=== PATIENT | male | born 1960 | race Caucasian/White ===

== ENCOUNTER 2021-11-05 12:21 | Emergency (ER) | payer OTHER, SELFPAY ==
[2021-11-05 12:41] VITALS: BP 131/81; PULSE 82; RESP 16; TEMP 36.3; O2SAT 97; BMI 25.1
--- NOTE | 2021-11-05 13:32 | ED.CHESTPAIN ---
HPI - Chest Pain General Chief Complaint: Chest Pain Stated Complaint: Tightness in chest, sore upper arms Time Seen by Provider: 11/05/21 13:12 History of Present Illness HPI narrative: 61-year-old man presenting to the emergency department with complaint of intermittent thumping type chest pain the left upper chest. 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 He does not recall a particular injury. It is not occurring at rest. He does acknowledge a history of irregular heartbeat but this does not feel familiar like that. He does acknowledge anxiety and apparently had similar symptoms which were attributed to that in the past. Had COVID 2 years ago and has been put on a number of pills since then. He says that the anxiety started around then. This pain is not particularly radiating although he noted himself to be sore in his shoulders today. Last occurred maybe 3 hours ago. He does take a medication for anxiety he says before going to work at 4:00 a.m. and then another 1 around 3:00 p.m.. Sounds as though he was home early today around 11 30 a.m.. He does take beta-tanya. He notes a history of GERD but has not been having that flaring lately and so has not been taking this medication. No rashes. Does struggle with headaches. During exam it does appear that he chews/grinds his teeth which he acknowledges. Denies a cardiac history in his family. No cough or cold symptoms and pain is not pleuritic. Is also not reproducible. notes cardiac workup some years ago including echocardiogram which was normal Related Data Home Medications Medication Instructions Recorded Confirmed celecoxib 200 mg capsule mg 11/05/21 hydroxyzine HCl 25 mg tablet mg 11/05/21 metoprolol succinate 50 mg mg PO 11/05/21 tablet,extended release 24 hr nortriptyline 10 mg capsule mg 11/05/21 sumatriptan succinate 100 mg tablet mg PO 11/05/21 Allergies Allergy/AdvReac Type Severity Reaction Status Date / Time No Known Drug Allergies Allergy Verified 11/05/21 12:48 Review of Systems Status of ROS Reports: 10 or more systems reviewed and unremarkable except as noted in History and below PFSH PFSH Social History Smoking Status: Never smoker Do you use any of these nicotine containing products: None How often do you have a drink containing alcohol: monthly or less AUDIT-C Alcohol total score: 1 Non-prescribed substance use: denies use Exam Narrative Exam Narrative: Pleasant. NAD. Slim. Well nourished. Calm. Cranial nerves 2-12 intact. Breathing easily. Lungs are clear equal expansion excursion. Palpation of the chest and back does not reproduce pain. He throws his arms up over his head without any difficulty. Equal pulses bilaterally and the upper extremities. Abdomen is protuberant soft and nontender. No masses appreciated. Skin is warm and dry without rash. Cardiovascular was regular rate and rhythm no murmur rub or gallop appreciated. No JVD. Oropharynx with ground dentition Const Vital Signs, click to edit/add: Vital Signs - 24 hr 11/05/21 12:41 11/05/21 14:12 Temperature 97.4 F L Pulse Rate [Right Pulse Oximeter] 82 69 Respiratory Rate 16 18 Blood Pressure [Right Upper Arm] 131/81 126/85 Pulse Oximetry 97 99 Oxygen Delivery Method Room Air Room Air Documenting provider has reviewed patient's vital signs: yes Course Course Hospital Course: No pain. No interventions required Vital Signs Vital signs: Initial Vital Signs Temperature 97.4 F L 11/05/21 12:41 Temperature Source Temporal Artery Scan 11/05/21 12:41 Pulse Rate 82 11/05/21 12:41 Pulse Rhythm 11/05/21 12:41 Respiratory Rate 16 11/05/21 12:41 Blood Pressure 131/81 11/05/21 12:41 Blood Pressure Mean 97 11/05/21 12:41 Blood Pressure Position Sitting 11/05/21 12:41 Pulse Oximetry 97 11/05/21 12:41 Oxygen Delivery Method 11/05/21 12:41 Vital Signs Temperature 97.4 F L 11/05/21 12:41 Pulse Rate 82 11/05/21 12:41 Respiratory Rate 16 11/05/21 12:41 Blood Pressure 131/81 11/05/21 12:41 Pulse Oximetry 97 11/05/21 12:41 Oxygen Delivery Method 11/05/21 12:41 Temperature 97.4 F L 11/05/21 12:41 Pulse Rate 69 11/05/21 14:12 Respiratory Rate 18 11/05/21 14:12 Blood Pressure 126/85 11/05/21 14:12 Pulse Oximetry 99 11/05/21 14:12 Oxygen Delivery Method 11/05/21 14:12 MDM - Chest Pain MDM Narrative Medical decision making narrative: Initial EKG reviewed by me shows normal sinus at 76. Symptoms sound like premature ventricular contractions. Are very transient and do not appear to be ischemic or even msk in origin. Mr. Garner had been requesting departure. Agreed to remain for placement of Holter monitor Lab Data Attestation: I reviewed the patient's lab results. Labs: Lab Results 11/05/21 11/05/21 11/05/21 Range/Units 13:43 14:04 14:04 Hgb 14.6 (13.5-17.5) gm/dL Sodium 139 (135-149) mmol/L Potassium 4.9 (3.6-5.1) mmol/L Chloride 104 (96-114) mmol/L Carbon Dioxide 29 (20-32) mmol/L BUN 14 (7-30) mg/dL Creatinine 0.8 (0.5-1.5) mg/dL Estimated Creat Clear 92.95 Estimated GFR 102 ml/min Glucose 100 (60-115) mg/dL Calcium 9.0 (8.4-10.6) mg/dL Troponin I < 0.01 L (0.01-0.04) ng/mL C-Reactive Protein < 0.5 L (0.5-1.0) mg/dL POC Troponin I 0.00 L (0.01-0.04) ng/ml Discharge Plan Discharge Clinical Impression: Atypical chest pain Patient Disposition: Home w/ Parent or Adult Condition: Stable Additional Instructions: If you can get this Holter monitor placed before you go, return it at the expected time and follow-up in about a week to see results with your primary care provider. Otherwise, in primary care this next week to discuss this visit further and make plans for further evaluation. This might also include a Holter monitor placement. Return for marked increase in persistent pain, associated lightheadedness, shortness of breath. Prescriptions: No Action celecoxib 200 mg capsule Label Comments: TAKE ONE CAPSULE BY MOUTH ONCE DAILY WITH A MEAL metoprolol succinate 50 mg tablet extended release 24 hr PO Label Comments: TAKE ONE TABLET BY MOUTH EVERY DAY sumatriptan succinate 100 mg tablet PO Label Comments: TAKE ONE TABLET BY MOUTH NEEDED FOR MIGRAINE, MAY REPEAT DOSE ONCE IN 2 HOURS IF MIGRAINE UNRESOLVED, DO NOT EXCEED 200 MG IN 24 HOURS nortriptyline 10 mg capsule Label Comments: TAKE TWO CAPSULES BY MOUTH AT BEDTIME hydroxyzine HCl 25 mg tablet Label Comments: TAKE ONE TABLET BY MOUTH TWICE A DAY NEEDED FOR ANXIETY Follow Up/Referrals: Provider,Not a Local [Primary Care Provider] - Stand Alone Forms: [facility] Info Instructions
[2021-11-05 14:12] VITALS: BP 126/85; PULSE 69; RESP 18; O2SAT 99
[2021-11-05 14:14] LABS: Hemoglobin* 14.6 gm/dL (13.5-17.5)
[2021-11-05 14:32] LABS: Chloride* 104 mmol/L (96-114); Potassium* 4.9 mmol/L (3.6-5.1); Sodium* 139 mmol/L (135-149)
[2021-11-05 14:34] LABS: Creatinine* 0.8 mg/dL (0.5-1.5); Est. Creatinine Clearance* 92.95; Estimated Glomerular Filt Rate 102 ml/min
[2021-11-05 14:35] LABS: Blood Urea Nitrogen* 14 mg/dL (7-30); Carbon Dioxide* 29 mmol/L (20-32); Glucose* 100 mg/dL (60-115)
[2021-11-05 14:47] LABS: C Reactive Protein* < 0.5 mg/dL (0.5-1.0); Troponin I* < 0.01 ng/mL (0.01-0.04)
== END 2021-11-05 15:40 | disposition home or self-care (01) ==
PROVIDERS: Emergency Provider Family Medicine
DX: R07.89 Other chest pain (principal)
CPT/HCPCS: 36415; 80048; 84484; 85018; 86140; 93005; 93225; 93226; 99283

== ENCOUNTER 2022-02-11 22:25 | Emergency (ER) | payer OTHER, SELFPAY ==
[2022-02-11 22:41] VITALS: BP 165/90; PULSE 85; RESP 16; TEMP 36.8; O2SAT 98; BMI 24.3
[2022-02-11 23:49] LABS: Basophils Absolute Auto 0.04 K/uL (0.00-0.30); Basophils Percent Auto 0.7 % (0.0-3.0); Eosinophils Absolute Auto 0.21 K/uL (0.00-0.50); Eosinophils Percent Auto 3.7 % (0.0-7.0); Hematocrit 42.9 % (37.0-53.0); Hemoglobin* 14.4 gm/dL (13.5-17.5); Lymphocytes Absolute Auto 2.31 K/uL (0.90-2.90); Lymphocytes Percent Auto 40.4 % (20-44); Mean Corpuscular HGB Conc 34 gm/dL (32-36); Mean Corpuscular Hemoglobin 30 pg (26-34); Mean Corpuscular Volume 88 fL (80-100); Monocytes Percent Auto 11.9 % (0.0-11.0); Neutrophils Absolute Auto 2.48 K/uL (1.7-7.0); Neutrophils Percent Auto 43.3 % (42.0-72.0); Platelet Count* 152 K/uL (140-440); RDW Coefficient of Variation % 14.4 % (11.5-15.5); Red Blood Count 4.86 m/uL (4.30-5.90); Slide Review Reflex No; White Blood Count* 5.72 K/uL (4.50-11.00)
[2022-02-11 23:49] LABS: Appearance Urine Clear (Clear); Bilirubin Urine Negative (Negative); Blood Urine Negative (Negative); Color Urine Yellow (Yellow); Glucose Urine Negative (Negative); Ketones Urine 1+ (Negative); Leukocyte Esterase Urine Negative (Negative); Nitrite Urine Negative (Negative); Protein Urine Negative (Negative); Urobilinogen Urine 0.2 (0.2-1.0)
[2022-02-11 23:56] LABS: RBC Urine 0-2 (0-2); Squamous Epithelial Cell Urine Few (None-Few); WBC Urine 0-2 (0-5)
[2022-02-12 00:01] LABS: Albumin* 4.3 g/dL (3.3-5.0); Chloride* 110 mmol/L (96-114)
[2022-02-12 00:02] LABS: Potassium* 3.8 mmol/L (3.6-5.1); Sodium* 141 mmol/L (135-149)
[2022-02-12 00:04] LABS: Creatinine* 0.7 mg/dL (0.5-1.5); Est. Creatinine Clearance* 106.23; Estimated Glomerular Filt Rate 106 ml/min
[2022-02-12 00:05] LABS: Alanine Aminotransferase* 21 U/L (4-50); Alkaline Phosphatase* 88 U/L (40-150); Aspartate Amino Transferase* 26 U/L (12-35); Bilirubin Direct* 0.1 mg/dL (0.0-0.5); Bilirubin Total* 0.5 mg/dL (0.1-1.5); Blood Urea Nitrogen* 20 mg/dL (7-30); Calcium* 8.8 mg/dL (8.4-10.6); Carbon Dioxide* 23 mmol/L (20-32); Glucose* 88 mg/dL (60-115); Lipase* 50 U/L (23-300); Total Protein* 7.1 g/dL (6.0-8.3)
[2022-02-12 00:08] LABS: C Reactive Protein* < 0.5 mg/dL (0.5-1.0); Ethanol* < 0.01 % (0.01-0.03)
--- NOTE | 2022-02-12 00:34 | ED_ITS ---
HPI - Abdominal Pain General Chief Complaint: Abdominal Pain Stated Complaint: Stomach Pain for Days Time Seen by Provider: 02/12/22 00:16 Source: patient Mode of arrival: ambulatory Limitations: no limitations History of Present Illness HPI narrative: 61-year-old male presents with a 3 day history of intermittent epigastric pain. Achy in nature, not affected by food. He had some mild nausea for about a 1/2 hour once with this episode, but has not continued to have persistent symptoms. There has been no vomiting. His last bowel movement was less than 12 hours ago and was normal, brown and formed. No blood in his stools. He does have a history of prior gastric reflux on specific questioning and states that he had been prescribed medication for this 3 or 4 years ago and is no longer taking. Is not smoke or drink alcohol. Review of the record Rx for arthritis he does report that he occasionally uses ibuprofen for headaches as well. He has not tried any interventions to help with his symptoms, no [id number] medications, no Maalox, omeprazole, other medications. No prior history of abdominal surgeries, no prior history of similar symptoms per his report. No prior endoscopy or colonoscopy. He reports that he had last couple of weeks and ones reportedly negative. Past medical history notable for hypertension, he does take aspirin and an unknown blood pressure medication daily. I can obtain some outside records and it looks as though he is prescribed metoprolol but also amitriptyline, sumatriptan and Celebrex. No known drug allergies. Socially nonsmoker nondrinker with no pertinent travel. ROS is notable for the GI symptoms as above only, otherwise denies times 12 systems. Related Data Home Medications Medication Instructions Recorded Confirmed celecoxib 200 mg capsule mg 11/05/21 hydroxyzine HCl 25 mg tablet mg 11/05/21 metoprolol succinate 50 mg mg PO 11/05/21 tablet,extended release 24 hr nortriptyline 10 mg capsule mg 11/05/21 sumatriptan succinate 100 mg tablet mg PO 11/05/21 Previous Rx's Medication Instructions Recorded omeprazole 20 mg capsule,delayed 20 mg PO DAILY #30 caps 02/12/22 release Allergies Allergy/AdvReac Type Severity Reaction Status Date / Time No Known Drug Allergies Allergy Verified 11/05/21 12:48 PFSH PFS Social History Smoking Status: Never smoker Do you use any of these nicotine containing products: None How often do you have a drink containing alcohol: monthly or less AUDIT-C Alcohol total score: 1 Non-prescribed substance use: denies use Exam Const: Vital Signs, click to edit/add: Vital Signs - 24 hr 02/11/22 22:41 Temperature 98.2 F Pulse Rate [Left P ulse Oximeter] 85 Respiratory Rate 16 Blood Pressure [Le ft Upper Arm] 165/90 H Pulse Oximetry 98 Oxygen Delivery Me thod Room Air Documenting provider has reviewed patient's vital signs: yes Common normals: no apparent distress General appearance: cooperative, comfortable and well kempt HENMT: Common normals: normocephalic Head and scalp: normocephalic Face and sinus: normal facial exam Mouth: oral and palatal mucosa normal Eye: Common normals: conjunctivae normal Conjunctiva: conjunctiva(e) normal Resp: Common normals: normal respiratory effort, no use of accessory muscles and clear to auscultation bilaterally Effort & inspection: able to speak in complete sentences Auscultation: clear to auscultation bilaterally Cardio: Common normals: regular rate, regular rhythm, S1 normal heart sound, S2 normal heart sound, no murmurs and peripheral pulses 2+ throughout Rate: regular rate Rhythm: regular rhythm Heart sounds: S1 normal and S2 normal Peripheral pulses: pulses 2+ throughout GI: Common normals: Normal to inspection, nondistended, normoactive bowel sounds present Other: Mildly tender to epigastric region only. No tenderness to other portions of the abdomen. No rebound tenderness or guarding anywhere. No mass. No hepatosplenomegaly. No surgical scarring. Extremity: Common normals: no pedal edema Neuro: Speech: speech normal Motor exam: no tremor noted and no movement abnormalities noted Psych: Common normals: mental status grossly normal Appearance: well kempt Activity/motor behavior: appropriate eye contact Insight: fair Judgement: judgment good Skin: Common normals: no rashes or lesions noted General skin exam: no rashes or lesions noted Course Vital Signs Vital signs: Initial Vital Signs Temperature 98.2 F 02/11/22 22:41 Temperature Source Temporal Artery Scan 02/11/22 22:41 Pulse Rate 85 02/11/22 22:41 Pulse Rhythm 02/11/22 22:41 Respiratory Rate 16 02/11/22 22:41 Blood Pressure 165/90 H 02/11/22 22:41 Blood Pressure Mean 115 02/11/22 22:41 Blood Pressure Position Sitting 02/11/22 22:41 Pulse Oximetry 98 02/11/22 22:41 Oxygen Delivery Method 02/11/22 22:41 Vital Signs Temperature 98.2 F 02/11/22 22:41 Pulse Rate 85 02/11/22 22:41 Respiratory Rate 16 02/11/22 22:41 Blood Pressure 165/90 H 02/11/22 22:41 Pulse Oximetry 98 02/11/22 22:41 Oxygen Delivery Method 02/11/22 22:41 Temperature 98.2 F 02/11/22 22:41 Pulse Rate 85 02/11/22 22:41 Respiratory Rate 16 02/11/22 22:41 Blood Pressure 165/90 H 02/11/22 22:41 Pulse Oximetry 98 02/11/22 22:41 Oxygen Delivery Method 02/11/22 22:41 MDM - Abdominal Pain MDM Narrative Medical decision making narrative: Physician from previous shift was called away prior to starting exam but did order laboratory studies which I have reviewed. These appear reassuring. Differential diagnosis including pancreatitis, gastritis, stomach ulcer, gastroenteritis, esophagitis, Appendicitis,gallbladder disease. Labs reassuring, exam focusing on stomach only with no severe features. Counseled patient on management. Omeprazole 40 mg p.o. x1 will be given with Carafate 1 g p.o. x1. Will start omeprazole 20 mg once daily for the next couple of weeks. Follow-up with primary care if not improving in a few weeks for discussed workup, testing for H pylori, endoscopy etc.. Alarm symptoms that would warrant ED presentation were reviewed. Lab Data Attestation: I reviewed the patient's lab results. Labs: Lab Results 02/11/22 02/11/22 02/11/22 Range/Units 23:31 23:35 23:40 WBC 5.72 (4.50-11.00) K/uL RBC 4.86 (4.30-5.90) m/uL Hgb 14.4 (13.5-17.5) gm/dL Hct 42.9 (37.0-53.0) % MCV 88 (80-100) fL MCH 30 (26-34) pg MCHC 34 (32-36) gm/dL RDW Coeff of Kaushik 14.4 (11.5-15.5) % Plt Count 152 (140-440) K/uL Neut % (Auto) 43.3 (42.0-72.0) % Lymph % (Auto) 40.4 (20-44) % [place] % (Auto) 11.9 H (0.0-11.0) % Eos % (Auto) 3.7 (0.0-7.0) % Baso % (Auto) 0.7 (0.0-3.0) % Neut # (Auto) 2.48 (1.7-7.0) K/uL Lymph # (Auto) 2.31 (0.90-2.90) K/uL [place] # (Auto) 0.70 (0.00-0.90) K/UL Eos # (Auto) 0.21 (0.00-0.50) K/uL Baso # (Auto) 0.04 (0.00-0.30) K/uL Abs Immat Gran (auto) 0.00 (0.00-0.30) K/uL Imm/Tot Granulo (auto) 0.0 % Sodium 141 (135-149) mmol/L Potassium 3.8 (3.6-5.1) mmol/L Chloride 110 (96-114) mmol/L Carbon Dioxide 23 (20-32) mmol/L BUN 20 (7-30) mg/dL Creatinine 0.7 (0.5-1.5) mg/dL Estimated Creat Clear 106.23 Estimated GFR 106 ml/min Glucose 88 (60-115) mg/dL Calcium 8.8 (8.4-10.6) mg/dL Total Bilirubin 0.5 (0.1-1.5) mg/dL Direct Bilirubin 0.1 (0.0-0.5) mg/dL AST 26 (12-35) U/L ALT 21 (4-50) U/L Alkaline Phosphatase 88 (40-150) U/L C-Reactive Protein < 0.5 L (0.5-1.0) mg/dL Total Protein 7.1 (6.0-8.3) g/dL Albumin 4.3 (3.3-5.0) g/dL Lipase 50 (23-300) U/L Urine Color Yellow (Yellow) Urine Appearance Clear (Clear) Urine pH 7.0 (5.0-8.5) Ur Specific Fe [employer] 1.020 (1.000-1.030) Urine Protein Negative (Negative) Urine Glucose (UA) Negative (Negative) Urine Ketones 1+ A (Negative) Urine Blood Negative (Negative) Urine Nitrite Negative (Negative) Urine Bilirubin Negative (Negative) Urine Urobilinogen 0.2 (0.2-1.0) Ur Leukocyte Esterase Negative (Negative) Urine RBC 0-2 (0-2) Urine WBC 0-2 (0-5) Ur Squamous Epith Cells Few (None-Few) Urine Bacteria None (None) Ethyl Alcohol < 0.01 L (0.01-0.03) % Discharge Plan Discharge Clinical Impression: Gastritis Patient Disposition: Home, Self-Care Condition: Stable Instructions: Gastritis (DC), Diet for Stomach Ulcers and Gastritis (ED) Additional Instructions: as we discussed, your symptoms and exam are consistent with some mild gastritis of the stomach. Your laboratory studies are reassuring. Your given stomach acid medicine called omeprazole and a 2nd medicine that Will coat the stomach and kick in faster called Carafate. I will provide you with a prescription for omeprazole to continue taking for the next month. As we discussed, alcohol and smoking tend to make reflux a lot worse. In your case, it may be related to ibuprofen or other arthritis medications. It is safe to use the omeprazole long-term if needed. For most people, I recommend that you take it for 4 weeks and if your symptoms have improved, you taper off of the medication. If her symptoms have not improved in 4 weeks, you need to make a followup with her primary care provider to discuss additional workup including testing for a bacterial infection called H pylori and an endoscopy. as we discussed, it is important that you carry a list of her medications or pictures of the pill bottles with you when you are seeking medical care outside of your typical primary care office. Activity Level: No Restrictions Discharge Diet: Regular Prescriptions: New omeprazole 20 mg capsule,delayed release(DR/EC) 20 mg PO DAILY Qty: 30 0RF No Action celecoxib 200 mg capsule Label Comments: TAKE ONE CAPSULE BY MOUTH ONCE DAILY WITH A MEAL metoprolol succinate 50 mg tablet extended release 24 hr PO Label Comments: TAKE ONE TABLET BY MOUTH EVERY DAY sumatriptan succinate 100 mg tablet PO Label Comments: TAKE ONE TABLET BY MOUTH NEEDED FOR MIGRAINE, MAY REPEAT DOSE ONCE IN 2 HOURS IF MIGRAINE UNRESOLVED, DO NOT EXCEED 200 MG IN 24 HOURS nortriptyline 10 mg capsule Label Comments: TAKE TWO CAPSULES BY MOUTH AT BEDTIME hydroxyzine HCl 25 mg tablet Label Comments: TAKE ONE TABLET BY MOUTH TWICE A DAY NEEDED FOR ANXIETY Follow Up/Referrals: Provider,Not a Local [Primary Care Provider] - Stand Alone Forms: [facility] [employer] Info Instructions
[2022-02-12] MEDS: OMEPRAZOLE 20 MG CAPSULE DR 40 MG PO (00:45)
--- OUTSIDE RECORDS SUMMARY | 2022-02-12 00:45 | XMS_ITS | Continuity of Care Document ---
:[address] [facility] Care Team Providers Name Role Phone [facility] Unavailable Unavailable Problems Combined list of problems from Department of Defense and Veterans Affairs facilities. It does not include entries that were removed or entered in error. 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 Medications provided include 1) outpatient medications from the last 15 months, and 2) patient-reported medications. Medication Details Route Status Patient Prescription Prescription Last Ordering Order Source Instructions Expires Number Dispense Provider Date Date ASPIRIN CHEW ONE ORALLY SUSPEND 08/27/2022 [id number] HASTIN GS, 08/27/ EARLENE C 81MG TABLET ED 3 SHANNAN 2021 SRIVASTAVA TAB,CHEWABL BY MOUTH II CBOC E EVERY MORNING CELECOXIB TAKE ONE ORALLY ACTIVE 09/20/2022 [id number] NSU BUGA,C 09/22/ EARLENE C 200MG CAP CAPSULE 2 HRISTINE 2021 PEARS ON BY MOUTH N CBOC EVERY DAY NEEDED FOR MIGRAINE HEADACHE CELECOXIB TAKE ONE ORALLY DISCONT 08/30/2022 [id number] HARRISON STINGS, 08/29/ EARLENE C 200MG CAP CAPSULE INUED 2 SHANNAN 2021 PEAR SON BY MOUTH (EDIT) II CBOC THREE TIMES A DAY NEEDED FOR MIGRAINE HEADACHE CELECOXIB TAKE ONE ORALLY DISCONT 08/27/2022 [id number] HARRISON STINGS, 08/27/ EARLENE C 200MG CAP CAPSULE INUED 2 SHANNAN 2021 PEAR SON BY MOUTH (EDIT) II CBOC THREE TIMES A DAY NEEDED FOR MIGRAINE HEADACHE HYDROXYZINE TAKE TWO ORALLY ACTIVE 08/27/2022 [id number] H ASTINGS, 08/27/ EARLENE C HCL 10MG TABLETS 2 2021 PEARS ON TAB BY MOUTH II CBOC TWO TIMES A DAY NEEDED FOR ANXIETY METOPROLOL TAKE ORALLY SUSPEND 08/27/2022 [id number] HASTIN GS, 08/27/ EARLENE C SUCCINATE ONE-HALF ED 3 2021 PEA RSON 100MG TABLET II CBOC TAB,SA BY MOUTH EVERY MORNING NORTRIPTYLI TAKE TWO ORALLY SUSPEND 08/27/2022 [id number] KAYY, 08/27/ EARLENE C NE HCL 10MG CAPSULES ED 3 2021 P EARSON CAP BY MOUTH II CBOC AT BEDTIME Immunizations Combined list of available immunizations from the Department of Defense and Veterans Affairs facilities. Immunization Series Date Administered Site Reaction Lot CVX Drug St atus Comments Source Given By Number Code [employer] Supervisor COVID-19 3 complet [place] ([employer]ception [employer]), 2021 ed [place] [facility] MRNA, LNP-S, H CS PF, 30 MCG/0.3 ML DOSE, NANNETTE-SUCROSE (AGES 12+ YEARS) INFLUENZA, complet [place] UNSPECIFIED 2020 ed [place] [facility] FORMULATION HC S COVID-19 2 complet [place] ([employer]ception [employer]), 2020 ed [facility] MRNA, LNP-S, H CS PF, 30 MCG/0.3 ML DOSE COVID-19 1 complet [place] ([employer]ception [employer]), 2020 ed [place] MRNA, LNP-S, H CS PF, 30 MCG/0.3 ML DOSE TDAP complet [place] 2011 ed [facility] HCS Results Combined list of recent chemistry, hematology and other laboratory results from Department of Defense and Veterans Affairs, ranging from 15 months to all on record, depending upon the facility. Order Results Value Reference Date Interpretation Specimen Commen ts Source Name Range COMPREHEN CREATININE 0.9 0.7 - 1.2 08/15 Specimen Type: PLASMA EARLENE C AKMILAH [/ No comment e ntered. SRIVASTAVA METABOLIC E] IN SERUM Ordering Provider: SHANNAN SULTANA II [facility]OC PANEL+MG OR PLASMA Report Relea sed Date/Time: Aug 15, 2021 09:57 AM Reporting Lab: [facility] [place] [address] Performing Lab: [facility] [address] [place] [address] COMPREHEN UREA 16 8 - 26 08/15 Specimen Type: PLASMA EARLENE C SIVE NITROGEN /2021 No comment ente red. SRIVASTAVA METABOLIC [MASS/VOLUM Ordering Provider: SHANNAN SULTANA II [facility]OC PANEL+MG E] IN SERUM Report Rel eased Date/Time: Aug 15, 2021 09:57 AM OR PLASMA Reporting Lab : [facility] [place] [address] Performing Lab: [facility] [place] [address] COMPREHEN GLUCOSE 82 74 - 100 08/15 Specimen Type : PLASMA EARLENE C SIVE [MASS/VOLUM /2021 No comment e ntered. SRIVASTAVA METABOLIC E] IN SERUM Ordering Provider: SHANNAN SULTANA II [facility] PANEL+MG OR PLASMA Report Relea sed Date/Time: Aug 15, 2021 09:57 AM Reporting Lab: [facility] [address] [place] [facility] [address] Performing Lab: [facility] [address] [place] [facility] [address] COMPREHEN SODIUM 139 136 - 145 08/15 Specimen Typ e: PLASMA EARLENE C SIVE [MOLES/VOLU /2021 No comment e ntered. SRIVASTAVA METABOLIC ME] IN Ordering Prov ider: SHANNAN SULTANA II [facility]OC PANEL+MG SERUM OR Report Releas ed Date/Time: Aug 15, 2021 09:57 AM PLASMA Reporting Lab: [facility] [address] [place] [facility] [address] Performing Lab: [facility] [address] [place] [facility] [address] COMPREHEN POTASSIUM 4.1 3.5 - 5.1 08/15 Specimen T ype: PLASMA EARLENE C SIVE [MOLES/VOLU /2021 No comment e ntered. SRIVASTAVA METABOLIC ME] IN Ordering Prov ider: SHANNAN SULTANA II CBOC PANEL+MG SERUM OR Report Releas ed Date/Time: Aug 15, 2021 09:57 AM PLASMA Reporting Lab: [facility] [place] [address] Performing Lab: [facility] [address] [place] [facility] [address] COMPREHEN CHLORIDE 109 98 - 107 08/15 H Specimen Typ e: PLASMA EARLENE C SIVE [MOLES/VOLU /2021 No comment e ntered. SRIVASTAVA METABOLIC ME] IN Ordering Prov ider: SHANNAN SULTANA II CBOC PANEL+MG SERUM OR Report Releas ed Date/Time: Aug 15, 2021 09:57 AM PLASMA Reporting Lab: [facility] [address] [place] [facility] [address] Performing Lab: [facility] [address] [place] [facility] [address] COMPREHEN CARBON 23 22 - 29 08/15 Specimen Type: PLASMA EARLENE C SIVE DIOXIDE, /2021 No comment ente red. SRIVASTAVA METABOLIC TOTAL Ordering Prov ider: SHANNAN SULTANA II [facility]OC PANEL+MG [MOLES/VOLU Report Rel eased Date/Time: Aug 15, 2021 09:57 AM ME] IN Reporting Lab: [facility] SERUM OR [address] [facility] [address] PLASMA Performing Lab: [facility] [address] [place] [facility] [address] COMPREHEN CALCIUM 8.9 8.4 - 10.2 08/15 Specimen Ty pe: PLASMA EARLENE C SIVE [MASS/VOLUM /2021 No comment e ntered. SRIVASTAVA METABOLIC E] IN SERUM Ordering Provider: SHANNAN SULTANA II CBOC PANEL+MG OR PLASMA Report Relea sed Date/Time: Aug 15, 2021 09:57 AM Reporting Lab: [facility] [address] [place] [facility] [address] Performing Lab: [facility] [address] [place] [facility] [address] COMPREHEN PROTEIN 6.6 6.0 - 8.3 08/15 Specimen Typ e: PLASMA EARLENE C SIVE [MASS/VOLUM /2021 No comment e ntered. SRIVASTAVA METABOLIC E] IN SERUM Ordering Provider: SHANNAN SULTANA II [facility]OC PANEL+MG OR PLASMA Report Relea sed Date/Time: Aug 15, 2021 09:57 AM Reporting Lab: [facility] [address] [place] [facility] [address] Performing Lab: [facility] [address] [place] [facility] [address] COMPREHEN ALBUMIN 3.8 3.5 - 5.2 08/15 Specimen Typ e: PLASMA EARLENE C SIVE [MASS/VOLUM /2021 No comment e ntered. SRIVASTAVA METABOLIC E] IN SERUM Ordering Provider: SHANNAN SULTANA II CBOC PANEL+MG OR PLASMA Report Relea sed Date/Time: Aug 15, 2021 09:57 AM Reporting Lab: [facility] [address] [place] [address] Performing Lab: [facility] [address] [place] [address] COMPREHEN BILIRUBIN.T 0.5 0.2 - 1.2 08/15 Specimen Type: PLASMA EARLENE C SIVE OTAL /2021 No comment enter ed. [place] METABOLIC [MASS/VOLUM Ordering Provider: SHANNAN SULTANA II CBOC PANEL+MG E] IN SERUM Report Rel eased Date/Time: Aug 15, 2021 09:57 AM OR PLASMA Reporting Lab : [facility] [place] [address] Performing Lab: [facility] [address] [place] [address] COMPREHEN MAGNESIUM 2.1 1.6 - 2.6 08/15 Specimen T ype: PLASMA EARLENE C SIVE [MASS/VOLUM /2021 No comment e ntered. [place] METABOLIC E] IN SERUM Ordering Provider: SHANNAN SULTANA II CBOC PANEL+MG OR PLASMA Report Relea sed Date/Time: Aug 15, 2021 09:57 AM Reporting Lab: [facility] [address] [place] [address] Performing Lab: [facility] [address] [place] [address] COMPREHEN ANION GAP 7 5 - 15 08/15 Specimen Typ e: PLASMA EARLENE C SIVE IN SERUM OR /2021 No comment e ntered. [place] METABOLIC PLASMA Ordering Prov ider: SHANNAN SULTANA II [facility]OC PANEL+MG Report Release d Date/Time: Aug 15, 2021 09:57 AM Reporting Lab: [facility] [place] [address] Performing Lab: [facility] [address] [place] [address] COMPREHEN ALKALINE 86 40 - 150 08/15 Specimen Typ e: PLASMA EARLENE C SIVE PHOSPHATASE /2021 No comment e ntered. [place] METABOLIC [ENZYMATIC Ordering P rovider: SHANNAN SULTANA II CBOC PANEL+MG ACTIVITY/VO Report Rel eased Date/Time: Aug 15, 2021 09:57 AM LUME] IN Reporting Lab: [facility] SERUM OR [address] [facility] [address] PLASMA Performing Lab: [facility] [address] [place] [facility] [address] COMPREHEN ALANINE 21 <55 - 55 08/15 Specimen Type : PLASMA EARLENE C SIVE AMINOTRANSF /2021 No comment e ntered. [place] METABOLIC ERASE Ordering Prov ider: SHANNAN SULTANA II CBOC PANEL+MG [ENZYMATIC Report Rele ased Date/Time: Aug 15, 2021 09:57 AM ACTIVITY/VO Reporting L ab: [facility] LU[place]] IN [address] [facility] [address] SERUM OR Performing Lab : [facility] PLASMA [address] [place] [facility] [address] COMPREHEN ASPARTATE 20 <34 - 34 08/15 Specimen Ty pe: PLASMA EARLENE C SIVE AMINOTRANSF /2021 No comment e ntered. [place] METABOLIC ERASE Ordering Prov ider: SHANNAN SULTANA II [facility]OC PANEL+MG [ENZYMATIC Report Rele ased Date/Time: Aug 15, 2021 09:57 AM ACTIVITY/VO Reporting L ab: [facility] [place]] IN [address] [facility] [address] SERUM OR Performing Lab : [facility] PLASMA [address] [place] [facility] [address] COMPREHEN CREAT >90 60 08/15 Specimen Type: PLASMA EARLENE C SIVE EGFR(CKD-EP /2021 No comment e ntered. [place] METABOLIC I) Ordering Prov ider: SHANNAN SULTANA II CBOC PANEL+MG Report Release d Date/Time: Aug 15, 2021 09:57 AM Reporting Lab: [facility] [address] [place] [facility] [address] Performing Lab: [facility] [address] [place] [facility] [address] CBC LEUKOCYTES 5.26 4.0 - 11.0 08/15 Specimen T ype: BLOOD EARLENE C [#/VOLUME] /2021 No comment en tered. SRIVASTAVA IN BLOOD BY Ordering Pr ovider: SHANNAN SULTANA II CBOC AUTOMATED Report Releas ed Date/Time: Aug 15, 2021 09:57 AM COUNT Reporting Lab: [facility] [address] [place] [facility] [address] Performing Lab: [facility] [place] [address] CBC ERYTHROCYTE 4.78 4.6 - 6.2 08/15 Specimen T ype: BLOOD EARLENE C S /2021 No comment enter ed. SRIVASTAVA [#/VOLUME] Ordering Pro vider: SHANNAN SULTANA II [facility] IN BLOOD BY Report Rele ased Date/Time: Aug 15, 2021 09:57 AM AUTOMATED Reporting Lab : [facility] COUNT [address] [place] [address] Performing Lab: [facility] [address] [place] [facility] [address] CBC HEMOGLOBIN 14.1 13.5 - 08/15 Specimen Type : BLOOD EARLENE C [MASS/VOLUM 17.9 No comment e ntered. SRIVASTAVA E] IN BLOOD Ordering Pr ovider: SHANNAN SULTANA II CBOC Report Released Date/Time: Aug 15, 2021 09:57 AM Reporting Lab: [facility] [address] [place] [facility] [address] Performing Lab: [facility] [address] [place] [facility] [address] CBC HEMATOCRIT 42.6 41 - 54 08/15 Specimen Type : BLOOD EARLENE C [VOLUME /2021 No comment enter ed. SRIVASTAVA FRACTION] Ordering Prov ider: SHANNAN SULTANA II [facility]OC OF BLOOD BY Report Rele ased Date/Time: Aug 15, 2021 09:57 AM AUTOMATED Reporting Lab : [facility] [place] [address] Performing Lab: [facility] [address] [place] [facility] [address] CBC MCV 89.1 80 - 100 08/15 Specimen Type: BLOOD EARLENE C [ENTITIC /2021 No comment ente red. SRIVASTAVA VOLUME] BY Ordering Pro vider: SHANNAN SULTANA II CBOC AUTOMATED Report Rele ed Date/Time: Aug 15, 2021 09:57 AM COUNT Reporting Lab: [facility] [address] [place] [facility] [address] Performing Lab: [facility] [address] [place] [facility] [address] CBC MCH 29.5 27 - 33 08/15 Specimen Type: B LOOD EARLENE C [ENTITIC /2021 No comment trip SRIVASTAVA MASS] BY Ordering Provi zan: SHANNAN SULTANA II CBOC AUTOMATED Report Releas ed Date/Time: Aug 15, 2021 09:57 AM COUNT Reporting Lab: [facility] [place] [address] Performing Lab: [facility] [address] [place] [address] CBC MCHC 33.1 32.0 - 08/15 Specimen Type: B LOOD EARLENE C [MASS/VOLUM 37.5 /2021 No comment e ntered. SRIVASTAVA E] BY Ordering Provid er: SHANNAN SULTANA II CBOC AUTOMATED Report Releas ed Date/Time: Aug 15, 2021 09:57 AM COUNT Reporting Lab: [facility] [place] [address] Performing Lab: [facility] [place] [address] CBC PLATELETS 152 150 - 400 08/15 Specimen Typ e: BLOOD EARLENE C [#/VOLUME] /2021 No comment jens SRIVASTAVA IN BLOOD BY Ordering Pr ovider: SHANNAN SULTANA II [facility]OC AUTOMATED Report Releas ed Date/Time: Aug 15, 2021 09:57 AM COUNT Reporting Lab: [facility] [place] [address] Performing Lab: [facility] [address] [place] [address] CBC PLATELET 13.1 7.4 - 10.4 08/15 H Specimen Typ e: BLOOD EARLENE C MEAN VOLUME /2021 No comment e ntered. [place] [ENTITIC Ordering Provi zan: SHANNAN SULTANA II CBOC VOLUME] IN Report Relea sed Date/Time: Aug 15, 2021 09:57 AM BLOOD BY Reporting Lab: [facility] AUTOMATED [address] [place] [address] COUNT Performing Lab: [facility] [address] [place] [facility] [address] CBC ERYTHROCYTE 14.6 11.5 - 08/15 H Specimen Typ e: BLOOD EARLENE C DISTRIBUTIO 14.5 /2021 No comment e ntered. [place] N WIDTH Ordering Provid er: SHANNAN SULTANA II CBOC [RATIO] BY Report Relea sed Date/Time: Aug 15, 2021 09:57 AM AUTOMATED Reporting Lab : [facility] [place] [address] Performing Lab: [facility] [address] [place] [facility] [address] CBC PLATELETS 13.7 0 - 10 08/15 H Specimen Type: BLOOD EARLENE C RETICULATED /2021 No comment e ntered. SRIVASTAVA /100 Ordering Provid er: SHANNAN SULTANA II CBOC PLATELETS Report Releas ed Date/Time: Aug 15, 2021 09:57 AM IN BLOOD BY Reporting L ab: [facility] AUTOMATED [address] [facility] [address] COUNT Performing Lab: [facility] [address] [place] [facility] [address] Vital Signs Combined list of inpatient and outpatient Vital Signs from Department of Defense and Veterans Affairs, ranging from 12 months to all on record, depending upon the facility. Vital Sign Value Date Comments Source SYSTOLIC BLOOD PRESSURE 126 08/15/2021 09:08:58 [facility] DIASTOLIC BLOOD PRESSURE 80 08/15/2021 09:08:58 [facility] WEIGHT 158 08/15/2021 09:08:58 [facility] BMI 25kg/m2 08/15/2021 09:08:58 [facility] HEIGHT 66.75 08/15/2021 09:08:58 [facility] TEMPERATURE 97.7 08/15/2021 09:08:58 [facility] PULSE 58 08/15/2021 09:08:58 [facility] RESPIRATION 20 08/15/2021 09:08:58 [facility] Encounters Combined list of: 1) Encounters from Department of Veterans Affairs facilities going back up to the last 18 months. 2) Encounters from the Department of Defense facilities going back up to 280 months. Location Location Encounter Encounter Reason Attending ADM DC Stat us Disposition Source Details Type Number For Provider Date Date Visit Outpatient 10/10 [place] Encounter [id number] [facility] Outpatient [id number] [place] Encounter [id number] [facility] Outpatient [id number] [place] Encounter [id number] /2021 [facility] Outpatient [id number] Jacinta Uriostegui 08/15 [place] Encounter [id number] is: MAXI A /2021 PE ARSON 85 ICD-10- II CBOC CM Z00.00 Encntr for general adult medical exam w/o abnorma l finding s
w ith Provide r Comment s: Encount er for General Adult Medical Examina tion without Abnorma l Finding s Outpatient [id number] 08/19 [place] Encounter [id number] /[address] [facility] [facility] Outpatient [id number] 09/03 [place] En[place] [id number] /2021 [facility] Outpatient [id number] 09/26 [facility] Encounter [id number] [facility] 11 [facility] Outpatient [id number] SA SOCO 11/06 [place] Encounter [id number] RA R [facility] OFFICE O/P [id number] Diagnos ELIOT HENAO 11/27 [place] NEW LOW [id number] is: [place] /2021 [facility] 30-44 MIN ICD-10- HCS CM H31.012 Macula scars of posteri or pole (post-t raumati c), left eye<br/ >with Provide r Comment s: Macula Scars of Posteri or Pole (Postin flammat ory) (Post-T raumati c), left Eye Social History Combined list of available smoking, tobacco, and other social history from Department of Defense andVeterans Affairs facilities. Social History Type Response Date Comment Source Tobacco smoking VA-TOBACCO NEVER USED 08/15/2021 PAGE SRIVASTAVA CB status [facility] Advance Directives List of completed, amended, or rescinded Advance Directives on record at Department of Veterans Affairs facilities. An actual copy of the Directive is not included. Date Advance Directive Provider Source 08/15/2021 ADVANCE DIRECTIVE DISCUSSION [facility]
--- OUTSIDE RECORDS SUMMARY | 2022-02-12 00:45 | XMS_ITS | Encounter Summary ---
:1960 Author Organization [facility] rs Address [address] [place] [id number] Support Name Relationship Address Phone JIMMY JOHANSEN Unavailable Unavailable RADHA OLIVER [id number] Insurance Providers: All historical and current Section Date Range: From patient's date of to the date document was created.This section includes the names of all active insurance providers for the patient. Insurance Type of Plan Start of End of Group Member Insurance Policy P atient's Provider Coverage Name Policy Policy Number ID Provider's Serra's Relationship Coverage Coverage Telephone Name to Policy Number Serra [place] Mar 01 [id number] [phone] [facility] PATIENT SERVICE RY 2021 [id number] NILDA LloydER AIRCR 2 AFT INC AETNA PRESCRIPT RX Mar 01 [id number] [facility] ION PLAN 2021 0 [id number] [phone] KIMBERLEE Lloyd MANAGEMENT Selected Encounter This section includes the information on record at [place] for the Encounter. Date/Time Encounter Type Encounter Reason Provider Source Description Aug 15, 2021 Outpatient PRIMARY ICD-10-CM Z00.00 KINZA SULTANA 09:00 AM Encounter CARE/MEDICINE Encntr for BLAISE A II general adult medical exam w/o abnormal findings with Provider Comments: Encounter for General Adult Medical Examination without Abnormal Findings IHE Encounter Template Text not used by [facility] Assessments - Encounter Diagnoses This section includes the primary and secondary diagnoses documented for the Encounter. Date/Time Primary/Secondary Diagnosis Name Provider Source Diagnosis Aug 26, 2021 PRIMARY Encntr for general CARYL SULTANA 11:53 AM adult medical exam [address] A [facility] w/o abnormal findings Aug 26, 2021 SECONDARY Anxiety disorder, CARYL SULTANA 11:[address] A [facility] Aug 26, 2021 SECONDARY Essential CARYL SULTANA C 11:53 AM (primary) RD Guerline II [facility] hypertension Aug 26, 2021 SECONDARY Gastro-esophageal CARYL SULTANA C 11:[address] Guerline [facility] without esophagitis Aug 26, 2021 SECONDARY Migraine, unsp, CARYL SULTANA C 11:53 AM not intractable, RD Guerline II [facility] without status migrainosus Plan of Treatment: Future Appointments (+ 6 months) and Future Tests (+/- 45 days) The Plan of Treatment section includes future care activities for the [facility] [place] [facility] This section includes future appointments and future orders which are active, pending orscheduled.Future Appointments This section includes appointments that were scheduled to occur 6 months from the date of the Encounter, up to a maximum of 20 appointments. The data comes from all [place] treatment facilities. Appointment Date/Time Appointment Type Appointment Facili ty Name Sep 26, 2021 08:30 AM AMBULATORY - NONE [facility] Nov 06, 2021 11:26 PM AMBULATORY - NONE [facility] Nov 27, 2021 01:00 PM AMBULATORY - SURGERY [facility] S Lab Results: +/- 30 days of the encounter This section includes the Chemistry and Hematology Lab Results on record with [place] for the patient. Radiology Reports and Pathology Reports are provided separately, in subsequent sections.Lab Results This section contains the Chemistry/Hematology Results that were resulted 30 days before or 30 daysafter the date of the Encounter. Date/Time Source Result Type Result - Unit Interpretation Reference Range Comment Aug 15, 2021 [facility] COMPREHENSIVE METABOLIC Specime n Type: PLASMA 10:05 AM [facility] PANEL+MG No comment enter ed. Ordering Provid er: SHANNAN SULTANA II Report Released Date/Time: Aug 15, 2021 09:57 AM Reporting Lab: [facility] [address] [facility] [address] [facility] [id number] Performing Lab: [facility] I VE [facility] [id number] CREATININE 0.9 0.7-1.2 UREA NITROGEN 16 8-26 GLUCOSE 82 74-100 SODIUM 139 136-145 POTASSIUM 4.1 3.5-5.1 CHLORIDE 109 H 98-107 CO2 23 22-29 CALCIUM 8.9 8.4-10.2 PROTEIN,TOTAL 6.6 6.0-8.3 ALBUMIN 3.8 3.5-5.2 BILIRUBIN, TOTAL 0.5 0.2-1.2 MAGNESIUM 2.1 1.6-2.6 ANION GAP 7 5-15 ALKALINE PHOSPHATASE 86 40-150 ALT/SGPT 21 <55 AST/SGOT 20 <34 CREAT EGFR(CKD-EPI) >90 >60 Aug 15, 2021 10:05 AM [facility] CBC Speci men Type: BLOOD No comment enter ed. Ordering Provid er: SHANNAN SULTANA II Report Released Date/Time: Aug 15, 2021 09:57 AM Reporting Lab: [facility] [address] [facility] [id number] Performing Lab: [facility] ONE [facility] VE [facility] [address] WBC 5.26 4.0-11.0 RBC 4.78 4.6-6.2 HGB 14.1 13.5-17.9 HCT 42.6 41-54 MCV 89.1 80-100 MCH 29.5 27-33 MCHC 33.1 32.0-37.5 PLT 152 150-400 MPV 13.1 H 7.4-10.4 RDW 14.6 H 11.5-14.5 IPF 13.7 H 0-10 Vital Signs: All taken on the encounter date This section contains inpatient and outpatient Vital Signs collected on the date of the Encounter. Date/Time Temperature Pulse Blood Respiratory SP02 Pain Height Weight Jeffrey dy Source Pressure Rate Mass Index Aug 15, 97.7 F 58 126/80 20 /min 66.75 158 lb 25 [facility] 2021 09:08 /min mm[Hg] in [facility] AM [facility] Social History: Smoking Status (Most current) and Tobacco Use (All prior to encounter date) This section includes the most current, and the historical, smoking and tobacco-related health factors from the [place] facility where the Encounter took place.Current Smoking Status This section includes the most current smoking, or tobacco-related health factor, from the [place] facility where the Encounter took place. Date/Time Current Smoking Status Comment Facility Aug 15, 2021 09:00 AM VA-TOBACCO NEVER USED [facility] Advance Directives: All historical and current Section Date Range: From patient's date of to the date document was created. This section includes ALL of a patient's completed or amended [place] Advance and Rescinded Directives. The entries below indicate that a directive exists for the patient, but an actual copy is not included with this document. The data comes from all [place] facilities. Date Advance Directives Provider Source Aug 15, 2021 ADVANCE DIRECTIVE DISCUSSION [facility] Encounter Notes: All associated encounter notes This section contains the clinical notes associated to the Encounter. Date/Time Encounter Note(s) Provider Source Aug 15, 2021 09:10 AM PRIMARY CARE NURSING NOTE: ZAIDA HOLLOWAY LOCAL TITLE: CBOC NURSING PROGRESS NOTE CBOC STANDARD TITLE: PRIMARY CARE NURSING NOTE DATE OF NOTE: AUG 15, 2021@09:10 ENTRY DATE: AUG 15, 2021@09:10:35 AUTHOR: ZAIDA HOLLOWAY EXP COSIGNER: URGENCY: STATUS: COMPLETED TYPE OF VISIT: Appointment Check In Type of appointment: In-person appointment REASON FOR VISIT: New patient visit ALLERGIES: Patient has answered NKA VITAL SIGNS: Blood Pressure: 126/80 (08/15/2021 09:08) Pulse: 58 (08/15/2021 09:08) Respiration: 20 (08/15/2021 09:08) Temperature: 97.7 F [36.5 C] (08/15/2021 09:08) Weight: 158 lb [71.67 kg] (08/15/2021 09:08) Height: 66.75 in [169.5 cm] (08/15/2021 09:08) BMI: 25.0 O2 Sat: Pain: PAIN SCREEN: Patient is not having significant pain that the y wish to discuss with their provider today. Tobacco Pack Year History: Patient never smoked cigarettes or smoked FEWER THAN 100 cigarettes/lifetime Suicide Screen: C-SSRS Screening [place] Suicide Severity Rating Scale (C-SSRS) screener 1. Over the past month, have you wished you wer e or wished you could go to sleep and not wake up? No 2. Over the past month, have you had any actual thoughts of killing yourself? No 3. Over the past month, have you been thinking about how you might do this? Response not required due to responses to other questions. 4. Over the past month, have you had these thou ghts and had some intention of acting on them? Response not required due to responses to other questions. 5. Over the past month, have you started to wor k out or worked out the details of how to kill yourself? Response not required due to responses to other questions. 6. If yes, at any time in the past month did yo u intend to carry out this plan? Response not required due to responses to other questions. 7. In your lifetime, have you ever done anythin g, started to do anything, or prepared to do anything to end you r life (for example, collected pills, obtained a gun, gave away valu aubrie, went to the roof but didn't jump)? No 8. If YES, was this within the past 3 months? Response not required due to responses to other questions. Depression Screening: Perform PHQ-2 A PHQ-2 screen was performed. The score was 0 w hich is a negative screen for depression. Over the past two weeks, how often have you bee n bothered by the following problems? 1. Little interest or pleasure in doing things Not at all 2. Feeling down, depressed, or hopeless Not at all Alcohol Use Screen (AUDIT-C): Alcohol Screen: SCREEN FOR ALCOHOL (AUDIT-C) An alcohol screening test (AUDIT-C) was negativ e (score=1). 1. How often did you have a drink containing al cohol in the past year? Monthly or less 2. How many drinks containing alcohol did you h ave on a typical day when you were drinking in the past year? One or two drinks 3. How often did you have six or more drinks on one occasion in the past year? Never PTSD Screening: PC-PTSD-5 A PTSD screening test (PC-PTSD-5) was negative (score=0). Have you ever had any experience that was so fr ightening, horrible or upsetting that, IN THE PAST MONTH, you: Have you ever experienced this kind of event? NO 1. Had nightmares about the event(s) or thought about the event(s) when you did not want to? Response not required due to responses to other questions. 2. Tried hard not to think about the event(s) o r went out of your way to avoid situations that reminded you of the ev ent(s)? Response not required due to responses to other questions. 3. Been constantly on guard, watchful, or easil y startled? Response not required due to responses to other questions. 4. [place] numb or detached from people, activitie s, or your surroundings? Response not required due to responses to other questions. 5. [place] guilty or unable to stop blaming yourse lf or others for the event(s) or any problems the event(s) may have caused? Response not required due to responses to other questions. Nursing Annual Screening: Fall History Screen During the past 12 months, have you had any fal ls? Patient does not report any falls in the past 1 2 months. MEDICATIONS: Patient does not have an active prescription fo r one of the following medications: Antihypertensives, Antidepressants , Antipsychotics, Diuretics, or Opioid Analgesics (Contolled Subs tance medications used for pain). FALL RISK ADVICE: Fall Risk Advice provided. Handout entitled Fa ll Prevention At Home reviewed and given to patient and/or monchoan t other. Script Talk Screen Are you able to read your prescription bottles with your glasses, magnifiers or other aids? No Skin Screen Patient reports any current pressure ulcers, a history of pressure ulcers, or a wound from a medical administrative assistant or Patient is bed-confined or a wheelchair-user or Patient requires assistance to transfer/change position No, Skin Screen is Negative Home Abuse/Violence Screen Is your home free of abuse and violence? Yes Outpatient Nutrition Screen Body Mass Index (BMI)= 25.0 [place]: No data available [facility] Hgb A1C: No data available [place] Hgb A1C: No data available Point of Care Hgb A1C: POC HGB A1C____ Is patient's BMI less than 18.5? No Does patient have swallowing, coughing, or chew ing problems affecting oral intake? No Has patient experienced unplanned weight loss o r gain greater than 10 pounds over the last 2 months? No Is patient's Hgb A1C (Glycosylated Hemoglobin) greater than 9.5? No Is patient receiving Total Parenteral Nutrition (TPN) or Tube Feedings? No Patient Health Education Screen BARRIERS/SPECIAL NEEDS: No barriers identified PREFERRED STYLE OF LEARNING: No preference stated Client Assistive Service (MARY) Screen Does the patient require assistance with outpat ient visit? No MST Screening: Patient denies experiencing sexual tra alessia (MST). Tobacco Use Screening: The patient has never used tobacco. Homelessness/Food Insecurity Screen: In the past 2 months, have you been living in s table housing that you own, rent, or stay in as part of a household? Y es - Living in stable housing. Are you worried or concerned that in the next 2 months you may NOT have stable housing that you own, rent, or stay in a s part of a household? No - Not worried about housing near future [facility] [place] reports the following: Within the past 12 months, you worried whether your food would run out before you got money to buy more. Never true Within the past 12 months, the food you bought just didn't last and you didn't have money to get more. Never true Preferred Healthcare Language: 's preferred language for discussing hea lth care: Vincentian COVID-19 Immunization: Pfizer COVID-19 Vaccine given previously Patient received a prior dose of the Pfizer COV ID-19 Vaccine. Date: May 06, 2020 Location: [facility] Patient received a prior dose of the Pfizer COV ID-19 Vaccine. Date: October 10, 2020 Location: [facility] [employer] Space TS COVID-19 Vaccine given previously (Frandy-sucrose formulation - after January 2021 ) Patient received a prior dose of the Pfizer COV ID-19 Vaccine. Date: June 10, 2021 Series: Series 3 Location: [facility] Influenza Immunization: The patient has received the seasonal influenza vaccine for the current season at another location. Date: November, Exact date is unknown Location: [facility] Tdap Immunization: Prior Tdap vaccination The patient has previously received the Tetanus , Diphtheria, Pertussis vaccine (Tdap). Date: January 12, 2012 Location: [facility] /cat/ ZAIDA HOLLOWAY LPN [facility] Signed: 08/15/2021 09:40 Aug 15, 2021 09:00 AM PRIMARY CARE NOTE: SHANNAN SULTANA LOCAL TITLE: [facility] PROGRESS NOTE-[facility] STANDARD TITLE: PRIMARY CARE NOTE DATE OF NOTE: AUG 15, 2021@09:00 ENTRY DATE: AUG 15, 2021@09:32:04 AUTHOR: SHANNAN SULTANA COSIGNER: URGENCY: STATUS: COMPLETED Today's Nurse check-in note reviewed: Vital signs good : BP/HR/SATS Seen in clinic today respecting current BERONICA kraft. Chief complaint: The patient is a 61 year old MALE here to [facility] initial [facility] care at the [facility] and has the following concerns, co mplaints, or problems: NPV today. Pleasant 61 year old ,new to the [facility] this [facility] . Reviewed his schedule for today and confirmed social work Pac t explanation wll be accomplished as part of this initial visi t. Patient is co-managed by his medical team at the [facility] , and relates Dr Lopez is his primary provider here. 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 He reports Covid illness a year ago and feels he has recovered without lingering problems. When questioned he states his main medical issue s have been Hypertension,GERD ,and migraines. The few records availale were reviewed with the patient . A more detailed discussion about what medication s he is currently utilizing was conducted for the purpose of inita ting into the VA profile. Service: Service Branch Service # Entered [facility], 1980 AUG 19, 1984 HONORABLE Allergies: Patient has answered NKA Medications: Active Outpatient Medications (including Supplie s): No Medications Found ( medications below establi shed at this evaluation) 1. ASA 81 mg chewable daily 2. Celebrex 200 mg : 1 daily with meals prn head pain 3. Atarax 25 mg : 1 every 8-12 hours prn anxiety 4. Metoprolol succinate 50mg sustained release: 1 daily 5. Pamelor 10mg : 2 caps (20mg)at bedtime MEDICATION RECONCILIATION Outpatient At this visit I have reviewed the medication li st, and discussed relevant medications with the patient/surrogate . An updated patient medication list was given to the participant(s). No Change Physical Exam: Vitals: BP: 126/80 (08/15/2021 09:08) P: 58 (08/15/2021 09:08) R: 20 (08/15/2021 09:08) T: 97.7 F [36.5 C] (08/15/2021 09:08) WT: 158 lb [71.67 kg] (08/15/2021 09:08) BMI: 25.0 Pain: reported ZERO O2 Sat: reported 100 General: Alert, well dressed and groomed, no ap parent distress HEENT: Normocephalic, atraumatic Lungs: Bronchvesicular without wheezing or rale s ,normal I/E cycle CV: RRR S4 present , no S3 or murmurs appreciat ed GI: Abdomen non distended, soft Skin: Warm and moist, no rash or erythema MS: No joint swelling, ambulates without diffic ulty Psych: Good eye contact, speech normal rate and rhythm, affect full range Problem List - Active - NONE FOUND (listed below are established today) 1.Hypertension 2.GERD 3.Migraine cephalgia 4.Epidermal cyst recently drained on his back 5.Anxiety (periodic ) Assessment: 1.NPV to establish initial VA care in tandem wit h patients co-managing Medical Providers as noted above. 2.Medical Problem Diagnostic list estblished as best can be done at this evaluation based on the patients history ,exam and the sparse records available. see above under acti ve problem list 3.no current adverse medical symptoms with no si gnificant physical examination abnormalities appreciated Plan: 1.Establish Initial VA care 2.Will see Charge Coordinator team today for full exp lanation of the available pathways of VA care and to have a reso urce person for questions that may arise. 3.Establish medicaions currently in use and subm it through the [place] [facility] 4.Patient's questions pertinant to Physician car e answered and directed the patient to Social Work team for full overview 5.RTC for symptomatic medical conditions as kevin lowe Total time personally spent by the provider on e ncounter was ____ minutes. /es/ SHANNAN SULTANA II Staff [facility] Signed: 08/26/2021 11:53
--- OUTSIDE RECORDS SUMMARY | 2022-02-12 00:45 | XMS_ITS | Encounter Summary ---
:1960 Author Organization [facility] rs Address [address] [place] [id number] Support Name Relationship Address Phone JIMMY JOHANSEN Unavailable Unavailable RADHA OLIVER [phone] Insurance Providers: All historical and current Section [...] [place] Mar 01 [id number] [phone] [facility] PATIENT SERVICE RY 2021 [id number] KIMBERLEE Lloyd AIRCR 2 AFT INC AETNA PRESCRIPT RX Mar 01 [id number] [facility] ION [facility] 2021 [id number] [phone] KIMBERLEE Lloyd MANAGEMENT Selected Encounter This section includes the information on record at [place] for the Encounter. Date/Time Encounter Type Encounter Description Reason Provider Source Jun 10, 2021 12:00 Outpatient Encounter EVENT (HISTORICAL) AM E Encounter Template Text not used by [place] Plan of Treatment: Future Appointments (+ 6 months) and Future Tests (+/- 45 days) The Plan of Treatment section includes future care activities for the patient from all [place] treatmentfacilities. This section includes future appointments and future orders which are active, pending orscheduled.Future Appointments This section includes appointments that were scheduled to occur 6 months from the date of the Encounter, up to a maximum of 20 appointments. The data comes from all [place] treatment facilities. Appointment Date/Time Appointment Type Appointment Facili ty Name Aug 15, 2021 09:00 AM AMBULATORY - MEDICINE [facility] Sep 26, 2021 08:30 AM AMBULATORY - NONE [facility] Nov 06, 2021 11:26 PM AMBULATORY - NONE [facility] Nov 27, 2021 01:00 PM AMBULATORY - SURGERY [facility] S Immunizations: All administered on the encounter date This section contains immunizations associated to the Encounter. Immunization Series Date Issued Reaction Comments COVID-19 (PFIZER), MRNA, LNP-S, PF, 30 MCG/0.3 3 Jun 10, 2021 ML DOSE, NANNETTE-SUCROSE (AGES 12+ YEARS) Advance Directives: All historical and current Section Date Range: From patient's date of to the date document was created. This section includes ALL of a patient's completed or amended [place] Advance and Rescinded Directives. The entries below indicate that a directive exists for the patient, but an actual copy is not included with this document. The data comes from all [place] facilities. Date Advance Directives Provider Source Aug 15, 2021 ADVANCE DIRECTIVE DISCUSSION [facility]IO MCFAR[facility]
--- OUTSIDE RECORDS SUMMARY | 2022-02-12 00:46 | XMS_ITS | Encounter Summary ---
:1960 Author Organization [facility] rs Address [address] [place] [id number] Support Name Relationship Address Phone JIMMY JOHANSEN Unavailable Unavailable RADHA OLIVER [id number] Insurance Providers: All historical and current Section [...] [place] Mar 01 [id number] [phone] EDGAR MITCHELLOUIE PATIENT SERVICE RY 2021 [id number] KIMBERLEE Lloyd AIRCR 2 AFT INC AETNA PRESCRIPT RX Mar 01 [id number] [facility]ON [facility] 2021 0 [id number] [phone] KIMBERLEE Lloyd MANAGEMENT Selected Encounter This section includes the information on record at [place] for the Encounter. Date/Time Encounter Type Encounter Description Reason Provider Source Sep 03, 2021 11:39 Outpatient Encounter CLINICAL PHARMACY AM IHE Encounter Template Text not used by [place] Plan of Treatment: Future Appointments (+ 6 months) and Future Tests (+/- 45 days) The Plan of Treatment section includes future care activities for the patient from all [place] treatmentfacilities. This section includes future appointments and future orders which are active, pending orscheduled.Future Appointments This section includes appointments that were scheduled to occur 6 months from the date of the Encounter, up to a maximum of 20 appointments. The data comes from all [place] treatment facilities. Appointment Date/Time Appointment Type Appointment Facili ty Name Sep 26, 2021 08:30 AM AMBULATORY - NONE [facility] Nov 06, 2021 11:26 PM AMBULATORY - NONE [facility] Nov 27, 2021 01:00 PM AMBULATORY - SURGERY [facility] S Lab Results: +/- 30 days of the encounter This section includes the Chemistry and Hematology Lab Results on record with [place] for the patient. Radiology Reports and Pathology [...] Aug 15, 2021 09:57 AM Reporting Lab: [facility] [id number] Performing Lab: [facility] [id number] CREATININE 0.9 0.7-1.2 UREA NITROGEN 16 8-26 [...] Aug 15, 2021 09:57 AM Reporting Lab: [facility] [id number] Performing Lab: [facility] [id number] WBC 5.26 4.0-11.0 RBC 4.78 4.6-6.2 HGB 14.1 13.5-17.9 HCT 42.6 41-54 MCV 89.1 80-100 MCH 29.5 27-33 MCHC 33.1 32.0-37.5 PLT 152 150-400 MPV 13.1 H 7.4-10.4 RDW 14.6 H 11.5-14.5 IPF 13.7 H 0-10 Advance Directives: All historical and current Section Date Range: From patient's date of to the date document was created. This section includes ALL of a patient's completed or amended [place] Advance and Rescinded Directives. The entries below indicate that a directive exists for the patient, but an actual copy is not included with this document. The data comes from all [place] facilities. Date Advance Directives Provider Source Aug 15, 2021 ADVANCE DIRECTIVE DISCUSSION GIORGIO MCFARLAND CB Encounter Notes: All associated encounter notes This section contains the clinical notes associated to the Encounter. Date/Time Encounter Note(s) Provider Source Sep 03, 2021 11:39 AM PHARMACY NOTE: KENNEDY GILBERT [facility] LOCAL TITLE: PHARMACY PROGRESS NOTE STANDARD TITLE: PHARMACY NOTE DATE OF NOTE: SEP 03, 2021@11:39 ENTRY DATE: SEP 03, 2021@11:39:23 AUTHOR: KENNEDY GILBERT EXP COSIGNER: URGENCY: STATUS: COMPLETED PHARMACY PROGRESS NOTE Has ADDENDA celecoxib Rx has been cancelled by [place] [facility] d/t dose above max rec dose (400mg/day) per kavitha: - max rec dose for migraine is 120mg/day - max rec dose for acute jamshid n is 400mg/day & only 200mg/day rec for chronic use please enter prior auth request with rationale t o continue dose above recs /cat/ KENNEDY GILBERT PHARMACIST Signed: 09/03/2021 11:41 Receipt Acknowledged By: 09/11/2021 07:25 /cat/ HILARY DORAN CNP NP [facility] for SHANNAN A II KAYY 09/11/2021 ADDENDUM STATUS: COMPLETED RN please update vet about Celebrex dose. Why do es he take it? Explain recommendation by pharmacy please Will renew with amount recommended by Ph arm D and rationale for taking it (see pharm D note) /cat/ HILARY DORAN CNP NP [facility] Signed: 09/11/2021 07:23 Receipt Acknowledged By: 09/11/2021 10:03 /cat/ Esme Whipple, RN Nurse [facility] 09/11/2021 ADDENDUM STATUS: COMPLETED Railroad Firer was unable to contact via telepho ne. Railroad Firer left a HIPAA compliant message to contact [facility]. /cat/ Esme Whipple RN Nurse [facility] Signed: 09/11/2021 10:04 09/11/2021 ADDENDUM STATUS: COMPLETED called back, please return call. /es/ ASHLYN HAMPTON MSA [facility] Signed: 09/11/2021 13:40 Receipt Acknowledged By: 09/11/2021 14:06 /cat/ Esme Whipple RN Nurse [facility] 09/11/2021 ADDENDUM STATUS: COMPLETED Railroad Firer was unable to contact via telepho ne. Railroad Firer left a HIPAA compliant message to contact [facility]. /cat/ Esme Whipple RN Nurse [facility] Signed: 09/11/2021 14:07 09/12/2021 ADDENDUM STATUS: COMPLETED Railroad Firer contacted yesterday and clarified that is taking his celecoxib 200 mg once daily, NOT three times daily. This matches 's [facility] med list. Alerting PACT physician to stephaniea romain [facility]s [facility]. /cat/ Esme Whipple RN Nurse [facility] Signed: 09/12/2021 10:33
--- OUTSIDE RECORDS SUMMARY | 2022-02-12 00:46 | XMS_ITS | Encounter Summary ---
:1960 Author Organization [facility] rs Address [address] [place] [address] Support Name Relationship Address Phone JIMMY JOHANSEN Unavailable Unavailable RADHA OLIVER [id number] Insurance Providers: All historical and current Section Date Range: From patient's date of to the date document was created.This section includes the names of all active insurance providers for the patient. Insurance Type of Plan Start of End of Group Member [facility] Coverage Name Policy Policy Number ID Provider's Serra's Relationship Coverage Coverage Telephone Name to Policy Number Serra [place] Mar 01 [id number] [phone] EDGAR NIKOLAS PATIENT SERVICE RY 2021 [id number] KIMBERLEE Lloyd AIRCR 2 AFT INC AETNA PRESCRIPT RX Mar 01 [id number] [facility] 2021 0 [id number] [phone] KIMBERLEE Lloyd MANAGEMENT Selected Encounter This section includes the information on record at [place] for the Encounter. Date/Time Encounter Type Encounter Description Reason Provider Source Aug 19, 2021 03:40 Outpatient Encounter TELEPHONE PRIMARY PM CARE IHE Encounter Template Text not used by [place] Plan of Treatment: Future Appointments (+ 6 months) and Future Tests (+/- 45 days) The Plan of Treatment section includes future care activities for the patient from all [place] treatmentfacilities. This section includes future appointments and future orders which are active, pending orscheduled.Future Appointments This section includes appointments that were scheduled to occur 6 months from the date of the Encounter, up to a maximum of 20 appointments. The data comes from all [place] treatment facilities. Appointment Date/Time Appointment Type Appointment Facili ty Name Sep 26, 2021 08:30 AM AMBULATORY - NONE [facility] Nov 06, 2021 11:26 PM AMBULATORY - NONE [facility] Nov 27, 2021 01:00 PM AMBULATORY - SURGERY [facility] S Lab Results: +/- 30 days of the encounter This section includes the Chemistry and Hematology Lab Results on record with [place] for the patient. Radiology Reports and Pathology [...] Aug 15, 2021 09:57 AM Reporting Lab: [facility] [id number] Performing Lab: [facility] [id number] CREATININE 0.9 0.7-1.2 UREA NITROGEN 16 8-26 [...] Aug 15, 2021 09:57 AM Reporting Lab: [facility] [id number] Performing Lab: [facility] [id number] WBC 5.26 4.0-11.0 RBC 4.78 4.6-6.2 HGB [...] ALL of a patient's completed or amended [place] Advance and Rescinded Directives. The entries below indicate that a directive exists for the patient, but an actual copy is not included with this document. The data comes from all [place] facilities. Date Advance Directives Provider Source Aug 15, 2021 ADVANCE DIRECTIVE DISCUSSION GIORGIO MCFARLAND [facility] Encounter Notes: All associated encounter notes This section contains the clinical notes associated to the Encounter. Date/Time Encounter Note(s) Provider Source Aug 19, 2021 03:40 PM SOCIAL WORK NOTE: CLARA GREENWOOD [facility] LOCAL TITLE: SOCIAL WORK PROGRESS NOTE MADELEINE Kim STANDARD TITLE: SOCIAL WORK NOTE DATE OF NOTE: AUG 19, 2021@15:40 ENTRY DATE: AUG 19, 2021@15:40:22 AUTHOR: CLARA GREENWOOD EXP COSIGNER: URGENCY: STATUS: COMPLETED SOCIAL WORK PROGRESS NOTE Has ADDENDA * Systems Test Analyst was notified that 's called w ith questions about ID card. Systems Test Analyst contacted Jimmy but was unable to leave a voicemail. Systems Test Analyst called 's line and left a message requesting a c all back. Systems Test Analyst will remain available. /cat/ [facility] Signed: 08/19/2021 15:57 08/19/2021 ADDENDUM STATUS: COMPLETED Systems Test Analyst called Jimmy again thi s morning to discuss 's need but there was no answer and quality analyst/technical writer could not leave a message. Systems Test Analyst will continue to provide support. /cat/ [facility] Signed: 08/20/2021 14:49
--- OUTSIDE RECORDS SUMMARY | 2022-02-12 00:46 | XMS_ITS | Encounter Summary ---
:1960 Author Organization [facility] rs Address [address] [place] [address] Support Name Relationship Address Phone JIMMY JOHANSEN Unavailable Unavailable RADHA OLIVER [id number] Insurance Providers: All historical and current Section [...] Serra [place] Mar 01, [id number] [phone] [facility] PATIENT SERVICE RY 2021 [id number] KIMBERLEE Lloyd AIRCR 2 AFT INC AETNA PRESCRIPT RX Mar 01, [id number] [facility] P ATIENT PHARMACY ION PLAN 2021 0 [id number] [phone] KIMBERLEE Lloyd MANAGEMENT Selected Encounter This section includes the information on record at [place] for the Encounter. Date/Time Encounter Type Encounter Description Reason Provider Source Sep 26, 2021 08:30 Outpatient Encounter ADMIN PAT ACTIVIAN AM (MASLIZZYCT) E Encounter Template Text not used by [place] Plan of Treatment: Future Appointments (+ 6 months) and Future Tests (+/- 45 days) The Plan of Treatment section includes future care activities for the patient from all [place] treatmentfacilities. This section includes future appointments and future orders which are active, pending orscheduled.Future Appointments This section includes appointments that were scheduled to occur 6 months from the date of the Encounter, up to a maximum of 20 appointments. The data comes from all [place] treatment facilities. Appointment Date/Time Appointment Type Appointment Facili ty Name Nov 06, 2021 11:26 PM AMBULATORY - NONE [facility] Nov 27, 2021 01:00 PM AMBULATORY - SURGERY [facility] S Social History: Smoking Status (Most current) and Tobacco Use (All prior to encounter date) This section includes the most current, and the historical, smoking and tobacco-related health factors from the [place] facility where the Encounter took place.Current Smoking Status This section includes the most current smoking, or tobacco-related health factor, from the [place] facility where the Encounter took place. Date/Time Current Smoking Status Comment Facility Aug 15, 2021 09:00 AM VA-TOBACCO NEVER USED [facility] BORJAS Advance Directives: All historical and current Section Date Range: From patient's date of to the date document was created. This section includes ALL of a patient's completed or amended [place] Advance and Rescinded Directives. The entries below indicate that a directive exists for the patient, but an actual copy is not included with this document. The data comes from all [place] facilities. Date Advance Directives Provider Source Aug 15, 2021 ADVANCE DIRECTIVE DISCUSSION GIORGIO MCFARLAND [facility]
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
--- OUTSIDE RECORDS SUMMARY | 2022-02-12 00:46 | XMS_ITS | Encounter Summary ---
:1960 Author Organization [facility] rs Address [address] [place] [address] Support Name Relationship Address Phone JIMYM JOHANSEN Unavailable Unavailable RADHA OLIVER [id number] Insurance Providers: All historical and current Section [...] [place] Mar 01, [id number] [phone] [facility] 2021 [id number] KIMBERLEE Lloyd AIRCR 2 AFT INC AETNA PRESCRIPT RX Mar 01 [id number] [facility] P ATIENT PHARMACY ION PLAN 2021 0 [id number] [phone] KIMBERLEE Lloyd MANAGEMENT Selected Encounter This section includes the information on record at [place] for the Encounter. Date/Time Encounter Type Encounter Reason Provider Source Description Nov 06, 2021 11:26 Outpatient ADMIN PAT ACTIVTIES RADHA WAN PM Encounter (MASNONCT) IHE Encounter Template Text not used by [place] Plan of Treatment: Future Appointments (+ 6 months) and Future Tests (+/- 45 days) The Plan of Treatment section includes future care activities for the patient from all [place] treatmentfacilities. This section includes future appointments and future orders which are active, pending orscheduled.Future Appointments This section includes appointments that were scheduled to occur 6 months from the date of the Encounter, up to a maximum of 20 appointments. The data comes from all [place] treatment facilities. Appointment Date/Time Appointment Type Appointment Facili ty Name Nov 27, 2021 01:00 PM AMBULATORY - SURGERY [facility] S Advance Directives: All historical and current Section Date Range: From patient's date of to the date document was created. This section includes ALL of a patient's completed or amended [place] Advance and Rescinded Directives. The entries below indicate that a directive exists for the patient, but an actual copy is not included with this document. The data comes from all [place] facilities. Date Advance Directives Provider Source Aug 15, 2021 ADVANCE DIRECTIVE DISCUSSION GIORGIO MCFARLAND CB Encounter Notes: All associated encounter notes This section contains the clinical notes associated to the Encounter. Date/Time Encounter Note(s) Provider Source Nov 05, 2021 11:26 PM NONVA NOTE: SOPHIE PALUMBO [facility] LOCAL TITLE: COMMUNITY CARE-SANJANA SELF PRESENTIN G CARE COORD PLAN STANDARD TITLE: NONVA NOTE DATE OF NOTE: NOV 05, 2021@23:26 ENTRY DATE: NOV 06, 2021@23:27:03 AUTHOR: SOPHIE PALUMBO EXP COSIGNER: URGENCY: STATUS: COMPLETED COMMUNITY CARE-SANJANA SELF PRESENTING CARE CO ORD PLAN NOTE Has ADDENDA Emergency Notification Intake Date Presenting to the Facility: Oct Method of Contact: Notified from [employer] worklist Notification ID: [id number] [facility] Referral #: [facility] Name: Hospital: [facility] [place], [place] Address: City: [place] State: [place] Zip Code: Phone : [facility] Point of Contact: Name: Francoise Marin Chief complaint: TIGHTNESS IN CHEST Primary Diagnosis: Disposition Discharged Date of discharge: Oct Discharge to home 11/06/2021 11:22:12 PM AVAT JAIRO MCCLURE SHIVA 11/06/2021 PORTAL: INFO CHECKED, VET INFO CONFIRMED IN [facility], FILLING IN MISSING INFO, CHECKED FOR [place] DDLE NAME/INITAL, CHECKED FOR DUPLICATES, 24 MONTHS CHECKED, QUERIED NPI, [facility]. ADDITIONAL CC sore upper arms. POM REVIEW FOR PRUDENT LAYPERSON /cat/ SOPHIE CALLES, TANNING WHEEL FILLER Signed: 11/06/2021 23:29 Receipt Acknowledged By: 11/10/2021 10:19 /es/ RADHA WAN RN REGISTERED NURSE 11/10/2021 ADDENDUM STATUS: COMPLETED Requested records from the treating facility, wi ll send to [facility] for importing once received. Also cosigning the PACT RN for aw areness of episode of care. /cat/ RADHA WAN RN REGISTERED NURSE Signed: 11/10/2021 10:20 Receipt Acknowledged By: 11/10/2021 10:38 /cat/ Patricia Cardoso, RN Nurse [facility] 11/10/2021 ADDENDUM STATUS: COMPLETED [place] was seen in an outside ER on: 11/05/21 [facility] Diagnosis: Atypical chest pain Medical records received and sent to [facility] for im port. Please review records when imported for any need ed follow up. /cat/ RADHA WAN RN REGISTERED NURSE Signed: 11/10/2021 13:10 Receipt Acknowledged By: * AWAITING SIGNATURE * PATRICIA CARDOSO * AWAITING SIGNATURE * YURIY GUZMAN
[2022-02-12] MEDS: SUCRALFATE 1 GM TABLET PO (00:57)
[2022-02-12 01:03] VITALS: BP 154/78; PULSE 71; RESP 16; TEMP 37
== END 2022-02-12 01:04 | disposition home or self-care (01) ==
LOC: ED 02-12 00:42
PROVIDERS: Family Medicine; Emergency Provider Family Medicine
DX: K52.9 Noninfective gastroenteritis and colitis, unspecified (principal)
CPT/HCPCS: 36415; 80048; 80076; 81001; 82077; 83690; 85025; 86140; 99283; 99284; A9270

== ENCOUNTER 2022-02-16 07:49 | Emergency (ER) | payer OTHER, SELFPAY ==
[2022-02-16 08:03] VITALS: BP 131/93; PULSE 67; RESP 18; TEMP 36.3; O2SAT 98; BMI 24.3
--- NOTE | 2022-02-16 08:04 | ED_ITS ---
HPI - General Adult General Time Seen by Provider: 08:17 Date Seen: 02/16/22 Chief complaint: Neuro Symptoms/Altered Deficit Stated complaint: Numbness on fingers/turned white Time Seen by Provider: 02/16/22 07:51 Source: patient Mode of arrival: ambulatory Limitations: no limitations History of Present Illness HPI narrative: Patient is a 61 year white male who is generally healthy he does, have hypertension, takes aspirin and hypertensive med every day. He was at work at a [employer] plant today. Went to the bathroom tried to have a bowel movement he felt dizzy had some abdominal pain and then felt worse, he reported that his couple fingers on his tips of his fingers on the left hand were whitish but then that improved he feels back to normal now he had no chest pain. No shortness of breath, no recent illness, no leg swelling edema, he is a nonsmoker, nondiabetic. He denies fever as mention. No leg swelling. No history of bleeding or clotting Related Data Home Medications Medication Instructions Recorded Confirmed celecoxib 200 mg capsule mg 11/05/21 hydroxyzine HCl 25 mg tablet mg 11/05/21 metoprolol succinate 50 mg mg PO 11/05/21 tablet,extended release 24 hr nortriptyline 10 mg capsule mg 11/05/21 sumatriptan succinate 100 mg tablet mg PO 11/05/21 Previous Rx's Medication Instructions Recorded omeprazole 20 mg capsule,delayed 20 mg PO DAILY #30 caps 02/12/22 release Allergies Allergy/AdvReac Type Severity Reaction Status Date / Time No Known Drug Allergies Allergy Verified 02/16/22 08:03 Review of Systems Status of ROS: Reports: 10 or more systems reviewed and unremarkable except as noted in History and below PFSH [facility] Social History Smoking Status: Never smoker Do you use any of these nicotine containing products: None How often do you have a drink containing alcohol: monthly or less AUDIT-C Alcohol total score: 1 Non-prescribed substance use: denies use service: Yes Exam Narrative: Exam Narrative: Objective: Patient's alert orient x3, no distress, no cyanosis Vital signs are unremarkable O2 sat excellent 90% HEENT unremarkable no facial asymmetry neck is supple nontender chest back abdomen nontender lungs are clear heart rhythm regular without her help pulses regular abdomen benign soft nontender no masses no rebound no guarding extremities are no edema neurologic nonfocal in upper lower extremities to good peripheral perfusion good peripheral pulses good peripheral CMS Const: Vital Signs, click to edit/add: Vital Signs - 24 hr 02/16/22 08:03 02/16/22 09:50 Temperature 97.4 F L Pulse Rate [Pulse Oximeter] 67 62 Respiratory Rate 18 18 Blood Pressure [Ri ght Upper Arm] 131/93 H 133/79 Pulse Oximetry 98 99 Oxygen Delivery Me thod Room Air Room Air Course Vital Signs Vital signs: Initial Vital Signs Temperature 97.4 F L 02/16/22 08:03 Temperature Source Temporal Artery Scan 02/16/22 08:03 Pulse Rate 67 02/16/22 08:03 Pulse Rhythm 02/16/22 08:03 Respiratory Rate 18 02/16/22 08:03 Blood Pressure 131/93 H 02/16/22 08:03 Blood Pressure Mean 105 02/16/22 08:03 Blood Pressure Position Supine 02/16/22 08:03 Pulse Oximetry 98 02/16/22 08:03 Oxygen Delivery Method 02/16/22 08:03 Vital Signs Temperature 97.4 F L 02/16/22 08:03 Pulse Rate 67 02/16/22 08:03 Respiratory Rate 18 02/16/22 08:03 Blood Pressure 131/93 H 02/16/22 08:03 Pulse Oximetry 98 02/16/22 08:03 Oxygen Delivery Method 02/16/22 08:03 Temperature 97.4 F L 02/16/22 08:03 Pulse Rate 62 02/16/22 09:50 Respiratory Rate 18 02/16/22 09:50 Blood Pressure 133/79 02/16/22 09:50 Pulse Oximetry 99 02/16/22 09:50 Oxygen Delivery Method 02/16/22 09:50 Medical Decision Making MDM Narrative Medical decision making narrative: Patient a brief unusual spell with going to the bathroom, he had some abdominal pain I suspect he had a mild vasovagal type issue. Caused by his transient abdominal discomfort with going to the bathroom. At this point he is clinically back to normal, no neurologic deficit, no chest pain reported no breathing difficulty. However I think given his symptoms will check a EKG put him on a monitoring and evaluation advisor, check laboratory studies, troponin. If these are reassuring and negative he can likely be discharged home. Will also check COVID/influenza/RSV. Addendum: The patient's EKG by my read shows normal sinus rhythm no acute ST T wave changes. His troponin is negative, labs look reassuring, his symptoms are gone. I am not sure exactly what happened to him but it does not sound like a cardiac event, it sounds like he may have had a vagal episode from going to the bathroom. He did have some transient abdominal discomfort that could cause this. I think home rest light activity off work today would be reasonable, re check with regular doctor and update them in the next 24-48 hours, return to ED sooner problems or concerns Lab Data Labs: Lab Results 02/16/22 02/16/22 02/16/22 Range/Units 09:14 09:14 09:45 WBC 6.95 (4.50-11.00) K/uL RBC 5.07 (4.30-5.90) m/uL Hgb 14.9 (13.5-17.5) gm/dL Hct 45.0 (37.0-53.0) % MCV 89 (80-100) fL MCH 29 (26-34) pg MCHC 33 (32-36) gm/dL RDW Coeff of Kaushik 14.7 (11.5-15.5) % Plt Count 150 (140-440) K/uL Neut % (Auto) 73.1 H (42.0-72.0) % Lymph % (Auto) 16.5 L (20-44) % [place] % (Auto) 7.1 (0.0-11.0) % Eos % (Auto) 2.7 (0.0-7.0) % Baso % (Auto) 0.6 (0.0-3.0) % Neut # (Auto) 5.10 (1.7-7.0) K/uL Lymph # (Auto) 1.10 (0.90-2.90) K/uL [place] # (Auto) 0.50 (0.00-0.90) K/UL Eos # (Auto) 0.19 (0.00-0.50) K/uL Baso # (Auto) 0.04 (0.00-0.30) K/uL Sodium 141 (135-149) mmol/L Potassium 4.6 (3.6-5.1) mmol/L Chloride 111 (96-114) mmol/L Carbon Dioxide 25 (20-32) mmol/L BUN 18 (7-30) mg/dL Creatinine 0.7 (0.5-1.5) mg/dL Estimated Creat Clear 106.23 Estimated GFR 106 ml/min Glucose 92 (60-115) mg/dL Calcium 8.8 (8.4-10.6) mg/dL Total Bilirubin 0.4 (0.1-1.5) mg/dL Direct Bilirubin 0.1 (0.0-0.5) mg/dL AST 23 (12-35) U/L ALT 19 (4-50) U/L Alkaline Phosphatase 83 (40-150) U/L Troponin I < 0.01 L (0.01-0.04) ng/mL C-Reactive Protein < 0.5 L (0.5-1.0) mg/dL Total Protein 7.0 (6.0-8.3) g/dL Albumin 4.2 (3.3-5.0) g/dL SARS-CoV-2 (PCR) Negative SARS-CoV-2 (Negative) Influenza Type A (PCR) Negative PCR FLU A (Negative) Influenza Type B (PCR) Negative PCR FLU B (Negative) RSV (PCR) Negative PCR RSV (Negative) Discharge Plan Discharge Clinical Impression: Vasovagal episode Patient Disposition: Home w/ Parent or Adult Condition: Improved Additional Instructions: Recommend off work today, light activity, light diet, observation, update his regular doctor in 24-48 hours, return to ED sooner problems concerns or recurrence of any symptoms. Activity Level: Light activity Discharge Diet: Regular Prescriptions: No Action celecoxib 200 mg capsule Label Comments: TAKE ONE CAPSULE BY MOUTH ONCE DAILY WITH A MEAL metoprolol succinate 50 mg tablet extended release 24 hr PO Label Comments: TAKE ONE TABLET BY MOUTH EVERY DAY sumatriptan succinate 100 mg tablet PO Label Comments: TAKE ONE TABLET BY MOUTH NEEDED FOR MIGRAINE, MAY REPEAT DOSE ONCE IN 2 HOURS IF MIGRAINE UNRESOLVED, DO NOT EXCEED 200 MG IN 24 HOURS nortriptyline 10 mg capsule Label Comments: TAKE TWO CAPSULES BY MOUTH AT BEDTIME hydroxyzine HCl 25 mg tablet Label Comments: TAKE ONE TABLET BY MOUTH TWICE A DAY NEEDED FOR ANXIETY omeprazole 20 mg capsule,delayed release(DR/EC) 20 mg PO DAILY Qty: 30 0RF Follow Up/Referrals: Provider,Not a Local [Primary Care Provider] - Stand Alone Forms: MyHealth Info Instructions
[2022-02-16 09:30] LABS: Basophils Absolute Auto 0.04 K/uL (0.00-0.30); Basophils Percent Auto 0.6 % (0.0-3.0); Eosinophils Absolute Auto 0.19 K/uL (0.00-0.50); Eosinophils Percent Auto 2.7 % (0.0-7.0); Hemoglobin* 14.9 gm/dL (13.5-17.5); Lymphocytes Percent Auto 16.5 % (20-44); Mean Corpuscular HGB Conc 33 gm/dL (32-36); Mean Corpuscular Hemoglobin 29 pg (26-34); Mean Corpuscular Volume 89 fL (80-100); Monocytes Percent Auto 7.1 % (0.0-11.0); Neutrophils Percent Auto 73.1 % (42.0-72.0); Platelet Count* 150 K/uL (140-440); RDW Coefficient of Variation % 14.7 % (11.5-15.5); Red Blood Count 5.07 m/uL (4.30-5.90); White Blood Count* 6.95 K/uL (4.50-11.00)
[2022-02-16 09:33] LABS: Slide Review Reflex No
[2022-02-16 09:44] LABS: Albumin* 4.2 g/dL (3.3-5.0); Chloride* 111 mmol/L (96-114); Potassium* 4.6 mmol/L (3.6-5.1); Sodium* 141 mmol/L (135-149)
[2022-02-16 09:46] LABS: Creatinine* 0.7 mg/dL (0.5-1.5); Est. Creatinine Clearance* 106.23; Estimated Glomerular Filt Rate 106 ml/min
[2022-02-16 09:47] LABS: Alanine Aminotransferase* 19 U/L (4-50); Alkaline Phosphatase* 83 U/L (40-150); Aspartate Amino Transferase* 23 U/L (12-35); Bilirubin Direct* 0.1 mg/dL (0.0-0.5); Bilirubin Total* 0.4 mg/dL (0.1-1.5); Blood Urea Nitrogen* 18 mg/dL (7-30); Carbon Dioxide* 25 mmol/L (20-32); Glucose* 92 mg/dL (60-115)
[2022-02-16 09:48] LABS: Calcium* 8.8 mg/dL (8.4-10.6)
[2022-02-16 09:50] VITALS: BP 133/79; PULSE 62; RESP 18; O2SAT 99
[2022-02-16 10:02] LABS: C Reactive Protein* < 0.5 mg/dL (0.5-1.0); Troponin I* < 0.01 ng/mL (0.01-0.04)
[2022-02-16 10:44] LABS: PCR FLU A Negative PCR FLU A (Negative); PCR FLU B Negative PCR FLU B (Negative); PCR RSV Negative PCR RSV (Negative)
[2022-02-16 11:31] LABS: SARS PCR* Negative SARS-CoV-2 (Negative)
== END 2022-02-16 10:41 | disposition home or self-care (01) ==
PROVIDERS: Emergency Provider Family Medicine
DX: R42 Dizziness and giddiness (principal)
CPT/HCPCS: 36415; 80048; 80076; 84484; 85025; 86140; 87502; 87634; 87635; 93005; 99284

== ENCOUNTER 2022-04-02 05:25 | Emergency (ER) | payer OTHER, SELFPAY ==
[2022-04-02 05:32] VITALS: BP 168/105; PULSE 80; RESP 16; TEMP 36.6; O2SAT 99; BMI 25.2
--- NOTE | 2022-04-02 05:41 | ED_ITS ---
HPI - General Adult General Date Seen: 04/02/22 Chief complaint: Unspecified Complaint, Adult Stated complaint: Calves are swelling and fingers are tingling Time Seen by Provider: 04/02/22 05:31 Source: patient and family Mode of arrival: ambulatory Limitations: no limitations History of Present Illness HPI narrative: Patient is a 61-year-old gentleman who presents here with 2 complaints, complaint 1. Is swelling of his legs often on, he tells me that he thinks his legs are swollen, he has he stands all day he may be able to actually see little bit of swelling in his legs, he is wearing if his calves bilaterally look larger than they normally are. He has no pain in his lower extremities, he has no past history DVTs, no history of trauma or other issues. No history of chest pain shortness of breath passing out or other issues. Problem 2. Is 1 of intermittent tingling in his fingers, going over his 2nd through 4th finger. He will have a little bit of tingling here usually when he is up moving around during the day, last for few minutes and then resolves this is in both of his hands bilaterally. No history of neck pain, no other history of issues. [facility], they told to wear Brian stockings and not to worry about it. He has appointment on the to be seen. Related Data Home Medications Medication Instructions Recorded Confirmed celecoxib 200 mg capsule 200 mg PO DAILY 11/05/21 04/02/22 hydroxyzine HCl 25 mg tablet 25 mg PO BID PRN 11/05/21 04/02/22 metoprolol succinate 50 mg 50 mg PO DAILY 11/05/21 04/02/22 tablet,extended release 24 hr nortriptyline 10 mg capsule 10 mg PO NIGHTLY 11/05/21 04/02/22 Allergies Allergy/AdvReac Type Severity Reaction Status Date / Time No Known Drug Allergies Allergy Verified 02/16/22 08:03 Review of Systems Status of ROS: Reports: 10 or more systems reviewed and unremarkable except as noted in History and below [facility] Medical History (Updated 04/02/22 @ 05:49 by John Lord MD) Depression Hypertension Migraine Surgical History (Updated 04/02/22 @ 05:44 by Marvin Love RN) No significant past surgical history Social History Smoking Status: Never smoker Do you use any of these nicotine containing products: None How often do you have a drink containing alcohol: monthly or less AUDIT-C Alcohol total score: 1 Non-prescribed substance use: denies use service: Yes Exam Narrative: Exam Narrative: I find him in room 5 in no apparent distress, he is accompanied by a lady. His legs bilaterally show absolutely no edema over the gonzalez region. He has normal muscle bulk bilaterally, normal movement of his dorsiflexion plantar flexion of his feet, normal distal pulses, Abdomen is soft there is no guarding no organomegaly no tenderness, bowel sounds are normal. Chest is good air entry bilaterally no wheezing crackles noted heart sounds are no clicks murmurs or gallops, is neck has full range of motion, extension flexion lateral flexion and rotation. This does not trigger any numbness in his fingers. Muscle bulk is equal bilaterally in his hands. There is no swelling no edema, Tinel's and Phalen's tests are negative. Const: Vital Signs, click to edit/add: Vital Signs - 24 hr 04/02/22 05:32 Temperature 97.9 F Pulse Rate [Right Pulse Oximeter] 80 Respiratory Rate 16 Blood Pressure [Ri ght Upper Arm] 168/105 H Pulse Oximetry 99 Oxygen Delivery Me thod Room Air Documenting provider has reviewed patient's vital signs: yes Course Reevaluation(s) Reevaluation #1: I reviewed with the patient, his normal D-dimer, I explained to him that he should follow up with primary care physician for further evaluation including rechecking his blood pressure, and talking to him about his other concerns. There is no other emergency condition here for tonight though. He was reassured by this Time: 06:36 Vital Signs Vital signs: Initial Vital Signs Temperature 97.9 F 04/02/22 05:32 Temperature Source Temporal Artery Scan 04/02/22 05:32 Pulse Rate 80 04/02/22 05:32 Respiratory Rate 16 04/02/22 05:32 Blood Pressure 168/105 H 04/02/22 05:32 Blood Pressure Mean 126 04/02/22 05:32 Blood Pressure Position Sitting 04/02/22 05:32 Pulse Oximetry 99 04/02/22 05:32 Oxygen Delivery Method 04/02/22 05:32 Vital Signs Temperature 97.9 F 04/02/22 05:32 Pulse Rate 80 04/02/22 05:32 Respiratory Rate 16 04/02/22 05:32 Blood Pressure 168/105 H 04/02/22 05:32 Pulse Oximetry 99 04/02/22 05:32 Oxygen Delivery Method 04/02/22 05:32 Temperature 97.9 F 04/02/22 05:32 Pulse Rate 80 04/02/22 05:32 Respiratory Rate 16 04/02/22 05:32 Blood Pressure 168/105 H 04/02/22 05:32 Pulse Oximetry 99 04/02/22 05:32 Oxygen Delivery Method 04/02/22 05:32 Medical Decision Making MDM Narrative Medical decision making narrative: During this evaluation I considered multiple diagnosis including heart failure, kidney failure, DVTs, for his lower extremity issues, I also considered trauma, Achilles rupture, or strain of his soleus muscles. For his fingers, radiculopathy arising from his cervical area, along with median ulnar or radial nerve entrapment is also considered. Other more elusive of diagnosis such as MS, are considered. I do believe that he has some anxiety over this issue, I reassured him that I do not think anything significant is going on any can wait to [facility]. We will however do a D-dimer today, if this is normal, I think will be reassured he should also follow-up with his primary care physician is is blood pressure was elevated here, which may be reflectivion of his anxiety. But would need to be rechecked. Medical Records Medical records reviewed: Yes I reviewed the patient's medical records Lab Data Labs: Lab Results 04/02/22 Range/Units 05:45 D-Dimer Quant (PE/DVT) 0.36 (0.00-0.50) ug/ml Discharge Plan Discharge Clinical Impression: Edema of both legs, Bilateral hand numbness Patient Disposition: Home w/ Parent or Adult Condition: Stable Instructions: Paresthesia (ED), Leg Edema (ED) Additional Instructions: I see no evidence of any significant issues going on here I do not see any edema of your lower extremities, again it is normal to have this from time to time from standing for periods, you can wear some Brian stockings, and follow up with her primary care physician. I would recommend you follow-up for the 2nd problem which is the numbness in her fingers, they can do EMG testing for carpal tunnel if they feel it is warranted. Have them recheck her blood pressure which was slightly elevated here. Prescriptions: No Action celecoxib 200 mg capsule 200 mg PO DAILY Label Comments: TAKE ONE CAPSULE BY MOUTH ONCE DAILY WITH A MEAL metoprolol succinate 50 mg tablet extended release 24 hr 50 mg PO DAILY Label Comments: TAKE ONE TABLET BY MOUTH EVERY DAY nortriptyline 10 mg capsule 10 mg PO NIGHTLY Label Comments: TAKE TWO CAPSULES BY MOUTH AT BEDTIME hydroxyzine HCl 25 mg tablet 25 mg PO BID PRN Label Comments: TAKE ONE TABLET BY MOUTH TWICE A DAY NEEDED FOR ANXIETY Follow Up/Referrals: Provider,Not a Local [Primary Care Provider] - Stand Alone Forms: [facility] Info Instructions
[2022-04-02 06:10] LABS: D Dimer Quantitative* 0.36 ug/ml (0.00-0.50)
== END 2022-04-02 06:27 | disposition home or self-care (01) ==
LOC: ED 05:58
PROVIDERS: Emergency Provider Family Medicine
DX: R60.9 Edema, unspecified (principal); R20.0 Anesthesia of skin
CPT/HCPCS: 36415; 85379; 99283; 99284

== ENCOUNTER 2022-08-14 20:37 | Emergency (ER) | payer OTHER, SELFPAY ==
[2022-08-14 20:55] VITALS: BP 150/85; PULSE 59; RESP 16; TEMP 36.4; O2SAT 98; BMI 24.3
--- NOTE | 2022-08-14 21:16 | ED.WEAKNESS ---
HPI - Weakness General Chief complaint: Weakness Stated complaint: Weakness, Headaches Time Seen by Provider: 08/14/22 21:04 History of Present Illness HPI Narrative: Patient is a 62-year-old gentleman who chest is not been feeling well the last few days. He did have some minor back pain few days ago that has resolved. He has periods where he feels weak and fatigued and sleepy. These episodes last only short time and then he feels fine. He describes no chest pain no shortness of breath orthopnea no PND no nausea no vomiting. He is able to maintain his activities of daily living and is been eating and drinking normally. Patient has no previous history of similar complaints. Patient is concerned that maybe his metoprolol although he has been on metoprolol for quite some time. No other complaints are noted. No palpitations Related Data Home Medications Medication Instructions Recorded Confirmed celecoxib 200 mg capsule 200 mg PO DAILY 11/05/21 08/14/22 hydroxyzine HCl 25 mg tablet 25 mg PO BID PRN 11/05/21 08/14/22 metoprolol succinate 50 mg 50 mg PO DAILY 11/05/21 08/14/22 tablet,extended release 24 hr nortriptyline 10 mg capsule 10 mg PO NIGHTLY 11/05/21 08/14/22 omeprazole 20 mg capsule,delayed 20 mg PO DAILY 08/14/22 08/14/22 release Allergies Allergy/AdvReac Type Severity Reaction Status Date / Time No Known Drug Allergies Allergy Verified 02/16/22 08:03 Review of Systems Status of ROS: Reports: 10 or more systems reviewed and unremarkable except as noted in History and below PFSH [facility] Medical History Depression ?F32.A - Depression, unspecified (ICD-10) Migraine ?G43.909 - Migraine, unspecified, not intractable, without status migrainosus (ICD-10) Hypertension ?I10 - Essential (primary) hypertension (ICD-10) Surgical History No significant past surgical history Social History Smoking Status: Never smoker Do you use any of these nicotine containing products: None Second hand tobacco smoke exposure: Yes How often do you have a drink containing alcohol: monthly or less How many standard drinks containing alcohol do you have on a typical day: 1 or 2 How often do you have six or more drinks on one occasion: Never AUDIT-C Alcohol total score: 1 Non-prescribed substance use: denies use service: Yes Exam Narrative: Exam Narrative: EXAM GENERAL: Patient appears comfortable and well. EYES: No scleral icterus. ENT: Tympanic membranes and oropharynx normal. THYROID: no thyroid nodules or thyromegaly. LYMPH: No supraclavicular or cervical lymphadenopathy. SKIN: Visible skin seen during exam normal or with benign process only. EXT: No dependent lower extremity pedal edema. HEART: Regular rate and rhythm with no murmurs, rubs, or gallops. LUNGS: Clear to auscultation bilaterally with no crackles or wheezes. ABD: Soft, non tender, non distended. PSYCH: Good eye contact, speech is not pressured. Const: Vital Signs, click to edit/add: Vital Signs - 24 hr 08/14/22 20:55 Temperature 97.6 F Pulse Rate [Pulse Oximeter] 59 L Respiratory Rate 16 Blood Pressure [Le ft Upper Arm] 150/85 H Pulse Oximetry 98 Oxygen Delivery Me thod Room Air Course Course Hospital Course: Vital signs are reassuring as is my exam. We will proceed with EKG troponin CBC basic metabolic panel. Vital Signs Vital signs: Initial Vital Signs Temperature 97.6 F 08/14/22 20:55 Temperature Source Temporal Artery Scan 08/14/22 20:55 Pulse Rate 59 L 08/14/22 20:55 Pulse Rhythm Regular 08/14/22 20:55 Respiratory Rate 16 08/14/22 20:55 Blood Pressure 150/85 H 08/14/22 20:55 Blood Pressure Mean 106 H 08/14/22 20:55 Pulse Oximetry 98 08/14/22 20:55 Oxygen Delivery Method Room Air 08/14/22 20:55 Vital Signs Temperature 97.6 F 08/14/22 20:55 Pulse Rate 59 L 08/14/22 20:55 Respiratory Rate 16 08/14/22 20:55 Blood Pressure 150/85 H 08/14/22 20:55 Pulse Oximetry 98 08/14/22 20:55 Oxygen Delivery Method Room Air 08/14/22 20:55 Temperature 97.6 F 08/14/22 20:55 Pulse Rate 59 L 08/14/22 20:55 Respiratory Rate 16 08/14/22 20:55 Blood Pressure 150/85 H 08/14/22 20:55 Pulse Oximetry 98 08/14/22 20:55 Oxygen Delivery Method Room Air 08/14/22 20:55 MDM - Weakness MDM Narrative Medical decision making narrative: Patient presents with generalized weakness. CBC electrolytes EKG troponin are all reassuring as is my exam and vital sign review. At this point etiology is unclear however he does not appear to have any acute emergencies. I did offer reassurance and recommended follow-up with his primary physician this coming week. Differential Diagnosis Differential diagnosis: Likely acute myocardial infarction, anemia, hypoglycemia, rhabdomyolysis, sepsis and dehydration Lab Data Labs: Lab Results 08/14/22 Range/Units 21:24 WBC 4.73 (4.50-11.00) K/uL RBC 4.72 (4.30-5.90) m/uL Hgb 14.1 (13.5-17.5) gm/dL Hct 41.2 (37.0-53.0) % MCV 87 (80-100) fL MCH 30 (26-34) pg MCHC 34 (32-36) gm/dL RDW Coeff of Kaushik 14.1 (11.5-15.5) % Plt Count 73 L (140-440) K/uL Neut % (Auto) 45.3 (42.0-72.0) % Lymph % (Auto) 38.5 (20-44) % [place] % (Auto) 11.2 H (0.0-11.0) % Eos % (Auto) 4.4 (0.0-7.0) % Baso % (Auto) 0.6 (0.0-3.0) % Neut # (Auto) 2.14 (1.7-7.0) K/uL Lymph # (Auto) 1.82 (0.90-2.90) K/uL [place] # (Auto) 0.50 (0.00-0.90) K/UL Eos # (Auto) 0.21 (0.00-0.50) K/uL Baso # (Auto) 0.03 (0.00-0.30) K/uL Sodium 134 L (135-149) mmol/L Potassium 4.0 (3.6-5.1) mmol/L Chloride 107 (96-114) mmol/L Carbon Dioxide 24 (20-32) mmol/L BUN 20 (7-30) mg/dL Creatinine 0.7 (0.5-1.5) mg/dL Estimated Creat Clear 104.92 Estimated GFR 105 ml/min Glucose 85 (60-115) mg/dL Calcium 8.8 (8.4-10.6) mg/dL Troponin I < 0.01 L (0.01-0.04) ng/mL Discharge Plan Discharge Clinical Impression: Weakness Patient Disposition: Home, Self-Care Condition: Stable Instructions: Weakness (ED) Additional Instructions: Continue current medications Advanced diet activity as tolerated Follow-up with your doctor this week Activity Level: No Restrictions Discharge Diet: Regular Prescriptions: No Action celecoxib 200 mg capsule 200 mg PO DAILY Patient Comments: TAKE ONE CAPSULE BY MOUTH ONCE DAILY WITH A MEAL metoprolol succinate 50 mg tablet extended release 24 hr 50 mg PO DAILY Patient Comments: TAKE ONE TABLET BY MOUTH EVERY DAY nortriptyline 10 mg capsule 10 mg PO NIGHTLY Patient Comments: TAKE TWO CAPSULES BY MOUTH AT BEDTIME hydroxyzine HCl 25 mg tablet 25 mg PO BID PRN Patient Comments: TAKE ONE TABLET BY MOUTH TWICE A DAY NEEDED FOR ANXIETY omeprazole 20 mg capsule,delayed release(DR/EC) 20 mg PO DAILY Follow Up/Referrals: Provider,Not a Local [Primary Care Provider] - Stand Alone Forms: MyHealth Info Instructions
[2022-08-14 21:30] LABS: Basophils Absolute Auto 0.03 K/uL (0.00-0.30); Basophils Percent Auto 0.6 % (0.0-3.0); Eosinophils Absolute Auto 0.21 K/uL (0.00-0.50); Eosinophils Percent Auto 4.4 % (0.0-7.0); Hematocrit 41.2 % (37.0-53.0); Hemoglobin* 14.1 gm/dL (13.5-17.5); Lymphocytes Absolute Auto 1.82 K/uL (0.90-2.90); Lymphocytes Percent Auto 38.5 % (20-44); Mean Corpuscular HGB Conc 34 gm/dL (32-36); Mean Corpuscular Hemoglobin 30 pg (26-34); Mean Corpuscular Volume 87 fL (80-100); Monocytes Percent Auto 11.2 % (0.0-11.0); Neutrophils Absolute Auto 2.14 K/uL (1.7-7.0); Neutrophils Percent Auto 45.3 % (42.0-72.0); RDW Coefficient of Variation % 14.1 % (11.5-15.5); Red Blood Count 4.72 m/uL (4.30-5.90); White Blood Count* 4.73 K/uL (4.50-11.00)
[2022-08-14 21:38] LABS: Slide Review Reflex No
[2022-08-14 21:47] LABS: Chloride* 107 mmol/L (96-114); Sodium* 134 mmol/L (135-149)
[2022-08-14 21:49] LABS: Creatinine* 0.7 mg/dL (0.5-1.5); Est. Creatinine Clearance* 104.92; Estimated Glomerular Filt Rate 105 ml/min
[2022-08-14 21:50] LABS: Blood Urea Nitrogen* 20 mg/dL (7-30); Calcium* 8.8 mg/dL (8.4-10.6); Carbon Dioxide* 24 mmol/L (20-32); Glucose* 85 mg/dL (60-115)
[2022-08-14 22:06] LABS: Troponin I* < 0.01 ng/mL (0.01-0.04)
[2022-08-14 22:21] LABS: Platelet Count* 73 K/uL (140-440)
== END 2022-08-14 22:20 | disposition home or self-care (01) ==
PROVIDERS: Emergency Provider Internal Medicine
DX: R53.1 Weakness (principal)
CPT/HCPCS: 36415; 80048; 84484; 85025; 93005; 99283; 99284

== ENCOUNTER 2022-08-16 17:30 | Emergency (ER) | payer OTHER, SELFPAY ==
[2022-08-16 17:37] VITALS: BP 142/91; PULSE 63; RESP 20; TEMP 36.1; O2SAT 97; BMI 25.0
[2022-08-16 17:49] VITALS: PULSE 64; O2SAT 99
--- NOTE | 2022-08-16 17:56 | ED.GENADULT ---
HPI - General Adult General Chief complaint: Dizziness/Vertigo Stated complaint: Lightheaded, feels like he'll be sick Time Seen by Provider: 08/16/22 17:46 History of Present Illness HPI narrative: [age] year white male with history of hypertension, anxiety/depression who [facility]. He was in the [place] for years. He was here recently and had some back pain which is now resolved. He had negative troponins normal EKG normal laboratory studies. His EKG now by my read shows sinus bradycardia otherwise normal rate of 57 beats per minute he is on metoprolol he has not changed his dose of that recently. His major complaint today is occasionally he will feel a little bit lightheaded for a minute or 2 and then it will go way. He has no chest pain, no shortness of breath, no leg swelling edema. No rashes no fever. He denies any exertional problem in fact he took a long walk today and felt well during the whole walk. He feels fine when he goes to bed and he has no trouble at night. Related Data Home Medications Medication Instructions Recorded Confirmed celecoxib 200 mg capsule 200 mg PO DAILY 11/05/21 08/14/22 hydroxyzine HCl 25 mg tablet 25 mg PO BID PRN 11/05/21 08/14/22 metoprolol succinate 50 mg 50 mg PO DAILY 11/05/21 08/14/22 tablet,extended release 24 hr nortriptyline 10 mg capsule 10 mg PO NIGHTLY 11/05/21 08/14/22 omeprazole 20 mg capsule,delayed 20 mg PO DAILY 08/14/22 08/14/22 release Allergies Allergy/AdvReac Type Severity Reaction Status Date / Time No Known Drug Allergies Allergy Verified 02/16/22 08:03 Review of Systems Status of ROS: Reports: 10 or more systems reviewed and unremarkable except as noted in History and below [facility] Medical History Depression ?F32.A - Depression, unspecified (ICD-10) Migraine ?G43.909 - Migraine, unspecified, not intractable, without status migrainosus (ICD-10) Hypertension ?I10 - Essential (primary) hypertension (ICD-10) Surgical History No significant past surgical history Social History Smoking Status: Never smoker Do you use any of these nicotine containing products: None Second hand tobacco smoke exposure: Yes How often do you have a drink containing alcohol: monthly or less How many standard drinks containing alcohol do you have on a typical day: 1 or 2 How often do you have six or more drinks on one occasion: Never AUDIT-C Alcohol total score: 1 Non-prescribed substance use: denies use service: Yes Exam Narrative: Exam Narrative: Objective: The patient's vital signs are largely unremarkable his borderline blood pressure HEENT is unremarkable slightly dry mucous membranes in the mouth neck is supple chest is clear heart rhythm regular heart murmur abdome Const: Vital Signs, click to edit/add: Vital Signs - 24 hr 08/16/22 17:37 08/16/22 17:49 08/16/22 18:00 Temperature 96.9 F L Pulse Rate 64 63 Pulse Rate [Pulse Oximeter] 63 Respiratory Rate 20 Blood Pressure Blood Pressure [Le ft Upper Arm] 142/91 H Pulse Oximetry 97 99 98 Oxygen Delivery Me thod Room Air 08/16/22 18:02 Temperature Pulse Rate 61 Pulse Rate [Pulse Oximeter] Respiratory Rate Blood Pressure 136/93 H Blood Pressure [Le ft Upper Arm] Pulse Oximetry 98 Oxygen Delivery Me thod Course Vital Signs Vital signs: Initial Vital Signs Temperature 96.9 F L 08/16/22 17:37 Temperature Source Temporal Artery Scan 08/16/22 17:37 Pulse Rate 63 08/16/22 17:37 Respiratory Rate 20 08/16/22 17:37 Blood Pressure 142/91 H 08/16/22 17:37 Blood Pressure Mean 108 H 08/16/22 17:37 Blood Pressure Position Supine 08/16/22 17:37 Pulse Oximetry 97 08/16/22 17:37 Oxygen Delivery Method Room Air 08/16/22 17:37 Vital Signs Temperature 96.9 F L 08/16/22 17:37 Pulse Rate 63 08/16/22 17:37 Respiratory Rate 20 08/16/22 17:37 Blood Pressure 142/91 H 08/16/22 17:37 Pulse Oximetry 97 08/16/22 17:37 Oxygen Delivery Method Room Air 06/18/23 17:37 Temperature 96.9 F L 08/16/22 17:37 Pulse Rate 61 08/16/22 18:02 Respiratory Rate 20 08/16/22 17:37 Blood Pressure 136/93 H 08/16/22 18:02 Pulse Oximetry 98 08/16/22 18:02 Oxygen Delivery Method Room Air 08/16/22 17:37 Medical Decision Making MDM Narrative Medical decision making narrative: 62 year white male with transient lightheadedness with a basically normal examination. Reassuring EKG troponin, troponins done 2 days ago were unremarkable, the patient is not any chest pain. His lab studies look reassuring. I think could be helpful for Emir to do a Holter monitor to see if we can catch any arrhythmia over the next 48 hours. Have him [facility]. No heavy exertion or exertional activity until his follow-up. He can return the Holter here for analysis. His reports he does not drink a lot of fluids and I think I would encourage him to drink more than he is currently and see if he does not have a mild dehydration state he is able to drink water adequately. Return if problems or concerns otherwise follow up with regular doctor on Wednesday and will order the Holter today. With his symptom complaint I do not see other imaging or lab studies being appropriate this time but would carefully monitor and check the Holter. Discharge Plan Discharge Clinical Impression: Episodic lightheadedness Patient Disposition: Home, Self-Care Condition: Stable Additional Instructions: pin attacher activity, fluids on a regular basis, drink more water than you normally do. We will put a cardiac monitoring you for the next couple of days to see if there is any extra or funny heartbeats. Recommend continue her appointment on Wednesday with the [facility] doctor. Return sooner to the ED as needed. Continue home medication Activity Level: Light activity Discharge Diet: Regular Prescriptions: No Action celecoxib 200 mg capsule 200 mg PO DAILY Patient Comments: TAKE ONE CAPSULE BY MOUTH ONCE DAILY WITH A MEAL metoprolol succinate 50 mg tablet extended release 24 hr 50 mg PO DAILY Patient Comments: TAKE ONE TABLET BY MOUTH EVERY DAY nortriptyline 10 mg capsule 10 mg PO NIGHTLY Patient Comments: TAKE TWO CAPSULES BY MOUTH AT BEDTIME hydroxyzine HCl 25 mg tablet 25 mg PO BID PRN Patient Comments: TAKE ONE TABLET BY MOUTH TWICE A DAY NEEDED FOR ANXIETY omeprazole 20 mg capsule,delayed release(DR/EC) 20 mg PO DAILY Follow Up/Referrals: Provider,Not a Local [Primary Care Provider] - Stand Alone Forms: [facility] Info Instructions
[2022-08-16 18:00] VITALS: PULSE 63; O2SAT 98
[2022-08-16 18:02] VITALS: BP 136/93; PULSE 61; O2SAT 98
== END 2022-08-16 18:23 | disposition home or self-care (01) ==
LOC: ED 18:06
PROVIDERS: Emergency Provider Family Medicine
DX: R42 Dizziness and giddiness (principal)
CPT/HCPCS: 93225; 93226; 99283; 99284

== ENCOUNTER 2023-01-16 15:35 | Emergency (ER) | payer OTHER, SELFPAY ==
[2023-01-16 15:48] VITALS: BP 141/92; PULSE 70; RESP 18; TEMP 36.8; O2SAT 97; BMI 25.3
[2023-01-16 15:55] VITALS: PULSE 73; O2SAT 98
--- NOTE | 2023-01-16 15:59 | CRLHL7_ITS ---
For Patients: As a result of the Century Cures Act, medical imaging exams and procedure reports are released immediately into your electronic medical record. You may view this report before your referring provider. If you have questions, please contact your health care provider. INDICATION: Chest pain. TECHNIQUE: PA and lateral. COMPARISON: 10/24/2013 FINDINGS: Lungs clear. No pleural effusion or pneumothorax. Heart size and pulmonary vasculature within normal limits. No obvious rib fracture or other significant osseous abnormality. IMPRESSION: Negative chest. Dictated by Narendra Hicks MD @ 01/16/2023 5:01:58 PM (Electronically Signed)
[2023-01-16 16:00] VITALS: PULSE 72; O2SAT 98
--- NOTE | 2023-01-16 16:01 | ED.GENADULT ---
HPI - General Adult General Date Seen: 01/16/23 Chief complaint: Chest Pain Stated complaint: Upper L side chest pressure Time Seen by Provider: 01/16/23 15:37 Source: patient, RN notes reviewed and old records reviewed Mode of arrival: ambulatory Limitations: no limitations History of Present Illness HPI narrative: Patient is a 62-year-old male who comes in for recheck of some chest symptoms. He has been here couple of times in the past 6 months with similar complaints. He has been having trouble with what has been diagnosed as carpal tunnel on the left any says ever since developing carpal tunnel a number of months ago he has been having these twinges of pressure in his left upper chest that lasts a 2nd or 2. He wonders if it is related to the carpal tunnel. He does not get short of breath, nauseated, diaphoretic. Symptoms are not exertional. He has not had a stress test for about 10 years he suspects. He did have a Holter monitor earlier this year which was unremarkable. He is not symptomatic right now. He has never smoked, has no known cardiac disease, does note that he has a history of anxiety. No family history of cardiac disease aside from his dad having had a pacemaker. Related Data Home Medications Medication Instructions Recorded Confirmed celecoxib 200 mg capsule 200 mg PO DAILY 11/05/21 09/14/22 hydroxyzine HCl 25 mg tablet 25 mg PO BID PRN 11/05/21 09/14/22 metoprolol succinate 50 mg 50 mg PO DAILY 11/05/21 09/14/22 tablet,extended release 24 hr nortriptyline 10 mg capsule 10 mg PO NIGHTLY 11/05/21 09/14/22 omeprazole 20 mg capsule,delayed 20 mg PO DAILY 08/14/22 09/14/22 release aspirin 81 mg tablet,delayed 81 mg PO QDAY 08/26/22 09/14/22 release (Adult Low Dose Aspirin) Allergies Allergy/AdvReac Type Severity Reaction Status Date / Time No Known Drug Allergies Allergy Verified 09/14/22 16:03 Review of Systems Status of ROS: Reports: 10 or more systems reviewed and unremarkable except as noted in History and below [facility] Medical History Urinary frequency ?R35.0 - Frequency of micturition (ICD-10) Depression ?F32.A - Depression, unspecified (ICD-10) Migraine ?G43.909 - Migraine, unspecified, not intractable, without status migrainosus (ICD-10) Hypertension ?I10 - Essential (primary) hypertension (ICD-10) Surgical History No significant past surgical history Social History Smoking Status: Never smoker Do you use any of these nicotine containing products: None Second hand tobacco smoke exposure: Yes How often do you have a drink containing alcohol: monthly or less How many standard drinks containing alcohol do you have on a typical day: 1 or 2 How often do you have six or more drinks on one occasion: Never AUDIT-C Alcohol total score: 1 Non-prescribed substance use: denies use service: Yes Exam Narrative: Exam Narrative: Vital signs as noted above. In general, an alert, well-appearing patient. Head: Normocephalic, atraumatic. Eyes: Pupils are equal reactive. Extraocular movements are full. Conjunctivae are normal. ENT: Mucous membranes are moist. Neck: Supple without lymphadenopathy. Heart: Regular rate and rhythm. No murmur or rub. Lungs: Clear bilaterally. No increased work of breathing, crackles or wheezes. Abdomen: Soft and nontender. No organomegaly. Extremities: Well perfused. No edema. No calf tenderness. Pulses intact. Neurologic: Patient is alert and oriented to person and place. Speech is fluent. Face is symmetric. Moves all extremities equally. Affect: Normal. Skin: Warm and dry. Well perfused. Const: Vital Signs, click to edit/add: Vital Signs - 24 hr 01/16/23 15:48 01/16/23 15:55 01/16/23 16:00 Temperature 98.2 F Pulse Rate 73 72 Pulse Rate [Pulse Oximeter] 70 Respiratory Rate 18 Blood Pressure Blood Pressure [Ri ght Upper Arm] 141/92 H Pulse Oximetry 97 98 98 Oxygen Delivery Me thod Room Air 01/16/23 16:22 01/16/23 16:23 01/16/23 16:30 Temperature Pulse Rate 65 65 66 Pulse Rate [Pulse Oximeter] Respiratory Rate Blood Pressure 134/89 Blood Pressure [Ri ght Upper Arm] Pulse Oximetry 100 100 98 Oxygen Delivery Me thod Documenting provider has reviewed patient's vital signs: yes Course Course ED Course: Patient had an EKG on arrival which showed a normal sinus rhythm ventricular rate of 72, no ST segment changes, unremarkable T-waves. Workup here is pretty unremarkable, chest x-ray is negative by my review, final radiology read is negative. Labs show a troponin is 0, normal CBC normal metabolic panel, normal LFTs. Symptoms do not sound overly cardiac as they are quite brief, not exertional, stable now for several months. I did recommend that he follow-up with his primary care doctor to discuss this further, as he has not had any kind of stress testing the past decade it may be reasonable to do that as an outpatient, but for today discussed with him I do not find any evidence of acute coronary syndrome or other cause for his symptoms such as pneumonia, pneumothorax, pleural effusion or pulmonary edema. Does not seem to have a significant chest wall component although he does feel that these symptoms started at the same time as his carpal tunnel. He plans to have that operated on in the near future Return at any time for acute worsening. Vital Signs Vital signs: Initial Vital Signs Temperature 98.2 F 01/16/23 15:48 Temperature Source Temporal Artery Scan 01/16/23 15:48 Pulse Rate 70 01/16/23 15:48 Respiratory Rate 18 01/16/23 15:48 Respiratory Effort Normal, Spontaneous, Non-Labored 01/16/23 15:48 Respiratory Depth Normal 01/16/23 15:48 Blood Pressure 141/92 H 01/16/23 15:48 Blood Pressure Mean 108 H 01/16/23 15:48 Pulse Oximetry 97 01/16/23 15:48 Oxygen Delivery Method Room Air 01/16/23 15:48 Vital Signs Temperature 98.2 F 01/16/23 15:48 Pulse Rate 70 01/16/23 15:48 Respiratory Rate 18 01/16/23 15:48 Blood Pressure 141/92 H 01/16/23 15:48 Pulse Oximetry 97 01/16/23 15:48 Oxygen Delivery Method Room Air 01/16/23 15:48 Temperature 98.2 F 01/16/23 15:48 Pulse Rate 66 01/16/23 16:30 Respiratory Rate 18 01/16/23 15:48 Blood Pressure 134/89 01/16/23 16:22 Pulse Oximetry 98 01/16/23 16:30 Oxygen Delivery Method Room Air 01/16/23 15:48 Medical Decision Making Lab Data Labs: Lab Results 01/16/23 Range/Units 16:11 WBC 4.60 (4.50-11.00) K/uL RBC 4.99 (4.30-5.90) m/uL Hgb 15.0 (13.5-17.5) gm/dL Hct 45.0 (37.0-53.0) % MCV 90 (80-100) fL MCH 30 (26-34) pg MCHC 33 (32-36) gm/dL RDW Coeff of Kaushik 14.3 (11.5-15.5) % Plt Count 151 (140-440) K/uL Neut % (Auto) 41.2 L (42.0-72.0) % Lymph % (Auto) 39.8 (20-44) % Sabine % (Auto) 10.7 (0.0-11.0) % Eos % (Auto) 6.7 (0.0-7.0) % Baso % (Auto) 0.9 (0.0-3.0) % Neut # (Auto) 1.90 (1.7-7.0) K/uL Lymph # (Auto) 1.83 (0.90-2.90) K/uL Sabine # (Auto) 0.50 (0.00-0.90) K/UL Eos # (Auto) 0.31 (0.00-0.50) K/uL Baso # (Auto) 0.04 (0.00-0.30) K/uL Abs Immat Gran (auto) 0.03 (0.00-0.30) K/uL Imm/Tot Granulo (auto) 0.7 % Sodium 138 (135-149) mmol/L Potassium 4.4 (3.6-5.1) mmol/L Chloride 103 (96-114) mmol/L Carbon Dioxide 26 (20-32) mmol/L Anion Gap 9 (7-15) mEq/L BUN 14 (7-30) mg/dL Creatinine 0.7 (0.5-1.5) mg/dL Estimated Creat Clear 101.27 Estimated GFR 105 ml/min Glucose 111 (60-115) mg/dL Calcium 9.2 (8.4-10.6) mg/dL Total Bilirubin 0.2 (0.1-1.5) mg/dL Direct Bilirubin 0.0 (0.0-0.5) mg/dL AST 25 (12-35) U/L ALT 20 (4-50) U/L Alkaline Phosphatase 83 (40-150) U/L Total Protein 7.3 (6.0-8.3) g/dL Albumin 4.3 (3.3-5.0) g/dL POC Troponin I 0.00 L (0.01-0.04) ng/ml Discharge Plan Discharge Clinical Impression: Atypical chest pain Patient Disposition: Home, Self-Care Condition: Stable Instructions: Chest Pain (ED) Additional Instructions: Your workup here today looks good, there is no sign of problems with your heart, but I would recommend follow-up with your primary clinic to discuss symptoms and decide whether additional testing such as a stress test would make sense. Return any time for acute worsening. Prescriptions: No Action aspirin [Adult Low Dose Aspirin] 81 mg tablet,delayed release (DR/EC) 81 mg PO QDAY celecoxib 200 mg capsule 200 mg PO DAILY Patient Comments: TAKE ONE CAPSULE BY MOUTH ONCE DAILY WITH A MEAL metoprolol succinate 50 mg tablet extended release 24 hr 50 mg PO DAILY Patient Comments: TAKE ONE TABLET BY MOUTH EVERY DAY nortriptyline 10 mg capsule 10 mg PO NIGHTLY Patient Comments: TAKE TWO CAPSULES BY MOUTH AT BEDTIME hydroxyzine HCl 25 mg tablet 25 mg PO BID PRN Patient Comments: TAKE ONE TABLET BY MOUTH TWICE A DAY NEEDED FOR ANXIETY omeprazole 20 mg capsule,delayed release(DR/EC) 20 mg PO DAILY Follow Up/Referrals: Provider,Not a Local [Primary Care Provider] - Stand Alone Forms: [employer] Info Instructions
[2023-01-16 16:21] LABS: Basophils Absolute Auto 0.04 K/uL (0.00-0.30); Basophils Percent Auto 0.9 % (0.0-3.0); Eosinophils Absolute Auto 0.31 K/uL (0.00-0.50); Eosinophils Percent Auto 6.7 % (0.0-7.0); Immature Granulocytes Abs Auto 0.03 K/uL (0.00-0.30); Immature Granulocytes Pct Auto 0.7 %; Lymphocytes Absolute Auto 1.83 K/uL (0.90-2.90); Lymphocytes Percent Auto 39.8 % (20-44); Mean Corpuscular HGB Conc 33 gm/dL (32-36); Mean Corpuscular Hemoglobin 30 pg (26-34); Mean Corpuscular Volume 90 fL (80-100); Monocytes Percent Auto 10.7 % (0.0-11.0); Neutrophils Percent Auto 41.2 % (42.0-72.0); Platelet Count* 151 K/uL (140-440); RDW Coefficient of Variation % 14.3 % (11.5-15.5); Red Blood Count 4.99 m/uL (4.30-5.90); Slide Review Reflex No
[2023-01-16 16:22] VITALS: BP 134/89; PULSE 65; O2SAT 100
[2023-01-16 16:23] VITALS: PULSE 65; O2SAT 100
[2023-01-16 16:30] VITALS: PULSE 66; O2SAT 98
[2023-01-16 16:31] LABS: Albumin* 4.3 g/dL (3.3-5.0); Chloride* 103 mmol/L (96-114); Sodium* 138 mmol/L (135-149)
[2023-01-16 16:32] LABS: Potassium* 4.4 mmol/L (3.6-5.1)
[2023-01-16 16:33] LABS: Creatinine* 0.7 mg/dL (0.5-1.5); Est. Creatinine Clearance* 101.27; Estimated Glomerular Filt Rate 105 ml/min
[2023-01-16 16:34] LABS: Alanine Aminotransferase* 20 U/L (4-50); Alkaline Phosphatase* 83 U/L (40-150); Anion Gap 9 mEq/L (7-15); Aspartate Amino Transferase* 25 U/L (12-35); Bilirubin Total* 0.2 mg/dL (0.1-1.5); Blood Urea Nitrogen* 14 mg/dL (7-30); Carbon Dioxide* 26 mmol/L (20-32); Glucose* 111 mg/dL (60-115); Total Protein* 7.3 g/dL (6.0-8.3)
[2023-01-16 16:35] LABS: Calcium* 9.2 mg/dL (8.4-10.6)
== END 2023-01-16 16:46 | disposition home or self-care (01) ==
PROVIDERS: Emergency Provider Emergency Medicine
DX: R07.89 Other chest pain (principal)
CPT/HCPCS: 36415; 71046; 80048; 80076; 84484; 85025; 93005; 99284; 99285

== ENCOUNTER 2023-01-24 08:10 | Emergency (ER) | payer OTHER, SELFPAY ==
[2023-01-24] VITALS (22 sets, daily range): BP systolic 121–147; BP diastolic 87–99; PULSE 60–77; RESP 16; TEMP 36.6; O2SAT 86–100; BMI 24.3
--- NOTE | 2023-01-24 09:19 | CRLHL7_ITS ---
For Patients: As a result of the Century Cures Act, medical imaging exams and procedure reports are released immediately into your electronic medical record. You may view this report before your referring provider. If you have questions, please contact your health care provider. Indication: Neck and bilateral arm pain Technique: Volumetric multidetector CT images of the cervical spine were obtained without the administration of IV contrast. Comparison: None available. 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 Otherwise, the cervical vertebral body heights are grossly maintained with minimal endplate subchondral cystic changes. There is straightening of the normal cervical lordosis without evidence of significant spondylolisthesis. There is no displaced fracture or dislocation. There is moderate to severe degenerative disc disease with disc height loss and marginal osteophyte formation. There is moderate to severe facet arthrosis. Degenerative changes of atlantoaxial joint are appreciated. The paraspinous soft tissues are grossly within normal limits. Impression: Moderate to severe degenerative changes of the cervical spine without acute osseous abnormality. 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 Please note that all CT scans at this facility use dose modulation, iterative reconstruction, and/or weight-based dosing when appropriate to reduce radiation dose to as low as reasonably achievable. Dictated by Leopoldo Mcmahon MD @ 01/24/2023 10:21:57 AM (Electronically Signed)
--- NOTE | 2023-01-24 09:19 | CRLHL7_ITS ---
For Patients: As a result of the Century Cures Act, medical imaging exams and procedure reports are released immediately into your electronic medical record. You may view this report before your referring provider. If you have questions, please contact your health care provider. Indication: Upper back and bilateral arm pain, aortic dissection Comparison: None available Technique: CTA of the chest. Isovue 370, 95 mL IV. 3D angiographic rendering using maximum intensity projection (MIP). Images reviewed and permanently archived. Findings: No thoracic aortic aneurysm. No dissection seen, although there is too much motion in the ascending aorta/ascending roots to exclude an injury there. No cardiomegaly or pericardial effusion. No pleural effusion or pneumothorax. In the visualized upper abdomen there is no suspicious acute abnormality. Colonic diverticulosis. Central airways are patent. No acute appearing pulmonary opacities. Small subpleural nodule right middle lobe measuring 4.5 mm on image 124, series 6. If high risk for lung cancer can follow-up in 12 months. No suspicious adenopathy. The thyroid appears unremarkable. No aggressive appearing osseous lesion Impression: No pulmonary embolism, and no thoracic aortic aneurysm, although the aortic root is suboptimally evaluated. Please note that all CT scans at this facility use dose modulation, iterative reconstruction, and/or weight-based dosing when appropriate to reduce radiation dose to as low as reasonably achievable. Dictated by Vishal Sweet MD @ 01/24/2023 10:32:18 AM (Electronically Signed)
--- NOTE | 2023-01-24 09:32 | ED_ITS ---
HPI - General Adult General Date Seen: 01/24/23 Chief complaint: Extremity Pain/Injury, Upper Stated complaint: Both arms weak and sore Time Seen by Provider: 01/24/23 08:41 History of Present Illness HPI narrative: 62-year-old male accompanied to the ER today by his girlfriend for evaluation of an achy pain involving his central upper back/lower neck radiating to both upper arms. He has a past medical history migraine headaches, anxiety, possible carpal tunn el syndrome, possible GERD. His HPI actually started several months ago. He said he was having some intermittent numbness affecting his left hand primarily. In particular the left 3rd and 4th digits. This would happen from time to time, perhaps once every few weeks or months. He saw his primary care provider through the [facility] and was told he might have carpal tunnel syndrome. He was given a brace to wear while sleeping and at work and told to come back if it got worse. It has been bothersome for the past few months, occasionally but not every day. He was really having any symptoms with his right hand right arm. For the past few weeks he has been noting that he gets an achy discomfort affecting both of his upper arms essentially in the shoulders and down into the elbows. It happens sometimes when he is just resting and sitting on the couch. Does not happen every day. Perhaps a couple of times per week. He is also noted for the past couple weeks that the ache seems to happen when he is at work. 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 He notes that when he comes in to work in the morning he is able to lift his pieces of sheet metal without any difficulty but as the day goes on he gets more and more of an ache that is located in his upper back between the shoulder blades and at the base of his neck and radiates to both his upper arms. He says his arms feel a little bit weak. They do not swell. No change in color. No anterior chest pain. He also had an episode last week where he had an episode of substernal anterior chest discomfort. He came to the ER and was worked up. In records from 01/16 I see that he had EKG, troponin and an initial cardiac workup that was reassuring. He notes that he had episodes of back discomfort and arm discomfort while at work earlier this week. He was off , Wednesday, Wednesday, and today because of the per He had really had trouble with his back her arms until yesterday on Wednesday. He was sitting on his couch yesterday at around 6:00 p.m. when he had an episode of bad discomfort in his upper back that went to both of his upper arms. No anterior chest discomfort with that episode. No shortness of breath. No pleuritic pain. No abdominal pain. No lower back pain. His arms felt weak and achy. No numbness. No headache. The pain did not radiate up into his back. Because of the discomfort he called the triage nurse for his primary care provider at the [facility]. They had him check his blood pressure and it was 160/80. The nurse told him that he should be seen in the ER within the next 24 hours. His pain went away after 15 or 20 minutes. Based on the advice his nurse gave him last night, He decided to come to the ER again here this morning . At this time he is not having any discomfort or weakness. Related Data Home Medications Medication Instructions Recorded Confirmed celecoxib 200 mg capsule 200 mg PO DAILY 11/05/21 01/24/23 hydroxyzine HCl 25 mg tablet 25 mg PO BID PRN 11/05/21 01/24/23 metoprolol succinate 50 mg 50 mg PO DAILY 11/05/21 01/24/23 tablet,extended release 24 hr nortriptyline 10 mg capsule 10 mg PO NIGHTLY 11/05/21 01/24/23 omeprazole 20 mg capsule,delayed 20 mg PO DAILY 08/14/22 09/14/22 release aspirin 81 mg tablet,delayed 81 mg PO QDAY 08/26/22 01/24/23 release (Adult Low Dose Aspirin) Allergies Allergy/AdvReac Type Severity Reaction Status Date / Time No Known Drug Allergies Allergy Verified 09/14/22 16:03 [facility] Medical History Urinary frequency ?R35.0 - Frequency of micturition (ICD-10) Depression ?F32.A - Depression, unspecified (ICD-10) Migraine ?G43.909 - Migraine, unspecified, not intractable, without status migrainosus (ICD-10) Hypertension ?I10 - Essential (primary) hypertension (ICD-10) Surgical History No significant past surgical history Social History Smoking Status: Never smoker Do you use any of these nicotine containing products: None Second hand tobacco smoke exposure: Yes How often do you have a drink containing alcohol: monthly or less How many standard drinks containing alcohol do you have on a typical day: 1 or 2 How often do you have six or more drinks on one occasion: Never AUDIT-C Alcohol total score: 1 Non-prescribed substance use: denies use service: Yes Exam Narrative: Exam Narrative: Constitutional: Appears well-developed and well-nourished. Alert. Conversant. Non toxic. HENT: Head: Atraumatic. Nose: Nose normal. Mouth/Throat: Oral mucosa is clear and moist. no trismus. Pharynx normal. Tonsils symmetric. No tonsillar enlargement, erythema, or exudate. Eyes: Conjunctivae normal. EOM normal. Pupils equal, round, and reactive to light. No scleral icterus. Neck: No JVD. Normal range of motion. Neck supple. No tracheal deviation present. No posterior midline tenderness in the cervical spine. Cardiovascular: Normal rate, regular rhythm. No gallop. No friction rub. No murmur heard. Symmetric radial and PT artery pulses Pulmonary/Chest: Effort normal. No stridor. No respiratory distress. No wheezes. No rales. No rhonchi . No tenderness. Abdominal: Soft. Bowel sounds normal. No distension. No mass. No tenderness. No rebound. No guarding. Musculoskeletal: He does have mild kyphosis at the junction of the thoracic and cervical spine. There is no midline step-off or tenderness. No L-spine tenderness. No trapezius or paraspinal tenderness. RUE: Normal range of motion. No tenderness. No deformity LUE: Normal range of motion. No tenderness. No deformity RLE: Normal range of motion. No edema. No tenderness. No deformity LLE: Normal range of motion. No edema. No tenderness. No deformity Lymph: No cervical adenopathy. Neurological: Mental status normal. Attention normal. Alert and oriented x3. GCS 15. Memory normal. Speech fluent. Cognition normal. Cranial Nerves intact II-XII except I did not formally test gag or visual acuity. EOMI. Palate elevates symmetrically and tongue protrudes in the midline. Strength: 5/5 trapezius on the right and left 5/5 deltoid on the right and left 5/5 biceps on the right and left 5/5 triceps on the right and left 5/5 audio/visual operator on the right and left 5/5 thumb opposition on the right and le ft 5/5 finger abduction on the right and le ft 5/5 hip flexors (L3) on the right and le ft 5/5 quadriceps (L4) on the right and lef t 5/5 tibialis anterior on the right and l eft 5/5 EHL (L5) on the right and left 5/5 gastrocnemius (S1) on the right and left 5/5 hamstring on the right and left Sensation intact to light touch in both upper extremities (C4-T1) Sensation intact to light touch in Both lower extremities (L4-S1). Finger to nose and coordination normal. Gait normal. Skin: Skin is warm and dry. No rash noted. No pallor. Normal capillary refill. Psychiatric: Normal mood. Normal affect. Const: Vital Signs, click to edit/add: Vital Signs - 24 hr 01/24/23 08:15 01/24/23 08:48 01/24/23 09:00 Temperature 97.9 F Pulse Rate 70 77 Pulse Rate [Pulse Oximeter] 73 Respiratory Rate 16 Blood Pressure Blood Pressure [Ri ght Upper Arm] 132/98 H Pulse Oximetry 99 97 100 Oxygen Delivery Me thod Room Air 01/24/23 09:02 01/24/23 09:30 01/24/23 09:31 Temperature Pulse Rate 68 67 69 Pulse Rate [Pulse Oximeter] Respiratory Rate Blood Pressure 143/94 H 128/93 H Blood Pressure [Ri ght Upper Arm] Pulse Oximetry 98 98 97 Oxygen Delivery Me thod 01/24/23 09:32 01/24/23 10:00 01/24/23 10:01 Temperature Pulse Rate 70 68 66 Pulse Rate [Pulse Oximeter] Respiratory Rate Blood Pressure 138/94 H Blood Pressure [Ri ght Upper Arm] Pulse Oximetry 98 98 99 Oxygen Delivery Me thod 01/24/23 10:02 01/24/23 10:30 01/24/23 10:31 Temperature Pulse Rate 67 64 64 Pulse Rate [Pulse Oximeter] Respiratory Rate Blood Pressure 137/94 H Blood Pressure [Ri ght Upper Arm] Pulse Oximetry 99 99 100 Oxygen Delivery Me thod 01/24/23 10:32 01/24/23 11:00 01/24/23 11:01 Temperature Pulse Rate 71 62 65 Pulse Rate [Pulse Oximeter] Respiratory Rate Blood Pressure 128/91 H Blood Pressure [Ri ght Upper Arm] Pulse Oximetry 99 99 98 Oxygen Delivery Me thod 01/24/23 11:02 01/24/23 11:30 01/24/23 11:31 Temperature Pulse Rate 66 65 68 Pulse Rate [Pulse Oximeter] Respiratory Rate Blood Pressure 121/87 Blood Pressure [Ri ght Upper Arm] Pulse Oximetry 98 99 100 Oxygen Delivery Me thod 01/24/23 12:00 01/24/23 12:01 01/24/23 12:30 Temperature Pulse Rate 69 64 60 Pulse Rate [Pulse Oximeter] Respiratory Rate Blood Pressure 128/89 Blood Pressure [Ri ght Upper Arm] Pulse Oximetry 99 98 100 Oxygen Delivery Me thod 01/24/23 12:31 Temperature Pulse Rate 65 Pulse Rate [Pulse Oximeter] Respiratory Rate Blood Pressure 147/99 H Blood Pressure [Ri ght Upper Arm] Pulse Oximetry 86 L Oxygen Delivery Me thod Course Vital Signs Vital signs: Initial Vital Signs Temperature 97.9 F 01/24/23 08:15 Temperature Source Temporal Artery Scan 01/24/23 08:15 Pulse Rate 73 01/24/23 08:15 Respiratory Rate 16 01/24/23 08:15 Blood Pressure 132/98 H 01/24/23 08:15 Blood Pressure Mean 109 H 01/24/23 08:15 Blood Pressure Position Supine 01/24/23 08:15 Pulse Oximetry 99 01/24/23 08:15 Oxygen Delivery Method Room Air 01/24/23 08:15 Vital Signs Temperature 97.9 F 01/24/23 08:15 Pulse Rate 73 01/24/23 08:15 Respiratory Rate 16 01/24/23 08:15 Blood Pressure 132/98 H 01/24/23 08:15 Pulse Oximetry 99 01/24/23 08:15 Oxygen Delivery Method Room Air 01/24/23 08:15 Temperature 97.9 F 01/24/23 08:15 Pulse Rate 65 01/24/23 12:31 Respiratory Rate 16 01/24/23 08:15 Blood Pressure 147/99 H 01/24/23 12:31 Pulse Oximetry 86 L 01/24/23 12:31 Oxygen Delivery Method Room Air 01/24/23 08:15 Medical Decision Making MDM Narrative Medical decision making narrative: This is a very pleasant 62-year-old gentleman who presented to the ER today with his girlfriend for evaluation of intermittent pain affecting his lower neck/upper back at the junction of the cervical and thoracic spines off and on for the past couple of weeks sometimes with episodes of pain radiating to both upper arms. Differential is broad. He has had some pre-existing intermittent left hand numbness which could be consistent with carpal tunnel. I do not think his neck/upper back pain or upper arm pain would be related to carpal tunnel. Consider an atypical presentation of ACS. He had been seen here in the ER couple of weeks ago for an episode of anterior chest pain and had a negative workup. Repeat EKG and troponin are again negative today. His most recent episode of pain actually occurred yesterday at about 6:00 p.m.. Therefore s lulu troponin would be sufficient to rule out NSTEMI. CT scan is negative for any PE, pneumonia, pneumothorax, pulmonary edema, rib fracture. No obvious thoracic masses or thoracic outlet syndrome. With his upper back pain, consider possible aortic dissection. I did order a dissection protocol chest CT. Unfortunately due to motion artifact were not able to definitively rule out dissection but there is no obvious abnormality. At this point overall likelihood for dissection would be low since he is not having any pain since yesterday. I felt that the risk with repeat dye load and repeats radiation exposure would outweigh the benefit. Consider possible cervical spine disease. Patient may need MRI for better characterization. This is not available here in the ER today. We did obtain C- spine CT which is negative for any acute fracture. There is it incidental finding of a C2-C3 congenital fusion, likely not contributing to his symptoms. He also has degenerative joint disease and arthritic changes in the lower C- spine which could be contributing. He will need an MRI to further characterize to look for conditions such as spinal stenosis. He will follow-[facility] At this point no evidence for any acute limb ischemia affecting his arms. No evidence for upper extremity DVTs. No evidence for cellulitis. Incidentally he does have a 4.5 mm right middle lobe no new nodule. He is not a smoker himself but does have an extensive history of secondhand smoke exposure. Would recommend follow-up CT imaging in 6-12 months, as per Radiology. Discussed with the patient and his girlfriend. They verbalized her understanding and will follow-up. Lab Data Labs: Lab Results 01/24/23 Range/Units 09:37 WBC 4.79 (4.50-11.00) K/uL RBC 5.14 (4.30-5.90) m/uL Hgb 15.3 (13.5-17.5) gm/dL Hct 46.1 (37.0-53.0) % MCV 90 (80-100) fL MCH 30 (26-34) pg MCHC 33 (32-36) gm/dL RDW Coeff of Kaushik 14.2 (11.5-15.5) % Plt Count 156 (140-440) K/uL Neut % (Auto) 51.8 (42.0-72.0) % Lymph % (Auto) 33.4 (20-44) % Stewart % (Auto) 9.6 (0.0-11.0) % Eos % (Auto) 4.6 (0.0-7.0) % Baso % (Auto) 0.6 (0.0-3.0) % Neut # (Auto) 2.48 (1.7-7.0) K/uL Lymph # (Auto) 1.60 (0.90-2.90) K/uL Stewart # (Auto) 0.50 (0.00-0.90) K/UL Eos # (Auto) 0.22 (0.00-0.50) K/uL Baso # (Auto) 0.03 (0.00-0.30) K/uL Abs Immat Gran (auto) 0.00 (0.00-0.30) K/uL Imm/Tot Granulo (auto) 0.0 % Sodium 138 (135-149) mmol/L Potassium 4.3 (3.6-5.1) mmol/L Chloride 104 (96-114) mmol/L Carbon Dioxide 27 (20-32) mmol/L Anion Gap 7 (7-15) mEq/L BUN 12 (7-30) mg/dL Creatinine 0.7 (0.5-1.5) mg/dL Estimated Creat Clear 104.92 Estimated GFR 105 ml/min Glucose 91 (60-115) mg/dL Calcium 9.1 (8.4-10.6) mg/dL Troponin I < 0.01 L (0.01-0.04) ng/mL Imaging Data CT C spine: Attestation: I have reviewed the pertinent imaging results. Radiologist's impression: Impression: Moderate to severe degenerative changes of the cervical spine without acute osseous abnormality. 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 CT scan - chest: Attestation: I have reviewed the pertinent imaging results. Radiologist's impression: Findings: No thoracic aortic aneurysm. No dissection seen, although there is too much motion in the ascending aorta/ascending roots to exclude an injury there. No cardiomegaly or pericardial effusion. No pleural effusion or pneumothorax. In the visualized upper abdomen there is no suspicious acute abnormality. Colonic diverticulosis. Central airways are patent. No acute appearing pulmonary opacities. Small subpleural nodule right middle lobe measuring 4.5 mm on image 124, series 6. If high risk for lung cancer can follow-up in 12 months. No suspicious adenopathy. The thyroid appears unremarkable. No aggressive appearing osseous lesion Impression: No pulmonary embolism, and no thoracic aortic aneurysm, although the aortic root is suboptimally evaluated. ECG Data Attestation: I personally reviewed and interpreted this ECG as follows: Interpretation: Normal sinus rhythm . Rate 64 ME 180 QRS axis normal axis. No pathologic Q-waves. ST segment/T wave: No ST elevation or depression QTc: 437 Discharge Plan Discharge Clinical Impression: Acute neck pain, Acute upper back pain, Degenerative cervical disc, Incidental pulmonary nodule Patient Disposition: Home, Self-Care Condition: Stable Instructions: Pulmonary Nodules (ED), Acute Neck Pain (ED) Additional Instructions: As we discussed, please follow-up with your regular doctor as soon as possible. You may need an MRI of your neck to further evaluate the degenerative disc disease seen on your CT scan today. If you have worsening pain, worsening numbness or weakness down your arms more chest pain, trouble breathing, or any problems, please return to the ER immediately. Please avoid lifting heavy objects more than 5 lb or holding objects overhead or other activities that put strain on your upper back and neck. You have a small spot in your right lung. This is a ? Small subpleural nodule right middle lobe nodule measuring 4.5 mm . Please follow-up with your regular doctor this week and have them arrange a follow-up CT scan of your lungs in 6- 12 months. Prescriptions: No Action aspirin [Adult Low Dose Aspirin] 81 mg tablet,delayed release (DR/EC) 81 mg PO QDAY celecoxib 200 mg capsule 200 mg PO DAILY Patient Comments: TAKE ONE CAPSULE BY MOUTH ONCE DAILY WITH A MEAL metoprolol succinate 50 mg tablet extended release 24 hr 50 mg PO DAILY Patient Comments: TAKE ONE TABLET BY MOUTH EVERY DAY nortriptyline 10 mg capsule 10 mg PO NIGHTLY Patient Comments: TAKE TWO CAPSULES BY MOUTH AT BEDTIME hydroxyzine HCl 25 mg tablet 25 mg PO BID PRN Patient Comments: TAKE ONE TABLET BY MOUTH TWICE A DAY NEEDED FOR ANXIETY omeprazole 20 mg capsule,delayed release(DR/EC) 20 mg PO DAILY Follow Up/Referrals: Provider,Not a Local [Primary Care Provider] - Stand Alone Forms: [employer] Info Instructions
[2023-01-24 09:53] LABS: Basophils Absolute Auto 0.03 K/uL (0.00-0.30); Basophils Percent Auto 0.6 % (0.0-3.0); Eosinophils Absolute Auto 0.22 K/uL (0.00-0.50); Eosinophils Percent Auto 4.6 % (0.0-7.0); Hematocrit 46.1 % (37.0-53.0); Hemoglobin* 15.3 gm/dL (13.5-17.5); Lymphocytes Percent Auto 33.4 % (20-44); Mean Corpuscular HGB Conc 33 gm/dL (32-36); Mean Corpuscular Hemoglobin 30 pg (26-34); Mean Corpuscular Volume 90 fL (80-100); Monocytes Percent Auto 9.6 % (0.0-11.0); Neutrophils Absolute Auto 2.48 K/uL (1.7-7.0); Neutrophils Percent Auto 51.8 % (42.0-72.0); Platelet Count* 156 K/uL (140-440); RDW Coefficient of Variation % 14.2 % (11.5-15.5); Red Blood Count 5.14 m/uL (4.30-5.90); White Blood Count* 4.79 K/uL (4.50-11.00)
[2023-01-24 10:20] LABS: Chloride* 104 mmol/L (96-114); Potassium* 4.3 mmol/L (3.6-5.1); Sodium* 138 mmol/L (135-149)
[2023-01-24 10:22] LABS: Creatinine* 0.7 mg/dL (0.5-1.5); Est. Creatinine Clearance* 104.92; Estimated Glomerular Filt Rate 105 ml/min
[2023-01-24 10:23] LABS: Anion Gap 7 mEq/L (7-15); Blood Urea Nitrogen* 12 mg/dL (7-30); Calcium* 9.1 mg/dL (8.4-10.6); Carbon Dioxide* 27 mmol/L (20-32); Glucose* 91 mg/dL (60-115)
[2023-01-24 10:34] LABS: Slide Review Reflex No
[2023-01-24 10:39] LABS: Troponin I* < 0.01 ng/mL (0.01-0.04)
== END 2023-01-24 12:47 | disposition home or self-care (01) ==
PROVIDERS: Emergency Provider Emergency Medicine
DX: M54.2 Cervicalgia (principal); M54.9 Dorsalgia, unspecified; M50.30 Other cervical disc degeneration, unspecified cervical region; R91.1 Solitary pulmonary nodule
CPT/HCPCS: 36415; 71275; 72125; 80048; 84484; 85025; 93005; 99284; 99285; Q9967

== ENCOUNTER 2023-02-22 16:47 | Emergency (ER) | payer OTHER, SELFPAY ==
[2023-02-22 16:56] VITALS: BP 145/91; PULSE 74; RESP 20; TEMP 37.2; O2SAT 98; BMI 25.0
--- NOTE | 2023-02-22 17:21 | ED.GENADULT ---
HPI - General Adult General Chief complaint: Cough Stated complaint: Congestion, lethargy Time Seen by Provider: 02/22/23 17:15 History of Present Illness HPI narrative: Patient is a 62-year-old gentleman who comes in today with shortness of breath and cough. His oxygen saturation is 98% on room air. He has had no fevers no chills no night sweats no nausea no vomiting. He has been extremely fatigued his symptoms are present for last 2 days. No other significant symptoms patient does not smoke. He does not use supplemental oxygen. He has had no chest pain. He is actually feeling better today than yesterday. Related Data Home Medications Medication Instructions Recorded Confirmed celecoxib 200 mg capsule 200 mg PO DAILY 11/05/21 01/24/23 hydroxyzine HCl 25 mg tablet 25 mg PO BID PRN 11/05/21 01/24/23 metoprolol succinate 50 mg 50 mg PO DAILY 11/05/21 01/24/23 tablet,extended release 24 hr nortriptyline 10 mg capsule 10 mg PO NIGHTLY 11/05/21 01/24/23 omeprazole 20 mg capsule,delayed 20 mg PO DAILY 08/14/22 09/14/22 release aspirin 81 mg tablet,delayed 81 mg PO QDAY 08/26/22 01/24/23 release (Adult Low Dose Aspirin) Allergies Allergy/AdvReac Type Severity Reaction Status Date / Time No Known Drug Allergies Allergy Verified 09/14/22 16:03 Review of Systems Status of ROS: Reports: 10 or more systems reviewed and unremarkable except as noted in History and below [facility] Medical History Urinary frequency ?R35.0 - Frequency of micturition (ICD-10) Depression ?F32.A - Depression, unspecified (ICD-10) Migraine ?G43.909 - Migraine, unspecified, not intractable, without status migrainosus (ICD-10) Hypertension ?I10 - Essential (primary) hypertension (ICD-10) Surgical History No significant past surgical history Social History Smoking Status: Never smoker Do you use any of these nicotine containing products: None Second hand tobacco smoke exposure: Yes How often do you have a drink containing alcohol: monthly or less How many standard drinks containing alcohol do you have on a typical day: 1 or 2 How often do you have six or more drinks on one occasion: Never AUDIT-C Alcohol total score: 1 Non-prescribed substance use: denies use service: Yes Exam Narrative: Exam Narrative: EXAM GENERAL: Patient appears comfortable and well. EYES: No scleral icterus. ENT: Tympanic membranes and oropharynx normal. THYROID: no thyroid nodules or thyromegaly. LYMPH: No supraclavicular or cervical lymphadenopathy. SKIN: Visible skin seen during exam normal or with benign process only. EXT: No dependent lower extremity pedal edema. HEART: Regular rate and rhythm with no murmurs, rubs, or gallops. LUNGS: Clear to auscultation bilaterally with no crackles or wheezes. ABD: Soft, non tender, non distended. PSYCH: Good eye contact, speech is not pressured. Const: Vital Signs, click to edit/add: Vital Signs - 24 hr 02/22/23 16:56 Temperature 99 F Pulse Rate [Pulse Oximeter] 74 Respiratory Rate 20 Blood Pressure [Ri ght Upper Arm] 145/91 H Pulse Oximetry 98 Oxygen Delivery Me thod Room Air Course Course ED Course: Patient seen and examined. Vital Signs Vital signs: Initial Vital Signs Temperature 99 F 02/22/23 16:56 Temperature Source Temporal Artery Scan 02/22/23 16:56 Pulse Rate 74 02/22/23 16:56 Pulse Rhythm Regular 02/22/23 16:56 Respiratory Rate 20 02/22/23 16:56 Blood Pressure 145/91 H 02/22/23 16:56 Blood Pressure Mean 109 H 02/22/23 16:56 Blood Pressure Position Sitting 02/22/23 16:56 Pulse Oximetry 98 02/22/23 16:56 Oxygen Delivery Method Room Air 02/22/23 16:56 Vital Signs Temperature 99 F 02/22/23 16:56 Pulse Rate 74 02/22/23 16:56 Respiratory Rate 20 02/22/23 16:56 Blood Pressure 145/91 H 02/22/23 16:56 Pulse Oximetry 98 02/22/23 16:56 Oxygen Delivery Method Room Air 02/22/23 16:56 Temperature 99 F 02/22/23 16:56 Pulse Rate 74 02/22/23 16:56 Respiratory Rate 20 02/22/23 16:56 Blood Pressure 145/91 H 02/22/23 16:56 Pulse Oximetry 98 02/22/23 16:56 Oxygen Delivery Method Room Air 02/22/23 16:56 Medical Decision Making MDM Narrative Medical decision making narrative: Patient is a 62-year-old gentleman who comes in today with viral syndrome. We did swab him for influenza COVID and RSV. Reassurance is otherwise offered will be in contact with him based on his results he can rotate Tylenol Motrin drink plenty fluids get plenty of rest. Discharge Plan Discharge Clinical Impression: Acute viral syndrome Patient Disposition: Home, Self-Care Condition: Stable Instructions: Viral Syndrome (ED) Additional Instructions: Tylenol Motrin Rest Fluids We will contact you based on your results. Activity Level: No Restrictions Discharge Diet: Regular Prescriptions: No Action aspirin [Adult Low Dose Aspirin] 81 mg tablet,delayed release (DR/EC) 81 mg PO QDAY celecoxib 200 mg capsule 200 mg PO DAILY Patient Comments: TAKE ONE CAPSULE BY MOUTH ONCE DAILY WITH A MEAL metoprolol succinate 50 mg tablet extended release 24 hr 50 mg PO DAILY Patient Comments: TAKE ONE TABLET BY MOUTH EVERY DAY nortriptyline 10 mg capsule 10 mg PO NIGHTLY Patient Comments: TAKE TWO CAPSULES BY MOUTH AT BEDTIME hydroxyzine HCl 25 mg tablet 25 mg PO BID PRN Patient Comments: TAKE ONE TABLET BY MOUTH TWICE A DAY NEEDED FOR ANXIETY omeprazole 20 mg capsule,delayed release(DR/EC) 20 mg PO DAILY Follow Up/Referrals: Provider,Not a Local [Primary Care Provider] - Stand Alone Forms: [employer] Info Instructions
[2023-02-22 17:37] LABS: PCR FLU A Negative PCR FLU A (Negative); PCR FLU B Negative PCR FLU B (Negative); PCR RSV Negative PCR RSV (Negative)
[2023-02-22 17:39] LABS: SARS PCR* POSITIVE SARS-CoV-2 (Negative)
--- NOTE | 2023-02-22 18:43 | ED.NURSE ---
Pt called with results. Pt updated of Paxlovid rx sent to pt pharmacy. Pt denies further questions.
== END 2023-02-22 17:36 | disposition home or self-care (01) ==
PROVIDERS: Emergency Provider Internal Medicine
DX: B34.9 Viral infection, unspecified (principal)
CPT/HCPCS: 87631; 99282; 99283

== ENCOUNTER 2023-05-25 17:25 | Emergency (ER) | payer OTHER, SELFPAY ==
[2023-05-25] VITALS (10 sets, daily range): BP systolic 117–145; BP diastolic 41–97; PULSE 69–107; RESP 14; TEMP 37.1; O2SAT 87–100; BMI 25.0
[2023-05-25] MEDS: LACTATED RINGERS 1000 ML 1,000 ML IV (18:07)
[2023-05-25] MEDS: diphenhydrAMINE 50 MG/ML inj 25 MG IVP (18:10)
[2023-05-25] MEDS: METOCLOPRAMIDE HCL 5 MG/ML INJ 10 MG IVP (18:12)
[2023-05-25] MEDS: KETOROLAC 15 MG/ML inj IVP (18:13)
--- NOTE | 2023-05-25 18:14 | ED_ITS ---
HPI - General Adult General Date Seen: 05/25/23 Chief complaint: Headache/Migraine Stated complaint: Possible BP issue Time Seen by Provider: 05/25/23 17:38 Source: patient Mode of arrival: ambulatory Limitations: no limitations History of Present Illness HPI narrative: Patient is a 63-year-old male with a history of hypertension presenting to the emergency department for multiple complaints. He states since Wednesday he has been having headache in his forehead. He has had headaches like this before. States the headaches are worse when he is up and walking around in a better when he lays down. They typically are also worse in the morning and better when he goes to bed. She has been taking his home headache medications without improvement in his symptoms. Says at the worse is a 7/10 and is currently a 2/10. Symptoms are improved now though because he is laying down he states. Has had some mild nausea but no vomiting. Did have an episode of chest pain in his midsternal chest that lasted for a few seconds he says it felt like a thumpin sensation. He also had an episode of lightheadedness at the same time and also knee lasted a couple seconds. Denies fevers, chills, weakness, numbness, shortness of breath, vision changes, diarrhea, constipation. He was also concerned because his blood pressure was 149/90 at home he is wondering if this could be causing his symptoms. No other concerns noted at this time. Related Data Home Medications Medication Instructions Recorded Confirmed celecoxib 200 mg capsule 200 mg PO DAILY 11/05/21 01/24/23 hydroxyzine HCl 25 mg tablet 25 mg PO BID PRN 11/05/21 01/24/23 metoprolol succinate 50 mg 50 mg PO DAILY 11/05/21 05/25/23 tablet,extended release 24 hr nortriptyline 10 mg capsule 10 mg PO NIGHTLY 11/05/21 01/24/23 omeprazole 20 mg capsule,delayed 20 mg PO DAILY 08/14/22 09/14/22 release aspirin 81 mg tablet,delayed 81 mg PO QDAY 08/26/22 01/24/23 release (Adult Low Dose Aspirin) Allergies Allergy/AdvReac Type Severity Reaction Status Date / Time No Known Drug Allergies Allergy Verified 05/25/23 17:43 Review of Systems Status of ROS: Reports: 10 or more systems reviewed and unremarkable except as noted in History and below [facility] Medical History Urinary frequency ?R35.0 - Frequency of micturition (ICD-10) Depression ?F32.A - Depression, unspecified (ICD-10) Migraine ?G43.909 - Migraine, unspecified, not intractable, without status migrainosus (ICD-10) Hypertension ?I10 - Essential (primary) hypertension (ICD-10) Surgical History No significant past surgical history Social History Smoking Status: Never smoker Do you use any of these nicotine containing products: None Second hand tobacco smoke exposure: Yes How often do you have a drink containing alcohol: monthly or less How many standard drinks containing alcohol do you have on a typical day: 1 or 2 How often do you have six or more drinks on one occasion: Never AUDIT-C Alcohol total score: 1 Non-prescribed substance use: denies use service: Yes Exam Narrative: Exam Narrative: Const: Well-nourished, Well-developed, in mild distress Eyes: PERRL, no conjunctival injection, and symmetrical lids HENT: Atraumatic external nose and ears. Moist mucous membranes. Neck: Symmetric, trachea midline, No thyromegaly. CVS: RRR, No murmurs or gallops. Peripheral pulses 2+ and equal in all extremities RESP: Unlabored respiratory effort. Clear to auscultation bilaterally. GI: Nontender/Nondistended, No rebound or guarding. MSK:Extremities w/o deformity, Normal Active ROM Skin: Warm, Dry. No rashes or lesions. Neuro: Normal Muscle tone, No focal neurological deficits. Psych: Awake, Alert, & Oriented x3. Appropriate mood and affect. Const: Vital Signs, click to edit/add: Vital Signs - 24 hr 05/25/23 17:37 Temperature 98.8 F Pulse Rate [Pulse Oximeter] 82 Respiratory Rate 14 Blood Pressure [Ri ght Upper Arm] 135/97 H Pulse Oximetry 100 Oxygen Delivery Me thod Room Air Course Vital Signs Vital signs: Initial Vital Signs Temperature 98.8 F 05/25/23 17:37 Temperature Source Temporal Artery Scan 05/25/23 17:37 Pulse Rate 82 05/25/23 17:37 Pulse Rhythm Regular 05/25/23 17:37 Pulse Strength 3+ Normal 05/25/23 17:37 Respiratory Rate 14 05/25/23 17:37 Blood Pressure 135/97 H 05/25/23 17:37 Blood Pressure Mean 109 H 05/25/23 17:37 Blood Pressure Position Sitting 05/25/23 17:37 Pulse Oximetry 100 05/25/23 17:37 Oxygen Delivery Method Room Air 05/25/23 17:37 Vital Signs Temperature 98.8 F 05/25/23 17:37 Pulse Rate 82 05/25/23 17:37 Respiratory Rate 14 05/25/23 17:37 Blood Pressure 135/97 H 05/25/23 17:37 Pulse Oximetry 100 05/25/23 17:37 Oxygen Delivery Method Room Air 05/25/23 17:37 Temperature 98.8 F 05/25/23 17:37 Pulse Rate 82 05/25/23 17:37 Respiratory Rate 14 05/25/23 17:37 Blood Pressure 135/97 H 05/25/23 17:37 Pulse Oximetry 100 05/25/23 17:37 Oxygen Delivery Method Room Air 05/25/23 17:37 Medications Administered Medications: Discontinued Medications Generic Name Dose Route Start Last Admin Trade Name Ramiroq PRN Reason Stop Dose Admin Diphenhydramine HCl 25 mg 05/25/23 17:44 05/25/23 18:10 Diphenhydramine 50 Mg/Ml Inj IVP 05/25/23 17:45 25 mg ONCE ONE Administration Lactated Ringer's 1,000 mls @ 1,000 mls/hr 05/25/23 17:44 05/25/23 18:07 Lactated Ringers 1000 Ml IV 05/25/23 18:43 1,000 mls/hr .Q1H ONE Administration Ketorolac Tromethamine 15 mg 05/25/23 17:44 05/25/23 18:13 Ketorolac 15 Mg/Ml Inj IVP 05/25/23 17:45 15 mg ONCE ONE Administration Metoclopramide HCl 10 mg 05/25/23 17:44 05/25/23 18:12 Metoclopramide Hcl 5 Mg/Ml Inj IVP 05/25/23 17:45 10 mg ONCE ONE Administration Medical Decision Making MDM Narrative Medical decision making narrative: Patient is a 63-year-old male presenting to emergency department for headache and episode of chest pain. He has had headaches like this before he states started not believe imaging is necessary at this time. I will give a migraine cocktail to see if he can resolve his symptoms. We comes the chest pain we will do a cardiac workup including she is CBC, BMP, coags was flu/RSV, troponin, EKG. He is currently not having any chest pain or lightheadedness. Differential includes electrolyte abnormalities, viral infection, migraine, cluster headache. Chest pain seems unlikely to be ACS at this time with such a short episode but will evaluate foot. Also will order an x-ray to look for signs of pneumonia or pneumothorax. CBC, CMP, probe was/flu/RSV, troponins all showed no concerning abnormalities. His headache is much improved at this time. He is in still not having any current chest pain. EKG shows no concerning abnormalities. Repeated his troponin and is still within normal limits. Chest x-ray reviewed by myself and the radiologist shows no concerning abnormalities. Unsure exactly what is causing his symptoms but is otherwise doing well I believe he is safe for discharge. He is agreeable to this plan. He will follow-up with his primary care provider symptoms are persisting Lab Data Labs: Lab Results 05/25/23 05/25/23 05/25/23 Range/Units 17:45 18:00 18:07 WBC 4.71 (4.50-11.00) K/uL RBC 4.78 (4.30-5.90) m/uL Hgb 14.1 (13.5-17.5) gm/dL Hct 42.3 (37.0-53.0) % MCV 89 (80-100) fL MCH 30 (26-34) pg MCHC 33 (32-36) gm/dL RDW Coeff of Kaushik 14.4 (11.5-15.5) % Plt Count 156 (140-440) K/uL Neut % (Auto) 54.0 (42.0-72.0) % Lymph % (Auto) 32.5 (20-44) % Barren % (Auto) 8.7 (0.0-11.0) % Eos % (Auto) 4.0 (0.0-7.0) % Baso % (Auto) 0.8 (0.0-3.0) % Neut # (Auto) 2.54 (1.7-7.0) K/uL Lymph # (Auto) 1.53 (0.90-2.90) K/uL [place]ren # (Auto) 0.40 (0.00-0.90) K/UL Eos # (Auto) 0.19 (0.00-0.50) K/uL Baso # (Auto) 0.04 (0.00-0.30) K/uL Abs Immat Gran (auto) 0.00 (0.00-0.30) K/uL Imm/Tot Granulo (auto) 0.0 % Sodium 137 (135-149) mmol/L Potassium 4.1 (3.6-5.1) mmol/L Chloride 105 (96-114) mmol/L Carbon Dioxide 25 (20-32) mmol/L Anion Gap 7 (7-15) mEq/L BUN 12 (7-30) mg/dL Creatinine 0.8 (0.5-1.5) mg/dL Estimated Creat Clear 70.00 Estimated GFR 101 ml/min Glucose 89 (60-115) mg/dL Calcium 9.2 (8.4-10.6) mg/dL SARS-CoV-2 (PCR) Negative SARS-CoV-2 (Negative) Influenza Type A (PCR) Negative PCR FLU A (Negative) Influenza Type B (PCR) Negative PCR FLU B (Negative) RSV (PCR) Negative PCR RSV (Negative) POC Troponin I 0.00 L (0.01-0.04) ng/ml 05/25/23 Range/Units 19:48 WBC (4.50-11.00) K/uL RBC (4.30-5.90) m/uL Hgb (13.5-17.5) gm/dL Hct (37.0-53.0) % MCV (80-100) fL MCH (26-34) pg MCHC (32-36) gm/dL RDW Coeff of Kaushik (11.5-15.5) % Plt Count (140-440) K/uL Neut % (Auto) (42.0-72.0) % Lymph % (Auto) (20-44) % Barren % (Auto) (0.0-11.0) % Eos % (Auto) (0.0-7.0) % Baso % (Auto) (0.0-3.0) % Neut # (Auto) (1.7-7.0) K/uL Lymph # (Auto) (0.90-2.90) K/uL Barren # (Auto) (0.00-0.90) K/UL Eos # (Auto) (0.00-0.50) K/uL Baso # (Auto) (0.00-0.30) K/uL Abs Immat Gran (auto) (0.00-0.30) K/uL Imm/Tot Granulo (auto) % Sodium (135-149) mmol/L Potassium (3.6-5.1) mmol/L Chloride (96-114) mmol/L Carbon Dioxide (20-32) mmol/L Anion Gap (7-15) mEq/L BUN (7-30) mg/dL Creatinine (0.5-1.5) mg/dL Estimated Creat Clear Estimated GFR ml/min Glucose (60-115) mg/dL Calcium (8.4-10.6) mg/dL SARS-CoV-2 (PCR) (Negative) Influenza Type A (PCR) (Negative) Influenza Type B (PCR) (Negative) RSV (PCR) (Negative) POC Troponin I 0.00 L (0.01-0.04) ng/ml Imaging Data Chest x-ray: Radiologist's impression: No acute findings. Dictated by Cesar Youngblood MD @ 05/25/2023 7:28:29 PM ECG Data Attestation: I personally reviewed and interpreted this ECG as follows: Prior ECG tracings: available for review Interpretation: Normal sinus rhythm with a rate of 76 beats per minute, normal intervals, normal axis, no ST or T-wave abnormalities. There was a PVC. Appears similar to previous EKG on file Discharge Plan Discharge Clinical Impression: Headache Patient Disposition: Home, Self-Care Condition: Improved Instructions: Acute Headache (DC) Additional Instructions: If symptoms seem to persist follow-up with the primary care provider. I re commend seen whichever provider is prescribing you your migraine medication. Return to emergency department for new or worsening symptoms Prescriptions: No Action aspirin [Adult Low Dose Aspirin] 81 mg tablet,delayed release (DR/EC) 81 mg PO QDAY celecoxib 200 mg capsule 200 mg PO DAILY Patient Comments: TAKE ONE CAPSULE BY MOUTH ONCE DAILY WITH A MEAL metoprolol succinate 50 mg tablet extended release 24 hr 50 mg PO DAILY Patient Comments: TAKE ONE TABLET BY MOUTH EVERY DAY nortriptyline 10 mg capsule 10 mg PO NIGHTLY Patient Comments: TAKE TWO CAPSULES BY MOUTH AT BEDTIME hydroxyzine HCl 25 mg tablet 25 mg PO BID PRN Patient Comments: TAKE ONE TABLET BY MOUTH TWICE A DAY NEEDED FOR ANXIETY omeprazole 20 mg capsule,delayed release(DR/EC) 20 mg PO DAILY Follow Up/Referrals: Provider,Not a Local [Primary Care Provider] - Stand Alone [facility]: [facility] Info Instructions
--- NOTE | 2023-05-25 18:18 | XR_ITS ---
Patient: KIMBERLEE SANDOVAL Facility:?[facility] Patient ID:?[id number] Site Patient ID:?[id number]. Site :?[id number] Study:?XRay-Chest 2V-05/25/2023 7:07:52 PM Ordering Physician:FERNANDO Final Report: INDICATION: Chest pain. Lightheadedness. Comparison 01/16/2023. Technique: Chest two views Findings : Lungs are clear. No pleural effusions. No pneumothorax. Normal cardiomediastinal silhouette. No osseous abnormalities. IMPRESSION: No acute findings. Dictated by Cesar Youngblood MD @ 05/25/2023 7:28:29 PM Signed by:?Cesar Youngblood MD @05/25/2023 7:28:29 PM (Electronic Signature)
[2023-05-25 18:30] LABS: Basophils Absolute Auto 0.04 K/uL (0.00-0.30); Basophils Percent Auto 0.8 % (0.0-3.0); Eosinophils Absolute Auto 0.19 K/uL (0.00-0.50); Hematocrit 42.3 % (37.0-53.0); Hemoglobin* 14.1 gm/dL (13.5-17.5); Lymphocytes Absolute Auto 1.53 K/uL (0.90-2.90); Lymphocytes Percent Auto 32.5 % (20-44); Mean Corpuscular HGB Conc 33 gm/dL (32-36); Mean Corpuscular Hemoglobin 30 pg (26-34); Mean Corpuscular Volume 89 fL (80-100); Monocytes Percent Auto 8.7 % (0.0-11.0); Neutrophils Absolute Auto 2.54 K/uL (1.7-7.0); Platelet Count* 156 K/uL (140-440); RDW Coefficient of Variation % 14.4 % (11.5-15.5); Red Blood Count 4.78 m/uL (4.30-5.90); White Blood Count* 4.71 K/uL (4.50-11.00)
[2023-05-25 18:31] LABS: Slide Review Reflex No
[2023-05-25 18:42] LABS: Chloride* 105 mmol/L (96-114)
[2023-05-25 18:43] LABS: Potassium* 4.1 mmol/L (3.6-5.1); Sodium* 137 mmol/L (135-149)
[2023-05-25 18:45] LABS: Creatinine* 0.8 mg/dL (0.5-1.5); Estimated Glomerular Filt Rate 101 ml/min
[2023-05-25 18:46] LABS: Anion Gap 7 mEq/L (7-15); Blood Urea Nitrogen* 12 mg/dL (7-30); Calcium* 9.2 mg/dL (8.4-10.6); Carbon Dioxide* 25 mmol/L (20-32); Glucose* 89 mg/dL (60-115)
[2023-05-25 19:06] LABS: PCR FLU A Negative PCR FLU A (Negative); PCR FLU B Negative PCR FLU B (Negative); PCR RSV Negative PCR RSV (Negative); SARS PCR* Negative SARS-CoV-2 (Negative)
== END 2023-05-25 20:36 | disposition home or self-care (01) ==
PROVIDERS: Emergency Provider Student in an Organized Health Care Education/Training Program
DX: R51.9 Headache, unspecified (principal)
CPT/HCPCS: 36415; 71046; 80048; 84484; 85025; 87631; 93005; 96361; 96374; 96375; 99283; 99284; 99285; J1200; J1885; J2765; J7120

== ENCOUNTER 2023-08-19 15:56 | Emergency (ER) | payer OTHER, SELFPAY ==
[2023-08-19 16:01] VITALS: BP 159/97; PULSE 73; RESP 16; TEMP 36.3; O2SAT 95; BMI 25.0
--- NOTE | 2023-08-19 16:08 | ED_ITS ---
HPI - General Adult General Date Seen: 08/19/23 Chief complaint: Flank Pain Stated complaint: lower back pain Time Seen by Provider: 08/19/23 16:04 History of Present Illness HPI narrative: 63-year-old male with a history of hypertension he presenting to the ER today for evaluation of right lower flank and back pain. He apparently had initial symptoms about 2 weeks ago when he was leaned over to work on a bumper. He had an ache in the right side of his low back that did not radiate down his leg, up to his chest, around to his front. They achiness lasted a couple of days and then got better. He has been symptom free for the past 10 days or so. He ariela agustin went to his annual checkup at the [facility] this morning and was feeling fine then. This afternoon his pain came back. No new injury today. He does recall that he was lifting some garbage cans yesterday but did not really have any back pain during that activity. He is not running a fever. No chills. No nausea or vomiting. Bowel movements have been normal. He is not having any anterior abdominal pain. No radiation of pain to his groin or testicles. His notes that he has been urinating fairly frequently lately. However, the increase in his urinary frequency corresponds to an intentional increase in water intake. He formerly drank about 1 or 2 bottles of water per day. On the advice of his physician he has increased his daily water intake up to 4 5 bottles per day. Since then he has been urinating more often. He has not had any dysuria, urgency. No hematuria. He has had passed a kidney stone in the past and the pain that he is having today is in a similar location but is much less intense than when he passed his kidney stone. Related Data Home Medications ?Medication ?Instructions ?Recorded ?Confirmed celecoxib 200 mg capsule 200 mg PO DAILY 11/05/21 01/24/23 hydroxyzine HCl 25 mg tablet 25 mg PO BID PRN 11/05/21 01/24/23 metoprolol succinate 50 mg 50 mg PO DAILY 11/05/21 05/25/23 tablet,extended release 24 hr nortriptyline 10 mg capsule 10 mg PO NIGHTLY 11/05/21 01/24/23 omeprazole 20 mg capsule,delayed 20 mg PO DAILY 08/14/22 09/14/22 release aspirin 81 mg tablet,delayed 81 mg PO QDAY 08/26/22 01/24/23 release (Adult Low Dose Aspirin) Allergies Allergy/AdvReac Type Severity Reaction Status Date / Time No Known Drug Allergies Allergy Verified 08/19/23 16:04 [facility] Medical History Urinary frequency ?R35.0 - Frequency of micturition (ICD-10) Depression ?F32.A - Depression, unspecified (ICD-10) Migraine ?G43.909 - Migraine, unspecified, not intractable, without status migrainosus (ICD-10) Hypertension ?I10 - Essential (primary) hypertension (ICD-10) Surgical History No significant past surgical history Social History Smoking Status: Never smoker Do you use any of these nicotine containing products: None Second hand tobacco smoke exposure: Yes How often do you have a drink containing alcohol: monthly or less How many standard drinks containing alcohol do you have on a typical day: 1 or 2 How often do you have six or more drinks on one occasion: Never AUDIT-C Alcohol total score: 1 Non-prescribed substance use: denies use service: Yes Exam Narrative: Exam Narrative: Constitutional: Appears well-developed and well-nourished. Alert. Conversant. Non toxic. HENT: Head: Atraumatic. Nose: Nose normal. Mouth/Throat: Oral mucosa is clear and moist. no trismus. Pharynx normal. Eyes: Conjunctivae normal. EOM normal. Pupils equal, round, and reactive to light. No scleral icterus. Neck: Normal range of motion. Neck supple. No tracheal deviation present. Cardiovascular: Normal rate, regular rhythm. No gallop. No friction rub. No murmur heard. Pulmonary/Chest: Effort normal. No stridor. No respiratory distress. No wheezes. No rales. No rhonchi . No tenderness. Abdominal: Soft. Bowel sounds normal. No distension. No mass. No tenderness. No rebound. No guarding. Musculoskeletal: He endorses the pain in his right flank but is not actually tender to percussion. No rash. No bruising. No midline T or L-spine tenderness. Pelvis stable. RUE: Normal range of motion. No tenderness. No deformity LUE: Normal range of motion. No tenderness. No deformity RLE: Normal range of motion. No edema. No tenderness. No deformity LLE: Normal range of motion. No edema. No tenderness. No deformity Neurological: Alert and oriented to person, place, and time. Normal strength. CN II-VII intact. No sensory deficit. GCS eye subscore is 4. GCS verbal subscore is 5. GCS motor subscore is 6. Normal coordination Sensory: Normal light touch sensation bilaterally on the anteromedial thigh (L3), medial malleolus (L4), dorsal first web space (L5), lateral malleolus (S1). Strength: 5/5 strength hip flexors (L3) on the rig ht and left 5/5 strength in the quadriceps (L4) on t he right and left 5/5 strength in the tibialis anterior 5/5 strength in the EHL (L5) on the righ t and left 5/5 strength in the gastrocnemius (S1) o n the right and left 5/5 strength in the hamstring on the rig ht and left Negative straight leg raise bilaterally. Skin: Skin is warm and dry. No rash noted. No pallor. Normal capillary refill. Psychiatric: Normal mood. Normal affect. Const: Vital Signs, click to edit/add: Vital Signs - 24 hr 08/19/23 16:01 Temperature 97.3 F L Pulse Rate [Right Pulse Oximeter] 73 Respiratory Rate 16 Blood Pressure [Ri ght Upper Arm] 159/97 H Pulse Oximetry 95 Oxygen Delivery Me thod Room Air Course Vital Signs Vital signs: Initial Vital Signs Temperature 97.3 F L 08/19/23 16:01 Temperature Source Temporal Artery Scan 08/19/23 16:01 Pulse Rate 73 08/19/23 16:01 Pulse Rhythm Regular 08/19/23 16:01 Pulse Strength 3+ Normal 08/19/23 16:01 Respiratory Rate 16 08/19/23 16:01 Blood Pressure 159/97 H 08/19/23 16:01 Blood Pressure Mean 117 H 08/19/23 16:01 Blood Pressure Position Sitting 08/19/23 16:01 Pulse Oximetry 95 08/19/23 16:01 Oxygen Delivery Method Room Air 08/19/23 16:01 Vital Signs Temperature 97.3 F L 08/19/23 16:01 Pulse Rate 73 08/19/23 16:01 Respiratory Rate 16 08/19/23 16:01 Blood Pressure 159/97 H 08/19/23 16:01 Pulse Oximetry 95 08/19/23 16:01 Oxygen Delivery Method Room Air 08/19/23 16:01 Temperature 97.3 F L 08/19/23 16:01 Pulse Rate 73 08/19/23 16:01 Respiratory Rate 16 08/19/23 16:01 Blood Pressure 159/97 H 08/19/23 16:01 Pulse Oximetry 95 08/19/23 16:01 Oxygen Delivery Method Room Air 08/19/23 16:01 Medical Decision Making MDM Narrative Medical decision making narrative: Very pleasant 63-year-old gentleman presenting to the ER today for right-sided flank pain/right low back pain. Differential is broad, it would include kidney stone, pyelonephritis, musculoskeletal low back pain, lumbar to radiculopathy, less likely would be aortic aneurysm, referred pain from gallbladder, atypical presentation of appendicitis, among others.. Patient is not having any rib pain or chest pain or trouble breathing so at this point no suspicion for pneumonia, pneumothorax, pleural effusion, PE, or cardiac cause. Pain is not ripping or tearing or in the midline to suggest that it is from aortic dissection. He is not having any anterior pain and no pain in his groin or testicle to suggest torsion or hernia. Workup so far is reassuring. CT scan shows no evidence for any aortic enlargement, no evidence for any visible kidney stone or hydronephrosis. No evidence for perinephric fat stranding to suggest pyelonephritis. No other explanation for right flank pain such as any obvious abnormality of the liver or gallbladder, right-sided the intestines, appendix. Blood work shows normal white blood cell count, borderline anemia with a hemoglobin of 13.3. Kidney function and liver function tests are normal. Lipase normal. Urinalysis shows no sign of pyuria, hematuria and no sign of urinary tract infection. The patient's pain was markedly improved after ibuprofen. He is feeling well. He does not need any prescriptions for muscle relaxers or opiate pain killers. He believes ibuprofen from his home supply if needed. At this point no definitive surgical or life-threatening medical cause for his flank pain is identified. It is possible the pain is musculoskeletal. No symptoms of lumbar radiculopathy to necessitate lumbar MRI at this time. No evidence for shingles, cellulitis, bruising, hematoma or other signs of injury. He and his girlfriend are planning a move, this weekend. They wonder if she would lifting boxes. Counseled that they should use their judgment but they should avoid activities requiring bending, twisting, or lifting heavy objects because this could exacerbate or prolonged his pain. Precautions for return to the ER reviewed. Questions answered. Lab Data Labs: Lab Results 08/19/23 08/19/23 Range/Units 16:33 16:59 WBC 5.91 (4.50-11.00) K/uL RBC 4.53 (4.30-5.90) m/uL Hgb 13.3 L (13.5-17.5) gm/dL Hct 40.4 (37.0-53.0) % MCV 89 (80-100) fL MCH 29 (26-34) pg MCHC 33 (32-36) gm/dL RDW Coeff of Kaushik 14.5 (11.5-15.5) % Plt Count 150 (140-440) K/uL Neut % (Auto) 56.1 (42.0-72.0) % Lymph % (Auto) 29.3 (20-44) % [place] % (Auto) 10.2 (0.0-11.0) % Eos % (Auto) 3.2 (0.0-7.0) % Baso % (Auto) 0.7 (0.0-3.0) % Neut # (Auto) 3.32 (1.7-7.0) K/uL Lymph # (Auto) 1.73 (0.90-2.90) K/uL [place] # (Auto) 0.60 (0.00-0.90) K/UL Eos # (Auto) 0.19 (0.00-0.50) K/uL Baso # (Auto) 0.04 (0.00-0.30) K/uL Abs Immat Gran (auto) 0.03 (0.00-0.30) K/uL Imm/Tot Granulo (auto) 0.5 % Sodium 136 (135-149) mmol/L Potassium 4.0 (3.6-5.1) mmol/L Chloride 106 (96-114) mmol/L Carbon Dioxide 25 (20-32) mmol/L Anion Gap 5 L (7-15) mEq/L BUN 16 (7-30) mg/dL Creatinine 0.7 (0.5-1.5) mg/dL Estimated Creat Clear 70.00 Estimated GFR 105 ml/min Glucose 93 (60-115) mg/dL Calcium 8.8 (8.4-10.6) mg/dL Total Bilirubin 0.5 (0.1-1.5) mg/dL AST 29 (12-35) U/L ALT 19 (4-50) U/L Alkaline Phosphatase 79 (40-150) U/L Total Protein 6.6 (6.0-8.3) g/dL Albumin 4.0 (3.3-5.0) g/dL Lipase 47 (23-300) U/L Urine Color Yellow (Yellow) Urine Appearance Clear (Clear) Urine pH 7.0 (5.0-8.5) Ur Specific [place] 1.015 (1.000-1.030) Urine Protein Negative (Negative) Urine Glucose (UA) Negative (Negative) Urine Ketones Negative (Negative) Urine Blood Negative (Negative) Urine Nitrite Negative (Negative) Urine Bilirubin Negative (Negative) Urine Urobilinogen 0.2 (0.2-1.0) Ur Leukocyte Esterase Negative (Negative) Urine RBC 0-2 (0-2) Urine WBC 0-2 (0-5) Ur Squamous Epith Cells None (None-Few) Urine Bacteria None (None) Imaging Data CT scan - abdomen: Attestation: I have reviewed the pertinent imaging results. Radiologist's impression: IMPRESSION: 1. No hydronephrosis or obstructive urolithiasis. The etiology of this patient`s flank pain is not elucidated on this examination. 2. No acute abdominopelvic pathology. 3. Small hiatal hernia. Discharge Plan Discharge Prescriptions: No Action aspirin [Adult Low Dose Aspirin] 81 mg tablet,delayed release (DR/EC) 81 mg PO QDAY celecoxib 200 mg capsule 200 mg PO DAILY Patient Comments: TAKE ONE CAPSULE BY MOUTH ONCE DAILY WITH A MEAL metoprolol succinate 50 mg tablet extended release 24 hr 50 mg PO DAILY Patient Comments: TAKE ONE TABLET BY MOUTH EVERY DAY nortriptyline 10 mg capsule 10 mg PO NIGHTLY Patient Comments: TAKE TWO CAPSULES BY MOUTH AT BEDTIME hydroxyzine HCl 25 mg tablet 25 mg PO BID PRN Patient Comments: TAKE ONE TABLET BY MOUTH TWICE A DAY NEEDED FOR ANXIETY omeprazole 20 mg capsule,delayed release(DR/EC) 20 mg PO DAILY Follow Up/Referrals: Provider,Not a Local [Primary Care Provider] -
--- NOTE | 2023-08-19 16:23 | CRLHL7_ITS ---
For Patients: As a result of the Century Cures Act, medical imaging exams and procedure reports are released immediately into your electronic medical record. You may view this report before your referring provider. If you have questions, please contact your health care provider. INDICATION: Flank pain. Evaluate for kidney stone. TECHNIQUE: Multiplanar CT examination of the abdomen and pelvis was performed without the use of intravenous contrast, renal stone protocol. COMPARISON: None. FINDINGS: Limited evaluation of the soft tissue organs without the use of intravenous contrast. Lower chest: No focal consolidation. Normal heart size. No pleural effusions or pneumothorax. Subsegmental atelectasis. Small hiatal hernia. Liver: Unremarkable. Gallbladder: Unremarkable. Biliary: Unremarkable. Pancreas: Within normal limits. Spleen: Unremarkable. Adrenal glands: Unremarkable. Renal/ureters/bladder: Normal in size. No obstructive uropathy. No hydronephrosis or obstructive urinary calculi. No suspicious renal masses. The ureters appear unremarkable. Tiny pelvic calcification in the right hemipelvis (2:114) is vascular in etiology, representing a small phlebolith. The bladder is within normal limits. Pelvis: Prostatomegaly. Gastrointestinal: No bowel wall thickening or bowel obstruction. Colonic diverticulosis without colonic wall thickening or pericolonic fat stranding. Nonvisualized appendix. Mild colonic stool burden. Vasculature: No aortic aneurysm. No significant atherosclerotic calcifications. Lymph nodes: No pathologic lymphadenopathy by size criteria. Peritoneum: No free fluid or pneumoperitoneum. No drainable fluid collections. Abdominal wall/soft tissues: Unremarkable. Bones: No acute osseous abnormalities. Mild multilevel degenerative changes of the thoracolumbar spine. 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 IMPRESSION: 1. No hydronephrosis or obstructive urolithiasis. The etiology of this patient`s flank pain is not elucidated on this examination. 2. No acute abdominopelvic pathology. 3. Small hiatal hernia. Please note that all CT scans at this facility use dose modulation, iterative reconstruction, and/or weight-based dosing when appropriate to reduce radiation dose to as low as reasonably achievable. Dictated by Ronnie Almonte MD @ 08/19/2023 5:06:44 PM (Electronically Signed)
[2023-08-19 16:41] LABS: Basophils Absolute Auto 0.04 K/uL (0.00-0.30); Basophils Percent Auto 0.7 % (0.0-3.0); Eosinophils Absolute Auto 0.19 K/uL (0.00-0.50); Eosinophils Percent Auto 3.2 % (0.0-7.0); Hematocrit 40.4 % (37.0-53.0); Hemoglobin* 13.3 gm/dL (13.5-17.5); Immature Granulocytes Abs Auto 0.03 K/uL (0.00-0.30); Immature Granulocytes Pct Auto 0.5 %; Lymphocytes Absolute Auto 1.73 K/uL (0.90-2.90); Lymphocytes Percent Auto 29.3 % (20-44); Mean Corpuscular HGB Conc 33 gm/dL (32-36); Mean Corpuscular Hemoglobin 29 pg (26-34); Mean Corpuscular Volume 89 fL (80-100); Monocytes Percent Auto 10.2 % (0.0-11.0); Neutrophils Absolute Auto 3.32 K/uL (1.7-7.0); Neutrophils Percent Auto 56.1 % (42.0-72.0); Platelet Count* 150 K/uL (140-440); RDW Coefficient of Variation % 14.5 % (11.5-15.5); Red Blood Count 4.53 m/uL (4.30-5.90); White Blood Count* 5.91 K/uL (4.50-11.00)
[2023-08-19 16:46] LABS: Slide Review Reflex No
[2023-08-19 16:48] LABS: Chloride* 106 mmol/L (96-114)
[2023-08-19 16:49] LABS: Sodium* 136 mmol/L (135-149)
[2023-08-19 16:51] LABS: Creatinine* 0.7 mg/dL (0.5-1.5); Estimated Glomerular Filt Rate 105 ml/min
[2023-08-19 16:52] LABS: Alanine Aminotransferase* 19 U/L (4-50); Alkaline Phosphatase* 79 U/L (40-150); Anion Gap 5 mEq/L (7-15); Aspartate Amino Transferase* 29 U/L (12-35); Bilirubin Total* 0.5 mg/dL (0.1-1.5); Blood Urea Nitrogen* 16 mg/dL (7-30); Calcium* 8.8 mg/dL (8.4-10.6); Carbon Dioxide* 25 mmol/L (20-32); Glucose* 93 mg/dL (60-115); Lipase* 47 U/L (23-300); Total Protein* 6.6 g/dL (6.0-8.3)
--- OUTSIDE RECORDS SUMMARY | 2023-08-19 16:57 | XMS_ITS | Continuity of Care Document ---
Author Name [facility] Organization [facility] Care Team Providers Care Typewriter Assembly [employer] Inspector Name Role Phone [facility] Unavailable Unavailable Problems Combined list of problems from Department of Defense and Veterans Affairs facilities. It does not include entries that were removed or entered in error. Problem Status Onset Date Problem Type Date of Resolution Comments Source An[facility] [id number] Carpal tunnel syndrome of left wrist Active Condition [facility] Degeneration of cervical intervertebral disc Active Condition [facility] GERD - Gastro-Esophageal Reflux Disease ([facility] [id number]) Active Condition [facility] HTN-Hypertension ([facility] [id number]) Active Condition [facility] Migraine Active Condition [facility] Solitary nodule of lung Active Condition Jan 27, 2023 Entered By: REKHA WALKER J Comment: 4.5 mm RIGHT middle lobe CT 12/2022, f/u 6-12 mo [facility] Diagnosis: ICD-10-CM Z00.00 Encntr for general adult medical exam w/o abnormal findings Active Diagnosis [facility] Diagnosis: ICD-10-CM R51.9 Headache, unspecified Active Diagnosis [facility] Diagnosis: ICD-10-CM F41.9 Anxiety disorder, unspecified Active Diagnosis [facility] Diagnosis: ICD-10-CM M50.30 Other cervical disc degeneration, unsp cervical region Active Diagnosis [facility] Diagnosis: ICD-10-CM G43.909 Migraine, unsp, not intractable, without status migrainosus Active Diagnosis [facility] Diagnosis: ICD-10-CM M79.642 Pain in left hand Active Diagnosis [facility] Diagnosis: ICD-10-CM I10 Essential (primary) hypertension Active Diagnosis [facility] Diagnosis: ICD-10-CM R10.9 Unspecified abdominal pain Active Diagnosis [facility] Diagnosis: ICD-10-CM M79.601 Pain in right arm Active Diagnosis [facility] Diagnosis: ICD-10-CM R20.2 Paresthesia of skin Active Diagnosis [facility] Medications Combined list of outpatient medications from Department of Defense and Veterans Affairs facilities.Medications provided include 1) outpatient medications from the last 15 months, and 2) patient-reported medications. Medication Details Route Status Patient Instructions Prescription Expires Prescription Number Last Dispense Date Ordering Provider Order Date Order Qty Source ASPIRIN 81MG TAB,CHEWABL E CHEW ONE TABLET BY MOUTH EVERY MORNING ORAL ACTIVE 05/03/2024 [id number] EDMOND WALKER 2023 108 [facility] CELECOXIB 200MG CAP TAKE ONE CAPSULE BY MOUTH EVERY DAY NEEDED FOR MIGRAINE HEADACHE ORAL ACTIVE 10/13/2023 [id number] Loco DORAN N 2022 90 [facility] HYDROXYZINE HCL 10MG TAB TAKE TWO TABLETS BY MOUTH TWO TIMES A DAY NEEDED FOR ANXIETY ORAL ACTIVE 01/15/2024 [id number] 4 EDMOND WALKER 2022 30 [facility] METOPROLOL SUCCINATE 100MG TAB,SA TAKE ONE-HALF TABLET BY MOUTH EVERY MORNING ORAL DISCONT INUED (EDIT) 04/23/2023 [id number] ERIK LEON 2022 45 [facility] METOPROLOL SUCCINATE 50MG TAB,SA TAKE ONE TABLET BY MOUTH EVERY MORNING ORAL ACTIVE 05/03/2024 [id number] 4 EDMOND WALKER 2023 90 [facility] METOPROLOL SUCCINATE 50MG TAB,SA TAKE ONE TABLET BY MOUTH EVERY MORNING ORAL DISCONT INUED 04/23/2023 [id number] ERIK LEON 2022 90 [facility] NORTRIPTYLI NE HCL 10MG CAP TAKE TWO CAPSULES BY MOUTH AT BEDTIME ORAL ACTIVE 05/03/2024 [id number] 4 EDMOND WALKER 2023 180 [facility] NORTRIPTYLI NE HCL 10MG CAP TAKE TWO CAPSULES BY MOUTH AT BEDTIME ORAL DISCONT INUED 04/23/2023 [id number] 3 ERIK LEON 2022 180 [facility] SUMATRIPTAN SUCCINATE 100MG TAB TAKE ONE TABLET BY MOUTH ONCE NEEDED FOR HEADACHE - MAY REPEAT IN 2 HOURS IF HEADACHE PERSISTS . MAX 200MG PER DAY ORAL ACTIVE 03/18/2024 [id number] 4 EDMOND WALKER 2023 9 [facility] SUMATRIPTAN SUCCINATE 100MG TAB TAKE ONE TABLET BY MOUTH NEEDED FOR HEADACHE ORAL DISCONT INUED (EDIT) 11/26/2023 [id number] EDMOND WALKER 2022 9 [facility] Immunizations Combined list of available immunizations from the Department of Defense and Veterans Affairs facilities. Immunization Series Date Given Administered By Site Reaction Lot Number CVX Code Drug Cota Status Comments Source ZOSTER RECOMBINANT 2 2023 LENNY WAN LEFT DELTO ID [id number] 187 complet ed [id number] [facility] ZOSTER RECOMBINANT 1 2023 ALYSSA NOVAK RIGHT DELTO ID [id number] 187 complet ed ENTER DILUENT LOT# [id number] [facility] INFLUENZA, INJECTABLE, QUADRIVALENT, PRESERVATIVE FREE 2022 RAYMOND,VIRGI JEFF S RIGHT DELTO ID [id number] 150 complet ed [facility] COVID-19 (Agrivida), MRNA, LNP-S, PF, NANNETTE-SUCROSE, 30 MCG/0.3 ML (AGES 12+ YEARS) 2022 309 complet ed [facility] RSV, BIVALENT, PROTEIN SUBUNIT RSVPREF, DILUENT RECONSTITUTED , 0.5 ML, PF 2022 305 complet ed [facility] INFLUENZA, INJECTABLE, QUADRIVALENT, PRESERVATIVE FREE 2022 150 complet ed [facility] TDAP 2022 RAYMOND,VIRGI JEFF S LEFT DELTO ID [id number] 115 complet ed [facility] COVID-19 (Agrivida), MRNA, LNP-S, BIVALENT, PF, 30 MCG/0.3 ML DOSE 2021 300 complet [facility] INFLUENZA, INJECTABLE, QUADRIVALENT, PRESERVATIVE FREE 2021 150 complet [facility] COVID-19 (Agrivida), MRNA, LNP-S, BIVALENT BOOSTER, PF, 30 MCG/0.3 ML DOSE 1 2021 300 complet [facility] COVID-19 (PFIZER), MRNA, LNP-S, PF, 30 MCG/0.3 ML DOSE, NANNETTE-SUCROSE (AGES 12+ YEARS) 3 2021 217 complet [facility] INFLUENZA, INJECTABLE, QUADRIVALENT 2020 158 complet [facility] INFLUENZA, UNSPECIFIED FORMULATION 2020 88 complet [facility] COVID-19 (Agrivida), MRNA, LNP-S, PF, 30 MCG/0.3 ML DOSE 2 2020 208 complet [facility] COVID-19 (Agrivida), MRNA, LNP-S, PF, 30 MCG/0.3 ML DOSE 1 2020 208 complet [facility] INFLUENZA, INJECTABLE, QUADRIVALENT 2019 158 complet [facility] INFLUENZA, INJECTABLE, QUADRIVALENT, PRESERVATIVE FREE 2019 150 complet [facility] INFLUENZA, INJECTABLE, QUADRIVALENT 2018 158 complet [facility] INFLUENZA, INJECTABLE, QUADRIVALENT 2017 158 complet [facility] INFLUENZA, INJECTABLE, QUADRIVALENT 2016 158 complet [facility] INFLUENZA, SEASONAL, INJECTABLE 2013 141 complet [facility] INFLUENZA, SEASONAL, INJECTABLE 2012 141 complet [facility] TDAP 2011 115 complet [facility] INFLUENZA, SEASONAL, INJECTABLE 2011 141 complet [facility] INFLUENZA, SEASONAL, INJECTABLE 2010 141 complet [facility] INFLUENZA, SEASONAL, INJECTABLE 2009 141 complet [facility] POLIO, UNSPECIFIED FORMULATION 1979 89 complet [facility] TD (ADULT), 2 LF TETANUS TOXOID, PRESERVATIVE FREE, ADSORBED 1979 09 complet ed [facility] POLIO, UNSPECIFIED FORMULATION 1976 89 complet ed [facility] MEASLES 1976 05 complet ed [facility] POLIO, UNSPECIFIED FORMULATION 1974 89 complet ed [facility] POLIO, UNSPECIFIED FORMULATION 1974 89 complet ed [facility] Results Combined list of recent chemistry, hematology and other laboratory results from Department of Defense and Veterans Affairs, ranging from 15 months to all on record, depending upon the facility. Order Name Results Value Reference Range Date Interpretation Specimen Comments Source OCCULT BLOOD FIT X1 SCREEN HEMOGLOBIN .GASTROINT ESTINAL.LO WER [PRESENCE] IN STOOL BY IMMUNOASSA Y Negative 09/28 Specimen Type: FECES No comment entered. Ordering Provider: FILIBERTO DORAN Report Released Date/Time: Aug 21, 2022 07:10 AM Reporting Lab: [facility] [address] Performing Lab: [facility] [address] [facility] HEMOGLOB IN A1C HEMOGLOBIN A1C/HEMOGL OBIN.TOTAL IN BLOOD 5.0 4.0 - 6.0 08/21 Specimen Type: BLOOD Comment: Values obtained from A1C measurement s can vary. For typical A1C assays, a reported value of 7.0 could actually be between 6.7 and 7.3 if measured by a reference method. A reported value of 9.0 could actually be between 8.7 and 9.3. Ref: http://www. ngsp.org/[place] Pdata.asp Ordering Provider: EVE LEON Report Released Date/Time: Apr 22, 2022 09:52 AM Reporting Lab: [facility] [address] Performing Lab: [facility] [address] [facility] LIPID PANEL,NO N-FASTIN G CHOLESTERO L [MASS/VOLU ME] IN SERUM OR PLASMA 135 mg/dL 08/21 Specimen Type: PLASMA No comment entered. Ordering Provider: EVE LEON Report Released Date/Time: Apr 22, 2022 09:52 AM Reporting Lab: [facility] [address] Performing Lab: [facility] [address] [facility] LIPID PANEL,NO N-FASTIN G CHOLESTERO L IN HDL [MASS/VOLU ME] IN SERUM OR PLASMA 46 mg/dL 08/21 Specimen Type: PLASMA No comment entered. Ordering Provider: EVE LEON Report Released Date/Time: Apr 22, 2022 09:52 AM Reporting Lab: [facility] [address] Performing Lab: [facility] [address] [facility] LIPID PANEL,NO N-FASTIN G CHOLESTERO L IN LDL [MASS/VOLU ME] IN SERUM OR PLASMA BY CALCULATIO N 79 mg/dL 08/21 Specimen Type: PLASMA No comment entered. Ordering Provider: EVE LEON Report Released Date/Time: Apr 22, 2022 09:52 AM Reporting Lab: [facility] [address] Performing Lab: [facility] [address] [facility] LIPID PANEL,NO N-FASTIN G CHOLESTERO L IN VLDL [MASS/VOLU ME] IN SERUM OR PLASMA BY CALCULATIO N 10 mg/dL 08/21 Specimen Type: PLASMA No comment entered. Ordering Provider: EVE LEON Report Released Date/Time: Apr 22, 2022 09:52 AM Reporting Lab: [facility] [address] Performing Lab: [facility] [address] [facility] LIPID PANEL,NO N-FASTIN G CHOLESTERO L NON HDL [MASS/VOLU ME] IN SERUM OR PLASMA 89 mg/dL 08/21 Specimen Type: PLASMA No comment entered. Ordering Provider: EVE LEON Report Released Date/Time: Apr 22, 2022 09:52 AM Reporting Lab: [facility] [address] Performing Lab: [facility] [address] [facility] LIPID PANEL,NO N-FASTIN G TRIGLYCERI DE [MASS/VOLU ME] IN SERUM OR PLASMA 50 mg/dL 08/21 Specimen Type: PLASMA No comment entered. Ordering Provider: EVE LEON Report Released Date/Time: Apr 22, 2022 09:52 AM Reporting Lab: [facility] [address] Performing Lab: [facility] [address] [facility] BASIC METABOLI C PANEL+MG CREATININE [MASS/VOLU ME] IN SERUM OR PLASMA 0.8 mg/dL 0.7 - 1.2 08/21 Specimen Type: PLASMA No comment entered. Ordering Provider: FILIBERTO DORAN Report Released Date/Time: Aug 21, 2022 07:11 AM Reporting Lab: [facility] [address] Performing Lab: [facility] [address] [facility] BASIC METABOLI C PANEL+MG UREA NITROGEN [MASS/VOLU ME] IN SERUM OR PLASMA 15 mg/dL 8 - 26 08/21 Specimen Type: PLASMA No comment entered. Ordering Provider: FILIBERTO DORAN Report Released Date/Time: Aug 21, 2022 07:11 AM Reporting Lab: [facility] [address] Performing Lab: [facility] [address] [facility] BASIC METABOLI C PANEL+MG GLUCOSE [MASS/VOLU ME] IN SERUM OR PLASMA 72 mg/dL 70 - 100 08/21 Specimen Type: PLASMA No comment entered. Ordering Provider: FILIBERTO DORAN Report Released Date/Time: Aug 21, 2022 07:11 AM Reporting Lab: [facility] [address] Performing Lab: [facility] [address] [facility] BASIC METABOLI C PANEL+MG SODIUM [MOLES/VOL UME] IN SERUM OR PLASMA 137 mmol/L 136 - 145 08/21 Specimen Type: PLASMA No comment entered. Ordering Provider: FILIBERTO DORAN Report Released Date/Time: Aug 21, 2022 07:11 AM Reporting Lab: [facility] [address] Performing Lab: [facility] [address] [facility] BASIC METABOLI C PANEL+MG POTASSIUM [MOLES/VOL UME] IN SERUM OR PLASMA 3.9 mmol/L 3.5 - 5.1 08/21 Specimen Type: PLASMA No comment entered. Ordering Provider: FILIBERTO DORAN Report Released Date/Time: Aug 21, 2022 07:11 AM Reporting Lab: [facility] [address] Performing Lab: [facility] [address] [facility] BASIC METABOLI C PANEL+MG CHLORIDE [MOLES/VOL UME] IN SERUM OR PLASMA 106 mmol/L 98 - 107 08/21 Specimen Type: PLASMA No comment entered. Ordering Provider: FILIBERTO DORAN Report Released Date/Time: Aug 21, 2022 07:11 AM Reporting Lab: [facility] [address] Performing Lab: [facility] [address] [facility] BASIC METABOLI C PANEL+MG CARBON DIOXIDE, TOTAL [MOLES/VOL UME] IN SERUM OR PLASMA 24 mmol/L 22 - 29 08/21 Specimen Type: PLASMA No comment entered. Ordering Provider: FILIBERTO DORAN Report Released Date/Time: Aug 21, 2022 07:11 AM Reporting Lab: [facility] [address] Performing Lab: [facility] [address] [facility] BASIC METABOLI C PANEL+MG CALCIUM [MASS/VOLU ME] IN SERUM OR PLASMA 9.1 mg/dL 8.4 - 10.2 08/21 Specimen Type: PLASMA No comment entered. Ordering Provider: FILIBERTO DORAN Report Released Date/Time: Aug 21, 2022 07:11 AM Reporting Lab: [facility] [address] Performing Lab: [facility] [address] [facility] BASIC METABOLI C PANEL+MG MAGNESIUM [MASS/VOLU ME] IN SERUM OR PLASMA 2.0 mg/dL 1.6 - 2.6 08/21 Specimen Type: PLASMA No comment entered. Ordering Provider: FILIBERTO DORAN Report Released Date/Time: Aug 21, 2022 07:11 AM Reporting Lab: [facility] [address] Performing Lab: [facility] [address] [facility] BASIC METABOLI C PANEL+MG ANION GAP IN SERUM OR PLASMA 7 mmol/L 5 - 15 08/21 Specimen Type: PLASMA No comment entered. Ordering Provider: FILIBERTO DORAN Report Released Date/Time: Aug 21, 2022 07:11 AM Reporting Lab: [facility] [address] Performing Lab: [facility] [address] [facility] BASIC METABOLI C PANEL+MG GLOMERULAR FILTRATION RATE/1.73 SQ M.PREDICTE D [VOLUME RATE/AREA] IN SERUM, PLASMA OR BLOOD BY CREATININE -BASED FORMULA (CKD-EPI 2020) >90 08/21 Specimen Type: PLASMA No comment entered. Ordering Provider: FILIBERTO DORAN Report Released Date/Time: Aug 21, 2022 07:11 AM Reporting Lab: [facility] [address] Performing Lab: [facility] [address] [facility] ANTI-HEP C(EIA) HEPATITIS C VIRUS AB [PRESENCE] IN SERUM NEGATIVE 08/21 Specimen Type: SERUM No comment entered. Ordering Provider: FILIBERTO DORAN Report Released Date/Time: Aug 21, 2022 07:10 AM Reporting Lab: [facility] [address] Performing Lab: [facility] [address] [facility] CBC LEUKOCYTES [#/VOLUME] IN BLOOD BY AUTOMATED COUNT 6.11 10*3/uL 4.0 - 11.0 08/21 Specimen Type: BLOOD No comment entered. Ordering Provider: FILIBERTO DORAN Report Released Date/Time: Aug 21, 2022 07:10 AM Reporting Lab: [facility] [address] Performing Lab: [facility] [address] [facility] CBC ERYTHROCYT ES [#/VOLUME] IN BLOOD BY AUTOMATED COUNT 5.03 10*6/uL 4.6 - 6.2 08/21 Specimen Type: BLOOD No comment entered. Ordering Provider: FILIBERTO DORAN Report Released Date/Time: Aug 21, 2022 07:10 AM Reporting Lab: [facility] [address] Performing Lab: [facility] [address] [facility] CBC HEMOGLOBIN [MASS/VOLU ME] IN BLOOD 15.0 g/dL 13.5 - 17.9 08/21 Specimen Type: BLOOD No comment entered. Ordering Provider: FILIBERTO DORAN Report Released Date/Time: Aug 21, 2022 07:10 AM Reporting Lab: [facility] [address] Performing Lab: [facility] [address] [facility] CBC HEMATOCRIT [VOLUME FRACTION] OF BLOOD BY AUTOMATED COUNT 44.4 41 - 54 08/21 Specimen Type: BLOOD No comment entered. Ordering Provider: FILIBERTO DORAN Report Released Date/Time: Aug 21, 2022 07:10 AM Reporting Lab: [facility] [address] Performing Lab: [facility] [address] [facility] CBC MCV [ENTITIC VOLUME] BY AUTOMATED COUNT 88.3 fL 80 - 100 08/21 Specimen Type: BLOOD No comment entered. Ordering Provider: FILIBERTO DORAN Report Released Date/Time: Aug 21, 2022 07:10 AM Reporting Lab: [facility] [address] Performing Lab: [facility] [address] [facility] CBC MCH [ENTITIC MASS] BY AUTOMATED COUNT 29.8 pg 27 - 33 08/21 Specimen Type: BLOOD No comment entered. Ordering Provider: FILIBERTO DORAN Report Released Date/Time: Aug 21, 2022 07:10 AM Reporting Lab: [facility] [address] Performing Lab: [facility] [address] [facility] CBC MCHC [MASS/VOLU ME] BY AUTOMATED COUNT 33.8 g/dL 32.0 - 37.5 08/21 Specimen Type: BLOOD No comment entered. Ordering Provider: FILIBERTO DORAN Report Released Date/Time: Aug 21, 2022 07:10 AM Reporting Lab: [facility] [address] Performing Lab: [facility] [address] [facility] CBC PLATELETS [#/VOLUME] IN BLOOD BY AUTOMATED COUNT 169 10*3/uL 150 - 400 08/21 Specimen Type: BLOOD No comment entered. Ordering Provider: FILIBERTO DORAN Report Released Date/Time: Aug 21, 2022 07:10 AM Reporting Lab: [facility] [address] Performing Lab: [facility] [address] [facility] CBC PLATELET MEAN VOLUME [ENTITIC VOLUME] IN BLOOD BY AUTOMATED COUNT 13.4 fL 7.4 - 10.4 08/21 H Specimen Type: BLOOD No comment entered. Ordering Provider: FILIBERTO DORAN Report Released Date/Time: Aug 21, 2022 07:10 AM Reporting Lab: [facility] [address] Performing Lab: [facility] [address] [facility] CBC ERYTHROCYT E DISTRIBUTI ON WIDTH [RATIO] BY AUTOMATED COUNT 14.3 11.5 - 14.5 08/21 Specimen Type: BLOOD No comment entered. Ordering Provider: FILIBERTO DORAN Report Released Date/Time: Aug 21, 2022 07:10 AM Reporting Lab: [facility] [address] Performing Lab: [facility] [address] [facility] CBC PLATELETS RETICULATE D/100 PLATELETS IN BLOOD BY AUTOMATED COUNT 14.6 0 - 10 08/21 H Specimen Type: BLOOD No comment entered. Ordering Provider: NSUBUGA,CHR ISTINE N Report Released Date/Time: Aug 21, 2022 07:10 AM Reporting Lab: [facility] [address] Performing Lab: [facility] [address] [facility] EXTRA GOLD GEL TUBE EXTRA GOLD GEL TUBE RECEIVED 04/10 Specimen Type: SERUM No comment entered. Ordering Provider: Guerline BEASLEY Report Released Date/Time: Apr 10, 2022 11:56 AM Reporting Lab: [facility] [address] Performing Lab: [facility] [address] [place] [facility] BASIC METABOLI C PANEL+MG CREATININE [MASS/VOLU ME] IN SERUM OR PLASMA 0.7 mg/dL 0.7 - 1.2 04/10 Specimen Type: PLASMA No comment entered. Ordering Provider: Guerline BEASLEY Report Released Date/Time: Apr 10, 2022 11:43 AM Reporting Lab: [facility] [address] Performing Lab: [facility] [address] [place] [facility] BASIC METABOLI C PANEL+MG UREA NITROGEN [MASS/VOLU ME] IN SERUM OR PLASMA 12 mg/dL 8 - 26 04/10 Specimen Type: PLASMA No comment entered. Ordering Provider: Guerline BEASLEY Report Released Date/Time: Apr 10, 2022 11:43 AM Reporting Lab: [facility] [address] Performing Lab: [facility] [address] [place] [facility] BASIC METABOLI C PANEL+MG GLUCOSE [MASS/VOLU ME] IN SERUM OR PLASMA 104 mg/dL 70 - 100 04/10 H Specimen Type: PLASMA No comment entered. Ordering Provider: Guerline BEASLEY Report Released Date/Time: Apr 10, 2022 11:43 AM Reporting Lab: [facility] [address] Performing Lab: [facility] [address] [place] [facility] BASIC METABOLI C PANEL+MG SODIUM [MOLES/VOL UME] IN SERUM OR PLASMA 138 mmol/L 136 - 145 04/10 Specimen Type: PLASMA No comment entered. Ordering Provider: Guerline BEASLEY Report Released Date/Time: Apr 10, 2022 11:43 AM Reporting Lab: [facility] [address] Performing Lab: [facility] [address] [place] [facility] BASIC METABOLI C PANEL+MG POTASSIUM [MOLES/VOL UME] IN SERUM OR PLASMA 3.9 mmol/L 3.5 - 5.1 04/10 Specimen Type: PLASMA No comment entered. Ordering Provider: Guerline BEASLEY Report Released Date/Time: Apr 10, 2022 11:43 AM Reporting Lab: [facility] [address] Performing Lab: [facility] [address] [place] [facility] BASIC METABOLI C PANEL+MG CHLORIDE [MOLES/VOL UME] IN SERUM OR PLASMA 106 mmol/L 98 - 107 04/10 Specimen Type: PLASMA No comment entered. Ordering Provider: Guerline BEASLEY Report Released Date/Time: Apr 10, 2022 11:43 AM Reporting Lab: [facility] [address] Performing Lab: [facility] [address] [place] [facility] BASIC METABOLI C PANEL+MG CARBON DIOXIDE, TOTAL [MOLES/VOL UME] IN SERUM OR PLASMA 25 mmol/L 22 - 29 04/10 Specimen Type: PLASMA No comment entered. Ordering Provider: Guerline BEASLEY Report Released Date/Time: Apr 10, 2022 11:43 AM Reporting Lab: [facility] [address] Performing Lab: [facility] [address] [place] [facility] BASIC METABOLI C PANEL+MG CALCIUM [MASS/VOLU ME] IN SERUM OR PLASMA 9.0 mg/dL 8.4 - 10.2 04/10 Specimen Type: PLASMA No comment entered. Ordering Provider: Guerline BEASLEY Report Released Date/Time: Apr 10, 2022 11:43 AM Reporting Lab: [facility] [address] Performing Lab: [facility] [address] [place] [facility] BASIC METABOLI C PANEL+MG MAGNESIUM [MASS/VOLU ME] IN SERUM OR PLASMA 1.9 mg/dL 1.6 - 2.6 04/10 Specimen Type: PLASMA No comment entered. Ordering Provider: Guerline BEASLEY Report Released Date/Time: Apr 10, 2022 11:43 AM Reporting Lab: [facility] [address] Performing Lab: [facility] [address] [place] [facility] BASIC METABOLI C PANEL+MG ANION GAP IN SERUM OR PLASMA 7 mmol/L 5 - 15 04/10 Specimen Type: PLASMA No comment entered. Ordering Provider: Guerline BEASLEY Report Released Date/Time: Apr 10, 2022 11:43 AM Reporting Lab: [facility] [address] Performing Lab: [facility] [address] [place] [facility] BASIC METABOLI C PANEL+MG GLOMERULAR FILTRATION RATE/1.73 SQ M.PREDICTE D [VOLUME RATE/AREA] IN SERUM, PLASMA OR BLOOD BY CREATININE -BASED FORMULA (CKD-EPI) >90 60 04/10 Specimen Type: PLASMA No comment entered. Ordering Provider: Guerline BEASLEY Report Released Date/Time: Apr 10, 2022 11:43 AM Reporting Lab: [facility] [address] Performing Lab: [facility] [address] [place] [facility] Vital Signs Combined list of inpatient and outpatient Vital Signs from Department of Defense and Veterans Affairs, ranging from 12 months to all on record, depending upon the facility. Vital Sign Value Date Comments Source Encounters Combined list of: 1) Encounters from Department of Veterans Affairs facilities going back up to thelast 18 months. 2) Encounters from the Department of Defense facilities going back up to 280 months. Location Location Details Encounter Type Encounter Number Reason For Visit Attending Provider ADM Date DC Date Status Disposition Source [place] [facility] Outpatient Encounter [id number] MIGUELITO WAN SA 02/17 GARY MORELOS [facility] [place] [facility] [facility] Encounter [id number] SA GILLIAN NDRA ZEN 03/05 [place] [facility] [facility] [place] [facility] Outpatient Encounter [id number] 03/20 [place] [facility] [facility] [place] [facility] Outpatient Encounter [id number] MADHAVWYATTTAVARES SOUZA V 03/31 [place] [facility] [place] [facility] Outpatient Encounter [id number] 04/02 [place] [facility] [facility] [place] [facility] Outpatient Encounter [id number] KEDAR PALMER 04/03 [place] [facility] [facility] [place] [facility] Outpatient Encounter [id number] 04/06 [place] [facility] PRO PHONE CALL 5-10 MIN [id number] Diagnos is: ICD-10- CM R20.2 Paresth esia of skin
LISSETH CARDOSO CCA R 04/06 [facility] [place] [facility] EMERGENCY DEPT VISIT MOD [facility] [id number] Diagnos is: ICD-10- CM R20.2 Paresth esia of skin
BANDAR BEASLEY 04/10 [place] [facility] [place] [facility] EMERGENCY DEPT VISIT SF [facility] [id number] Diagnos is: ICD-10- CM M79.601 Pain in right arm<br/ > Jacinta COVINGTON 04/14 [place] [facility] [place] [facility] Outpatient Encounter [id number] 04/15 [place] [facility] [facility] [place] [facility] Outpatient Encounter [id number] 04/17 [place] [facility] [facility] [place] [facility] Outpatient Encounter [id number] JAYCOB LÓPEZ HS 04/21 [place] [facility] [facility] Outpatient Encounter [id number] Diagnos is: ICD-10- CM G43.909 Migrain e, unsp, not intract able, without status migrain osus
ANA M LEON 04/22 [facility] [place] [facility] Outpatient Encounter [id number] NATHAN VILLANUEVA Fani 04/22 [place] [facility] [place] [facility] Outpatient Encounter [id number] 05/20 [place] [facility] [facility] IMMUNIZATI [facility] ADMIN [id number] Diagnos is: ICD-10- CM I10 Essenti al (primar y) hyperte nsion<b r/> ANA M LEON 05/28 [facility] [place] [facility] Outpatient Encounter [id number] KEDAR PALMER 07/24 [place] [facility] [place] [facility] Outpatient Encounter [id number] KEDAR PALMER 08/17 [place] [facility] [place] [facility] Outpatient Encounter [id number] KEDAR PALMER 08/17 [place] [facility] [place] [facility] EMERGENCY DEPT VISIT [facility] [id number] Diagnos is: ICD-10- CM R10.9 Unspeci fied abdomin al pain
AB FRANCISCO BYRNEAMASarah Mendoza 08/18 [place] [facility] [facility] [place] [facility] Outpatient Encounter [id number] 08/19 [place] [facility] [facility] [place] [facility] Outpatient Encounter [id number] ELYSSA VILLA 08/19 [place] [facility] [place] [facility] Outpatient Encounter [id number] SA GILLIAN NDRA ZEN 08/19 [place] [facility] [place] [facility] Outpatient Encounter [id number] 08/21 [place] [facility] [facility] Outpatient Encounter [id number] Diagnos is: ICD-10- CM I10 Essenti al (primar y) hyperte nsion<b r/> NSUBUGA,CH RISTINE N 08/21 [facility] [place] [facility] Outpatient Encounter [id number] RA EB MARITO A 08/26 [place] [facility] HC PRO PHONE CALL 5-10 MIN [id number] Diagnos is: ICD-10- CM I10 Essenti al (primar y) hyperte nsion<b r/> LISSETH CARDOSO CCA R 08/31 [facility] [place] [facility] Outpatient Encounter [id number] 11/13 [place] [facility] [facility] [place] [facility] Outpatient Encounter [id number] 11/23 [place] [facility] [place] [facility] Outpatient Encounter [id number] 11/27 [place] [facility] [facility] [place] [facility] Outpatient Encounter [id number] JOANN BENNETT 12/09 [place] [facility] [facility] HC PRO PHONE CALL 5-10 MIN [id number] Diagnos is: ICD-10- CM M79.642 Pain in left hand
LISSETH CARDOSO CCA R 12/10 [facility] [place] [facility] Outpatient Encounter [id number] ANDREA SAMANO NINFA 12/18 [place] [facility] Outpatient Encounter [id number] 12/18 [facility] [place] [facility] Outpatient Encounter [id number] YANLEROY Mcknight 12/28 [place] [facility] [place] [facility] Outpatient Encounter [id number] ASHLEIGH BUTTS 01/04 [place] [facility] [place] [facility] Outpatient Encounter [id number] VANIÁNGEL MARTÍNEZ Guerline 01/07 [place] [facility] OFFICE O/P EST HI 40-54 MIN [id number] Diagnos is: ICD-10- CM G43.909 Migrain e, unsp, not intract able, without status migrain osus
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, unsp cervica l region< br/> ROWAN WALKER SON J 02/10 [facility] [place] [facility] Outpatient Encounter [id number] Fani LARSEN 02/12 [place] [facility] [place] [facility] Outpatient Encounter [id number] Juan Luis CHISHOLM 02/23 [place] [facility] [place] [facility] Outpatient Encounter [id number] Brittany ZAMBRANO 04/15 [place] [facility] [place] [facility] Outpatient Encounter [id number] ELIZABETHLIANA KAYE 04/16 [place] [facility] [place] [facility] Outpatient Encounter [id number] SABINA NUNO PHYLLIS Smith 04/20 [place] [facility] [facility] [place] [facility] Outpatient Encounter [id number] SUNITHAKATHRYN Soto 04/26 [place] [facility] PRO PHONE CALL 5-10 MIN [id number] Diagnos is: ICD-10- CM F41.9 Anxiety disorde r, unspeci fied
LISSETH CARDOSO CCA R 04/29 [facility] OFFICE O/P EST HI 40 MIN [id number] Diagnos is: ICD-10- CM F41.9 Anxiety disorde r, unspeci fied
ROWAN WALKER J 05/02 [facility] [place] [facility] Outpatient Encounter [id number] 05/02 [place] [facility] OFFICE O/P NEW MOD 45 MIN [id number] Diagnos is: ICD-10- CM F41.9 Anxiety disorde r, unspeci fied
VAIBHAV AARON E 05/11 [facility] [place] [facility] OFFICE O/P NEW MOD 45 MIN [id number] Diagnos is: ICD-10- CM F41.9 Anxiety disorde r, unspeci fied
VAIBHAV AARON 05/11 [place] [facility] [place] [facility] Outpatient Encounter [id number] JAXSON MATTHEWS 05/24 [place] [facility] [place] [facility] Outpatient Encounter [id number] Diagnos is: ICD-10- CM R51.9 Headach e, unspeci fied
MIGUELITO RG SA 05/24 [facility] [place] [facility] Outpatient Encounter [id number] Juan Luis CHISHOLM 05/25 [facility] [place] [facility] Outpatient Encounter [id number] 06/02 [facility] [place] [facility] PRO PHONE CALL 5-10 MIN [id number] Diagnos is: ICD-10- CM R51.9 Headach e, unspeci fied
LISSETH CARDOSO CCA R 06/02 [facility] [place] [facility] Outpatient Encounter [id number] 08/18 [facility] IMMUNIZATI ON ADMIN [id number] Diagnos is: ICD-10- CM Z00.00 Encntr for general adult medical exam w/o abnorma l finding s
AMOS ROBERTS DA 08/18 [facility] Social History Combined list of available smoking, tobacco, and other social history from Department of Defense and Veterans Affairs facilities. Social History Type Response Date Comment Sourc e Tobacco smoking status NJIS [place]-TOBACCO NEVER USED 05/03/2023 [facility] History of tobacco use VA-TOBACCO NEVER USED 05/28/2022 [facility] History of tobacco use [place]-TOBACCO NEVER USED 08/15/2021 [facility] Plan of Care List of future care activities from Department of Veterans Affairs facilities. Additional future care activities may be listed in the Assessment and Plan section. Date/Time Care Activity Care Activity Detail Facili ty 08/19/2023 AMBULATORY - MEDICINE AMBULATORY - MEDICI NE [facility] 08/25/2023 AMBULATORY - MEDICINE AMBULATORY - MEDICI NE [facility] 08/19/2023 Laboratory - Die Maker Apprentice ry Order HEMOGLOBIN A1C BLOOD [facility] SP ONCE [facility] 08/19/2023 Laboratory - Die Maker Apprentice ry Order ALBUMIN/CREATININE RATIO URINE URINE SP [facility] 08/19/2023 Laboratory - Die Maker Apprentice ry Order CBC and DIFF BLOOD [facility] SP [facility] 08/19/2023 Laboratory - Die Maker Apprentice ry Order COMPREHENSIVE METABOLIC PANEL+MG PLASMA [facility] SP ONCE [facility] 08/19/2023 Laboratory - Die Maker Apprentice ry Order LIPID PANEL,NON-FASTING PLASMA SP [facility] 08/19/2023 Laboratory - Die Maker Apprentice ry Order OCCULT BLOOD FIT X1 SCREEN STOOL FECES SP ONCE [facility] 08/19/[address] SCAN Cons Foreign Food Specialty Cook's Choice [facility] Advance Directives List of completed, amended, or rescinded Advance Directives on record at Department of Veterans Affairs facilities. An actual copy of the Directive is not included. Date Advance Directive Provider Source 08/15/2021 ADVANCE DIRECTIVE DISCUSSION M[facility]ISSA [facility]
--- OUTSIDE RECORDS SUMMARY | 2023-08-19 16:58 | XMS_ITS | Encounter Summary ---
Author Name [facility] Organization [facility] Address [address] [place] [address] Care Team Providers Care Infant Teacher Name Role Phone VONAHSANMARGUERITE SCHWARTZA Primary Care Provider Katie castle Insurance Providers: All historical and current Section Date Range: From patient's date of to the date document was created. This section includes the names of all active insurance providers for the patient. Insurance Provider Type of Coverage Plan Name Start of Policy Coverage End of Policy Coverage Group Number Member ID Insurance Provider's Telephone Number Policy Serra's Name Patient's Relationship to Policy Serra [employer] PRES[employer] ION RX PLAN Mar 01, 2021 [id number] [phone] KIMBERLEE AGUILERA PATIENT Selected Encounter This section includes the information on record at [place] for the Encounter. Date/Time Encounter Type Encounter Description Reason Provider Source 2023 02:01 PM OFFICE O/P NEW MOD 45 [facility] ICD-10-CM F41.9 Anxiety disorder, unspecified VAIBHAV AARON IHJudy Encounter Template Text not used by [place] Assessments - Encounter Diagnoses This section includes the primary and secondary diagnoses documented for the Encounter. Date/Time Primary/Secondary Diagnosis Diagnosis Name Provider Source 2023 02:51 PM PRIMARY Anxiety disorder, unspecified VAIBHAV AARON [facility] Plan of Treatment: Future Appointments (+ 6 months) and Future Tests (+/- 45 days) The Plan of Treatment section includes future care activities for the patient from all [place] treatmentfacilities. This section includes future appointments and future orders which are active, pending or scheduled. Future Appointments This section includes appointments that were scheduled to occur 6 months from the date of the Encounter, up to a maximum of 20 appointments. The data comes from all [place] treatment facilities. Appointment Date/Time Appointment Type Appointme nt Facility Name May 25, 2023 09:00 AM AMBULATORY - MEDICINE [facility] May 26, 2023 04:47 PM AMBULATORY - NONE KAI PUR[facility] Aug 19, 2023 09:30 AM AMBULATORY - MEDICINE [facility] Aug 25, 2023 03:40 PM AMBULATORY - MEDICINE [facility] Advance Directives: All historical and current Section Date Range: From patient's date of to the date document was created. This section includes ALL of a patient's completed or amended [place] Advance and Rescinded Directives. The entries below indicate that a directive exists for the patient, but an actual copy is not included with this document. The data comes from all [place] facilities. Date Advance Directives Provider Source Aug 15, 2021 ADVANCE DIRECTIVE DISCUSSION MELISSA MCFARLAND [facility], [facility]
--- OUTSIDE RECORDS SUMMARY | 2023-08-19 16:58 | XMS_ITS | Encounter Summary ---
Author Name [facility] Organization [facility] Address [address] [place] [address] Care Team Providers Care Survey Data Technician Name Role Phone COLLEENEFRENJOSUE Primary Care Provider Unavailjoshua e Insurance Providers: All historical and current Section [...] PRESCRIPT ION RX PLAN Mar 01, 2021 [id number] [phone] KIMBERLEE AGUILERA PATIENT Selected Encounter This section includes the information on record at [place] for the Encounter. Date/Time Encounter Type Encounter Description Reason Pro vider Source Jun 03, 2023 11:31 AM Outpatient Encounter TELEPHONE PRIMARY CARE I[facility] Encounter Template Text not used by [place] Plan of Treatment: Future Appointments (+ 6 months) and Future Tests (+/- 45 days) The Plan of Treatment section includes future care activities for the patient from all [place] treatmentfacilities. This section includes future appointments and future orders which are active, pending or scheduled. Future Appointments This section includes appointments that were scheduled to occur 6 months from the date of the Encounter, up to a maximum of 20 appointments. The data comes from all [place] treatment facilities. Appointment Date/Time Appointment Type Appointme nt Facility Name Aug 19, 2023 09:30 AM AMBULATORY - MEDICINE [facility] Aug 25, 2023 03:40 PM AMBULATORY - [...] this document. The data comes from all [place] facilities. Date Advance Directives Provider Source Aug 15, 2021 ADVANCE DIRECTIVE DISCUSSION MELISSA MCFARLAND [facility] Encounter Notes: All associated encounter notes This section contains the clinical notes associated to the Encounter. Date/Time Encounter Note(s) Provider Source Jun 03, 2023 11:31 AM REPORT OF CONTACT: LOCAL TITLE: PATIENT CONTACT NOTE STANDARD TITLE: REPORT OF CONTACT DATE OF NOTE: JUN 03, 2023@11:31 ENTRY DATE: JUN 03, 2023@11:32:08 AUTHOR: PATRICIA CARDOSO COSIGNER: URGENCY: STATUS: COMPLETED Patient contact Name of [place]: KIMBERLEE SANDOVAL Name/Relationship of Contact if other than : Date & Time of Contact: May@11:37 Type of Contact: Telephone Reason for Contact: Professor Of Archaeology was unable to reach via telephone to follow up on recent ED visit. Professor Of Archaeology left a HIPAA compliant message to contact [facility]. /cat/ Patricia Cardoso RN Nurse [facility] Signed: 06/03/2023 11:37 PATRICIA CARDOSO
--- OUTSIDE RECORDS SUMMARY | 2023-08-19 16:58 | XMS_ITS | Encounter Summary ---
Author Name [facility] Organization [facility] Address [address] [place] [id number] Care Team Providers Care Tube Making Machine Operator Name Role Phone VONAHSANMARGUERITE SCHWARTZA Primary Care [...] PRESCRIPT ION RX PLAN Mar 01, 2021 [id number] KIMBERLEE AGUILERA PATIENT Selected Encounter This section includes the information on record at ID for the Encounter. Date/Time Encounter Type Encounter Description Reason Provider Source May 25, 2023 07:50 AM Outpatient Encounter TELEPHONE TRIAGE SAMINA BAEZ [facility] Encounter Template Text not used by ID Plan of Treatment: Future Appointments (+ 6 months) and Future Tests (+/- 45 days) The Plan of Treatment section includes future care activities for the patient from all ID treatmentfacilities. This section includes future appointments and future orders which are active, pending or scheduled. Future Appointments This section includes appointments that were scheduled to occur 6 months from the date of the Encounter, up to a maximum of 20 appointments. The data comes from all ID treatment facilities. Appointment Date/Time Appointment Type Appointme nt Facility Name May 26, 2023 04:47 PM AMBULATORY - NONE [facility] Aug 19, 2023 09:30 AM AMBUL[facility]ORY - MEDICINE [facility] Aug 25, 2023 03:40 PM AMBULATORY - MEDICINE [facility] Advance Directives: All historical and current Section Date Range: From patient's date of to the date document was created. This section includes ALL of a patient's completed or amended VA Advance and Rescinded Directives. The entries below indicate that a directive exists for the patient, but an actual copy is not included with this document. The data comes from all ID facilities. Date Advance Directives Provider Source Aug 15, 2021 ADVANCE DIRECTIVE DISCUSSION MELISSA MCFARLAND SA [facility] Encounter Notes: All associated encounter notes This section contains the clinical notes associated to the Encounter. Date/Time Encounter Note(s) Provider Source May 25, 2023 07:50 AM RN PROGRESS NOTE: LOCAL TITLE: CCC: CLINICAL TRIAGE STANDARD TITLE: RN PROGRESS NOTE DATE OF NOTE: MAY 25, 2023@07:50:50 ENTRY DATE: MAY 25, 2023@07:50:50 AUTHOR: SAMINA BAEZ COSIGNER: URGENCY: STATUS: COMPLETED Patient Demographics Patient Name: KIMBERLEE SANDOVAL Patient Primary [address]: [address] [place] [address] [place] [address] Patient Primary Phone: [phone] Patient : 1960 Patient Age: 63 Caller/Recipient Relation to Patient: Self Emergency Contact: JIMMY JOHANSEN Triage Summary Conducted triage/discussed symptoms Pain Score: 5 (Moderate to Severe Pain) Utilized the Triage Tool: Yes Chief Complaint: Headache System WHEN: Within 24 Hours Nurse's Recommendation / WHEN: Within 24 Hours System WHERE: Clinic Nurse's Recommendation / WHERE: Clinic/[facility] Patient Disposition Patient/Caregiver agrees to plan of care: Yes Nursing Plan and Disposition Referred for [facility] Virtual Clinic Visit Other Other Description: Emanuel scheduled vis [facility] Other course(s) of action Provided guidance for worsening symptoms: *Caller/Patient* advised to call facilities ID Clinical Contact Center or seek immediate medical attention for new or worsening symptoms Nurse Summary Nurse Summary: PATIENT CONCERN/DURATION/ONSET: c/o Headaches and feeling tired x 1 week. Did not take Blood pressure today. Positive: Headache pain 5/10 that comes and goes but last longer than other headaches he has had in the past, fatigue, eye pain 4/10 once in a while, Wednesday had a nose bleed but stopped right away, forehead pressure and at the base/top of nose and a runny nose with clear drainage. Negatives: Denied nasal congestion, blurry vision, chest pain, SOB, eye redness, moravian pain, fever, sore throat, nausea, diarrhea, vomiting, difficulty speaking, difficulty walking WHAT HAS PATIENT TRIED TO TREAT THE SYMPTOMS: Aspirin, Ibuprofen and sit down helps. Stated he took another medication this morning that is helping his headache. HISTORY/PREVIOUS TREATMENT: Migraines, HTN WHAT IS PATIENT GOAL FOR THE CALL: Appointment Was [facility] Now considered (TELE or VVC)? Yes PERSONAL CARE ATTENDANT DISPOSITION: Recommended triage is less than 24 hours secondary to nurse judgment and symptoms. 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 Advised interaction available with [facility] within recommended timeframe and agrees to referral of care to [facility]; appointment scheduled with [facility] at this time. [employer] message sent to [facility] with appointment date/time as scheduled with [facility] at time of call. Home education and signs/symptoms to watch for provided and provided guidance for worsening symptoms. This note was created by a [address] production director. Please do not alert this nurse by adding as a signer for future communications. Alerts are not monitored by this user, please reach out to [facility] instead if indicated. Clinical Contact Center Codes Clinic/Location: [address] PHONE CCC RN TXCC Triage Complete Triage Date: 05/25/2023 6:44 AM Triage Note: Phone Triage 25 May 2023 12:26:00 +0000 [facility] Demographics 63 y/o Male Results CC: Headache Software suggested: Within 24 Hours Software suggested follow-up location: Clinic, consider [facility] care Values and Measures Duration of CC: 1 Weeks Positive Responses HPI: eye pain HPI: headache, moderate to severe HPI: weakness, fatigue, more than usual MEDS: taking medication that promotes bleeding VS: BP not taken VS: temperature not taken Negative Responses Denies: HPI: blurry vision Denies: HPI: corneal opacification Denies: HPI: difficulty speaking, sudden onset Denies: HPI: difficulty walking, sudden onset Denies: HPI: eye pain, moderate to severe Denies: HPI: eye pain, severe Denies: HPI: eye redness Denies: HPI: fever, subjective Denies: HPI: head injury, within past 10 days Denies: HPI: headache, duration longer than 6 hours Denies: HPI: headache, severe Denies: HPI: headache, worsening Denies: HPI: headache, worst ever experienced Denies: HPI: myalgias Denies: HPI: nasal congestion, duration longer than 2 days Denies: HPI: rhinorrhea, yellow or brown Denies: HPI: seizure Denies: HPI: sore throat Denies: HPI: temporal pain, moderate to severe Denies: HPI: temporal tenderness, severe Denies: HPI: tick bite, within past 6 weeks Denies: HPI: vomiting Denies: HPI: weakness, ipsilateral, sudden onset Denies: PMH: HIV positive Denies: PMH: Marfan syndrome Denies: PSH: DESIGNER shunt placement Education Log Home care for a headache includes: Lie down and rest. Notify your provider if you have a headache and any of the following: Arm numbness (unilateral) Arm weakness (unilateral) Change in vision: Blurry vision Double vision Confusion Difficulty speaking Difficulty walking Excessive sleepiness Facial numbness Facial weakness (unilateral) Leg numbness (unilateral) Leg weakness (unilateral) Seizures Sudden, severe headache Fever over 101 degrees F (38.3 C) Worsening headache Worsening neck pain Worsening neck stiffness [phone] [employer]. /cat/ Samina Baez MSN, RN [place] Nurse, 3 [facility] Signed: 05/25/2023 07:50 SAMINA BAEZ [facility]
--- OUTSIDE RECORDS SUMMARY | 2023-08-19 16:58 | XMS_ITS | Encounter Summary ---
Author Name [facility] Organization [facility] Address [address] [place] [address] Care Team Providers Care Nonprofit Director Name Role Phone COLLEENEFRENJOSUE Primary Care Provider [...] PRESCRIPT ION RX PLAN Mar 01, 2021 [id number] [phone] KIMBERLEE AGUILERA PATIENT Selected Encounter This section includes the information on record at [place] for the Encounter. Date/Time Encounter Type Encounter Description Reason Provider Source May 03, 2023 01:30 PM OFFICE O/P EST HI 40 MIN PRIMARY CARE/MEDICINE ICD-10-CM F41.9 Anxiety disorder, unspecified ILDA WALKER Encounter Template Text not used by [place] Assessments - Encounter Diagnoses This section includes the primary and secondary diagnoses documented for the Encounter. Date/Time Primary/Secondary Diagnosis Diagnosis Name Provider Source May 03, 2023 02:01 PM PRIMARY Anxiety disorder, unspecified [facility] May 03, 2023 02:01 PM SECONDARY Encounter for immunization ALYSSA SERRANO May 03, 2023 02:01 PM SECONDARY Essential (primary) hypertension [facility] May 03, 2023 02:01 PM SECONDARY Migraine, unsp, not intractable, without status migrainosus ALYSSA SERRANO Plan of Treatment: Future Appointments (+ 6 months) and Future Tests (+/- 45 days) The Plan of Treatment section includes future care activities for the patient from all [facility]. This section includes future appointments and future orders which are active, pending or scheduled. Future Appointments This section includes appointments that were scheduled to occur 6 months from the date of the Encounter, up to a maximum of 20 appointments. The data comes from all [facility] facilities. Appointment Date/Time Appointment Type Appointme nt Facility Name 2023 02:00 PM AMBULATORY - [facility]CHIATRY [facility] 2023 02:01 PM [facility] May 25, 2023 09:00 AM [facility] May 26, 2023 04:47 PM AMBULATORY - NONE [facility] Aug 19, 2023 09:30 AM AMBULATORY - MEDICINE [facility] Aug 25, 2023 03:40 PM AMBULATORY - MEDICINE [facility] Vital Signs: All taken on the encounter date This section contains inpatient and outpatient Vital Signs collected on the date of the Encounter. Date/Time Temperature Pulse Blood Pressure Respiratory Rate SP02 Pain Height Weight Body Mass Index Source May 03, 2023 01:21 PM 97.3 73 112/77 18 99 0 66.75 154.5 24 [facility] Immunizations: All administered on the encounter date This section contains immunizations associated to the Encounter. Immunization Series Date Issued Reaction Comments ZOSTER RECOMBINANT 1 May 03, 2023 ENTE R DILUENT LOT# [id number] Social History: Smoking Status (Most current) and Tobacco Use (All prior to encounter date) This section includes the most current, and the historical, smoking and tobacco- related health factors from the [place] facility where the Encounter took place. Current Smoking Status This section includes the most current smoking, or tobacco-related health factor, from the [place] facility where the Encounter took place. Date/Time Current Smoking Status Comment Gallito hand May 03, 2023 01:30 PM VA-TOBACCO NEVER USED [facility] Tobacco Use History This section includes a history of the smoking, or tobacco-related health factors, that were collected on or before the date of the Encounter. The data comes from the [place] facility where the Encounter took place. Date/Time Smoking Status/Tobacco Use Comment F acility May 28, 2022 02:30 PM VA-TOBACCO NEVER USED [facility] Aug 15, 2021 09:00 AM VA-TOBACCO NEVER USED [facility] Advance Directives: All historical and current Section Date Range: From patient's date of to the date document was created. This section includes ALL of a patient's completed or amended VA Advance and Rescinded Directives. The entries below indicate that a directive exists for the patient, but an actual copy is not included with this document. The data comes from all [place] facilities. Date Advance Directives Provider Source Aug 15, 2021 ADVANCE DIRECTIVE DISCUSSION MELISSA MCFARLAND SA [facility] Encounter Notes: All associated encounter notes This section contains the clinical notes associated to the Encounter. Date/Time Encounter Note(s) Provider Source May 03, 2023 01:54 PM PRIMARY CARE NOTE: LOCAL TITLE: [facility] PROGRESS NOTE-[facility] TITLE: PRIMARY CARE NOTE DATE OF NOTE: MAY 03, 2023@13:54 ENTRY DATE: MAY 03, 2023@13:54:15 AUTHOR: ILDA WALKER COSIGNER: URGENCY: STATUS: COMPLETED Today's Nurse check-in note reviewed. Chief complaint: The patient is a 62 year old MALE here [facility] and has the following concerns, complaints, or problems: Patient is here today to follow-up regarding urgent care visit on as well as urgent care visit on February 22. Both of which he presented with feelings of lightheadedness dizziness weakness and feeling shaky. He had a cardiac work-up at both visits which was normal. Patient himself is worried that these may be symptoms of anxiety. He has some hydroxyzine for anxiety which he is actually been taking scheduled twice daily but it does not seem to prevent any worsening feelings of lightheadedness or shakiness. is with him today and says that oftentimes these feelings come on when he sitting watching TV and as long as he is distracting himself with moving around the symptoms are not present. Patient is also concerning about 1-1/2 weeks of loose stools. He denies any abdominal pain blood in stool or decreased appetite. He has not tried any medications for the symptoms. He is staying well-hydrated drinking 60 to 100 ounces of water daily. He denies any change in his weight. Review of Systems: Denies fever/chills, weight changes, headaches, vision changes, chest pain, shortness of breath,constipation, urinary symptoms, or rash, new joint pain or swelling or weakness. Remainder of the ROS is negative, except as above. Allergies: Patient has answered NKA Medications: Active Outpatient Medications Status 1) CELECOXIB 200MG CAP TAKE ONE CAPSULE BY MOUTH EVERY ACTIVE DAY NEEDED FOR MIGRAINE HEADACHE 2) HYDROXYZINE HCL 10MG TAB TAKE TWO TABLETS BY MOUTH ACTIVE TWO TIMES A DAY NEEDED FOR ANXIETY 3) SUMATRIPTAN SUCCINATE 100MG TAB TAKE ONE TABLET BY ACTIVE MOUTH ONCE NEEDED FOR HEADACHE - MAY REPEAT IN 2 HOURS IF HEADACHE PERSISTS. MAX 200MG PER DAY Pending Outpatient Medications Status 1) ASPIRIN 81MG CHEW TAB CHEW ONE TABLET BY MOUTH EVERY PENDING MORNING 2) METOPROLOL SUCCINATE 50MG SA TAB TAKE ONE TABLET BY PENDING MOUTH EVERY MORNING 3) NORTRIPTYLINE HCL 10MG CAP TAKE TWO CAPSULES BY MOUTH PENDING AT BEDTIME 6 Total Medications Physical Exam: Vitals: BP: 112/77 (05/03/2023 13:21) P: 73 (05/03/2023 13:21) R: 18 (05/03/2023 13:21) T: 97.3 F [36.3 C] (05/03/2023 13:21) WT: 154.5 lb [70.08 kg] (05/03/2023 13:21) BMI: 24.4 Pain: 0 (05/03/2023 13:21) O2 Sat: 99% (05/03/2023 13:21) General: Alert, well dressed and groomed, no apparent distress Neck: supple, without LN, TM Lungs: Clear; no wheezes, rhonchi or rales CV: RRR without murmur, rub or gallop GI: soft, non distended, non tender, normal BS, no mass or HSM Ext: No clubbing, cyanosis, or edema, distal pulses intact and symmetric Skin: Warm and moist, no rash or erythema Psych: Good eye contact, speech normal rate and rhythm, anxious Assessment/Plan: Reviewed and updated health maintenance reminders 1. Migraine: Patient reports no migraine headaches in the last month -Continue nortriptyline for prophylaxis -Continue as needed celecoxib or sumatriptan 2. HTN-Hypertension ([facility] [id number]): Blood pressure well controlled, home blood pressure readings mostly within normal limits with a few in the low 140s over 80s -Continue metoprolol at current dose without changes 3. Anxiety ([facility] [id number]): Worsening symptoms, poorly controlled with hydroxyzine 10 mg twice daily -We will engage mental health team regarding daily preventative medication for anxiety considering several emergency room visits related to symptoms that were worked up and not determined to be related to a cardiac etiology 4. Diarrhea: Mild -Stay well-hydrated -Recommended clear liquid diet for 24 hours for bowel rest then introducing brat diet and if tolerated back to regular diet within 48 hours -Follow-up if not improving or worsening at any time Jackson understands and agrees to the plan. Follow up as discussed. Sooner if questions or concerns. I spent a total of 45 minutes on the date of the encounter, which included: -Preparing to see the patient and (for example review of test results, consultants) -Obtaining and/or reviewing separately obtained history -Performing a medically appropriate exam and/or evaluation -Counseling and educating the patient/family/caregiver -Ordering medications, tests, procedures -Referring and communicating with other healthcare professionals, when not separately reported -Documenting clinical information in the health record -Care coordination not separately reported Medication Reconciliation: Education Evaluations *Was medication education provided for NEW medications or CHANGES to medications? (including medication name, dose, route, reason for use, and potential side effects). No new medications or medication changes during this encounter. TERATOGENIC MED & CONTRACEPTION REVIEW (Optional)... === MEDICATION RECONCILIATION === List Given: An updated medication list was provided to the patient/caregiver. Review Done: The medication list shown below was verified for accuracy and it includes all pending medications/active medications/all medications or discontinued within the last 90 days/all remote medications and non-VA medications. If a given category (i.e. remote meds) is not shown, that means that a patient doesn't have a medication(s) in that category. Allergies listed below were also reviewed/updated for accuracy. Allergies/ADR from [facility] may not display in CPRS. Use JLV MRT5 - Allergies/ADRs [facility]/ADR -------- No Remote Allergy/ADR Data available for this patient [facility] No Known Allergies Active and Recently Outpatient Medications (including Supplies): Issue Date Status Last Fill Active Outpatient Medications Refills Expiration 1) CELECOXIB 200MG CAP Qty: 90 for 90 days ACTIVE Issu:10-12-22 Sig: TAKE ONE CAPSULE BY MOUTH EVERY Refills: 3 Last:10-12-22 DAY NEEDED FOR MIGRAINE HEADACHE Expr:10-13-23 2) HYDROXYZINE HCL 10MG TAB Qty: 30 for 30 ACTIVE Issu:01-14-23 days Sig: TAKE TWO TABLETS BY MOUTH Refills: 2 Last:03-12-23 TWO TIMES A DAY NEEDED FOR ANXIETY Expr:01-15-24 3) SUMATRIPTAN SUCCINATE 100MG TAB Qty: 9 ACTIVE Issu:03-18-23 for 30 days Sig: TAKE ONE TABLET BY Refills: 11 Last:03-18-23 MOUTH ONCE NEEDED FOR HEADACHE - Expr:03-18-24 MAY REPEAT IN 2 HOURS IF HEADACHE PERSISTS. MAX 200MG PER DAY Issue Date Status Last Fill Pending Outpatient Medications Refills Expiration 1) ASPIRIN 81MG CHEW TAB Qty: 108 Sig: PENDING CHEW ONE TABLET BY MOUTH EVERY MORNING Refills: 0 2) METOPROLOL SUCCINATE 50MG SA TAB Qty: PENDING 90 Sig: TAKE ONE TABLET BY MOUTH Refills: 0 EVERY MORNING 3) NORTRIPTYLINE HCL 10MG CAP Qty: 180 PENDING Sig: TAKE TWO CAPSULES BY MOUTH AT Refills: 0 BEDTIME Issue Date Status Last Fill Inactive Outpatient Medications Refills Expiration 1) ASPIRIN 81MG CHEW TAB Qty: 108 for 90 Issu:04-22-22 days Sig: CHEW ONE TABLET BY MOUTH Refills: 3 Last:04-22-22 EVERY MORNING Expr:04-23-23 2) METOPROLOL SUCCINATE 100MG SA TAB Qty: DISCONTINUED Issu:04-22-22 45 for 90 days Sig: TAKE ONE-HALF (EDIT) Last:05-23-22 TABLET BY MOUTH EVERY MORNING Refills: 3 Expr:04-23-23 3) METOPROLOL SUCCINATE 50MG SA TAB Qty: Issu:04-22-22 90 for 90 days Sig: TAKE ONE TABLET Refills: 2 Last:10-12-22 BY MOUTH EVERY MORNING Expr:04-23-23 4) NORTRIPTYLINE HCL 10MG CAP Qty: 180 for Issu:04-22-22 90 days Sig: TAKE TWO CAPSULES BY Refills: 2 Last:10-12-22 MOUTH AT BEDTIME Expr:04-23-23 5) SUMATRIPTAN SUCCINATE 100MG TAB Qty: 9 DISCONTINUED Issu:11-25-22 for 30 days Sig: TAKE ONE TABLET BY (EDIT) Last:03-12-23 MOUTH NEEDED FOR HEADACHE Refills: 10 Expr:11-26-23 11 Total Medications I spent a total of 45 minutes on the date of the encounter, which included: -Preparing to see the patient and (for example review of test results, consultants) -Obtaining and/or reviewing separately obtained history -Performing a medically appropriate exam and/or evaluation -Counseling and educating the patient/family/caregiver -Ordering medications, tests, procedures -Referring and communicating with other healthcare professionals, when not separately reported -Documenting clinical information in the health record -Care coordination not separately reported /cat/ ILDA WALKER PHYSICIAN [facility] Signed: 05/03/2023 14:01 Receipt Acknowledged By: 05/03/2023 16:16 /es/ CASSIA WAN RN [facility] ILDA NORIEGA [facility] May 03, 2023 01:22 PM PRIMARY CARE NURSI NG NOTE: LOCAL TITLE: CB NURSING PROGRESS NOTE STANDARD TITLE: PRIMARY CARE NURSING NOTE DATE OF NOTE: MAY 03, 2023@13:22 ENTRY DATE: MAY 03, 2023@13:22:54 AUTHOR: ALYSSA SERRANO COSIGNER: URGENCY: STATUS: COMPLETED TYPE OF VISIT: Appointment Check In Type of appointment: In-person appointment REASON FOR VISIT: B/P, anxiety, ER/UC F/U ALLERGIES: Patient has answered NKA VITAL SIGNS: Blood Pressure: 112/77 (05/03/2023 13:21) Pulse: 73 (05/03/2023 13:21) Respiration: 18 (05/03/2023 13:21) Temperature: 97.3 F [36.3 C] (05/03/2023 13:21) Weight: 154.5 lb [70.08 kg] (05/03/2023 13:21) Height: 66.75 in [169.5 cm] (05/03/2023 13:21) BMI: 24.4 O2 Sat: 99% (05/03/2023 13:21) Pain: 0 (05/03/2023 13:21) PAIN SCREEN: Patient is not having significant pain that they wish to discuss with their provider today. MEDICATION Active Outpatient Medications (including Supplies): CELECOXIB 200MG CAP TAKE ONE CAPSULE BY MOUTH EVERY DAY ACTIVE NEEDED FOR MIGRAINE HEADACHE HYDROXYZINE HCL 10MG TAB TAKE TWO TABLETS BY MOUTH TWO ACTIVE TIMES A DAY NEEDED FOR ANXIETY SUMATRIPTAN SUCCINATE 100MG TAB TAKE ONE TABLET BY MOUTH ACTIVE ONCE NEEDED FOR HEADACHE - MAY REPEAT IN 2 HOURS IF HEADACHE PERSISTS. MAX 200MG PER DAY Tobacco Use Screening: The patient has never used tobacco. Herpes Zoster (Shingles) Vaccine: Recombinant zoster vaccine (Shingrix, RZV) dose #1 Administered: ZOSTER RECOMBINANT Date Administered: May 03, 2023 13:30 Series: Series 1 Account Support Associate: [employer] Lot: [id number] Exp Date: Jun 09, 2025 ND: [id number] Admin Route/Site: INTRAMUSCULAR/RIGHT DELTOID Dosage: 0.5mL Vaccine Information Statement(s): RECOMBINANT ZOSTER VACCINE VIS Apr 04, 2021 (FRISIAN) Order By: Policy Administered By: Alyssa Serrano Comment: ENTER DILUENT LOT# [id number] Vaccine Information Sheet (VIS) was given to the patient/caregiver, education regarding adverse reactions was discussed, as well as barriers to learning, if any, were acknowledged. /cat/ ALYSSA SERRANO REGISTERED NURSE Signed: 05/03/2023 14:06 ALYSSA SERRANO OC
--- OUTSIDE RECORDS SUMMARY | 2023-08-19 16:58 | XMS_ITS | Encounter Summary ---
Author Name [facility] Organization Department of [facility] Address [address] [place] [address] Care Team Providers Care Manager Switch Name Role Phone VONAHSANMARGUERITE SCHWARTZA Primary Care Provider Katie e Insurance Providers: All historical and current [...] PRESCRIPT ION RX PLAN Mar 01, 2021 [id number] [phone] KIMBERLEE AGUILERA PATIENT Selected Encounter This section includes the information on record at [place] for the Encounter. Date/Time Encounter Type Encounter Description Reason Pro vider Source Aug 19, 2023 12:00 AM Outpatient Encounter EVENT (HISTORICAL) IHE Encounter Template Text not used by [facility] Plan of Treatment: Future Appointments (+ 6 months) and Future Tests (+/- 45 days) The Plan of Treatment section includes future care activities for the patient from all [place] treatmentfacilities. This section includes future appointments and future orders which are active, pending or scheduled. Future Appointments This section includes appointments that were scheduled to occur 6 months from the date of the Encounter, up to a maximum of 20 appointments. The data comes from all [place] treatment facilities. Appointment Date/Time Appointment Type Appointme nt Facility Name Aug 25, 2023 03:40 PM AMBULATORY - MEDICINE [facility] Active, Pending, and Scheduled Orders This section includes a listing of several types of active, pending, and scheduled orders, including clinic medications orders, diagnostic test orders, procedure orders and consult orders; where the start date of the order is 45 days before the date of the Encounter or 45 days after the date of theEncounter. The data comes from all [place] treatment facilities. Test Date/Time Test Type Test Details Facility Name Aug 19, 2023 12:00 AM Laboratory - Chemistry Order HEMOGLOBIN A1C BLOOD [facility] SP ONCE [facility] Adan [facility] Aug 19, 2023 12:00 AM Laboratory - Chemistry Order CBC & DIFF BLOOD [facility] SP [facility] C [facility] Aug 19, 2023 12:00 AM Laboratory - Chemistry Order ALBUMIN/CREATININE RATIO URINE URINE SP [facility] C [facility] Aug 19, 2023 12:00 AM Laboratory - Chemistry Order COMPREHENSIVE METABOLIC PANEL+MG PLASMA [facility] SP ONCE [facility] C [facility] Aug 19, 2023 12:00 AM Laboratory - Chemistry Order LIPID PANEL,NON-FASTING PLASMA SP [facility] C [facility] Aug 19, 2023 12:00 AM Laboratory - Chemistry Order OCCULT BLOOD FIT X1 SCREEN STOOL FECES SP ONCE [facility] C [facility] Aug 19, 2023 10:34 AM Consult Order RCI CT SCA N Cons Capacity Manager's Choice [facility] Advance Directives: All historical and current Section Date Range: From patient's date of to the date document was created. This section includes ALL of a patient's completed or amended [facility] Advance and Rescinded Directives. The entries below indicate that a directive exists for the patient, but an actual copy is not included with this document. The data comes from all [place] facilities. Date Advance Directives Provider Source Aug 15, 2021 ADVANCE DIRECTIVE DISCUSSION MELISSA MCFARLAND SA [facility]
--- OUTSIDE RECORDS SUMMARY | 2023-08-19 16:58 | XMS_ITS | Encounter Summary ---
Author Name [facility] of [facility] Organization Department of [facility] Address [address] [place] [address] Care Team Providers Care Fibreglass Gun Hand Name Role Phone VONAHSANEFRENJOSUE Primary Care Provider Unavailjoshua e Insurance Providers: [...] PRESCRIPT ION RX PLAN Mar 01, 2021 [id number] [phone] KIMBERLEE AGUILERA PATIENT Selected Encounter This section includes the information on record at [place] for the Encounter. Date/Time Encounter Type Encounter Description Reason Provider Source Jun 03, 2023 12:43 PM HC PRO PHONE CALL 5-10 MIN TELEPHONE PRIMARY CARE ICD-10-CM R51.9 Headache, unspecified DUDEN,PATRICIA R IHE Encounter Template Text not used by [place] Assessments - Encounter Diagnoses This section includes the primary and secondary diagnoses documented for the Encounter. Date/Time Primary/Secondary Diagnosis Diagnosis Name Provider Source Jun 03, 2023 12:43 PM PRIMARY Headache, unspecified DUDEN,PATRICIA R [facility] Plan of Treatment: Future Appointments (+ [...] [place] treatment facilities. Appointment Date/Time Appointment Type Appointme [...] 2021 ADVANCE DIRECTIVE DISCUSSION MELISSA MCFARLAND SA A [facility] Encounter Notes: All associated encounter notes This section contains the clinical notes associated to the Encounter. Date/Time Encounter Note(s) Provider Source Jun 03, 2023 12:43 PM NURSING TELEPHONE ENCOUNTER NOTE: LOCAL TITLE: NURSING POST DISCHARGE TELEPHONE STANDARD TITLE: NURSING TELEPHONE ENCOUNTER NOTE DATE OF NOTE: JUN 03, 2023@12:43 ENTRY DATE: JUN 03, 2023@12:43:16 AUTHOR: PATRICIA CARDOSO EXP COSIGNER: URGENCY: STATUS: COMPLETED Discharge Length of call with : 5-10 minutes Date of Discharge: 05/25/2023 Discharged from: [facility] ED Diagnosis: Headache Per Discharge Summary, If symptoms seem to persist, follow-up with the primary care provider. I recommend seen whichever provider is prescrbing you your migraine medication. Return to emergeny department for new or worsening symptoms. ======= Assessment post discharge: At home, stable. [facility] denied any continuing symptoms. Reviewed changes to medications: None Reviewed scheduled appointments: AUG 19, 2023@09:30 Clinic: [facility]NI SANTOS MD Additional needs identified during call: [facility] denied any additional needs at this time. Plan of care/Next Step in Care recommendations: [facility] to follow up as needed. /cat/ Patricia Cardoso, ALEX Nurse [facility] Signed: 06/03/2023 12:56 PATRICIA CARDOSO
--- OUTSIDE RECORDS SUMMARY | 2023-08-19 16:58 | XMS_ITS | Encounter Summary ---
Author Name [facility] Organization [facility] Address [address] [place] [id number] Care Team Providers Care Scientific Linguist Name Role Phone CHEL CHAMBERS Primary Care Provider Unavailjoshua e Insurance Providers: [...] PRESCRIPT ION RX PLAN Mar 01, 2021 [id number] [phone] KIMBERLEE AGUILERA PATIENT Selected Encounter This section includes the information on record at [place] for the Encounter. Date/Time Encounter Type Encounter Description Reason Provider Source Aug 19, 2023 09:30 AM IMMUNIZATION ADMIN PRIMARY CARE/MEDICINE ICD-10-CM Z00.00 Encntr for general adult medical exam w/o abnormal findings CHEL CHAMBERS IHJudy Encounter Template Text not used by [place] Assessments - Encounter Diagnoses This section includes the primary and secondary diagnoses documented for the Encounter. Date/Time Primary/Secondary Diagnosis Diagnosis Name Provider Source Aug 19, 2023 10:30 AM PRIMARY Encntr for general adult medical exam w/o abnormal findings [facility] CHAM[facility] Aug 19, 2023 10:30 AM SECONDARY Anxiety disorder, unspecified [facility] CHAMBERS [facility] Aug 19, 2023 10:30 AM SECONDARY Carpal tunnel syndrome, left upper limb CHEL CHAMBERS [facility] Aug 19, 2023 10:30 AM SECONDARY Encounter for immunization SARA WAN [facility] Aug 19, 2023 10:30 AM SECONDARY Essential (primary) hypertension ALEJANDRACHEL [facility] Aug 19, 2023 10:30 AM SECONDARY Gastro-esophageal reflux disease without esophagitis COLLEENEFRENCHEL [facility] Aug 19, 2023 10:30 AM SECONDARY Migraine, unsp, not intractable, without status migrainosus COLLEENCHEL SCHWARTZ [facility] Aug 19, 2023 10:30 AM SECONDARY Other cervical disc degeneration, unsp cervical region ALEJANDRACHEL [facility] Aug 19, 2023 10:30 AM SECONDARY Solitary pulmonary nodule COLLEENCHEL SCHWARTZ [facility] Plan of Treatment: Future Appointments (+ 6 months) and Future Tests (+/- 45 days) The Plan of Treatment section includes future care activities for the patient from all [place] treatmentfacilities. This section includes future appointments and future orders which are active, pending or scheduled. Future Appointments This section includes appointments that were scheduled to occur 6 months from the date of the Encounter, up to a maximum of 20 appointments. The data comes from all [place] treatment facilities. Appointment Date/Time Appointment Type Appointme nt Facility Name Aug 25, 2023 03:40 PM AMBULATORY - MEDICINE [facility] Active, Pending, and Scheduled Orders This section includes a listing of several types of active, pending, and scheduled orders, including clinic medications orders, diagnostic test orders, procedure orders and consult orders; where the start date of the order is 45 days before the date of the Encounter or 45 days after the date of theEncounter. The data comes from all [place] treatment facilities. Test Date/Time Test Type Test Details Facility Name Aug 19, 2023 12:00 AM Laboratory - Chemistry Order HEMOGLOBIN A1C BLOOD [facility] SP ONCE [facility] Aug 19, 2023 12:00 AM Laboratory - Chemistry Order CBC & DIFF BLOOD [facility] SP [facility] Aug 19, 2023 12:00 AM Laboratory - Chemistry Order ALBUMIN/CREATININE RATIO URINE URINE SP [facility] Aug 19, 2023 12:00 AM Laboratory - Chemistry Order COMPREHENSIVE METABOLIC PANEL+MG PLASMA [facility] SP ONCE [facility] Aug 19, 2023 12:00 AM Laboratory - Chemistry Order LIPID PANEL,NON-FASTING PLASMA SP [facility] C [facility] Aug 19, 2023 12:00 AM Laboratory - Chemistry Order OCCULT BLOOD FIT X1 SCREEN STOOL FECES SP ONCE [facility] C [facility] Aug 19, 2023 10:34 AM Consult Order RCI CT SCA N Cons Field Marketing Coordinator's Choice [facility] C [facility] Vital Signs: All taken on the encounter date This section contains inpatient and outpatient Vital Signs collected on the date of the Encounter. Date/Time Temperature Pulse Blood Pressure Respiratory Rate SP02 Pain Height Weight Body Mass Index Source Aug 19, 2023 10:49 AM 156/80 1 [facility] C [facility] Aug 19, 2023 09:45 AM 97.4 58 154/94 18 100 0 66.75 155.4 25 [facility] C [facility] Immunizations: All administered on the encounter date This section contains immunizations associated to the Encounter. Immunization Series Date Issued Reaction Comments ZOSTER RECOMBINANT 2 Aug 19, 2023 PH35 3 08/08/2023 Social History: Smoking Status (Most current) and Tobacco Use (All prior to encounter date) This section includes the most current, and the historical, smoking and tobacco- related health factors from the [place] facility where the Encounter took place. Current Smoking Status This section includes the most current smoking, or tobacco-related health factor, from the [place] facility where the Encounter took place. Date/Time Current Smoking Status Comment Facil ity May 03, 2023 01:30 PM VA-TOBACCO NEVER USED [facility] C [facility] Tobacco Use History This section includes a history of the smoking, or tobacco-related health factors, that were collected on or before the date of the Encounter. The data comes from the [place] facility where the Encounter took place. Date/Time Smoking Status/Tobacco Use Comment F acility May 28, 2022 02:30 PM VA-TOBACCO NEVER USED [facility] Aug 15, 2021 09:00 AM VA-TOBACCO NEVER USED [facility] C [facility] Advance Directives: All historical and current Section Date Range: From patient's date of to the date document was created. This section includes ALL of a patient's completed or amended [place] Advance and Rescinded Directives. The entries below indicate that a directive exists for the patient, but an actual copy is not included with this document. The data comes from all [place] facilities. Date Advance Directives Provider Source Aug 15, 2021 ADVANCE DIRECTIVE DISCUSSION MELISSA MCFARLAND SA CB Encounter Notes: All associated encounter notes This section contains the clinical notes associated to the Encounter. Date/Time Encounter Note(s) Provider Source Aug 19, 2023 10:37 AM ADMINISTRATIVE NOT E: LOCAL TITLE: AFTER VISIT SUMMARY NOTE STANDARD TITLE: ADMINISTRATIVE NOTE DICT DATE: AUG 19, 2023@10:37:45 ENTRY DATE: AUG 19, 2023@10:37:46 DICTATED BY: CHEL CHAMBERS EXP COSIGNER: URGENCY: STATUS: COMPLETED The patient was provided with a copy of an after-visit summary at the conclusion of the visit. A copy of the after-visit summary provided to the patient is available in [employer] SCANNED DOCUMENT SIGNATURE NOT REQUIRED Electronically Filed: 08/19/2023 by: CHEL CHAMBERS LEAD PHYSICIAN CHEL TABOR CB Aug 19, 2023 09:46 AM PRIMARY CARE NURSI NG NOTE: LOCAL TITLE: [facility] NURSING PROGRESS NOTE STANDARD TITLE: PRIMARY CARE NURSING NOTE DATE OF NOTE: AUG 19, 2023@09:46 ENTRY DATE: AUG 19, 2023@09:46:27 AUTHOR: SARA WAN EXP COSIGNER: URGENCY: STATUS: COMPLETED TYPE OF VISIT: Appointment Check In Type of appointment: In-person appointment REASON FOR VISIT: ANNUAL/ SHINGRIX ALLERGIES: Patient has answered NKA VITAL SIGNS: Blood Pressure: 154/94 (08/19/2023 09:45) Pulse: 58 (08/19/2023 09:45) Respiration: 18 (08/19/2023 09:45) Temperature: 97.4 F [36.3 C] (08/19/2023 09:45) Weight: 155.4 lb [70.49 kg] (08/19/2023 09:45) Height: 66.75 in [169.5 cm] (08/19/2023 09:45) BMI: 24.6 O2 Sat: 100% (08/19/2023 09:45) Pain: 0 (08/19/2023 09:45) PAIN SCREEN: Patient is not having significant pain that they wish to discuss with their provider today. Suicide Screen: C-SSRS Screening [place] Suicide Severity Rating Scale (C-SSRS) screener 1. Over the past month, have you wished you were or wished you could go to sleep and not wake up? No 2. Over the past month, have you had any actual thoughts of killing yourself? No 3. Over the past month, have you been thinking about how you might do this? Response not required due to responses to other questions. 4. Over the past month, have you had these thoughts and had some intention of acting on them? Response not required due to responses to other questions. 5. Over the past month, have you started to work out or worked out the details of how to kill yourself? Response not required due to responses to other questions. 6. If yes, at any time in the past month did you intend to carry out this plan? Response not required due to responses to other questions. 7. In your lifetime, have you ever done anything, started to do anything, or prepared to do anything to end your life (for example, collected pills, obtained a gun, gave away valuables, went to the roof but didn't jump)? No 8. If YES, was this within the past 3 months? Response not required due to responses to other questions. Depression Screening: Perform PHQ-2 A PHQ-2 screen was performed. The score was 0 which is a negative screen for depression. Over the past two weeks, how often have you been bothered by the following problems? 1. Little interest or pleasure in doing things Not at all 2. Feeling down, depressed, or hopeless Not at all Alcohol Use Screen (AUDIT-C): Alcohol Screen: SCREEN FOR ALCOHOL (AUDIT-C) An alcohol screening test (AUDIT-C) was negative (score=0). 1. How often did you have a drink containing alcohol in the past year? Consider a drink to be a 12 ounce can or bottle of regular beer, 8 ounces of malt liquor, a 5 ounce glass of table wine, or a 1.5 ounce shot of liquor (like scotch, gin, or vodka). Never 2. How many drinks containing alcohol did you have on a typical day when you were drinking in the past year? Response not required due to responses to other questions. 3. How often did you have six or more drinks on one occasion in the past year? Response not required due to responses to other questions. Nursing Annual Screening: Fall History Screen During the past 12 months, have you had any falls? Patient does not report any falls in the past 12 months. MEDICATIONS: Patient is on one of the following medication classes: Antihypertensives, Antidepressants, Antipsychotics, Diuretics, or Controlled substance medication used for pain. Script Talk Screen Are you able to read your prescription bottles with your glasses, magnifiers or other aids? Yes or patient not taking any prescriptions. Glasses Skin Screen Patient reports any current pressure ulcers, a history of pressure ulcers, or a wound from a medical grade shoemaker or Patient is bed-confined or a wheelchair-user or Patient requires assistance to transfer/change position No, Skin Screen is Negative Home Abuse/Violence Screen Is your home free of abuse and violence? Yes Outpatient Nutrition Screen Body Mass Index (BMI)= 24.6 [place]: Collection DT Specimen Test Name Result Units Ref Range 08/21/2022 09:49 BLOOD !! HEMOGLOBIN A1C 5.0 % 4.0 - 6.0 !! Indicates COMMENTS AVAILABLE...Refer to Interim Lab Report. [place] Hgb A1C: No data available [place] Hgb A1C: No data available Point of Care Hgb A1C: POC HGB A1C____ Is patient's BMI less than 18.5? No Does patient have swallowing, coughing, or chewing problems affecting oral intake? No Has patient experienced unplanned weight loss or gain greater than 10 pounds over the last 2 months? No Is patient's Hgb A1C (Glycosylated Hemoglobin) greater than 9.5? Information not available Is patient receiving Total Parenteral Nutrition (TPN) or Tube Feedings? No Patient Health Education Screen BARRIERS/SPECIAL NEEDS: No barriers identified PREFERRED STYLE OF LEARNING: No preference stated Client Assistive Service (MARY) Screen Does the patient require assistance with outpatient visit? No Herpes Zoster (Shingles) Vaccine: Recombinant zoster vaccine (Shingrix, RZV) dose #2 Administered: ZOSTER RECOMBINANT Date Administered: Aug 19, 2023 09:30 Series: Series 2 Copping Machine Operator: [employer] Lot: [id number] Exp Date: Aug 07, 2025 [facility]: [id number] Admin Route/Site: INTRAMUSCULAR/LEFT DELTOID Dosage: 0.5mL Vaccine Information Statement(s): RECOMBINANT ZOSTER VACCINE VIS Apr 04, 2021 ([place]) Order By: Chel Chambers Administered By: Sara Wan Comment: [id number] 08/08/2023 Vaccine Information Sheet (VIS) was given to the patient/caregiver, education regarding adverse reactions was discussed, as well as barriers to learning, if any, were acknowledged. /cat/ SARA WAN LPN Signed: 08/19/2023 10:47 SARA WAN OC
--- OUTSIDE RECORDS SUMMARY | 2023-08-19 16:58 | XMS_ITS | Encounter Summary ---
Author Name [employer] Organization [employer] [facility] [employer] Address [address] [place] [address] Care Team Providers Care Children'S Book Author Name Role Phone COLLEENEFRENJOSUE Primary Care Provider Katie e Insurance Providers: [...] PRESCRIPT ION RX PLAN Mar 01, 2021 [id number] [phone] KIMBERLEE AGUILERA PATIENT Selected Encounter This section includes the information on record at [place] for the Encounter. Date/Time Encounter Type Encounter Description Reason Provider Source May 26, 2023 04:47 PM Outpatient Encounter ADMIN PAT ACTIVTIES (MASNONCT) EVELYNE CHISHOLM Judy Encounter Template Text not used by [place] Plan of Treatment: Future Appointments (+ 6 months) and Future Tests (+/- 45 days) The Plan of Treatment section includes future care activities for the patient from all [place] treatmentfacilities. This section includes future appointments and future orders which are active, pending or scheduled. Future Appointments This section includes appointments that were scheduled to occur 6 months from the date of the Encounter, up to a maximum of 20 appointments. The data comes from all [place] treatment facilities. Appointment Date/Time Appointment Type Appointme [...] this document. The data comes from all [place] facilities. Date Advance Directives Provider Source Aug 15, 2021 ADVANCE DIRECTIVE DISCUSSION MELISSA MCFARLAND [facility] Encounter Notes: All associated encounter notes This section contains the clinical notes associated to the Encounter. Date/Time Encounter Note(s) Provider Source May 28, 2023 12:54 PM ADDENDUM: LOCAL TITLE: Addendum STANDARD TITLE: ADDENDUM DATE OF NOTE: MAY 28, 2023@12:54:08 ENTRY DATE: MAY 28, 2023@12:54:10 AUTHOR: EVELYNE CHISHOLM EXP COSIGNER: URGENCY: STATUS: COMPLETED Medical Records Received: 05/28/2023 was seen in an outside ER on: 05/25/2023 Diagnosis: Headache Medical records have been uploaded to the patient's chart and are available for viewing in [facility]. Please review for plan of care and any follow-up needed. /cat/ Evelyne Chisholm GROOMING ASSISTANT cleaner and presser Sanding Line Operator Signed: 05/28/2023 12:54 Receipt Acknowledged By: 06/03/2023 11:38 /es/ Patricia Cardoso RN Nurse [facility] 07/25/2023 14:43 /es/ JOSUE ROBERTS LEAD PHYSICIAN . --- Original Document --- 05/25/23 [facility] CARE COORD PLAN NOTE: Emergency Notification Intake Date Presenting to the Facility: Apr Method of Contact: Notified from [facility] worklist Notification ID: [id number] [facility] Referral [facility]: [facility] Name: Hospital: [facility] Address: [address] [place] [address]: [facility]: [place] Zip Code: [address] Phone : [facility] Facility Point of Contact: Name: AKI ARMSTRONG RN Chief complaint: HARRISON/MIGRAINE (R51.9) Primary Diagnosis: Disposition Discharged Date of discharge: Apr Discharge to home /cat/ CELESTINA GREWAL DIRECTOR REPORT Signed: 05/26/2023 16:49 Receipt Acknowledged By: 05/27/2023 09:55 /carson Chisholm RN BSN cleaner and presser Sanding Line Operator 05/27/2023 ADDENDUM STATUS: COMPLETED Records have been requested for this episode of care. Alerting PACT RN for awareness. /carson Chisholm RN BSN cleaner and presser Sanding Line Operator Signed: 05/27/2023 09:59 05/25/2023 ADDENDUM STATUS: COMPLETED [facility] Scanned Document - Addendum. [facility] ED records SCANNED DOCUMENT SIGNATURE NOT REQUIRED Electronically Filed: 05/28/2023 by: Evelyne Chisholm GROOMING ASSISTANT cleaner and presser Sanding Line Operator EVELYNE CHISHOLM [facility] May 25, 2023 04:47 PM NONVA NOTE: LOCAL TITLE: [facility]ITY CARE-[facility] SELF PRESENTING CARE COORD PLAN STANDARD TITLE: NONVA NOTE DATE OF NOTE: MAY 25, 2023@16:47 ENTRY DATE: MAY 26, 2023@16:47:43 AUTHOR: CELESTINA GREWAL COSIGNER: URGENCY: STATUS: COMPLETED [facility] SELF PRESENTING CARE COORD PLAN NOTE Has ADDENDA Emergency Notification Intake Date Presenting to the Facility: Apr Method of Contact: Notified from [facility] worklist Notification ID: [id number] [facility] Referral #: [facility] Hospital Name: Hospital: [facility] Address: [address] [facility]: [facility]: [place] Zip Code: [address] Phone : [facility] Facility Point of Contact: Name: AKI ARMSTRONG RN Chief complaint: HARRISON/MIGRAINE (R51.9) Primary Diagnosis: Disposition Discharged Date of discharge: Apr Discharge to home /cat/ CELESTINA GREWAL DIRECTOR REPORT Signed: 05/26/2023 16:49 Receipt Acknowledged By: 05/27/2023 09:55 /es/ Evelyne Chisholm GROOMING ASSISTANT cleaner and presser Sanding Line Operator 05/27/2023 ADDENDUM STATUS: COMPLETED Records have been requested for this episode of care. Alerting PACT RN for awareness. /cat/ Evelyne Chisholm GROOMING ASSISTANT cleaner and presser Sanding Line Operator Signed: 05/27/2023 09:59 05/28/2023 ADDENDUM STATUS: COMPLETED Medical Records Received: 05/28/2023 [place] was seen in an outside ER on: 05/25/2023 Diagnosis: Headache Medical records have been uploaded to the patient's chart and are available for viewing in [facility]. Please review for plan of care and any follow-up needed. /cat/ Evelyne Chisholm GROOMING ASSISTANT cleaner and presser Sanding Line Operator Signed: 05/28/2023 12:54 Receipt Acknowledged By: * AWAITING SIGNATURE * PATRICIA CARDOSO * AWAITING SIGNATURE * JOSUE ROBERTS 05/25/2023 ADDENDUM STATUS: COMPLETED [facility] Scanned Document - Addendum. [facility] records SCANNED DOCUMENT SIGNATURE NOT REQUIRED Electronically Filed: 05/28/2023 by: Evelyne Chisholm, GROOMING ASSISTANT cleaner and presser Sanding Line Operator CELESTINA GREWAL [facility]
--- OUTSIDE RECORDS SUMMARY | 2023-08-19 16:58 | XMS_ITS | Encounter Summary ---
Author Name Department of Vetera ns Affairs Organization Department of Vetera ns Affairs Address [address] [place] [address] Care Team Providers Care Medical Detailist Name Role Phone COLLEENEFRENJOSUE Primary Care Provider Katie castle Insurance Providers: [...] PRESCRIPT ION RX PLAN Mar 01, 2021 [id number] [phone] NILDA AGUILERAER PATIENT Selected Encounter This section includes the information on record at [place] for the Encounter. Date/Time Encounter Type Encounter Description Reason Provider Source 2023 02:00 PM OFFICE O/P NEW MOD 45 [facility] - IND ICD-10-CM F41.9 Anxiety disorder, unspecified KELSIE LOCKWOOD Encounter Template Text not used by [facility] Assessments - Encounter Diagnoses This section includes the primary and secondary diagnoses documented for the Encounter. Date/Time Primary/Secondary Diagnosis Diagnosis Name Provider Source 2023 02:49 PM PRIMARY Anxiety disorder, unspecified [facility] Plan of Treatment: Future Appointments (+ 6 months) and Future Tests (+/- 45 days) The Plan of Treatment section includes future care activities for the patient from all [facility] treatment[facility]ilities. This section includes future appointments and future orders which are active, pending or scheduled. Future Appointments This section includes appointments that were scheduled to occur 6 months from the date of the Encounter, up to a maximum of 20 appointments. The data comes from all [place] treatment facilities. Appointment Date/Time Appointment Type Appointme nt Facility Name May 25, 2023 09:00 AM AMBULATORY - MEDICINE ALLISON ESPINO [facility] May 26, 2023 04:47 PM AMBULATORY - NONE KAI PURI [facility] Aug 19, 2023 09:30 AM AMBULATORY - MEDICINE [facility] Aug 25, 2023 03:40 PM AMBULATORY - MEDICINE [facility] Vital Signs: All taken on the encounter date This section contains inpatient and outpatient Vital Signs collected on the date of the Encounter. Date/Time Temperature Pulse Blood Pressure Respiratory Rate SP02 Pain Height Weight Body Mass Index Source 2023 01:59 PM 65 130/83 97 155 25 [facility] Social History: Smoking Status (Most current) and Tobacco Use (All prior to encounter date) This section includes the most current, and the historical, smoking and tobacco- related health factors from the [place] facility where the Encounter took place. Current Smoking Status This section includes the most current smoking, or tobacco-related health factor, from the [place] facility where the Encounter took place. Date/Time Current Smoking Status Comment Facil ity May 03, 2023 01:30 PM VA-TOBACCO NEVER USED [facility] Tobacco Use History This section includes a history of the smoking, or tobacco-related health factors, that were collected on or before the date of the Encounter. The data comes from the [place] facility where the Encounter took place. Date/Time [...] this document. The data comes from all [place] facilities. Date Advance Directives Provider Source Aug 15, 2021 ADVANCE DIRECTIVE DISCUSSION MELISSA MCFARLAND [facility] Encounter Notes: All associated encounter notes This section contains the clinical notes associated to the Encounter. Date/Time Encounter Note(s) Provider Source 2023 02:00 PM PRIMARY CARE NASREENDeepak ROMA NOTE: LOCAL TITLE: [facility] NURSING PROGRESS NOTE STANDARD TITLE: PRIMARY CARE NURSING NOTE DATE OF NOTE: 2023@14:00 ENTRY DATE: 2023@14:00:24 AUTHOR: ENMA WAN EXP COSIGNER: URGENCY: STATUS: COMPLETED Modality of Care: Video Telehealth Patient's identity verified using two identifiers. Patient Contact Details: Best contact number for backup/emergency communication with patient: [phone] @[facility] Patient Location/Surroundings During Visit: Patient location during visit: [place] Facility: [facility] Emergency contact number for onsite/patient location staff: Enma Wan RN @[facility] RN confirms location is safe and private for visit. Visit conducted by clinical video telehealth. Patient verbal consent for [facility] Video Connect visit obtained. Location/emergency number confirmed. /es/ ENMA WAN RN [facility] Signed: 2023 14:00 ENMA WAN [facility] 2023 01:19 PM MENTAL HEALTH CONS ULT: LOCAL TITLE: MH CONSULT STANDARD TITLE: MENTAL HEALTH CONSULT DATE OF NOTE: 2023@13:19 ENTRY DATE: 2023@13:19:24 AUTHOR: KELSIE LOCKWOOD EXP COSIGNER: URGENCY: STATUS: COMPLETED New Psychiatric Evaluation PSYCHIATRIC EVALUATION AND MANAGEMENT Duration: 45 minutes Time spent performing psychotherapy services: 16-30 minutes Visit conducted by intrafacility clinical video telehealth (Tmed) synchronous telehealth. Piasa verbal consent obtained. Location/ emergency number confirmed. Environment surveyed and all participants identified. *Patient is seen today with his , Jimmy* CC: Nice to meet you HPI: Patient is a 62yo WM with anxiety who is here for a new psychiatric evaluation. Patient has never been seen by a psychiatrist before. He is currently taking: Vistaril 10mg BID PRN anxiety (prescribed by PCP) Nortriptyline 20mg QHS (for headaches) Patient reports compliance with meds and denies side effects. Patient was started on Vistaril by his PCP. He was taking it scheduled for a while until 05/03/23 when he had a follow-up with his PCP and she told him not to take it every day. Since then he has only been taking it about 1x per week and hasn't needed to take it more often. No history of anxiety or depression until last year when he had COVID. He started getting chest pain after COVID and he went to the ER for this. He had a complete cardiac workup at the ER which was negative for any cardiac cause of chest pain. The chest pain has since resolved completely. Patient has noticed what he thinks is anxiety over the past year, but it has been much less frequent and less intense recently. He doesn't notice any triggers and he doesn't feel anxious, but he will start having shaking in his hands and having trouble breathing. If he takes deep breaths when this begins, it will only take about 10 minutes for him to get back to baseline. It does not interfere with his functioning and it tends to happen in the evening. Mood is pretty good. Sleeping about 7 hours total at night. Only takes him about 30 minutes to fall asleep. Works full-time in [employer] and starts work at 5am. Energy level is good. Appetite is normal. Feels that his concentration and memory are good. Denies guilt. Giorgi anhedonia - enjoys shooting pool on nights. No hopelessness/SI. Reports I have nothing to worry about. Does not feel like he thinks about things too much. Does not feel like he overanalyzes things. No issues with racing thoughts. Gets headaches, but takes Nortriptyline for that and it helps. Denies any other physical symptoms from anxiety other than the shaking/SOB mentioned above. Denies any history of manic, psychotic, or PTSD symptoms. SUBSTANCE USE: Alcohol: no alcohol use. 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 SOCIAL HISTORY/CHILDHOOD HISTORY/CULTURAL ISSUES/SPIRITUAL: Born and raised in [place]. Had 2 sisters. 1 of his sisters at age 16 from a brain tumor. Has been almost 30 years. Has 2 kids and 6 grandkids. MEDICATION COMPLIANCE: good SIDE EFFECTS: none MEDICAL ROS (Review of System): Migraine ([facility] [id number]) GERD - Gastro-Esophageal Reflux Disease ([facility] [id number]) HTN-Hypertension ([facility] [id number]) Anxiety ([facility] [id number]) Carpal tunnel syndrome of left wrist (SCSolitary nodule of lung ([facility] [id number]) Degeneration of cervical intervertebral CURRENT MEDICATIONS: Active Outpatient Medications (including Supplies): Active Outpatient Medications Status 1) ASPIRIN 81MG CHEW TAB CHEW ONE TABLET BY MOUTH EVERY ACTIVE MORNING 2) CELECOXIB 200MG CAP TAKE ONE CAPSULE BY MOUTH EVERY ACTIVE DAY NEEDED FOR MIGRAINE HEADACHE 3) HYDROXYZINE HCL 10MG TAB TAKE TWO TABLETS BY MOUTH ACTIVE TWO TIMES A DAY NEEDED FOR ANXIETY 4) METOPROLOL SUCCINATE 50MG SA TAB TAKE ONE TABLET BY ACTIVE MOUTH EVERY MORNING 5) NORTRIPTYLINE HCL 10MG CAP TAKE TWO CAPSULES BY MOUTH ACTIVE AT BEDTIME 6) SUMATRIPTAN SUCCINATE 100MG TAB TAKE ONE TABLET BY ACTIVE MOUTH ONCE NEEDED FOR HEADACHE - MAY REPEAT IN 2 HOURS IF HEADACHE PERSISTS. MAX 200MG PER DAY MEDICATION RECONCILIATION: At this visit reviewed the relevant medication list and communicated relevant medication updates with the patient/surrogate. MOST RECENT VITALS: Temperature: 97.3 F [36.3 C] (05/03/2023 13:21) Blood Pressure: 112/77 (05/03/2023 13:21) Pulse: 73 (05/03/2023 13:21) Respiration: 18 (05/03/2023 13:21) Pain: 0 (05/03/2023 13:21) Pulse Oximetry: 99% (05/03/2023 13:21) Body Mass Index: 24.4 Weight: 154.5 lb [70.08 kg] (05/03/2023 13:21) MENTAL STATUS EXAM: General: Cooperative, no acute distress; 62 yo WM appears stated age. Normal body habitus Eye Contact: Good Psychomotor Activity: WNL (Within normal limits) Abnormal Involuntary Movements: None Speech: Regular rate and rhythm, normal volume; hard of hearing Mood: pretty good Affect: Euthymic; not anxious Thought Process: Linear, logical, goal oriented Thought Content: Denies SI (Suicidal Ideation), HI(Homicidal Ideation) Perceptual disturbances: No AH(Auditory Hallucinations),VH(Visual Hallucinations), or delusions Insight: Fair Judgment: Fair Attention/Concentration: Intact for exam purposes Musculoskeletal: Muscle strength/tone intact for exam purposes. ASSESSMENT: Patient is a 62yo WM with anxiety who is here for a new psychiatric evaluation. Patient has never been seen by a psychiatrist before. Patient started having chest pain after he had COVID about a year ago. He had a cardiac workup done which was completely normal and his symptoms were attributed to anxiety. Patient does not feel anxious or worried most of the time. He used to have episodes of shaking/SOB that happened more frequently, but they are now only happening about 1x per week at most and he can calm himself down in 10 minutes by deep breathing. He denies any other psychiatric symptoms. Denies any substance abuse or safety concerns. DIAGNOSES: Anxiety, unspecified SUICIDE RISK ASSESSMENT: RISK FACTORS: white, male PROTECTIVE FACTORS: no SI, no hx of attempt, , no substance abuse PERCEIVED ACUTE SUICIDE RISK: Low acute - No current intent or recent suicide preparatory behaviors. Protective factors and coping strategies are present. PERCEIVED CHRONIC SUICIDE RISK: Low Chronic - Can identify strengths, activate and utilize resources, does not have chronic suicidal ideation or history of self-directed violence. PLAN: 1. Patient can continue to take the Hydroxyzine 10mg BID PRN for breakthrough anxiety. He is only taking it about 1x per week at most right now. 2. Patient has contact information for the [facility], if needed. 3. No RTC. Patient is welcome to schedule with me in the future if anxiety worsens and he feels like he needs to be started on a medication to prevent anxiety. MH TREATMENT PLAN / EDUCATION / SAFETY Treatment goals are 1) to minimize and manage medication side effects, 2) decrease problematic symptoms and optimize wellness. Patient's overall Mental Health Treatment reviewed. Patient continues to benefit from psychiatric medications as documented. The patient has been told the purpose and side effects of the prescribed psychiatric medications. Supportive therapy to optimize wellness, including medications, will be done as indicated during visits by psychiatrist, and RN. Patient agrees to contact this clinic with any concerns prior to next appointment. Patient is aware of additional MH services that are available, including emergency room and [facility] options. This plan will be reviewed yearly with patient, or sooner if needs change. This plan was discussed with the patient who acknowledges agreement and understanding. /cat/ Kelsie Lockwood M.D. Staff Psychiatrist Signed: 2023 14:51 KELSIE LOCKWOOD [facility]
--- OUTSIDE RECORDS SUMMARY | 2023-08-19 16:58 | XMS_ITS | Encounter Summary ---
Author Name [facility] Organization Department of Vetera [facility] Address [address] [place] [address] Care Team Providers Care Paste Mixer Liquid Name Role Phone VONAHSANMARGUERITE SCHWARTZA Primary Care Provider Unavailjoshua e Insurance Providers: [...] PRESCRIPT ION RX PLAN Mar 01, 2021 [id number] [phone] KIKO KIMBERLEE Lloyd PATIENT Selected Encounter This section includes the information on record at ID for the Encounter. Date/Time Encounter Type Encounter Description Reason Provider Source May 25, 2023 09:00 AM Outpatient Encounter TELEPHONE TRIAGE ICD-10-CM R51.9 Headache, unspecified STOLZER,ÁNGEL K IHE Encounter Template Text not used by ID Assessments - Encounter Diagnoses This section includes the primary and secondary diagnoses documented for the Encounter. Date/Time Primary/Secondary Diagnosis Diagnosis Name Provider Source May 25, 2023 09:00 AM PRIMARY Headache, unspecified STOLZER,ÁNGEL K [facility] Plan of Treatment: Future Appointments (+ 6 [...] 2023 04:47 PM AMBULATORY - NONE [facility] Aug 19, 2023 09:30 AM AMB[facility]ATORY - [facility]ICINE [facility] Aug 25, 2023 03:40 PM AMBULATORY - MEDICINE [facility] Advance Directives: All historical and current Section Date Range: From patient's date of to the date document was created. This section includes ALL of a patient's completed or amended ID Advance and Rescinded Directives. The entries below indicate that a directive exists for the patient, but an actual copy is not included with this document. The data comes from all ID facilities. Date Advance Directives Provider Source Aug 15, 2021 ADVANCE DIRECTIVE DISCUSSION MELISSA MCFARLAND SA [facility] Encounter Notes: All associated encounter notes This section contains the clinical notes associated to the Encounter. Date/Time Encounter Note(s) Provider Source May 25, 2023 09:19 AM TELEPHONE ENCOUNTE R NOTE: LOCAL TITLE: TELEPHONE CARE PROVIDER NOTE STANDARD TITLE: TELEPHONE ENCOUNTER NOTE DATE OF NOTE: MAY 25, 2023@09:19 ENTRY DATE: MAY 25, 2023@09:19:28 AUTHOR: ÁNGEL RG COSIGNER: URGENCY: STATUS: COMPLETED KIMBERLEE SANDOVAL 63 MALE [place] was identified using full name and last 4 of SSN Allergies: Patient has answered NKA Per filling technician note: ATIENT CONCERN/DURATION/ONSET: c/o Headaches and feeling tired x [...] blurry vision, chest pain, SOB, eye redness, hoahaoism pain, fever, sore throat, nausea, diarrhea, vomiting, difficulty speaking, difficulty walking WHAT HAS PATIENT TRIED TO TREAT THE SYMPTOMS: Aspirin, Ibuprofen and sit down helps. Stated he took another medication this morning that is helping his headache. HISTORY/PREVIOUS TREATMENT: Migraines, HTN (Refer to full filling technician note for additional information) [place] call back number: [phone] left message will call back [phone] CHIEF COMPLAINT: intermittent headache PERTINENT CLINICAL HISTORY: Background: 63 year old vet. Active problems - Computerized Problem List is the source for the followin. Migraine 2. GERD - Gastro-Esophageal Reflux Disease ([facility] [id number]) 3. HTN-Hypertension ([facility] [id number]) 4. Anxiety ([facility] [id number]) 5. Carpal tunnel syndrome of left wrist 6. Solitary nodule of lung - 4.[address] RIGHT middle lobe CT 12/2022, f/u 6-12 mo 7. Degeneration of cervical intervertebral disc Active Outpatient Medications (including Supplies): Active Outpatient [...] IF HEADACHE PERSISTS. MAX 200MG PER DAY Current history: symptoms x 1 week intermittent headache currently no headache will occur randomly lasting 1-2hrs location: forehead above the bridge of the nose blurriness x1 with the headaches lasting few seconds only denies dizziness nausea or vomiting fever denies worst headache Denies nasal congestion/drainage he reports the headache will also go away when he sits and relaxes treating with ibuprofen 200mg tabs took 800mg once yesterday and again this am celecoxib 200 mg tab once yesterday and again today did not take the sumatriptan is taking the nortriptyline REVIEW OF LAB/X-RAY/CONSULTS: CREATININE 0.8 (08/21/22) ASSESSMENT/DIAGNOSIS: headache: Pmhx of migraine headache on occ will get daily headaches for several days then resolves for a month or two The current symptoms the headache pain is not worse than his nml headaches. Denies vision changes nausea vomiting fever dizziness. - Over the past 2 days has been taking ibuprofen and celecoxib recommending just the celecoxib as directed and use of the sumatriptan if the headache does not resolve PLAN: If having vision changes, dizziness, Nausea, vomiting if not resolving recommend ER has ability to ck BP at home recommend ck BP when having headaches and follow up with a provider regarding his BP EDUCATION/COUNSELING: Diagnosis/rationale for recommendations was discussed with CALL-BACK INSTRUCTIONS: [place] was asked to call back if symptoms worsen or do not improve over the next 3-5 days Thank you for the opportunity to care for this ! First call resolution: Yes (x) No () NA () Total time spent national accounts sales was: []5 to 10 min, [x]11 to 20 min, []21 to 30 min [ Note to PACT team: PAIGE, PACT RN follow up call recommended in 2-3 day per pact team discreation ] /cat/ TAMMY KATZ APRN-C Signed: 05/25/2023 09:54 Receipt Acknowledged By: 05/27/2023 11:16 /es/ Esme Whipple, RN Nurse [facility] 07/25/2023 18:03 /es/ JOSUE ROBERTS LEAD PHYSICIAN ÁNGEL [facility]
[2023-08-19 17:06] LABS: Appearance Urine Clear (Clear); Bilirubin Urine Negative (Negative); Blood Urine Negative (Negative); Color Urine Yellow (Yellow); Glucose Urine Negative (Negative); Ketones Urine Negative (Negative); Leukocyte Esterase Urine Negative (Negative); Nitrite Urine Negative (Negative); Protein Urine Negative (Negative); Specific Gravity Urine 1.015 (1.000-1.030); Urobilinogen Urine 0.2 (0.2-1.0)
[2023-08-19 17:21] LABS: RBC Urine 0-2 (0-2); WBC Urine 0-2 (0-5)
== END 2023-08-19 17:43 | disposition home or self-care (01) ==
PROVIDERS: Emergency Provider Emergency Medicine
DX: M54.50 Low back pain, unspecified (principal)
CPT/HCPCS: 36415; 74176; 80053; 81001; 83690; 85025; 99283; 99284

== ENCOUNTER 2023-09-16 22:07 | Emergency (ER) | payer OTHER, SELFPAY ==
[2023-09-16 23:13] VITALS: BP 162/85; PULSE 70; RESP 18; TEMP 36.6; O2SAT 100; BMI 25.0
--- OUTSIDE RECORDS SUMMARY | 2023-09-17 00:01 | XMS_ITS | Encounter Summary ---
Author Name [facility] [place] Organization [place] Address [address] [place] [address] Care Team Providers Care Clip On Sunglasses Inspector Name Role Phone JOSUE ROBERTS Primary Care Provider Unavailjoshua e Insurance Providers: [...] PRESCRIPT ION RX PLAN Mar 01, 2021 [id number] [phone] KIMBERLEE AGUILERA PATIENT [facility] ([id number]) PRESCRIPT ION RX PLAN Mar 01, 2022 [id number] [phone] KIMBERLEE AGUILERA PATIENT [facility] PREFERRED PROVIDER ORGANIZAT ION (PPO) NURYU RACHEL R[place]MAN [place] Mar 01, 2022 [id number] [phone] KIKO PremaKIMBERLEE PATIENT Selected Encounter This section includes the information on record at [place] for the Encounter. Date/Time Encounter Type Encounter Description Reason Provider Source Feb 12, 2023 01:33 PM Outpatient Encounter ADMIN PAT ACTIVTIES (MASNONCT) WESLEY LARSEN Judy Encounter Template Text not used by [place] [...] [place] treatment facilities. Appointment Date/Time Appointment Type Appointme nt Facility Name Feb 23, 2023 06:15 PM AMBULATORY - NONE [facility] May 03, 2023 01:30 PM AMBULATORY - MEDICINE [facility] 2023 02:00 PM AMBULATORY - PSYCHIATRY [facility] 2023 02:01 PM [facility] May 25, 2023 09:00 AM [facility] May 26, 2023 04:47 PM AMBULATORY - NONE [facility] Advance Directives: All historical and current Section Date Range: From patient's date of to the date document was created. This section includes ALL of a patient's completed or amended [place] Advance and Rescinded Directives. The entries below indicate that a directive exists for the patient, but an actual copy is not included with this document. The data comes from all [facility]. Date Advance Directives Provider Source Aug 15, 2021 ADVANCE DIRECTIVE DISCUSSION MELISSA MCFARLAND SA [facility] Encounter Notes: All associated encounter notes This section contains the clinical notes associated to the Encounter. Date/Time Encounter Note(s) Provider Source Feb 12, 2023 01:33 PM PULMONARY NOTE: LOCAL TITLE: PULMONARY LUNG CANCER SCREENING STANDARD TITLE: PULMONARY NOTE DATE OF NOTE: FEB 12, 2023@13:33 ENTRY DATE: FEB 12, 2023@13:33:35 AUTHOR: WESLEY LARSENIGNER: URGENCY: STATUS: COMPLETED Lung Cancer Screening Patient Management Patient does not meet criteria for Lung Cancer Screening. life time non smoker Please see Pulmonary Lung Cancer Screening Program Consult that was entered by PCP for further details. Patient is not eligible for LCS per USPSTF guidelines, lifetime non smoker. Thank you for the consult. Reminder Term: V*-LCS LIFETIME NONSMOKER Health Factor: Tobacco Never Used 05/28/2022@14:30 If pt is in need of lung nodule tracking, can be referred to [facility] LNT team, but his scans would need to occur at [facility]. Otherwise please refer to [facility] CT Scan for tracking. Nodules read in Fleischner criteria. Please note that PCP is responsible for follow up results and plan of care related to incidental lung nodule tracking findings. If needing assistance with nodule findings, can enter [facility] PULM E CONSULT PRN. Thank you for the consult. /cat/ WESLEY LARSEN RN, BSN PULMONARY/LCS STONE FABRICATOR Signed: 02/12/2023 13:34 WESLEY LARSEN [facility]
--- OUTSIDE RECORDS SUMMARY | 2023-09-17 00:01 | XMS_ITS | Encounter Summary ---
Author Name [facility] [place] [facility] [place] Organization [place] Address [address] [place] [id number] Care Team Providers Care Professor Of Geography Name Role Phone JOSUE ROBERTS Primary Care [...] PRESCRIPT ION RX PLAN Mar 01, 2021 [id number] [phone] KIMBERLEE AGUILERA PATIENT [facility] ([id number]) PRESCRIPT ION RX PLAN Mar 01, 2022 [id number] [phone] KIMBERLEE AGUILERA PATIENT [facility] PREFERRED PROVIDER ORGANIZAT ION (PPO) MERCU RY STE[place]AN [place] Mar 01, 2022 [id number] KIMBERLEE AGUILERA PATIENT Selected Encounter This section includes the information on record at [place] for the Encounter. Date/Time Encounter Type Encounter Description Reason Pro vider Source Dec 18, 2022 08:45 AM Outpatient Encounter PHYSICAL THERAPY IHE Encounter Template Text not used by [...] 20 appointments. The data comes from all [place] treatment facilities. Appointment Date/Time Appointment Type Appointme nt Facility Name Jan 14, 2023 11:30 AM AMBULATORY - MEDICINE [facility] Jan 19, 2023 12:45 PM [facility] Jan 25, 2023 02:46 PM [facility] Feb 10, 2023 01:30 PM AMBULATORY - MEDICINE [facility] Feb 23, 2023 06:15 PM [facility] [place] NONE [place] [facility] May 03, 2023 01:30 PM AMBULATORY - MEDICINE [facility] 2023 02:00 PM AMBULATORY - PSYCHIATRY [facility] C [facility] 2023 02:01 PM [facility] May 25, 2023 09:00 AM [facility] [place] [place] [facility] May 26, 2023 04:47 PM AMBULATORY - NONE [facility] Social History: Smoking Status (Most current) and Tobacco Use (All prior to encounter date) This section includes the most current, and the historical, smoking and tobacco- related health factors from the [place] facility where the Encounter took place. Current Smoking Status This section includes the most current smoking, or tobacco-related health factor, from the [place] facility where the Encounter took place. Date/Time Current Smoking Status Comment Gallito ity May 28, 2022 02:30 PM VA-TOBACCO NEVER USED [facility] Tobacco Use History This section includes a history of the smoking, or tobacco-related health factors, that were collected on or before the date of the Encounter. The data comes from the [place] facility where the Encounter took place. Date/Time Smoking Status/Tobacco Use Comment F acility Aug 15, 2021 09:00 AM VA-TOBACCO NEVER [...] this document. The data comes from all [place] facilities. Date Advance Directives Provider Source Aug 15, 2021 ADVANCE DIRECTIVE DISCUSSION MELISSA MCFARLAND [facility] Encounter Notes: All associated encounter notes This section contains the clinical notes associated to the Encounter. Date/Time Encounter Note(s) Provider Source Dec 18, 2022 09:46 AM NO SHOW NOTE: LOCAL TITLE: NO SHOW/CANCELLATION CLINIC NOTE STANDARD TITLE: NO SHOW NOTE DATE OF NOTE: DEC 18, 2022@09:46 ENTRY DATE: DEC 18, 2022@09:46:06 AUTHOR: PEDRITO AMOS EXP COSIGNER: URGENCY: STATUS: COMPLETED not seen for scheduled appointment due to:[place] cancelled. Alerted PM&R MSA's. /cat/ PEDRITO AMOS PHYISCAL THERAPIST Signed: 12/18/2022 09:46 PEDRITO AMOS OC
--- OUTSIDE RECORDS SUMMARY | 2023-09-17 00:01 | XMS_ITS | Encounter Summary ---
Author Name [facility] [place] Organization [place] Address [address] [place] [address] Care Team Providers Care Leasing Specialist Name Role Phone JOSUE ROBERTS Primary Care Provider Katie e Insurance Providers: [...] PRESCRIPT ION RX PLAN Mar 01, 2021 [id number] [phone] KIMBERLEE AGUILERA PATIENT [facility] ([id number]) PRESCRIPT ION RX PLAN Mar 01, 2022 [id number] [phone] KIMBERLEE AGUILERA PATIENT [facility] PREFERRED PROVIDER ORGANIZAT ION (PPO) MERCU RY [place] Mar 01, 2022 [id number] KIKO LloydKIMBERLEE PATIENT Selected Encounter This section includes the information on record at [place] for the Encounter. Date/Time Encounter Type Encounter [...] PM PRIMARY Anxiety disorder, unspecified KELSIE LOCKWOOD Plan of Treatment: Future Appointments (+ 6 months) and Future Tests (+/- 45 days) The Plan of Treatment section includes future care activities for the [facility] [place] [facility] This section includes future appointments and future orders which are active, pending or scheduled. Future Appointments This section includes appointments that were scheduled to occur 6 months from the date of the Encounter, up to a maximum of 20 appointments. The data comes from all [facility]. Appointment Date/Time Appointment Type Appointme nt Facility Name May 25, 2023 09:00 AM [facility] [place] [place] [facility] [facility] May 26, 2023 04:47 PM AMBULATORY - NONE [facility] Aug 19, 2023 09:30 AM AMBULATORY - MEDICINE [facility] Aug 20, 2023 08:29 PM [facility] Aug 25, 2023 03:40 PM AMBULATORY - MEDICINE [facility] Vital Signs: All taken on the encounter date This section contains inpatient and outpatient Vital Signs collected on the date of the Encounter. Date/Time Temperature Pulse Blood Pressure Respiratory Rate SP02 Pain Height Weight Body Mass Index Source 2023 01:59 PM 65 130/83 97 155 25 [facility] Social History: Smoking Status (Most current) and Tobacco Use (All prior to encounter date) This section includes the most current, and the historical, smoking and tobacco- related health factors from the [place] facility where the Encounter took place. Current Smoking Status This section includes the most current smoking, or tobacco-related health factor, from the [place] facility where the Encounter took place. Date/Time Current Smoking Status Comment Gallito moy May 03, 2023 01:30 PM VA-TOBACCO NEVER USED [facility] Tobacco Use History This section includes a history of the smoking, or tobacco-related health factors, that were collected on or before the date of the Encounter. The data comes from the [place] facility where the Encounter took place. Date/Time Smoking Status/Tobacco Use Comment F acility May 28, 2022 02:30 PM VA-TOBACCO NEVER USED [facility] Aug 15, 2021 09:00 AM VA-TOBACCO NEVER USED [facility] Advance Directives: All historical and current Section Date Range: From patient's date of to the date document was created. This section includes ALL of a patient's completed or amended [place] Advance and Rescinded Directives. The entries below indicate that a directive exists for the patient, but an actual copy is not included with this document. The data comes from all [place] facilities. Date Advance Directives Provider Source Aug 15, 2021 ADVANCE DIRECTIVE DISCUSSION MELISSA MCFARLAND SA [facility] Encounter Notes: All associated encounter notes This section contains the clinical notes associated to the Encounter. Date/Time Encounter Note(s) Provider Source 2023 02:00 PM PRIMARY CARE NURSI ROMA NOTE: LOCAL TITLE: [facility] NURSING PROGRESS NOTE STANDARD TITLE: PRIMARY CARE NURSING NOTE DATE OF NOTE: 2023@14:00 ENTRY DATE: 2023@14:00:24 AUTHOR: ENMA WAN COSIGNER: URGENCY: STATUS: COMPLETED Modality of Care: Video Telehealth Patient's identity verified using two identifiers. Patient Contact Details: Best contact number for backup/emergency communication with patient: [phone] @[facility] Patient Location/Surroundings During Visit: Patient location during visit: [place] Facility: [facility] [address] Emergency contact number for onsite/patient location staff: Enma Wan RN @[facility] RN confirms location is safe and private for visit. Visit conducted by clinical video telehealth. Patient verbal consent for [facility] Video Connect visit obtained. Location/emergency number confirmed. /es/ ENMA WAN RN [facility] Signed: 2023 14:00 ENMA WAN [facility] 2023 01:19 PM MENTAL HEALTH CONS ULT: LOCAL TITLE: MH CONSULT STANDARD TITLE: MENTAL HEALTH CONSULT DATE OF NOTE: 2023@13:19 ENTRY DATE: 2023@13:19:24 AUTHOR: KELSIE LOCKWOOD COSIGNER: URGENCY: STATUS: COMPLETED New Psychiatric Evaluation PSYCHIATRIC EVALUATION AND MANAGEMENT Duration: 45 minutes Time spent performing psychotherapy services: 16-30 minutes Visit conducted by intrafacility clinical video telehealth (Tmed) synchronous telehealth. verbal consent obtained. Location/ emergency number confirmed. [...] minutes to fall asleep. Works full-time in [employer] and starts work at 5am. 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 Plans to retire at age 65. SOCIAL HISTORY/CHILDHOOD HISTORY/CULTURAL ISSUES/SPIRITUAL: Born and raised in [place]. Had 2 sisters. 1 of his sisters at age 16 from a brain tumor. Has been almost 30 years. Has 2 kids and 6 grandkids. MEDICATION COMPLIANCE: good SIDE EFFECTS: none MEDICAL ROS (Review of System): Migraine ([facility] [id number]) GERD - Gastro-Esophageal Reflux Disease ([facility] [id number]) HTN-Hypertension ([facility] [id number]) Anxiety ([facility] [id number]) Carpal tunnel syndrome of left wrist ([place]itary nodule of lung ([facility] [id number]) Degeneration of cervical intervertebral CURRENT MEDICATIONS: Active [...] 2. Patient has contact information for the [facility], if needed. 3. No RTC. Patient is [...] Staff Psychiatrist Signed: 2023 14:51 KELSIE LOCKWOOD [facility]
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
--- OUTSIDE RECORDS SUMMARY | 2023-09-17 00:01 | XMS_ITS | Encounter Summary ---
Author Name [facility] [place] [facility] [place] Organization [place] Address [address] [place] [id number] Care Team Providers Care Entry Level Installation Technician Name Role Phone JOSUE ROBERTS Primary Care Provider Unavailabl e Insurance Providers: [...] PRESCRIPT ION RX PLAN Mar 01, 2021 [id number] [phone] KIMBERLEE AGUILERA PATIENT [facility] ([id number]) PRESCRIPT ION RX PLAN Mar 01, 2022 [id number] [phone] KIMBERELE AGUILERA PATIENT [facility] PREFERRED PROVIDER ORGANIZAT ION (PPO) MERCU RY [place] Mar 01, 2022 [id number] [phone] KIKO LloydKIMBERLEE PATIENT Selected Encounter This section includes the information on record at [place] for the Encounter. Date/Time Encounter Type Encounter Description Reason Provider Source May 03, 2023 01:30 PM OFFICE O/P EST HI 40 MIN PRIMARY CARE/MEDICINE ICD-10-CM F41.9 Anxiety disorder, unspecified ILDA WALKER Encounter Template Text not used by [place] Assessments - Encounter Diagnoses This section includes the primary and secondary diagnoses documented for the Encounter. Date/Time Primary/Secondary Diagnosis Diagnosis Name Provider Source May 03, 2023 02:01 PM PRIMARY Anxiety disorder, unspecified MAGGI SERRANO May 03, 2023 02:01 PM SECONDARY Encounter for immunization MAGGI SERRANO May 03, 2023 02:01 PM SECONDARY Essential (primary) hypertension MAGGI SERRANO May 03, 2023 02:01 PM SECONDARY Migraine, unsp, not intractable, without status migrainosus MAGGI SERRANO Plan of Treatment: Future Appointments (+ 6 months) and Future Tests (+/- 45 days) The Plan of Treatment section includes future care activities for the patient from all [place] [facility]. This section includes future appointments and future orders which are active, pending or scheduled. Future Appointments This section includes appointments that were scheduled to occur 6 months from the date of the Encounter, up to a maximum of 20 appointments. The data comes from all [facility] facilities. Appointment Date/Time Appointment Type Appointme nt Facility Name 2023 02:00 PM AMBULATORY - PSYCHIATRY [facility] 2023 02:01 PM [facility] 09:00 AM [facility] May 26, 2023 04:47 PM AMBULATORY - NONE [facility] Aug 19, 2023 09:30 AM AMBULATORY - MEDICINE [facility] Aug 20, 2023 08:29 PM AMBULATORY - NONE [facility] Aug 25, 2023 03:40 PM AMBULATORY - MEDICINE [facility] Vital Signs: All taken on the encounter [...] 2023 01:30 PM VA-TOBACCO NEVER USED EARLENE Adan [facility] Tobacco Use History This section includes a history of the smoking, or tobacco-related health factors, that were collected on or before the date of the Encounter. The data comes from the [place] facility where the Encounter took place. Date/Time Smoking Status/Tobacco Use Comment F acility May 28, 2022 02:30 PM VA-TOBACCO NEVER USED EARLENE C [facility] Aug 15, 2021 09:00 AM [place]-TOBACCO NEVER USED EARLENE Adan [facility] Advance Directives: All historical and current [...] DIRECTIVE DISCUSSION MELISSA MCFARLAND SA EARLENE Adan [facility] Encounter Notes: All associated encounter notes This section contains the clinical notes associated to the Encounter. Date/Time Encounter Note(s) Provider Source May 03, 2023 01:54 PM PRIMARY CARE NOTE: LOCAL TITLE: [facility] PROGRESS NOTE-[facility] TITLE: PRIMARY CARE NOTE DATE OF NOTE: MAY 03, 2023@13:54 ENTRY DATE: MAY 03, 2023@13:54:15 AUTHOR: ILDA WALKER: URGENCY: STATUS: COMPLETED Today's Nurse check-in note reviewed. Chief complaint: The patient is a 62 year old MALE here to follow up at the [facility] and has the following concerns, [...] 13:21) P: 73 (05/03/2023 13:21) R: 18 (05/03/2023:) T: 97.3 F [36.3 C] (05/03/2023 13:21) WT: 154.5 lb [70.08 kg] (05/03/2023:) BMI: 24.4 Pain: 0 (05/03/2023:) O2 Sat: 99% (05/03/2023:) General: Alert, well dressed and groomed, no [...] as needed celecoxib or sumatriptan 2. HTN-Hypertension ([facility] [id number]): Blood pressure well controlled, home blood pressure readings mostly within normal limits with a few in the low 140s over 80s -Continue metoprolol at current dose without changes 3. Anxiety ([facility] [id number]): Worsening symptoms, poorly controlled with hydroxyzine 10 [...] not improving or worsening at any time understands and agrees to the plan. Follow [...] were also reviewed/updated for accuracy. Allergies/ADR from [facility] may not display in CPRS. Use JLV MRT5 - Allergies/ADRs FACILITY ALLERGY/ADR -------- No Remote Allergy/ADR Data available for this patient [facility] No Known Allergies Active and Recently Outpatient [...] not separately reported /cat/ ILDA WALKER PHYSICIAN [facility]IR Signed: 05/03/2023 14:01 Receipt Acknowledged By: 05/03/2023 16:16 /cat/ CASSIA WAN RN [facility] ILDA WALKER CB May 03, 2023 01:22 PM PRIMARY CARE NURSI NOTE: LOCAL TITLE: [facility] NURSING PROGRESS NOTE STANDARD TITLE: PRIMARY CARE NURSING NOTE DATE OF NOTE: MAY 03, 2023@13:22 ENTRY DATE: MAY 03, 2023@13:22:54 AUTHOR: MAGGI SERRANO EXP COSIGNER: URGENCY: STATUS: COMPLETED TYPE OF [...] May 03, 2023 13:30 Series: Series 1 Team Leader: Girl Meets Dress Lot: [id number] Exp Date: Jun 09, 2025 [facility]: [phone] Admin Route/Site: INTRAMUSCULAR/RIGHT DELTOID Dosage: 0.5mL Vaccine Information Statement(s): RECOMBINANT ZOSTER VACCINE VIS Apr 04, 2021 ([place]) Order By: Policy Administered By: Maggi Serrano Comment: ENTER DILUENT LOT# [id number] Vaccine Information Sheet (VIS) was given to the patient/caregiver, education regarding adverse reactions was discussed, as well as barriers to learning, if any, were acknowledged. /cat/ MAGGI SERRANO REGISTERED NURSE Signed: 05/03/2023 14:06 MAGGI SERRANO [facility]
--- OUTSIDE RECORDS SUMMARY | 2023-09-17 00:01 | XMS_ITS | Continuity of Care Document ---
Author Name [facility] Organization [facility] Care Team Providers Care Cyber Transport Systems Specialist Name Role Phone [facility] Unavailable Unavailable Problems Combined list of problems from Department of Defense and Veterans Affairs facilities. It does not include entries that were removed or entered in error. Problem Status Onset Date Problem Type Date of Resolution Comments Source Anxiety ([facility] [id number]) Active Condition [facility] Carpal tunnel syndrome of left wrist Active Condition [facility] Degeneration of cervical intervertebral disc Active Condition [facility] GERD - Gastro-Esophageal Reflux Disease ([facility] [id number]) Active Condition [facility] HTN-Hypertension ([facility] [id number]) Active Condition [facility] Migraine Active Condition [facility] Solitary nodule of lung Active Condition Jan 27, 2023 Entered By: REKHA WALKER J Comment: 4.5 mm RIGHT middle lobe CT 12/2022, f/u 6-12 mo [facility] Diagnosis: ICD-10-CM R52 Pain, unspecified Active Diagnosis [facility] Diagnosis: ICD-10-CM Z00.00 Encntr for general adult medical exam w/o abnormal findings Active Diagnosis [facility] Diagnosis: ICD-10-CM R51.9 Headache, unspecified Active Diagnosis [facility] Diagnosis: ICD-10-CM F41.9 Anxiety disorder, unspecified Active Diagnosis [facility] Diagnosis: ICD-10-CM M50.30 Other cervical disc degeneration, unsp cervical region Active Diagnosis [facility] Diagnosis: ICD-10-CM G43.909 Migraine, unsp, not intractable, without status migrainosus Active Diagnosis [facility] Diagnosis: ICD-10-CM M79.642 Pain in left hand Active Diagnosis [facility] Diagnosis: ICD-10-CM I10 Essential (primary) hypertension Active Diagnosis [facility] Diagnosis: ICD-10-CM R10.9 Unspecified abdominal pain Active Diagnosis [facility] Diagnosis: ICD-10-CM M79.601 Pain in right arm Active Diagnosis [facility] Diagnosis: ICD-10-CM R20.2 Paresthesia of skin Active Diagnosis [facility] Medications Combined list of outpatient medications from Department of Defense and Veterans Affairs facilities.Medications provided include 1) outpatient medications from the last 15 months, and 2) patient-reported medications. Medication Details Route Status Patient Instructions Prescription Expires Prescription Number Last Dispense Date Ordering Provider Order Date Order Qty Source ASPIRIN 81MG TAB,CHEWABL E ASPIRIN 81MG TAB,CHEW ABLE Active CHEW ONE TABLET BY MOUTH EVERY MORNING May 03, 2023 108 May 03, 2024 [id number] A May 03, 2023 Guerline [facility] ORAL ACTIVE 05/03/2024 [id number] EDMOND WALKER 2023 108 [facility] CELECOXIB 200MG CAP CELECOXI B 200MG CAP Active TAKE ONE CAPSULE BY MOUTH EVERY DAY NEEDED FOR MIGRAINE HEADACHE Oct 12, 2022 90 Oct 13, 2023 [id number] A Oct 12, 2022 [facility] ORAL ACTIVE 10/13/2023 [id number] Lcoo DORAN 2022 90 [facility] HYDROXYZINE HCL 10MG TAB HYDROXYZ INE HCL 10MG TAB Active TAKE TWO TABLETS BY MOUTH TWO TIMES A DAY NEEDED FOR ANXIETY FOR ANXIETY Jan 14, 2023 30 Jan 15, 2024 [id number] Mar 12, 2023 [facility]erline [facility] ORAL ACTIVE 01/15/2024 [id number] EDMOND WALKER 2022 30 [facility] METOPROLOL SUCCINATE 50MG TAB,SA METOPROL OL SUCCINAT E 50MG TAB,SA Active TAKE ONE TABLET BY MOUTH EVERY MORNING May 03, 2023 90 May 03, 2024 [id number] Aug 06, 2023 Guerline [facility] ORAL ACTIVE 05/03/2024 [id number] EDMOND WALKER 2023 90 [facility] METOPROLOL SUCCINATE 50MG TAB,SA METOPROL OL SUCCINAT E 50MG TAB,SA Disconti nued TAKE ONE TABLET BY MOUTH EVERY MORNING Apr 22, 2022 90 Apr 23, 2023 [id number] Oct 12, 2022 DEENA LEONJASON [facility] ORAL DISCONT INUED 04/23/2023 [id number] ERIK LEONAN 2022 90 [facility] NORTRIPTYLI NE HCL 10MG CAP NORTRIPT YLINE HCL 10MG CAP Active TAKE TWO CAPSULES BY MOUTH AT BEDTIME May 03, 2023 180 May 03, 2024 [id number] B Aug 06, 2023 [facility] ORAL ACTIVE 05/03/2024 [id number] EDMOND WALKER 2023 180 [facility] NORTRIPTYLI NE HCL 10MG CAP NORTRIPT YLINE HCL 10MG CAP Disconti nued TAKE TWO CAPSULES BY MOUTH AT BEDTIME Apr 22, 2022 180 Apr 23, 2023 [id number] Oct 12, 2022 DEENA LEON KAYLENE [facility] ORAL DISCONT INUED 04/23/2023 [id number] ERIK LEONAN 2022 180 [facility] SUMATRIPTAN SUCCINATE 100MG TAB SUMATRIP PRUITT SUCCINAT E 100MG TAB Active TAKE ONE TABLET BY MOUTH ONCE NEEDED FOR HEADACHE - MAY REPEAT IN 2 HOURS IF HEADACHE PERSISTS . MAX 200MG PER DAY FOR HEADACHE Mar 18, 2023 9 Mar 18, 2024 [id number] Aug 06, 2023 Guerline [facility] ORAL ACTIVE 03/18/2024 [id number] EDMOND WALKER ANTONELLA J 2023 9 [facility] SUMATRIPTAN SUCCINATE 100MG TAB SUMATRIP PRUITT SUCCINAT E 100MG TAB Disconti nued TAKE ONE TABLET BY MOUTH NEEDED FOR HEADACHE FOR HEADACHE Nov 25, 2022 9 Nov 26, 2023 [id number] Mar 12, 2023 [facility] ORAL DISCONT INUED (EDIT) 11/26/2023 [id number] EDMOND WALKER 2022 9 [facility] Immunizations Combined list of available immunizations from the Department of Defense and Veterans Affairs facilities. Immunization Series Date Given Administered By Site Reaction Lot Number CVX Code Drug Java Architect Status Comments Source ZOSTER RECOMBINANT 2 2023 LENNY WAN LEFT DELTO ID [id number] complet ed [id number] [facility] ZOSTER RECOMBINANT 1 2023 ALYSSA NOVAK RIGHT DELTO ID [id number] 187 complet ed ENTER DILUENT LOT# [id number] [facility] INFLUENZA, INJECTABLE, QUADRIVALENT, PRESERVATIVE FREE 2022 RAYMOND,VIRGI JEFF S RIGHT DELTO ID [id number] 150 complet ed [facility] COVID-19 (Prescreen), MRNA, LNP-S, PF, NANNETTE-SUCROSE, 30 MCG/0.3 ML (AGES 12+ YEARS) 2022 309 complet ed [facility] RSV, BIVALENT, PROTEIN SUBUNIT RSVPREF, DILUENT RECONSTITUTED , 0.5 ML, PF 2022 305 complet ed [facility] INFLUENZA, INJECTABLE, QUADRIVALENT, PRESERVATIVE FREE 2022 150 complet ed [facility] TDAP 2022 RAYMOND,VIRGI JEFF S LEFT DELTO ID [id number] 115 complet ed [facility] COVID-19 (Prescreen), MRNA, LNP-S, BIVALENT, PF, 30 MCG/0.3 ML DOSE 2021 300 complet ed [facility] INFLUENZA, INJECTABLE, QUADRIVALENT, PRESERVATIVE FREE 2021 150 complet ed [facility] COVID-19 (PFIZER), MRNA, LNP-S, BIVALENT BOOSTER, PF, 30 MCG/0.3 ML DOSE 1 2021 300 complet ed [facility] COVID-19 (PFIZER), MRNA, LNP-S, PF, 30 MCG/0.3 ML DOSE, NANNETTE-SUCROSE (AGES 12+ YEARS) 3 2021 217 complet [facility] INFLUENZA, INJECTABLE, QUADRIVALENT 2020 158 complet [facility] INFLUENZA, UNSPECIFIED FORMULATION 2020 88 complet [facility] COVID-19 (PFIZER), MRNA, LNP-S, PF, 30 MCG/0.3 ML DOSE 2 2020 208 complet ed [facility] COVID-19 (PFIZER), MRNA, LNP-S, PF, 30 MCG/0.3 ML DOSE 1 2020 208 complet [facility] INFLUENZA, INJECTABLE, QUADRIVALENT 2019 158 complet [facility] INFLUENZA, INJECTABLE, QUADRIVALENT, PRESERVATIVE FREE 2019 150 complet [facility] INFLUENZA, INJECTABLE, QUADRIVALENT 2018 158 complet ed [facility] INFLUENZA, INJECTABLE, QUADRIVALENT 2017 158 complet ed [facility] INFLUENZA, INJECTABLE, QUADRIVALENT 2016 158 complet [facility] INFLUENZA, SEASONAL, INJECTABLE 2013 141 complet [facility] INFLUENZA, SEASONAL, INJECTABLE 2012 141 complet [facility] TDAP 2011 115 complet [facility] INFLUENZA, SEASONAL, INJECTABLE 2011 141 complet [facility] INFLUENZA, SEASONAL, INJECTABLE 2010 141 complet [facility] INFLUENZA, SEASONAL, INJECTABLE 2009 141 complet [facility] POLIO, UNSPECIFIED FORMULATION 1979 89 complet [facility] TD (ADULT), 2 LF TETANUS TOXOID, PRESERVATIVE FREE, ADSORBED 1979 09 complet [facility] POLIO, UNSPECIFIED FORMULATION 1976 89 complet [facility] MEASLES 1976 05 complet [facility] POLIO, UNSPECIFIED FORMULATION 1974 89 complet [facility] POLIO, UNSPECIFIED FORMULATION 1974 89 complet [facility] Results Combined list of recent chemistry, hematology and other laboratory results from Department of Defense and Veterans Affairs, ranging from 15 months to all on record, depending upon the facility. Order Name Results Value Reference Range Date Interpretation Specimen Comments Source OCCULT BLOOD FIT X1 SCREEN HEMOGLOBIN .GASTROINT ESTINAL.LO WER [PRESENCE] IN STOOL BY IMMUNOASSA Y Negative 08/27 Specimen Type: FECES No comment entered. Ordering Provider: MARGUERITE ROBERTS Report Released Date/Time: Aug 19, 2023 10:27 AM Reporting Lab: [facility] [phone] Performing Lab: [facility] [phone] [facility] ALBUMIN/C REATININE RATIO URINE CREATININE [MASS/VOLU ME] IN URINE 109.8 mg/dL 58.0 - 161.0 08/24 Specimen Type: URINE No comment entered. Ordering Provider: MARGUERITE ROBERTS Report Released Date/Time: Aug 19, 2023 10:27 AM Reporting Lab: [facility] [phone] Performing Lab: [facility] [phone] [facility] ALBUMIN/C REATININE RATIO URINE MICROALBUM IN/CREATIN INE [MASS RATIO] IN URINE 7.0 mg/g{cre at} <29.9 - 29.9 08/24 Specimen Type: URINE No comment entered. Ordering Provider: MARGUERITE ROBERTS Report Released Date/Time: Aug 19, 2023 10:27 AM Reporting Lab: [facility] [phone] Performing Lab: [facility] [phone] [facility] ALBUMIN/C REATININE RATIO URINE MICROALBUM IN [MASS/VOLU ME] IN URINE 7.7 mg/L <29.9 - 29.9 08/24 Specimen Type: URINE No comment entered. Ordering Provider: MARGUERITE ROBERTS Report Released Date/Time: Aug 19, 2023 10:27 AM Reporting Lab: [facility] [phone] Performing Lab: [facility] [phone] [facility] HEMOGLOBI N A1C HEMOGLOBIN A1C/HEMOGL OBIN.TOTAL IN BLOOD 5.1 4.0 - 6.0 08/24 Specimen Type: BLOOD Comment: Values obtained from A1C measurement s can vary. For typical A1C assays, a reported value of 7.0 could actually be between 6.7 and 7.3 if measured by a reference method. A reported value of 9.0 could actually be between 8.7 and 9.3. Ref: http://www. ngsp.org/[place] Pdata.asp Ordering Provider: MARGUERITE ROBERTS Report Released Date/Time: Aug 19, 2023 10:27 AM Reporting Lab: [facility] [phone] Performing Lab: [facility] [phone] [facility] COMPREHEN SIVE METABOLIC PANEL+MG CREATININE [MASS/VOLU ME] IN SERUM OR PLASMA 0.8 mg/dL 0.7 - 1.2 08/24 Specimen Type: PLASMA No comment entered. Ordering Provider: MARGUERITE ROBERTS Report Released Date/Time: Aug 19, 2023 10:27 AM Reporting Lab: [facility] [phone] Performing Lab: [facility] [phone] [facility] COMPREHEN SIVE METABOLIC PANEL+MG UREA NITROGEN [MASS/VOLU ME] IN SERUM OR PLASMA 20 mg/dL 8 - 08/24 Specimen Type: PLASMA No comment entered. Ordering Provider: MARGUERITE ROBERTS Report Released Date/Time: Aug 19, 2023 10:27 AM Reporting Lab: [facility] [phone] Performing Lab: [facility] [phone] [facility] COMPREHEN SIVE METABOLIC PANEL+MG GLUCOSE [MASS/VOLU ME] IN SERUM OR PLASMA 81 mg/dL 70 - 100 08/24 Specimen Type: PLASMA No comment entered. Ordering Provider: MARGUERITE ROBERTS Report Released Date/Time: Aug 19, 2023 10:27 AM Reporting Lab: [facility] [phone] Performing Lab: [facility] [phone] [facility] COMPREHEN SIVE METABOLIC PANEL+MG SODIUM [MOLES/VOL UME] IN SERUM OR PLASMA 141 mmol/L 136 - 145 08/24 Specimen Type: PLASMA No comment entered. Ordering Provider: MARGUERITE ROBERTS Report Released Date/Time: Aug 19, 2023 10:27 AM Reporting Lab: [facility] [phone] Performing Lab: [facility] [phone] [facility] COMPREHEN SIVE METABOLIC PANEL+MG POTASSIUM [MOLES/VOL UME] IN SERUM OR PLASMA 4.1 mmol/L 3.5 - 5.1 08/24 Specimen Type: PLASMA No comment entered. Ordering Provider: MARGUERITE ROBERTS Report Released Date/Time: Aug 19, 2023 10:27 AM Reporting Lab: [facility] [phone] Performing Lab: [facility] [phone] [facility] COMPREHEN SIVE METABOLIC PANEL+MG CHLORIDE [MOLES/VOL UME] IN SERUM OR PLASMA 111 mmol/L 98 - 107 08/24 H Specimen Type: PLASMA No comment entered. Ordering Provider: MARGUERITE ROBERTS Report Released Date/Time: Aug 19, 2023 10:27 AM Reporting Lab: [facility] [address] Performing Lab: [facility] [phone] [facility] COMPREHEN SIVE METABOLIC PANEL+MG CARBON DIOXIDE, TOTAL [MOLES/VOL UME] IN SERUM OR PLASMA 20 mmol/L 22 - 29 08/24 L Specimen Type: PLASMA No comment entered. Ordering Provider: MARGUERITE ROBERTS Report Released Date/Time: Aug 19, 2023 10:27 AM Reporting Lab: [facility] [phone] Performing Lab: [facility] [phone] [facility] COMPREHEN SIVE METABOLIC PANEL+MG CALCIUM [MASS/VOLU ME] IN SERUM OR PLASMA 9.2 mg/dL 8.4 - 10.2 08/24 Specimen Type: PLASMA No comment entered. Ordering Provider: MARGUERITE ROBERTS Report Released Date/Time: Aug 19, 2023 10:27 AM Reporting Lab: [facility] [phone] Performing Lab: [facility] [phone] [facility] COMPREHEN SIVE METABOLIC PANEL+MG PROTEIN [MASS/VOLU ME] IN SERUM OR PLASMA 6.8 g/dL 6.0 - 8.3 08/24 Specimen Type: PLASMA No comment entered. Ordering Provider: MARGUERITE ROBERTS Report Released Date/Time: Aug 19, 2023 10:27 AM Reporting Lab: [facility] [phone] Performing Lab: [facility] [phone] [facility] COMPREHEN SIVE METABOLIC PANEL+MG ALBUMIN [MASS/VOLU ME] IN SERUM OR PLASMA 3.9 g/dL 3.5 - 5.2 08/24 Specimen Type: PLASMA No comment entered. Ordering Provider: MARGUERITE ROBERTS Report Released Date/Time: Aug 19, 2023 10:27 AM Reporting Lab: [facility] [phone] Performing Lab: [facility] [address] [facility] COMPREHEN SIVE METABOLIC PANEL+MG BILIRUBIN. TOTAL [MASS/VOLU ME] IN SERUM OR PLASMA 0.4 mg/dL 0.2 - 1.2 08/24 Specimen Type: PLASMA No comment entered. Ordering Provider: MARGUERITE ROBERTS Report Released Date/Time: Aug 19, 2023 10:27 AM Reporting Lab: [facility] [phone] Performing Lab: [facility] [phone] [facility] COMPREHEN SIVE METABOLIC PANEL+MG MAGNESIUM [MASS/VOLU ME] IN SERUM OR PLASMA 2.0 mg/dL 1.6 - 2.6 08/24 Specimen Type: PLASMA No comment entered. Ordering Provider: MARGUERITE ROBERTS Report Released Date/Time: Aug 19, 2023 10:27 AM Reporting Lab: [facility] [phone] Performing Lab: [facility] [phone] [facility] COMPREHEN SIVE METABOLIC PANEL+MG ANION GAP IN SERUM OR PLASMA 10 mmol/L 5 - 15 08/24 Specimen Type: PLASMA No comment entered. Ordering Provider: MARGUERITE ROBERTS Report Released Date/Time: Aug 19, 2023 10:27 AM Reporting Lab: [facility] [phone] Performing Lab: [facility] [phone] [facility] COMPREHEN SIVE METABOLIC PANEL+MG ALKALINE PHOSPHATAS E [ENZYMATIC ACTIVITY/V OLUME] IN SERUM OR PLASMA 91 U/L 40 - 150 08/24 Specimen Type: PLASMA No comment entered. Ordering Provider: MARGUERITE ROBERTS Report Released Date/Time: Aug 19, 2023 10:27 AM Reporting Lab: [facility] [phone] Performing Lab: [facility] [phone] [facility] COMPREHEN SIVE METABOLIC PANEL+MG ALANINE AMINOTRANS FERASE [ENZYMATIC ACTIVITY/V OLUME] IN SERUM OR PLASMA 18 U/L <55 - 55 08/24 Specimen Type: PLASMA No comment entered. Ordering Provider: MARGUERITE ROBERTS Report Released Date/Time: Aug 19, 2023 10:27 AM Reporting Lab: [facility] [phone] Performing Lab: [facility] [phone] [facility] COMPREHEN SIVE METABOLIC PANEL+MG ASPARTATE AMINOTRANS FERASE [ENZYMATIC ACTIVITY/V OLUME] IN SERUM OR PLASMA 22 U/L <34 - 34 08/24 Specimen Type: PLASMA No comment entered. Ordering Provider: MARGUERITE ROBERTS Report Released Date/Time: Aug 19, 2023 10:27 AM Reporting Lab: [facility] [phone] Performing Lab: [facility] [phone] [facility] COMPREHEN SIVE METABOLIC PANEL+MG GLOMERULAR FILTRATION RATE/1.73 SQ M.PREDICTE D [VOLUME RATE/AREA] IN SERUM, PLASMA OR BLOOD BY CREATININE -BASED FORMULA (CKD-EPI 2020) >90 60 08/24 Specimen Type: PLASMA No comment entered. Ordering Provider: MARGUERITE ROBERTS Report Released Date/Time: Aug 19, 2023 10:27 AM Reporting Lab: [facility] [phone] Performing Lab: [facility] [address] [facility] CBC & DIFF LEUKOCYTES [#/VOLUME] IN BLOOD BY AUTOMATED COUNT 5.61 10*3/uL 4.0 - 11.0 08/24 Specimen Type: BLOOD Comment: Automated Differentia l Performed Ordering Provider: MARGUERITE ROBERTS Report Released Date/Time: Aug 19, 2023 10:27 AM Reporting Lab: [facility] [phone] Performing Lab: [facility] [phone] [facility] CBC & DIFF ERYTHROCYT ES [#/VOLUME] IN BLOOD BY AUTOMATED COUNT 4.53 10*6/uL 4.6 - 6.2 08/24 L Specimen Type: BLOOD Comment: Automated Differentia l Performed Ordering Provider: MARGUERITE ROBERTS Report Released Date/Time: Aug 19, 2023 10:27 AM Reporting Lab: [facility] [phone] Performing Lab: [facility] [address] [facility] CBC & DIFF HEMOGLOBIN [MASS/VOLU ME] IN BLOOD 13.8 g/dL 13.5 - 17.9 08/24 Specimen Type: BLOOD Comment: Automated Differentia l Performed Ordering Provider: MARGUERITE ROBERTS Report Released Date/Time: Aug 19, 2023 10:27 AM Reporting Lab: [facility] [address] Performing Lab: [facility] [address] [facility] CBC & DIFF HEMATOCRIT [VOLUME FRACTION] OF BLOOD BY AUTOMATED COUNT 40.3 41 - 54 08/24 L Specimen Type: BLOOD Comment: Automated Differentia l Performed Ordering Provider: MARGUERITE ROBERTS Report Released Date/Time: Aug 19, 2023 10:27 AM Reporting Lab: [facility] [address] Performing Lab: [facility] [address] [facility] CBC & DIFF MCV [ENTITIC VOLUME] BY AUTOMATED COUNT 89.0 fL 80 - 100 08/24 Specimen Type: BLOOD Comment: Automated Differentia l Performed Ordering Provider: MARGUERITE ROBERTS Report Released Date/Time: Aug 19, 2023 10:27 AM Reporting Lab: [facility] [phone] Performing Lab: [facility] [address] [facility] CBC & DIFF MCH [ENTITIC MASS] BY AUTOMATED COUNT 30.5 pg 27 - 33 08/24 Specimen Type: BLOOD Comment: Automated Differentia l Performed Ordering Provider: MARGUERITE ROBERTS Report Released Date/Time: Aug 19, 2023 10:27 AM Reporting Lab: [facility] [address] Performing Lab: [facility] [phone] [facility] CBC & DIFF MCHC [MASS/VOLU ME] BY AUTOMATED COUNT 34.2 g/dL 32.0 - 37.5 08/24 Specimen Type: BLOOD Comment: Automated Differentia l Performed Ordering Provider: MARGUERITE ROBERTS Report Released Date/Time: Aug 19, 2023 10:27 AM Reporting Lab: [facility] [phone] Performing Lab: [facility] [phone] [facility] CBC & DIFF PLATELETS [#/VOLUME] IN BLOOD BY AUTOMATED COUNT 174 10*3/uL 150 - 400 08/24 Specimen Type: BLOOD Comment: Automated Differentia l Performed Ordering Provider: MARGUERITE ROBERTS Report Released Date/Time: Aug 19, 2023 10:27 AM Reporting Lab: [facility] [address] Performing Lab: [facility] [address] [facility] CBC & DIFF PLATELET MEAN VOLUME [ENTITIC VOLUME] IN BLOOD BY AUTOMATED COUNT 12.6 fL 7.4 - 10.4 08/24 H Specimen Type: BLOOD Comment: Automated Differentia l Performed Ordering Provider: MARGUERITE ROBERTS Report Released Date/Time: Aug 19, 2023 10:27 AM Reporting Lab: [facility] [address] Performing Lab: [facility] [address] [facility] CBC & DIFF NEUTROPHIL S/100 LEUKOCYTES IN BLOOD BY MANUAL COUNT 51.9 40.0 - 80.0 08/24 Specimen Type: BLOOD Comment: Automated Differentia l Performed Ordering Provider: MARGUERITE ROBERTS Report Released Date/Time: Aug 19, 2023 10:27 AM Reporting Lab: [facility] [address] Performing Lab: [facility] [address] [facility] CBC & DIFF LYMPHOCYTE S/100 LEUKOCYTES IN BLOOD BY MANUAL COUNT 33.2 15.0 - 45.0 08/24 Specimen Type: BLOOD Comment: Automated Differentia l Performed Ordering Provider: MARGUERITE ROBERTS Report Released Date/Time: Aug 19, 2023 10:27 AM Reporting Lab: [facility] [address] Performing Lab: [facility] [address] [facility] CBC & DIFF MONOCYTES/ 100 LEUKOCYTES IN BLOOD BY AUTOMATED COUNT 10.0 2.0 - 12.0 08/24 Specimen Type: BLOOD Comment: Automated Differentia l Performed Ordering Provider: MARGUERITE ROBERTS Report Released Date/Time: Aug 19, 2023 10:27 AM Reporting Lab: [facility] [address] Performing Lab: [facility] [address] [facility] CBC & DIFF EOSINOPHIL S/100 LEUKOCYTES IN BLOOD BY AUTOMATED COUNT 3.6 0.0 - 6.0 08/24 Specimen Type: BLOOD Comment: Automated Differentia l Performed Ordering Provider: MARGUERITE ROBERTS Report Released Date/Time: Aug 19, 2023 10:27 AM Reporting Lab: [facility] [address] Performing Lab: [facility] [address] [facility] CBC & DIFF BASOPHILS/ 100 LEUKOCYTES IN BLOOD BY MANUAL COUNT 1.1 0.0 - 2.0 08/24 Specimen Type: BLOOD Comment: Automated Differentia l Performed Ordering Provider: MARGUERITE ROBERTS Report Released Date/Time: Aug 19, 2023 10:27 AM Reporting Lab: [facility] [address] Performing Lab: [facility] [address] [facility] CBC & DIFF ERYTHROCYT E DISTRIBUTI ON WIDTH [RATIO] BY AUTOMATED COUNT 14.5 11.5 - 14.5 08/24 Specimen Type: BLOOD Comment: Automated Differentia l Performed Ordering Provider: MARGUERITE ROBERTS Report Released Date/Time: Aug 19, 2023 10:27 AM Reporting Lab: [facility] [address] Performing Lab: [facility] [address] [facility] CBC & DIFF LYMPHOCYTE S [#/VOLUME] IN BLOOD BY AUTOMATED COUNT 1.86 10*3/uL 1.0 - 4.0 08/24 Specimen Type: BLOOD Comment: Automated Differentia l Performed Ordering Provider: MARGUERITE ROBERTS Report Released Date/Time: Aug 19, 2023 10:27 AM Reporting Lab: [facility] [id number] Performing Lab: [facility] [id number] [facility] CBC & DIFF MONOCYTES [#/VOLUME] IN BLOOD BY AUTOMATED COUNT 0.56 10*3/uL 0.1 - 1.0 08/24 Specimen Type: BLOOD Comment: Automated Differentia l Performed Ordering Provider: MARGUERITE ROBERTS Report Released Date/Time: Aug 19, 2023 10:27 AM Reporting Lab: [facility] [id number] Performing Lab: [facility] [address] [facility] CBC & DIFF NEUTROPHIL S [#/VOLUME] IN BLOOD BY AUTOMATED COUNT 2.92 10*3/uL 2.0 - 7.7 08/24 Specimen Type: BLOOD Comment: Automated Differentia l Performed Ordering Provider: MARGUERITE ROBERTS Report Released Date/Time: Aug 19, 2023 10:27 AM Reporting Lab: [facility] [id number] Performing Lab: [facility] [id number] [facility] CBC & DIFF EOSINOPHIL S [#/VOLUME] IN BLOOD BY AUTOMATED COUNT 0.20 10*3/uL 0 - 0.5 08/24 Specimen Type: BLOOD Comment: Automated Differentia l Performed Ordering Provider: MARGUERITE ROBERTS Report Released Date/Time: Aug 19, 2023 10:27 AM Reporting Lab: [facility] [phone] Performing Lab: [facility] [address] [facility] CBC & DIFF BASOPHILS [#/VOLUME] IN BLOOD BY AUTOMATED COUNT 0.06 10*3/uL 0 - 0.2 08/24 Specimen Type: BLOOD Comment: Automated Differentia l Performed Ordering Provider: MARGUERITE ORBERTS Report Released Date/Time: Aug 19, 2023 10:27 AM Reporting Lab: [facility] [address] Performing Lab: [facility] [address] [facility] CBC & DIFF IG(META,MY SARAH,PRO) 0.2 08/24 Specimen Type: BLOOD Comment: Automated Differentia l Performed Ordering Provider: MARGUERITE ROBERTS Report Released Date/Time: Aug 19, 2023 10:27 AM Reporting Lab: [facility] [address] Performing Lab: [facility] [address] [facility] CBC & DIFF IMMATURE GRANULOCYT ES [PRESENCE] IN BLOOD BY AUTOMATED COUNT 0.01 10*3/uL 0 - 0.1 08/24 Specimen Type: BLOOD Comment: Automated Differentia l Performed Ordering Provider: MARGUERITE ROBERTS Report Released Date/Time: Aug 19, 2023 10:27 AM Reporting Lab: [facility] [address] Performing Lab: [facility] [address] [facility] LIPID PANEL,NON -FASTING CHOLESTERO L [MASS/VOLU ME] IN SERUM OR PLASMA 129 mg/dL <199 - 199 08/24 Specimen Type: PLASMA No comment entered. Ordering Provider: MARGUERITE ROBERTS Report Released Date/Time: Aug 19, 2023 10:27 AM Reporting Lab: [facility] [address] Performing Lab: [facility] [address] [facility] LIPID PANEL,NON -FASTING CHOLESTERO L IN HDL [MASS/VOLU ME] IN SERUM OR PLASMA 47 mg/dL 40 08/24 Specimen Type: PLASMA No comment entered. Ordering Provider: MARGUERITE ROBERTS Report Released Date/Time: Aug 19, 2023 10:27 AM Reporting Lab: [facility] [address] Performing Lab: [facility] [address] [facility] LIPID PANEL,NON -FASTING CHOLESTERO L IN LDL [MASS/VOLU ME] IN SERUM OR PLASMA BY CALCULATIO N 75 mg/dL <99 - 99 08/24 Specimen Type: PLASMA No comment entered. Ordering Provider: MARGUERITE ROBERTS Report Released Date/Time: Aug 19, 2023 10:27 AM Reporting Lab: [facility] [address] Performing Lab: [facility] [address] [facility] LIPID PANEL,NON -FASTING CHOLESTERO L IN VLDL [MASS/VOLU ME] IN SERUM OR PLASMA BY CALCULATIO N 7 mg/dL <29 - 29 08/24 Specimen Type: PLASMA No comment entered. Ordering Provider: MARGUERITE ROBERTS Report Released Date/Time: Aug 19, 2023 10:27 AM Reporting Lab: [facility] [address] Performing Lab: [facility] [address] [facility] LIPID PANEL,NON -FASTING CHOLESTERO L NON HDL [MASS/VOLU ME] IN SERUM OR PLASMA 82 mg/dL <129 - 129 08/24 Specimen Type: PLASMA No comment entered. Ordering Provider: MARGUERITE ROBERTS Report Released Date/Time: Aug 19, 2023 10:27 AM Reporting Lab: [facility] [address] Performing Lab: [facility] [address] [facility] LIPID PANEL,NON -FASTING TRIGLYCERI DE [MASS/VOLU ME] IN SERUM OR PLASMA 37 mg/dL <149 - 149 08/24 Specimen Type: PLASMA No comment entered. Ordering Provider: MARGUERITE ROBERTS Report Released Date/Time: Aug 19, 2023 10:27 AM Reporting Lab: [facility] [address] Performing Lab: [facility] [address] [facility] OCCULT BLOOD FIT X1 SCREEN HEMOGLOBIN .GASTROINT ESTINAL.LO WER [PRESENCE] IN STOOL BY IMMUNOASSA Y Negative 09/28 Specimen Type: FECES No comment entered. Ordering Provider: FILIBERTO DORAN Report Released Date/Time: Aug 21, 2022 07:10 AM Reporting Lab: [facility] [address] Performing Lab: [facility] [address] [facility] HEMOGLOBI N A1C HEMOGLOBIN A1C/HEMOGL OBIN.TOTAL IN BLOOD 5.0 [...] Apr 22, 2022 09:52 AM Reporting Lab: [facility] [address] Performing Lab: [facility] [address] [facility] LIPID PANEL,NON -FASTING CHOLESTERO L [MASS/VOLU ME] IN SERUM OR PLASMA 135 mg/dL 08/21 Specimen Type: PLASMA No comment entered. Ordering Provider: EVE LEON Report Released Date/Time: Apr 22, 2022 09:52 AM Reporting Lab: [facility] [address] Performing Lab: [facility] [address] [facility] LIPID PANEL,NON -FASTING CHOLESTERO L IN HDL [MASS/VOLU ME] IN SERUM OR PLASMA 46 mg/dL 08/21 Specimen Type: PLASMA No comment entered. Ordering Provider: EVE LEON Report Released Date/Time: Apr 22, 2022 09:52 AM Reporting Lab: [facility] [address] Performing Lab: [facility] [address] [facility] LIPID PANEL,NON -FASTING CHOLESTERO L IN LDL [MASS/VOLU ME] IN SERUM OR PLASMA BY CALCULATIO N 79 mg/dL 08/21 Specimen Type: PLASMA No comment entered. Ordering Provider: EVE LEON Report Released Date/Time: Apr 22, 2022 09:52 AM Reporting Lab: [facility] [address] Performing Lab: [place] [address] [facility] LIPID PANEL,NON -FASTING CHOLESTERO L IN VLDL [MASS/VOLU ME] IN SERUM OR PLASMA BY CALCULATIO N 10 mg/dL 08/21 Specimen Type: PLASMA No comment entered. Ordering Provider: EVE LEON Report Released Date/Time: Apr 22, 2022 09:52 AM Reporting Lab: [facility] [address] Performing Lab: [facility] [address] [facility] LIPID PANEL,NON -FASTING CHOLESTERO L NON HDL [MASS/VOLU ME] IN SERUM OR PLASMA 89 mg/dL 08/21 Specimen Type: PLASMA No comment entered. Ordering Provider: EVE LEON Report Released Date/Time: Apr 22, 2022 09:52 AM Reporting Lab: [facility] [address] Performing Lab: [facility] [address] [facility] LIPID PANEL,NON -FASTING TRIGLYCERI DE [MASS/VOLU ME] IN SERUM OR PLASMA 50 mg/dL 08/21 Specimen Type: PLASMA No comment entered. Ordering Provider: EVE LEON Report Released Date/Time: Apr 22, 2022 09:52 AM Reporting Lab: [facility] [address] Performing Lab: [facility] [address] [facility] BASIC METABOLIC PANEL+MG CREATININE [MASS/VOLU ME] IN SERUM OR PLASMA 0.8 mg/dL 0.7 - 1.2 08/21 Specimen Type: PLASMA No comment entered. Ordering Provider: FILIBERTO DORAN Report Released Date/Time: Aug 21, 2022 07:11 AM Reporting Lab: [facility] [address] Performing Lab: [facility] [address] [facility] BASIC METABOLIC PANEL+MG UREA NITROGEN [MASS/VOLU ME] IN SERUM OR PLASMA 15 mg/dL 8 - 26 08/21 Specimen Type: PLASMA No comment entered. Ordering Provider: FILIBERTO DORAN Report Released Date/Time: Aug 21, 2022 07:11 AM Reporting Lab: [facility] [address] Performing Lab: [facility] [address] [facility] BASIC METABOLIC PANEL+MG GLUCOSE [MASS/VOLU ME] IN SERUM OR PLASMA 72 mg/dL 70 - 100 08/21 Specimen Type: PLASMA No comment entered. Ordering Provider: FILIBERTO DORAN Report Released Date/Time: Aug 21, 2022 07:11 AM Reporting Lab: [facility] [address] Performing Lab: [facility] [address] [facility] BASIC METABOLIC PANEL+MG SODIUM [MOLES/VOL UME] IN SERUM OR PLASMA 137 mmol/L 136 - 145 08/21 Specimen Type: PLASMA No comment entered. Ordering Provider: FILIBERTO DORAN Report Released Date/Time: Aug 21, 2022 07:11 AM Reporting Lab: [facility] [address] Performing Lab: [facility] [address] [facility] BASIC METABOLIC PANEL+MG POTASSIUM [MOLES/VOL UME] IN SERUM OR PLASMA 3.9 mmol/L 3.5 - 5.1 08/21 Specimen Type: PLASMA No comment entered. Ordering Provider: FILIBERTO DORAN Report Released Date/Time: Aug 21, 2022 07:11 AM Reporting Lab: [facility] [address] Performing Lab: [facility] [address] [facility] BASIC METABOLIC PANEL+MG CHLORIDE [MOLES/VOL UME] IN SERUM OR PLASMA 106 mmol/L 98 - 107 08/21 Specimen Type: PLASMA No comment entered. Ordering Provider: FILIBERTO DORAN Report Released Date/Time: Aug 21, 2022 07:11 AM Reporting Lab: [facility] [address] Performing Lab: [facility] [address] [facility] BASIC METABOLIC PANEL+MG CARBON DIOXIDE, TOTAL [MOLES/VOL UME] IN SERUM OR PLASMA 24 mmol/L 22 - 29 08/21 Specimen Type: PLASMA No comment entered. Ordering Provider: FILIBERTO DORAN Report Released Date/Time: Aug 21, 2022 07:11 AM Reporting Lab: [facility] [address] Performing Lab: [facility] [address] [facility] BASIC METABOLIC PANEL+MG CALCIUM [MASS/VOLU ME] IN SERUM OR PLASMA 9.1 mg/dL 8.4 - 10.2 08/21 Specimen Type: PLASMA No comment entered. Ordering Provider: FILIBERTO DORAN Report Released Date/Time: Aug 21, 2022 07:11 AM Reporting Lab: [facility] [address] Performing Lab: [facility] [address] [facility] BASIC METABOLIC PANEL+MG MAGNESIUM [MASS/VOLU ME] IN SERUM OR PLASMA 2.0 mg/dL 1.6 - 2.6 08/21 Specimen Type: PLASMA No comment entered. Ordering Provider: FILIBERTO DORAN Report Released Date/Time: Aug 21, 2022 07:11 AM Reporting Lab: [facility] [address] Performing Lab: [facility] [address] [facility] BASIC METABOLIC PANEL+MG ANION GAP IN SERUM OR PLASMA 7 mmol/L 5 - 15 08/21 Specimen Type: PLASMA No comment entered. Ordering Provider: FILIBERTO DORAN Report Released Date/Time: Aug 21, 2022 07:11 AM Reporting Lab: [facility] [address] Performing Lab: [facility] [address] [facility] BASIC METABOLIC PANEL+MG GLOMERULAR FILTRATION RATE/1.73 SQ M.PREDICTE D [VOLUME RATE/AREA] IN SERUM, PLASMA OR BLOOD BY CREATININE -BASED FORMULA (CKD-EPI 2020) >90 08/21 Specimen Type: PLASMA No comment entered. Ordering Provider: FILIBERTO DORAN Report Released Date/Time: Aug 21, 2022 07:11 AM Reporting Lab: [facility] [address] Performing Lab: [facility] [address] [facility] Vital Signs Combined list of inpatient and outpatient Vital Signs from [facility], ranging from 12 months to all on [...] ADM Date DC Date Status [facility] Encounter [id number] 03/20 [facility] [place] [facility] Outpatient Encounter [id number] TAVARES TALAVERA V 03/31 [facility] [place] [facility] Outpatient Encounter [id number] 04/02 [facility] [place] [facility] Outpatient Encounter [id number] KEDAR PALMER 04/03 [facility] [place] [facility] Outpatient Encounter [id number] 04/06 [facility] PRO PHONE CALL 5-10 MIN [id number] Diagnos is: ICD-10- CM R20.2 Paresth esia of skin
LISSETH CARDOSO CCA 04/06 [facility]ENCY [facility] VISIT MOD MDM [id number] Diagnos is: ICD-10- CM R20.2 Paresth esia of skin
BANDAR BEASLEY 04/10 [facility] [place] [facility] EMERGENCY DEPT VISIT [facility] [id number] Diagnos is: ICD-10- CM M79.601 Pain in right arm<br/ > Jacinta COVINGTON 04/14 [facility] [place] [facility] Outpatient Encounter [id number] 04/15 [place] [facility] [place] [facility] Outpatient Encounter [id number] 04/17 [facility] [place] [facility] Outpatient Encounter [id number] JAYCOB LÓPEZ 04/21 [facility] Outpatient Encounter [id number] Diagnos is: ICD-10- CM G43.909 Migrain e, unsp, not intract able, without status migrain osus
ANA M LEON 04/22 [facility] [place] [facility] Outpatient Encounter [id number] NATHAN VILLANUEVA 04/22 [facility] Outpatient Encounter [id number] 05/20 [facility] [place]AT[place] ADMIN [id number] Diagnos is: ICD-10- CM I10 Essenti al (primar y) hyperte nsion<b r/> ANA M LEON 05/28 [facility] [place] [facility] Outpatient Encounter [id number] KEDAR PALMER 07/24 [facility] [place] [facility] Outpatient Encounter [id number] KEDAR PALMER 08/17 [place] [facility] [place] [facility] Outpatient Encounter [id number] KEDAR PALMER Brittany M 08/17 [place] [facility] [place] [facility] EMERGENCY DEPT VISIT [facility] [id number] Diagnos is: ICD-10- CM R10.9 Unspeci fied abdomin al pain
AB CATY DISAMAD M 08/18 [place] [facility] [place] [facility] Outpatient Encounter [id number] 08/19 [place] [facility] [place] [facility] Outpatient Encounter [id number] ELYSSA VILLA 08/19 [place] [facility] [place] [facility] Outpatient Encounter [id number] SA SARITA FRENCH 08/19 [place] [facility] [place] [facility] Outpatient Encounter [id number] 08/21 [place] [facility] Outpatient Encounter [id number] Diagnos is: ICD-10- CM I10 Essenti al (primar y) hyperte nsion<b r/> CHHAYA DORANTINE N 08/21 [facility] [place] [facility] Outpatient Encounter [id number] RA MARITO PARSON 08/26 [place] [facility] PRO PHONE CALL 5-10 MIN [id number] Diagnos is: ICD-10- CM I10 Essenti al (primar y) hyperte nsion<b r/> LISSETH CARDOSO CCA R 08/31 [facility] [place] [facility] Outpatient Encounter [id number] 11/13 [place] [facility] [place] [facility] Outpatient Encounter [id number] 11/23 [place] [facility] [place] [facility] Outpatient Encounter [id number] 11/27 [place] [facility] [place] [facility] Outpatient Encounter [id number] JOANN BENNETT 12/09 [place] [facility] HC PRO PHONE CALL 5-10 MIN [id number] Diagnos is: ICD-10- CM M79.642 Pain in left hand
LISSETH CARDOSO CCA R 12/10 [facility] [place] [facility] Outpatient Encounter [id number] ANDREA SAMANO 12/18 [facility] Outpatient Encounter [id number] 12/18 [facility] [place] [facility] Outpatient Encounter [id number] LEROY HEREDIA 12/28 [place] [facility] [place] [facility] Outpatient Encounter [id number] ASHLEIGH BUTTS 01/04 [facility] [place] [facility] Outpatient Encounter [id number] ÁNGEL LUDWIG 01/07 [facility] OFFICE O/P EST HI 40-54 MIN [id number] Diagnos is: ICD-10- CM G43.909 Migrain e, unsp, not intract able, without status migrain osus
ROWAN WALKER J 01/14 [facility] [place] [facility] Outpatient Encounter [id number] KEDAR PALMER 01/19 [place] [facility] [place] [facility] Outpatient Encounter [id number] MELISSA JONES 01/23 [place] [facility] [place] [facility] Outpatient Encounter [id number] KEDAR PALMER Brittany M 01/25 [place] [facility] OFFICE O/P EST HI 40-54 MIN [id number] Diagnos is: ICD-10- CM M50.30 Other cervica l disc degener ation, unsp cervica l region< br/> ROWAN WALKER J 02/10 [facility] [place] [facility] Outpatient Encounter [id number] Fani LARSEN ACLYN R 02/12 [place] [facility] [place] [facility] Outpatient Encounter [id number] Juan Luis CHISHOLM 02/23 [place] [facility] [place] [facility] Outpatient Encounter [id number] Brittany ZAMBRANO 04/15 [place] [facility] [place] [facility] Outpatient Encounter [id number] LIANA JOHNSON 04/16 [place] [facility] [place] [facility] Outpatient Encounter [id number] SABINA NUNO 04/20 [place] [facility] [place] [facility] Outpatient Encounter [id number] KATHRYN HELTON N 04/26 [place] [facility] PRO PHONE CALL 5-10 MIN [id number] Diagnos is: ICD-10- CM F41.9 Anxiety disorde r, unspeci fied
LISSETH CARDOSO CCA R 04/29 [facility] OFFICE O/P EST HI 40 MIN [id number] Diagnos is: ICD-10- CM F41.9 Anxiety disorde r, unspeci fied
ROWAN WALKER J 05/02 [facility] [place] [facility] Outpatient Encounter [id number] 05/02 [place] [facility] OFFICE O/P NEW MOD 45 MIN [id number] Diagnos is: ICD-10- CM F41.9 Anxiety disorde r, unspeci fied
GALEN,VAIBHAV E 05/11 [facility] [place] [facility] OFFICE O/P NEW MOD 45 MIN [id number] Diagnos is: ICD-10- CM F41.9 Anxiety disorde r, unspeci fied
GALEN,VAIBHAV E 05/11 [place] [facility] [place] [facility] Outpatient [facility]counter [id number] JAXSON MATTHEWS 05/24 [facility] Out[facility] Encounter [id number] Diagnos is: ICD-10- CM R51.9 Headach e, unspeci fied
MIGUELITO RG SA 05/24 [facility] [place] [facility] Outpatient Encounter [id number] Juan Luis CHISHOLM 05/25 [facility] [place] [facility] Outpatient Encounter [id number] 06/02 [facility] PRO PHONE CALL 5-10 MIN [id number] Diagnos is: ICD-10- CM R51.9 Headach e, unspeci fied
LISSETH CARDOSO CCA R 06/02 [place] [facility] [place] [facility] Outpatient Encounter [id number] 08/18 [facility] OFFICE O/P EST MOD 30 MIN [id number] Diagnos is: ICD-10- CM Z00.00 Encntr for general adult medical exam w/o abnorma l finding s
AMOS ROBERTS DA 08/18 [facility] Outpatient Encounter [id number] Juan Luis CHISHOLM 08/19 [place] [facility] [place] [facility] Outpatient Encounter [id number] AARONLISSETH GRULLON LESLIE R 08/24 [place] [facility] PRO PHONE CALL 5-10 MIN [id number] Diagnos is: ICD-10- CM R52 Pain, unspeci fied
AARONLISSETH GRULLON CCA R 08/25 [facility] [place] [facility] Outpatient Encounter [id number] 09/13 [place] [facility] [facility] Social History Combined list of available smoking, tobacco, and other social history from Department of Defense and Veterans Affairs facilities. Social History Type Response Date Comment Sourc e Tobacco smoking status [facility]-TOBACCO NEVER USED 05/03/2023 [facility] 08[facility]15/2021 [facility] Plan of Care List of future care activities from Department of Veterans Affairs facilities. Additional future care activities may be listed in the Assessment and Plan section. Date/Time Care Activity Care Activity Detail Facili ty 08/19/2023 Consult Order COMMUNITY CARE-C T SCAN Cons [facility] Advance Directives List of completed, amended, or rescinded Advance Directives on record at Department of Veterans Affairs facilities. An actual copy of the Directive is not included. Date Advance Directive Provider Source 08/15/2021 [facility] DIRECTIVE DISCUSSION [facility]
--- OUTSIDE RECORDS SUMMARY | 2023-09-17 00:02 | XMS_ITS | Encounter Summary ---
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 Date/Time Encounter Type Encounter Description Reason Pro vider Source Aug 19, 2023 12:00 AM Outpatient Encounter EVENT (HISTORICAL) IHE Encounter Template Text not used by CT Plan of Treatment: Future Appointments (+ 6 [...] 20 appointments. The data comes from all [facility]. Appointment Date/Time Appointment Type Appointme nt Facility Name Aug 20, 2023 08:29 PM AMBULATORY - NONE [place] [facility] Aug 25, 2023 03:40 PM AMBULATORY [...] of theEncounter. The data comes from all [facility]. Test Date/Time Test Type Test Details Facility Name Aug 19, 2023 10:34 AM Consult Order COMMUNITY CARE-[place] SCAN Cons Informatica Mdm Architect's Choice EARLENE BORJAS Lab Results: +/- 30 days of the encounter This section includes the Chemistry and Hematology Lab Results on record with CT for the patient. Radiology Reports and Pathology Reports are provided separately, in subsequent sections. Lab Results This section contains the Chemistry/Hematology Results that were resulted 30 days before or 30 daysafter the date of the Encounter. Date/Time Source Result Type Result - Unit Interpretation Reference Range Comment Aug 28, 2023 05:30 AM [facility] OCCULT BLOOD FIT X1 SCREEN Specimen Type: FECES No comment entered. Ordering Provider: JOSUE ROBERTS Report Released Date/Time: Aug 19, 2023 10:27 AM Reporting Lab: [facility] [id number] Performing Lab: [facility] [address] OCCULT BLOOD (FIT) #1 OF 1 Negative Negative Aug 25, 2023 03:55 PM [facility] ALBUMIN/CREATININE RATIO URINE Specimen Type: URINE No comment entered. Ordering Provider: JOSUE ROBERTS Report Released Date/Time: Aug 19, 2023 10:27 AM Reporting Lab: [facility] [phone] Performing Lab: [facility] [address] CREATININE,UR RANDOM 109.8 mg/dL 58.0-161.0 ALB/CREAT RATIO,UR [...] 9.3. Ref: http://www.ngs p.org/CAPdata. asp Ordering Provider: JOSUE ROBERTS Report Released Date/Time: Aug 19, 2023 10:27 AM Reporting Lab: [facility] [phone] Performing Lab: [facility] [address] HEMOGLOBIN A1C 5.1 4.0-6.0 Aug 25, 2023 03:28 PM [facility] CBC & DIFF Specimen Type: BLOOD Comment: Automated Differential Performed Ordering Provider: JOSUE ROBERTS Report Released Date/Time: Aug 19, 2023 10:27 AM Reporting Lab: [facility] [id number] Performing Lab: [facility] [address] WBC 5.61 10*3/uL 4.0-11.0 RBC 4.53 10*6/uL [...] Type: PLASMA No comment entered. Ordering Provider: JOSUE ROBERTS Report Released Date/Time: Aug 19, 2023 10:27 AM Reporting Lab: [facility] [phone] Performing Lab: [facility] [address] CREATININE 0.8 mg/dL 0.7-1.2 UREA NITROGEN 20 [...] Type: PLASMA No comment entered. Ordering Provider: JOSUE ROBERTS Report Released Date/Time: Aug 19, 2023 10:27 AM Reporting Lab: [facility] [phone] Performing Lab: [facility] [address] CHOLESTEROL 129 mg/dL <199 .HDL 47 mg/dL >40 LDL CALCULATION 75 mg/dL <99 VLDL CALCULATION 7 mg/dL <29 NON HDL CHOLESTEROL 82 mg/dL <129 TRIG(NON FASTING) 37 mg/dL <149 Advance Directives: All historical and current Section Date Range: From patient's date of to the date document was created. This section includes ALL of a patient's completed or amended VA Advance and Rescinded Directives. The entries below indicate that a directive exists for the patient, but an actual copy is not included with this document. The data comes from all [place] facilities. Date Advance Directives Provider Source Aug 15, 2021 ADVANCE DIRECTIVE DISCUSSION [facility]SA [facility]
--- OUTSIDE RECORDS SUMMARY | 2023-09-17 00:02 | XMS_ITS | Encounter Summary ---
Author Name [facility] [place] Organization [place] Address [address] [place] [address] Care Team Providers Care Team Driver Name Role Phone JOSUE ROBERTS Primary Care [...] PRESCRIPT ION RX PLAN Mar 01, 2021 [id number] [phone] KIMBERLEE AGUILERA PATIENT [facility] ([id number]) PRESCRIPT ION RX PLAN Mar 01, 2022 [id number] KIMBERLEE AGUILERA PATIENT [facility] PREFERRED PROVIDER ORGANIZAT ION (PPO) NURYU RACHEL ROTHMAN [place] Mar 01, 2022 [id number] [phone] KIKO PremaKIMBERLEE PATIENT Selected Encounter This section includes the information on record at [place] for the Encounter. Date/Time Encounter Type Encounter Description Reason Provider Source Aug 20, 2023 08:29 PM Outpatient Encounter ADMIN PAT ACTIVTIES (MASNONCT) [...] 20 appointments. The data comes from all [facility]. Appointment Date/Time Appointment Type Appointme nt Facility [...] of theEncounter. The data comes from all [facility]. Test Date/Time Test Type Test Details Facility Name Aug 19, 2023 10:34 AM Consult Order COMMUNITY CARE-[place] SCAN Cons Machine Packager's Choice EARLENE BORJAS Lab Results: +/- 30 days of the encounter This section includes the Chemistry and Hematology Lab Results on record with [place] for the patient. Radiology Reports and Pathology [...] Aug 19, 2023 10:27 AM Reporting Lab: [facility] [phone] Performing Lab: [facility] [address] OCCULT BLOOD (FIT) #1 OF 1 Negative Negative Aug 25, 2023 03:55 PM [facility] ALBUMIN/CREATININE RATIO URINE Specimen Type: URINE No comment entered. Ordering Provider: JOSUE ROBERTS Report Released Date/Time: Aug 19, 2023 10:27 AM Reporting Lab: [facility] [address] Performing Lab: [facility] [address] CREATININE,UR RANDOM 109.8 mg/dL 58.0-161.0 ALB/CREAT RATIO,UR [...] Aug 19, 2023 10:27 AM Reporting Lab: [facility] [address] Performing Lab: [facility] [address] HEMOGLOBIN A1C 5.1 4.0-6.0 Aug 25, 2023 03:28 PM [facility] CBC & DIFF Specimen Type: BLOOD Comment: Automated Differential Performed Ordering Provider: JOSUE ROBERTS Report Released Date/Time: Aug 19, 2023 10:27 AM Reporting Lab: [facility] [address] Performing Lab: [facility] [address] WBC 5.61 10*3/uL 4.0-11.0 RBC 4.53 10*6/uL [...] Aug 19, 2023 10:27 AM Reporting Lab: [facility] [address] Performing Lab: [facility] [address] CREATININE 0.8 mg/dL 0.7-1.2 UREA NITROGEN 20 [...] Aug 19, 2023 10:27 AM Reporting Lab: [facility] [address] Performing Lab: [facility] [address] CHOLESTEROL 129 mg/dL <199 .HDL 47 mg/dL [...] 2021 ADVANCE DIRECTIVE DISCUSSION MELISSA MCFARLAND [facility] Encounter Notes: All associated encounter notes This section contains the clinical notes associated to the Encounter. Date/Time Encounter Note(s) Provider Source Aug 25, 2023 07:29 AM ADDENDUM: LOCAL TITLE: Addendum STANDARD TITLE: ADDENDUM DATE OF NOTE: AUG 25, 2023@07:29:42 ENTRY DATE: AUG 25, 2023@07:29:43 AUTHOR: PELON URIOSTEGUI COSIGNER: URGENCY: STATUS: COMPLETED was seen in a Community ED. Records uploaded to chart. Please review and follow up as appropriate. /cat/ PELON URIOSTEGUI ..[employer] Signed: 08/25/2023 07:29 Receipt Acknowledged By: 08/26/2023 09:42 /cat/ Patricia Cardoso, RN [facility] * AWAITING SIGNATURE * JOSUE ROBERTS --- Original Document --- 08/19/23 [facility] PRESENTING CARE COORD PLAN NOTE: Emergency Notification Intake Date Presenting to the Facility: Jul Method of Contact: Notified from BANNER worklist Notification ID: [id number] [facility] Referral #: [facility] Name: Hospital: [facility] Address: [address] City: [place] State: [place] Zip Code: [address] Phone : [facility] Point of Contact: Name: [facility] Chief complaint: FLANK PAIN Primary Diagnosis: Disposition Discharged Date of discharge: Jul Discharge to home /es/ CELESTINA GREWAL CORRECTIONAL SUBSTANCE ABUSE COUNSELOR Signed: 08/20/2023 20:31 Receipt Acknowledged By: 08/23/2023 07:49 /cat/ Evelyne Chisholm PLATFORM INSPECTOR cellophane wrapping examiner Field Irrigation Worker 08/23/2023 ADDENDUM STATUS: COMPLETED Notification acknowledged by RN. Medical and clinical information not reviewed. /carson Chisholm PLATFORM INSPECTOR cellophane wrapping examiner Field Irrigation Worker Signed: 08/23/2023 07:51 08/23/2023 ADDENDUM STATUS: COMPLETED Records requested and will be uploaded via Epsi when received /cat/ BRIGETTE ZAMARRIPA ADVANCED MSA Signed: 08/23/2023 08:38 Receipt Acknowledged By: 08/25/2023 07:40 /cat/ Patricia Cardoso, RN [facility] 08/19/2023 ADDENDUM STATUS: COMPLETED [facility] Imaging Scanned Document - Addendum. ED records 08/19/2023 [facility] SCANNED DOCUMENT SIGNATURE NOT REQUIRED Electronically Filed: 08/25/2023 by: PELON URIOSTEGUI ..[employer]et[employer]ressor PELON URIOSTEGUI [facility] Aug 23, 2023 08:38 AM ADDENDUM: LOCAL TITLE: Addendum STANDARD TITLE: ADDENDUM DATE OF NOTE: AUG 23, 2023@08:38:21 ENTRY DATE: AUG 23, 2023@08:38:22 AUTHOR: BRIGETTE ZAMARRIPA EXP COSIGNER: URGENCY: STATUS: COMPLETED Records requested and will be uploaded via Epsi when received /carson ZAMARRIPA ADVANCED MSA Signed: 08/23/2023 08:38 Receipt Acknowledged By: 08/25/2023 07:40 /carson Cardoso, RN [facility] --- Original Document --- 08/19/23 [facility] SELF PRESENTING CARE COORD PLAN NOTE: Emergency Notification Intake Date Presenting to the Facility: Jul Method of Contact: Notified from ECR worklist Notification ID: [id number] [facility] Referral #: [facility] Name: Hospital: [facility] Address: [address]: [place] State: [place] Zip Code: [address] Phone : [facility] Point of Contact: Name: [facility] Chief complaint: FLANK PAIN Primary Diagnosis: Disposition Discharged Date of discharge: Jul Discharge to home /cat/ CELESTINA GREWAL CORRECTIONAL SUBSTANCE ABUSE COUNSELOR Signed: 08/20/2023 20:31 Receipt Acknowledged By: 08/23/2023 07:49 /cat/ Evelyne Chisholm PLATFORM INSPECTOR cellophane wrapping examiner Field Irrigation Worker 08/23/2023 ADDENDUM STATUS: COMPLETED Notification acknowledged by RN. Medical and clinical information not reviewed. /carson Chisholm PLATFORM INSPECTOR cellophane wrapping examiner Field Irrigation Worker Signed: 08/23/2023 07:51 08/19/2023 ADDENDUM STATUS: COMPLETED VistA Imaging Scanned Document - Addendum. ED records 08/19/2023 [facility] SCANNED DOCUMENT SIGNATURE NOT REQUIRED Electronically Filed: 08/25/2023 by: PELON BaxterAdvanced [employer]etylene Gas Compressor 08/25/2023 ADDENDUM STATUS: COMPLETED was seen in a Community ED. Records uploaded to chart. Please review and follow up as appropriate. /cat/ PELON BaxterAdvanced Acetylene Gas Compressor Signed: 08/25/2023 07:29 Receipt Acknowledged By: * AWAITING SIGNATURE * PATRICIA CARDOSO * AWAITING SIGNATURE * JOSUE ROBERTS LYNDZEY A [facility] Aug 19, 2023 08:30 PM NONVA NOTE: LOCAL TITLE: [facility] SELF PRESENTING CARE COORD PLAN STANDARD TITLE: NONVA NOTE DATE OF NOTE: AUG 19, 2023@20:30 ENTRY DATE: AUG 20, 2023@20:30:21 AUTHOR: CELESTINA GREWAL COSIGNER: URGENCY: STATUS: COMPLETED [facility] SELF PRESENTING CARE COORD PLAN NOTE Has ADDENDA Emergency Notification Intake Date Presenting to the Facility: Jul Method of Contact: Notified from ECR worklist Notification ID: [id number] [facility] Referral #: [facility] Name: Hospital: [facility] Address: [address] City: [place] State: [place] Zip Code: [address] Phone : Community Facility Point of Contact: Name: [facility] Chief complaint: FLANK PAIN Primary Diagnosis: Disposition Discharged Date of discharge: Jul Discharge to home /cat/ CELESTINA GREWAL CORRECTIONAL SUBSTANCE ABUSE COUNSELOR Signed: 08/20/2023 20:31 Receipt Acknowledged By: 08/23/2023 07:49 /cat/ Evelyne Chisholm PLATFORM INSPECTOR cellophane wrapping examiner Field Irrigation Worker 08/23/2023 ADDENDUM STATUS: COMPLETED Notification acknowledged by RN. Medical and clinical information not reviewed. /cat/ Evelyne Chisholm PLATFORM INSPECTOR cellophane wrapping examiner Field Irrigation Worker Signed: 08/23/2023 07:51 08/23/2023 ADDENDUM STATUS: COMPLETED Records requested and will be uploaded via Epsi when received /cat/ BRIGETTE ZAMARRIPA ADVANCED MSA Signed: 08/23/2023 08:38 Receipt Acknowledged By: * AWAITING SIGNATURE * PATRICIA CARDOSO 08/19/2023 ADDENDUM STATUS: COMPLETED VistA Imaging Scanned Document - Addendum. ED records 08/19/2023 [facility] SCANNED DOCUMENT SIGNATURE NOT REQUIRED Electronically Filed: 08/25/2023 by: PELON BaxterAdvanced [employer] Comp[employer] 08/25/2023 ADDENDUM STATUS: COMPLETED [place] was seen in a Community ED. Records uploaded to chart. Please review and follow up as appropriate. /cat/ PELON BaxterAdvanced Acetylene Gas Compressor Signed: 08/25/2023 07:29 Receipt Acknowledged By: * AWAITING SIGNATURE * PATRICIA CARDOSO * AWAITING SIGNATURE * JOSUE ROBERTS CHRISTINA M [facility]
--- OUTSIDE RECORDS SUMMARY | 2023-09-17 00:02 | XMS_ITS | Encounter Summary ---
Author Name Department [place] Organization [place] Address [address] [place] [id number] Care Team Providers Care Senior Advocate Name Role Phone JOSUE ROBERTS Primary Care [...] PRESCRIPT ION RX PLAN Mar 01, 2021 [id number] [phone] KIMBERLEE AGUILERA PATIENT [facility] ([id number]) PRESCRIPT ION RX PLAN Mar 01, 2022 [id number] [phone] KIMBERLEE AGUILERA PATIENT [facility] PREFERRED PROVIDER ORGANIZAT ION (PPO) MERCU RACHEL ROTHMAN [place] Mar 01, 2022 [id number] KIMBERLEE AGUILERA PATIENT Selected Encounter This section includes the information on record at [place] for the Encounter. Date/Time Encounter Type Encounter Description Reason Provider Source Aug 25, 2023 11:04 AM Outpatient Encounter TELEPHONE PRIMARY CARE PATRICIA CARDOSO Encounter Template Text not used by [place] Plan of Treatment: Future Appointments (+ 6 months) and Future Tests (+/- 45 days) The Plan of Treatment section includes future care activities for the patient from all [facility] treatment[facility]ilities. This section includes future appointments and future orders which are active, pending or scheduled. Active, Pending, and Scheduled Orders This section includes a listing of several types of active, pending, and scheduled orders, including clinic medications orders, diagnostic test orders, procedure orders and consult orders; where the start date of the order is 45 days before the date of the Encounter or 45 days after the date of theEncounter. The data comes from all [place] treatment facilities. Test Date/Time Test Type Test Details Facility Name Aug 19, 2023 10:34 AM Consult Order COMMUNITY CARE-CT SCAN Cons Nuclear Weapons Specialist's Choice EARLENE BORJAS Lab Results: +/- 30 days of the encounter This section includes the Chemistry and Hematology Lab Results on record with [place] for the patient. Radiology Reports and Pathology [...] Aug 19, 2023 10:27 AM Reporting Lab: [facility] [address] Performing Lab: [facility] [address] OCCULT BLOOD (FIT) #1 OF 1 Negative Negative Aug 25, 2023 03:55 PM E[facility]LENE SRIVASTAVA [facility] ALBUMIN/CREATININE RATIO URINE Specimen Type: URINE No comment entered. Ordering Provider: JOSUE ROBERTS Report Released Date/Time: Aug 19, 2023 10:27 AM Reporting Lab: [facility] [address] Performing Lab: [facility] [address] CREATININE,UR RANDOM 109.8 mg/dL 58.0-161.0 ALB/CREAT RATIO,UR [...] Aug 19, 2023 10:27 AM Reporting Lab: [facility] [address] Performing Lab: [facility] [address] HEMOGLOBIN A1C 5.1 4.0-6.0 Aug 25, 2023 03:28 PM [facility] CBC & DIFF Specimen Type: BLOOD Comment: Automated Differential Performed Ordering Provider: JOSUE ROBERTS Report Released Date/Time: Aug 19, 2023 10:27 AM Reporting Lab: [facility] [address] Performing Lab: [facility] [address] WBC 5.61 10*3/uL 4.0-11.0 RBC 4.53 10*6/uL [...] Aug 19, 2023 10:27 AM Reporting Lab: [facility] [address] Performing Lab: [facility] [address] CREATININE 0.8 mg/dL 0.7-1.2 UREA NITROGEN 20 [...] Aug 19, 2023 10:27 AM Reporting Lab: [facility] [address] Performing Lab: [facility] [address] CHOLESTEROL 129 mg/dL <199 .HDL 47 mg/dL [...] this document. The data comes from all [place] facilities. Date Advance Directives Provider Source Aug 15, 2021 ADVANCE DIRECTIVE DISCUSSION [facility]SA [facility] Encounter Notes: All associated encounter notes This section contains the clinical notes associated to the Encounter. Date/Time Encounter Note(s) Provider Source Aug 25, 2023 11:04 AM PRIMARY CARE NOTE: LOCAL TITLE: POST DISCHARGE CONTACT STANDARD TITLE: PRIMARY CARE NOTE DATE OF NOTE: AUG 25, 2023@11:04 ENTRY DATE: AUG 25, 2023@11:11:21 AUTHOR: PATRICIA CARDOSO EXP COSIGNER: URGENCY: STATUS: COMPLETED Location of Discharge: Emergency Department/Urgent Care Contact attempt: 1st Unable to make contact HIPAA compliant message left on voicemail and call back number [phone], opt #2 provided. /es/ Patricia Cardoso, RN Nurse [facility] Signed: 08/25/2023 11:12 PATRICIA CARDOSO
--- OUTSIDE RECORDS SUMMARY | 2023-09-17 00:03 | XMS_ITS | Encounter Summary ---
Author Name [facility] [place] Organization [facility] [place] Address [address] [place] [address] Care Team Providers Care Business Process Specialist Name Role Phone JOSUE ROBERTS Primary [...] PRESCRIPT ION RX PLAN Mar 01, 2021 [id number] [phone] KAYLEELOUIE LloydKIMBERLEE PATIENT [facility] ([id number]) PRESCRIPT ION RX PLAN Mar 01, 2022 [id number] KIMBERLEE AGUILERA PATIENT [facility] PREFERRED PROVIDER ORGANIZAT ION (PPO) MERCU RY [place] Mar 01, 2022 [id number] [id number] KIKO LloydKIMBERLEE PATIENT Selected Encounter This section includes the information on record at [place] for the Encounter. Date/Time Encounter Type Encounter Description Reason Provider Source Aug 26, 2023 09:44 AM HC PRO PHONE CALL 5-10 MIN TELEPHONE PRIMARY CARE ICD-10-CM R52 Pain, unspecified PATRICIA CARDOSO Encounter Template Text not used by VA Assessments - Encounter Diagnoses This section includes the primary and secondary diagnoses documented for the Encounter. Date/Time Primary/Secondary Diagnosis Diagnosis Name Provider Source Aug 26, 2023 09:44 AM PRIMARY Pain, unspecified PATRICIA CARDOSO [facility] Plan of Treatment: Future Appointments (+ 6 [...] of theEncounter. The data comes from all [place] treatment facilities. Test Date/Time Test Type Test Details Facility Name Aug 19, 2023 10:34 AM Consult Order COMMUNITY CARE-CT SCAN Cons Farm Equipment Service Technician's Choice EARLENE BORJAS Lab Results: +/- 30 days of the encounter This section includes the Chemistry and Hematology Lab Results on record with [place] for the patient. Radiology Reports and Pathology [...] Aug 19, 2023 10:27 AM Reporting Lab: [facility] [id number] Performing Lab: [facility] [id number] OCCULT BLOOD (FIT) #1 OF 1 Negative Negative Aug 25, 2023 03:55 PM EARLENE BORJAS ALBUMIN/CREATININE RATIO URINE Specimen Type: URINE No comment entered. Ordering Provider: JOSUE ROBERTS Report Released Date/Time: Aug 19, 2023 10:27 AM Reporting Lab: [facility] [id number] Performing Lab: [facility] [id number] CREATININE,UR RANDOM 109.8 mg/dL 58.0-161.0 ALB/CREAT RATIO,UR [...] Aug 19, 2023 10:27 AM Reporting Lab: [facility] [id number] Performing Lab: [facility] [id number] HEMOGLOBIN A1C 5.1 4.0-6.0 Aug 25, 2023 03:28 PM [facility] CBC & DIFF Specimen Type: BLOOD Comment: Automated Differential Performed Ordering Provider: JOSUE ROBERTS Report Released Date/Time: Aug 19, 2023 10:27 AM Reporting Lab: [facility] [id number] Performing Lab: [facility] [id number] WBC 5.61 10*3/uL 4.0-11.0 RBC 4.53 10*6/uL [...] Aug 19, 2023 10:27 AM Reporting Lab: [facility] [id number] Performing Lab: [facility] [address] CREATININE 0.8 mg/dL 0.7-1.2 UREA NITROGEN 20 [...] Aug 19, 2023 10:27 AM Reporting Lab: [facility] [phone] Performing Lab: [facility] [phone] CHOLESTEROL 129 mg/dL <199 .HDL 47 mg/dL >40 LDL CALCULATION 75 mg/dL <99 VLDL CALCULATION 7 mg/dL <29 NON HDL CHOLESTEROL 82 mg/dL <129 TRIG(NON FASTING) 37 mg/dL <149 Social History: Smoking Status (Most current) and Tobacco Use (All prior to encounter date) This section includes the most current, and the historical, smoking and tobacco- related health factors from the [place] facility where the Encounter took place. Current [...] the Encounter. The data comes from the [place] facility where the Encounter took place. Date/Time Smoking Status/Tobacco Use Comment F acmiranda May 28, 2022 02:30 PM VA-TOBACCO NEVER USED [facility] Aug 15, 2021 09:00 AM VA-TOBACCO NEVER USED [facility] Advance Directives: All historical and current Section Date Range: From patient's date of to the date document was created. This section includes ALL of a patient's completed or amended [place] Advance and Rescinded Directives. The entries below indicate that a directive exists for the patient, but an actual copy is not included with this document. The data comes from all [place] facilities. Date Advance Directives Provider Source Aug 15, 2021 ADVANCE DIRECTIVE DISCUSSION MELISSA MCFARLAND SA [facility] Encounter Notes: All associated encounter notes This section contains the clinical notes associated to the Encounter. Date/Time Encounter Note(s) Provider Source Aug 26, 2023 09:44 AM PRIMARY CARE NOTE: LOCAL TITLE: POST DISCHARGE CONTACT STANDARD TITLE: PRIMARY CARE NOTE DATE OF NOTE: AUG 26, 2023@09:44 ENTRY DATE: AUG 26, 2023@09:44:16 AUTHOR: PATRICIA CARDOSOIGNER: URGENCY: STATUS: COMPLETED Location of Discharge: Emergency Department/Urgent Care Contact attempt: 2nd [place] identified by the following: Full Name Date of Contact made through telephone call Reason for hospitalization/Emergency Department/Urgent Care visit: Right-sided flank pain/right low back pain [place]/Caregiver states condition has improved. Symptoms to monitor for health maintenance: Ongoing pain Confirmed no changes made to medications, equipment or supplies. Primary Diagnosis at Discharge: Other Diagnosis: Right-sided flank pain/right low back pain Follow up Service Referrals: Other: As condition has resolved on its own, agreed to continue to monitor and if pain returned he will contact his PACT for re-evaluation No follow up service needs identified at this time Future Appointments: Informed, discussed and confirmed next scheduled appointments Education Provided: Length of time spent: 5 minutes /cat/ Patricia Cardoso, RN Nurse [facility] Signed: 08/26/2023 09:58 PATRICIA CARDOSO [facility]
--- OUTSIDE RECORDS SUMMARY | 2023-09-17 00:03 | XMS_ITS | Encounter Summary ---
Author Name [facility] [place] Organization [place] Address [address] [place] [address] Care Team Providers Care Windlasser Name Role Phone JOSUE ROBERTS Primary Care [...] PRESCRIPT ION RX PLAN Mar 01, 2021 [id number] [phone] KIMBERLEE AGUILERA PATIENT [facility] ([id number]) PRESCRIPT ION RX PLAN Mar 01, 2022 [id number] KIMBERLEE AGUILERA PATIENT [facility] PREFERRED PROVIDER ORGANIZAT ION (PPO) NURYU RACHEL [place] Mar 01, 2022 [id number] KIMBERLEE AGUILERA PATIENT Selected Encounter This section includes the information on record at [place] for the Encounter. Date/Time Encounter Type Encounter Description Reason Pro vider Source Sep 14, 2023 04:20 PM Outpatient Encounter COMMUNITY CARE CONSULT IHE Encounter Template Text not used by [...] of theEncounter. The data comes from all [place] treatment facilities. Test Date/Time Test Type Test Details Facility Name Aug 19, 2023 10:34 AM Consult Order COMMUNITY CARE-CT SCAN Cons Cryptographic Vulnerability Analyst's Choice [facility] Lab Results: +/- 30 days of the encounter This section includes the Chemistry and Hematology Lab Results on record with [place] for the patient. Radiology Reports and Pathology [...] Aug 19, 2023 10:27 AM Reporting Lab: [facility] [phone] Performing Lab: [facility] [phone] OCCULT BLOOD (FIT) #1 OF 1 Negative Negative Aug 25, 2023 03:55 PM [facility] ALBUMIN/CREATININE RATIO URINE Specimen Type: URINE No comment entered. Ordering Provider: JOSUE ROBERTS Report Released Date/Time: Aug 19, 2023 10:27 AM Reporting Lab: [facility] [id number] Performing Lab: [facility] [address] CREATININE,UR RANDOM 109.8 mg/dL 58.0-161.0 ALB/CREAT RATIO,UR [...] Aug 19, 2023 10:27 AM Reporting Lab: [facility] [phone] Performing Lab: [facility] [address] HEMOGLOBIN A1C 5.1 4.0-6.0 Aug 25, 2023 03:28 PM [facility] CBC & DIFF Specimen Type: BLOOD Comment: Automated Differential Performed Ordering Provider: JOSUE ROBERTS Report Released Date/Time: Aug 19, 2023 10:27 AM Reporting Lab: [facility] [address] Performing Lab: [facility] [address] WBC 5.61 10*3/uL 4.0-11.0 RBC 4.53 10*6/uL [...] Aug 19, 2023 10:27 AM Reporting Lab: [facility] [id number] Performing Lab: [facility] [address] CREATININE 0.8 mg/dL 0.7-1.2 UREA NITROGEN 20 [...] Aug 19, 2023 10:27 AM Reporting Lab: [facility] [id number] Performing Lab: [facility] [address] CHOLESTEROL 129 mg/dL <199 .HDL 47 mg/dL [...] this document. The data comes from all [place] facilities. Date Advance Directives Provider Source Aug 15, 2021 ADVANCE DIRECTIVE DISCUSSION MELISSA MCFARLAND [facility] Encounter Notes: All associated encounter notes This section contains the clinical notes associated to the Encounter. Date/Time Encounter Note(s) Provider Source Sep 14, 2023 04:20 PM NONVA NOTE: LOCAL TITLE: COMMUNITY CARE PRE-AUTH LETTER (AUTOPRINT) STANDARD TITLE: NONVA NOTE DATE OF NOTE: SEP 14, 2023@16:20 ENTRY DATE: SEP 14, 2023@16:20:52 AUTHOR: MUMTAZ HAIRSTON COSIGNER: URGENCY: STATUS: COMPLETED Aug KIMBERLEE SANDOVAL [address] [place] [address] [address] [place] [phone] Dear KIMBERLEE SANDOVAL, Your VA provider has referred you to a provider within the community for care. Your medical care for RADIOLOGY/CT SCAN has been authorized with the community care provider listed below. DO NOT REPORT TO THE [facility] Provider info: Care has been approved for the following vendor: Office name, address, and phone number: [address] [address] PH: [phone] Please contact the identified provider to schedule your community appointment. If you need assistance with this appointment, please call your facility community care office [facility] Office of Community Care at [phone] during the hours of 8:30AM - 3:00PM. Please follow up with your local [facility] community care office once this is scheduled. This step is needed to ensure your referral duration is maximized and the [place] has accurate referral information for billing purposes. Authorization Number: [id number] Referral Issue Date: Jul Expiration Date: Sep (subject to change based on first appointment) If you are unable to schedule this appointment or the appointment is no longer needed, please contact the community provider above for notification/rescheduling and then call the [facility] Office of Community Care at [phone] during the hours of 8:30AM - 3:00PM. If you need additional care/services not mentioned above or your authorization has and additional care is needed, please contact your primary care provider for a new referral. To review all care/service(s) approved under your referral, please go to the following link: [facility] [facility]([email or web address]) Co-Payments: If you are required to pay a VA co-payment, you will be billed by the [place] for each authorized visit that you attend. However, you are NOT REQUIRED to make co-payments to a community provider. Thank you for the opportunity to serve you. Sincerely, [place] Community [facility] ([facility]) /cat/ MUMTAZ HAIRSTON [employer] Signed: 09/14/2023 16:[address] [facility]
--- NOTE | 2023-09-17 01:41 | ED_ITS ---
HPI - General Adult General Date Seen: 09/16/23 Chief complaint: Unspecified Complaint, Adult Stated complaint: Painful lump above L eyebrow Time Seen by Provider: 09/16/23 23:34 History of Present Illness HPI narrative: This is a pleasant 63-year-old gentleman presenting to the ER today with his family. [place] and around 8:00 p.m. he began to developed a painful swollen lump affecting his skin of his left lateral eyebrow. It lasted about an hour and then got better on its own. Although it was better, he came to the ER. He says when he came here it seemed to get a little bit worse again but now it is gone and back to normal. No other symptoms tonight. No other swollen areas. No other rashes. No fever. No trouble breathing. He does not know of any bug bite but he wonders if this could have been a insect bite or sting. He also notes that occasionally gets pain in his left ear. This happens often on. Is not happening tonight and he can not tell me for sure when it happened but it sounds like it happened every few days. He also has trouble with a bad tooth affecting his left mandibular 1st molar. He wonders if his ear pain could be related to his bad tooth. No fever chills. No change in hearing. No recent stuffy nose or cough. Related Data Home Medications ?Medication ?Instructions ?Recorded ?Confirmed celecoxib 200 mg capsule 200 mg PO DAILY 11/05/21 01/24/23 hydroxyzine HCl 25 mg tablet 25 mg PO BID PRN 11/05/21 09/16/23 metoprolol succinate 50 mg 50 mg PO DAILY 11/05/21 09/16/23 tablet,extended release 24 hr nortriptyline 10 mg capsule 10 mg PO NIGHTLY 11/05/21 09/16/23 omeprazole 20 mg capsule,delayed 20 mg PO DAILY 08/14/22 09/16/23 release aspirin 81 mg tablet,delayed 81 mg PO QDAY 08/26/22 09/16/23 release (Adult Low Dose Aspirin) Previous Rx's ?Medication ?Instructions ?Recorded amoxicillin 500 mg capsule 1,000 mg (2 x 500 mg) PO BID #20 09/16/23 caps Allergies Allergy/AdvReac Type Severity Reaction Status Date / Time No Known Drug Allergies Allergy Verified 09/16/23 23:17 [facility] Medical History Urinary frequency ?R35.0 - Frequency of micturition (ICD-10) Depression ?F32.A - Depression, unspecified (ICD-10) Migraine ?G43.909 - Migraine, unspecified, not intractable, without status migrainosus (ICD-10) Hypertension ?I10 - Essential (primary) hypertension (ICD-10) Surgical History No significant past surgical history Social History Smoking Status: Never smoker Do you use any of these nicotine containing products: None Second hand tobacco smoke exposure: Yes How often do you have a drink containing alcohol: monthly or less How many standard drinks containing alcohol do you have on a typical day: 1 or 2 How often do you have six or more drinks on one occasion: Never AUDIT-C Alcohol total score: 1 Non-prescribed substance use: denies use service: Yes Exam Narrative: Exam Narrative: Constitutional: Appears well-developed and well-nourished. Alert. Conversant. Non toxic. HENT: Head: Atraumatic. Nose: Nose normal. Mouth/Throat: Oral mucosa is clear and moist. no trismus. Pharynx normal. Tonsils symmetric. No tonsillar enlargement, erythema, or exudate. Gums normal. He does have dental caries affecting several teeth including his left mandibular molars. No submandibular swelling. No trismus. Airway widely patent. Phonation normal. Right ear: Mastoid, pinna, canal, TM are normal. Left ear: Mastoid, pinna, canal, TM are normal. Eyes: Conjunctivae normal. EOM normal. Pupils equal, round, and reactive to light. No scleral icterus. Neck: Normal range of motion. Neck supple. No tracheal deviation present. Cardiovascular: Normal rate, regular rhythm. No gallop. No friction rub. No murmur heard. Pulmonary/Chest: Effort normal. No stridor. No respiratory distress. No wheezes. No rales. No rhonchi . Musculoskeletal: RUE: Normal range of motion. No tenderness. No deformity LUE: Normal range of motion. No tenderness. No deformity RLE: Normal range of motion. No edema. No tenderness. No deformity LLE: Normal range of motion. No edema. No tenderness. No deformity Neurological: Alert and oriented to person, place, and time. Normal strength. CN II-VII intact. No sensory deficit. GCS eye subscore is 4. GCS verbal subscore is 5. GCS motor subscore is 6. Normal coordination Skin: Skin is warm and dry. No rash noted. No pallor. Normal capillary refill. Psychiatric: Normal mood. Normal affect. Const: Vital Signs, click to edit/add: Vital Signs - 24 hr 09/16/23 23:13 Temperature 97.8 F Pulse Rate [Right Pulse Oximeter] 70 Respiratory Rate 18 Blood Pressure [Ri ght Upper Arm] 162/85 H Pulse Oximetry 100 Oxygen Delivery Me thod Room Air Course Vital Signs Vital signs: Initial Vital Signs Temperature 97.8 F 09/16/23 23:13 Temperature Source Temporal Artery Scan 09/16/23 23:13 Pulse Rate 70 09/16/23 23:13 Pulse Rhythm Regular 09/16/23 23:13 Respiratory Rate 18 09/16/23 23:13 Blood Pressure 162/85 H 09/16/23 23:13 Blood Pressure Mean 110 H 09/16/23 23:13 Blood Pressure Position Sitting 09/16/23 23:13 Pulse Oximetry 100 09/16/23 23:13 Oxygen Delivery Method Room Air 09/16/23 23:13 Vital Signs Temperature 97.8 F 09/16/23 23:13 Pulse Rate 70 09/16/23 23:13 Respiratory Rate 18 09/16/23 23:13 Blood Pressure 162/85 H 09/16/23 23:13 Pulse Oximetry 100 09/16/23 23:13 Oxygen Delivery Method Room Air 09/16/23 23:13 Temperature 97.8 F 09/16/23 23:13 Pulse Rate 70 09/16/23 23:13 Respiratory Rate 18 09/16/23 23:13 Blood Pressure 162/85 H 09/16/23 23:13 Pulse Oximetry 100 09/16/23 23:13 Oxygen Delivery Method Room Air 09/16/23 23:13 Medical Decision Making MDM Narrative Medical decision making narrative: This is a pleasant 63-year-old gentleman who presented to the ER today because the skin on his lateral left eyebrow became swollen and painful tonight and lasted about an hour. Is now resolved. Cause unclear. May have been an insect bite or sting. No evidence for other pathology such as anaphylaxis, angioedema. There is no sign of any facial or eyebrow cellulitis. No evidence for periorbital cellulitis. No sign of shingles affecting the face. Symptoms did not affect his eye. Incidentally also notes occasional left ear pain and discomfort in his left mid mandibular molar. No sign of otitis media or otitis externa or TM perforation. The differential diagnosis includes: cracked tooth syndrome, pulpitis, sub- apical abscess, amongst others. There is no abscess detected around the tooth amenable to incision and drainage. There is no evidence of buccinator/canine space infections, significant facial swelling, or Eleno's angina. There are no posterior pharyngeal space infections detected. Suspect pulpitis. Treatment with NSAID, antibiotics. Amoxicillin 1000 mg b.i.d.. Follow up with a dentist/personnel adviser in the coming days is indicated for further work up and treatment. Instructions for return to the ER were reviewed with the patient. Discharge Plan Discharge Clinical Impression: Pain, dental, Facial swelling Patient Disposition: Home, Self-Care Condition: Stable Instructions: Toothache (ED) Additional Instructions: Discussed, for your tooth, you can use ibuprofen 600 mg every 6 hours if needed for pain in your tooth or your ear. Started antibiotics tomorrow and see your dentist as soon as possible to get your 2 3 checked. If you have worsening dental pain, swelling in your tooth or gums, or high fever, come back to the ER right away. At this point the cause of your swollen eyebrow is not clear. It may have been an insect bite or sting. Monitor carefully if you have any recurrent swelling or swelling of other parts of her body, return to the ER right away. Prescriptions: New amoxicillin 500 mg capsule 1,000 mg PO BID Qty: 20 0RF No Action aspirin [Adult Low Dose Aspirin] 81 mg tablet,delayed release (DR/EC) 81 mg PO QDAY celecoxib 200 mg capsule 200 mg PO DAILY Patient Comments: TAKE ONE CAPSULE BY MOUTH ONCE DAILY WITH A MEAL metoprolol succinate 50 mg tablet extended release 24 hr 50 mg PO DAILY Patient Comments: TAKE ONE TABLET BY MOUTH EVERY DAY nortriptyline 10 mg capsule 10 mg PO NIGHTLY Patient Comments: TAKE TWO CAPSULES BY MOUTH AT BEDTIME hydroxyzine HCl 25 mg tablet 25 mg PO BID PRN Patient Comments: TAKE ONE TABLET BY MOUTH TWICE A DAY NEEDED FOR ANXIETY omeprazole 20 mg capsule,delayed release(DR/EC) 20 mg PO DAILY Follow Up/Referrals: Provider,Not a Local [Primary Care Provider] - Stand Alone Forms: [facility] [employer] Info Instructions
== END 2023-09-17 00:06 | disposition home or self-care (01) ==
LOC: ED 23:59
PROVIDERS: Emergency Provider Emergency Medicine
DX: K02.9 Dental caries, unspecified (principal)
CPT/HCPCS: 99282; 99283

== ENCOUNTER 2023-10-22 15:03 | Emergency (ER) | payer OTHER, SELFPAY ==
[2023-10-22 15:29] VITALS: BP 143/87; PULSE 66; RESP 16; TEMP 36.4; O2SAT 98; BMI 25.0
[2023-10-22 16:07] VITALS: BP 139/93; BP 141/86; BP 151/107; PULSE 62; PULSE 65; PULSE 73
[2023-10-22 16:14] LABS: Lactate* 0.9 mmol/L (0.5-1.9)
[2023-10-22 16:17] LABS: Basophils Absolute Auto 0.04 K/uL (0.00-0.30); Basophils Percent Auto 0.7 % (0.0-3.0); Eosinophils Absolute Auto 0.05 K/uL (0.00-0.50); Eosinophils Percent Auto 0.8 % (0.0-7.0); Hematocrit 44.1 % (37.0-53.0); Hemoglobin* 14.5 gm/dL (13.5-17.5); Lymphocytes Percent Auto 14.5 % (20-44); Mean Corpuscular HGB Conc 33 gm/dL (32-36); Mean Corpuscular Hemoglobin 29 pg (26-34); Mean Corpuscular Volume 89 fL (80-100); Monocytes Percent Auto 2.7 % (0.0-11.0); Neutrophils Percent Auto 81.3 % (42.0-72.0); Platelet Count* 156 K/uL (140-440); RDW Coefficient of Variation % 14.5 % (11.5-15.5); Red Blood Count 4.94 m/uL (4.30-5.90); White Blood Count* 5.95 K/uL (4.50-11.00)
[2023-10-22 16:27] LABS: Appearance Urine Clear (Clear); Bilirubin Urine Negative (Negative); Blood Urine Negative (Negative); Color Urine Yellow (Yellow); Glucose Urine Negative (Negative); Ketones Urine Negative (Negative); Leukocyte Esterase Urine Negative (Negative); Nitrite Urine Negative (Negative); Protein Urine Negative (Negative); Urobilinogen Urine 0.2 (0.2-1.0)
--- NOTE | 2023-10-22 16:28 | ED_ITS ---
HPI - General Adult General Chief complaint: Unspecified Complaint, Adult Stated complaint: hot flashes, feels faint Time Seen by Provider: 10/22/23 15:38 Source: patient Mode of arrival: ambulatory Limitations: no limitations History of Present Illness HPI narrative: Patient is a 63-year-old male coming in today concerned about having hot flashes. He states that for the last week he has episode once or twice a day when he is sitting watching TV and he gets hot flash. He stands up walks around for a few seconds and goes away. Does not happen when he is working or when he is busy. This did happen at night when he is sleeping. When it occurs he denies feeling any chest pain, shortness of breath or diaphoresis. He does not get lightheaded. No vision or hearing changes. He does not developed headaches . He denies any other systemic symptoms. Related Data Home Medications ?Medication ?Instructions ?Recorded ?Confirmed hydroxyzine HCl 25 mg tablet 25 mg PO BID PRN 11/05/21 10/22/23 metoprolol succinate 50 mg 50 mg PO DAILY 11/05/21 10/22/23 tablet,extended release 24 hr nortriptyline 10 mg capsule 10 mg PO NIGHTLY 11/05/21 10/22/23 omeprazole 20 mg capsule,delayed 20 mg PO DAILY 08/14/22 10/22/23 release aspirin 81 mg tablet,delayed 81 mg PO QDAY 08/26/22 10/22/23 release (Adult Low Dose Aspirin) celecoxib 50 mg capsule (Celebrex) 50 mg PO DAILY 10/22/23 10/22/23 fluticasone propionate 50 1 spray intranasal 10/22/23 10/22/23 mcg/actuation nasal spray,suspension Previous Rx's ?Medication ?Instructions ?Recorded prednisone 20 mg tablet 20 mg PO QDAY 3 days #3 tabs 10/22/23 Allergies Allergy/AdvReac Type Severity Reaction Status Date / Time No Known Drug Allergies Allergy Verified 10/22/23 15:35 Review of Systems Status of ROS: Reports: 10 or more systems reviewed and unremarkable except as noted in History and below [facility] Medical History Urinary frequency ?R35.0 - Frequency of micturition (ICD-10) Depression ?F32.A - Depression, unspecified (ICD-10) Migraine ?G43.909 - Migraine, unspecified, not intractable, without status migrainosus (ICD-10) Hypertension ?I10 - Essential (primary) hypertension (ICD-10) Surgical History No significant past surgical history Social History Smoking Status: Never smoker Do you use any of these nicotine containing products: None Second hand tobacco smoke exposure: Yes How often do you have a drink containing alcohol: monthly or less How many standard drinks containing alcohol do you have on a typical day: 1 or 2 How often do you have six or more drinks on one occasion: Never AUDIT-C Alcohol total score: 1 Non-prescribed substance use: denies use service: Yes Exam Narrative: Exam Narrative: Well-nourished well-developed patient in no acute distress. Alert and oriented. Answers questions appropriately. Mood and affect are appropriate. Thoughts are goal oriented and rational. No tangential or magical thinking noted. Patient speaks in full sentences without needing to catch his breath. No evidence of orthostatic hypotension. HEENT: Normocephalic atraumatic. Pupils are equally round reactive to light. Extraocular muscles are intact. Conjunctivae are moist without any icterus noted. Moist mucous membranes. Posterior pharynx is normal. Neck is soft without any lymphadenopathy or thyromegaly. No masses are appreciated. Poor dentition. Cardiovascular: Heart is regular rate and rhythm S1 and S2 are present without any murmurs. Lungs: Clear to auscultation bilaterally no wheezes rhonchi or rales are appreciated. Patient takes deep breaths without any discomfort. Abdomen: Soft and nontender nondistended with normal bowel sounds. Extremities: Bilateral lower extremities are without edema. Skin: Well perfused without any obvious rashes. Const: Vital Signs, click to edit/add: Vital Signs - 24 hr 10/22/23 15:29 10/22/23 16:07 10/22/23 17:36 Temperature 97.5 F L Pulse Rate [Pulse Oximeter] 66 58 L Pulse Rate [orthos tatic lying] 62 Pulse Rate [orthos tatic sitting] 73 Pulse Rate [orthos tatic standing] 65 Respiratory Rate 16 18 Blood Pressure [Ri ght Upper Arm] 143/87 H 141/67 H Blood Pressure [or thostatic lying Le ft Arm] 141/86 H Blood Pressure [or thostatic sitting Left Arm] 151/107 H Blood Pressure [or thostatic standing Left Arm] 139/93 H Pulse Oximetry 98 99 Oxygen Delivery Me thod Room Air Room Air Course Course ED Course: EKG, read by me, shows normal sinus rhythm with a pulse of 60. His lab work was entirely unremarkable. Vital Signs Vital signs: Initial Vital Signs Temperature 97.5 F L 10/22/23 15:29 Temperature Source Temporal Artery Scan 10/22/23 15:29 Pulse Rate 66 10/22/23 15:29 Respiratory Rate 16 10/22/23 15:29 Blood Pressure 143/87 H 10/22/23 15:29 Blood Pressure Mean 105 10/22/23 15:29 Pulse Oximetry 98 10/22/23 15:29 Oxygen Delivery Method Room Air 10/22/23 15:29 Vital Signs Temperature 97.5 F L 10/22/23 15:29 Pulse Rate 66 10/22/23 15:29 Respiratory Rate 16 10/22/23 15:29 Blood Pressure 143/87 H 10/22/23 15:29 Pulse Oximetry 98 10/22/23 15:29 Oxygen Delivery Method Room Air 10/22/23 15:29 Temperature 97.5 F L 10/22/23 15:29 Pulse Rate 58 L 10/22/23 17:36 Respiratory Rate 18 10/22/23 17:36 Blood Pressure 141/67 H 10/22/23 17:36 Pulse Oximetry 99 10/22/23 17:36 Oxygen Delivery Method Room Air 10/22/23 17:36 Medical Decision Making [facility] Narrative Medical decision making narrative: 63-year-old male with hot flashes of unclear etiology. We discussed following up with primary care provider if this continues. Lab Data Lab results reviewed: Yes I reviewed the patient's lab results Labs: Lab Results 10/22/23 10/22/23 10/22/23 Range/Units 16:05 16:09 16:15 WBC 5.95 (4.50-11.00) K/uL RBC 4.94 (4.30-5.90) m/uL Hgb 14.5 (13.5-17.5) gm/dL Hct 44.1 (37.0-53.0) % MCV 89 (80-100) fL MCH 29 (26-34) pg MCHC 33 (32-36) gm/dL RDW Coeff of Kaushik 14.5 (11.5-15.5) % Plt Count 156 (140-440) K/uL Neut % (Auto) 81.3 H (42.0-72.0) % Lymph % (Auto) 14.5 L (20-44) % Miner % (Auto) 2.7 (0.0-11.0) % Eos % (Auto) 0.8 (0.0-7.0) % Baso % (Auto) 0.7 (0.0-3.0) % Neut # (Auto) 4.80 (1.7-7.0) K/uL Lymph # (Auto) 0.90 (0.90-2.90) K/uL Miner # (Auto) 0.20 (0.00-0.90) K/UL Eos # (Auto) 0.05 (0.00-0.50) K/uL Baso # (Auto) 0.04 (0.00-0.30) K/uL Abs Immat Gran (auto) 0.00 (0.00-0.30) K/uL Imm/Tot Granulo (auto) 0.0 % Sodium 139 (135-149) mmol/L Potassium 4.3 (3.6-5.1) mmol/L Chloride 108 (96-114) mmol/L Carbon Dioxide 23 (20-32) mmol/L Anion Gap 8 (7-15) mEq/L BUN 18 (7-30) mg/dL Creatinine 0.7 (0.5-1.5) mg/dL Estimated Creat Clear 70.00 Estimated GFR 105 ml/min Glucose 108 (60-115) mg/dL Lactate 0.9 (0.5-1.9) mmol/L Calcium 9.3 (8.4-10.6) mg/dL Magnesium 2.2 (1.5-2.6) mg/dL Total Bilirubin 0.4 (0.1-1.5) mg/dL Direct Bilirubin 0.2 (0.0-0.5) mg/dL AST 31 (12-35) U/L ALT 28 (4-50) U/L Alkaline Phosphatase 87 (40-150) U/L Troponin I < 0.01 L (0.01-0.04) ng/mL Total Protein 7.7 (6.0-8.3) g/dL Albumin 4.6 (3.3-5.0) g/dL TSH 0.274 (0.270-4.20) uIU/mL Urine Color Yellow (Yellow) Urine Appearance Clear (Clear) Urine pH 6.0 (5.0-8.5) Ur Specific [place] 1.010 (1.000-1.030) Urine Protein Negative (Negative) Urine Glucose (UA) Negative (Negative) Urine Ketones Negative (Negative) Urine Blood Negative (Negative) Urine Nitrite Negative (Negative) Urine Bilirubin Negative (Negative) Urine Urobilinogen 0.2 (0.2-1.0) Ur Leukocyte Esterase Negative (Negative) Urine RBC 0-2 (0-2) Urine WBC 0-2 (0-5) Ur Squamous Epith Cells None (None-Few) Urine Bacteria None (None) SARS-CoV-2 (PCR) Negative SARS-CoV-2 (Negative) Monoscreen Negative (Negative) Influenza Type A (PCR) Negative PCR FLU A (Negative) Influenza Type B (PCR) Negative PCR FLU B (Negative) ECG Data Attestation: I personally reviewed and interpreted this ECG as follows: Discharge Plan Discharge Clinical Impression: Hot flash in male Patient Disposition: Home, Self-Care Condition: Stable Additional Instructions: If symptoms continue, I recommend that you follow-up with your primary care provider who may be able to test some hormone levels that we are not be able to do in the emergency department. Prescriptions: No Action aspirin [Adult Low Dose Aspirin] 81 mg tablet,delayed release (DR/EC) 81 mg PO QDAY fluticasone propionate 50 mcg/actuation spray,suspension 1 spray intranasal prednisone 20 mg tablet 20 mg PO QDAY 3 Days Qty: 3 0RF metoprolol succinate 50 mg tablet extended release 24 hr 50 mg PO DAILY Patient Comments: TAKE ONE TABLET BY MOUTH EVERY DAY nortriptyline 10 mg capsule 10 mg PO NIGHTLY Patient Comments: TAKE TWO CAPSULES BY MOUTH AT BEDTIME hydroxyzine HCl 25 mg tablet 25 mg PO BID PRN Patient Comments: TAKE ONE TABLET BY MOUTH TWICE A DAY NEEDED FOR ANXIETY celecoxib [Celebrex] 50 mg capsule 50 mg PO DAILY omeprazole 20 mg capsule,delayed release(DR/EC) 20 mg PO DAILY Follow Up/Referrals: Provider,Not a Local [Primary Care Provider] - Stand Alone Forms: [employer] Info Instructions
[2023-10-22 16:29] LABS: Slide Review Reflex No
[2023-10-22 16:37] LABS: Mono Screen* Negative (Negative)
[2023-10-22 16:39] LABS: Albumin* 4.6 g/dL (3.3-5.0)
[2023-10-22 16:40] LABS: Chloride* 108 mmol/L (96-114); Potassium* 4.3 mmol/L (3.6-5.1); Sodium* 139 mmol/L (135-149)
[2023-10-22 16:42] LABS: Anion Gap 8 mEq/L (7-15); Aspartate Amino Transferase* 31 U/L (12-35); Bilirubin Direct* 0.2 mg/dL (0.0-0.5); Bilirubin Total* 0.4 mg/dL (0.1-1.5); Carbon Dioxide* 23 mmol/L (20-32); Creatinine* 0.7 mg/dL (0.5-1.5); Estimated Glomerular Filt Rate 105 ml/min; Total Protein* 7.7 g/dL (6.0-8.3)
[2023-10-22 16:43] LABS: Alanine Aminotransferase* 28 U/L (4-50); Alkaline Phosphatase* 87 U/L (40-150); Blood Urea Nitrogen* 18 mg/dL (7-30); Calcium* 9.3 mg/dL (8.4-10.6); Glucose* 108 mg/dL (60-115); Magnesium* 2.2 mg/dL (1.5-2.6)
--- OUTSIDE RECORDS SUMMARY | 2023-10-22 16:48 | XMS_ITS | Continuity of Care Document ---
Author Name [facility] Organization [facility] Care Team Providers Care Bulker Name Role Phone [facility] Unavailable Unavailable Problems Combined list of problems from Department of Defense and Veterans Affairs facilities. It does not include entries that were removed or entered in error. Problem Status Onset Date Problem Type Date of Resolution Comments Source Anxiety ([facility] [id number]) Active Condition [facility] Carpal tunnel syndrome of left wrist Active Condition [facility] Degeneration of cervical intervertebral disc Active Condition [facility] GERD - Gastro-Esophageal Reflux Disease ([facility] [id number]) Active Condition [facility] HTN-Hypertension ([facility] [id number]) Active Condition [facility] Migraine Active Condition [facility] Solitary nodule of lung Active Condition Jan 27, 2023 Entered By: REKHA WALKER J Comment: 4.5 mm RIGHT middle lobe CT 12/2022, f/u 6-12 mo [facility] Diagnosis: ICD-10-CM H68.102 Unspecified obstruction of Eustachian tube, left ear Active Diagnosis [facility] Diagnosis: ICD-10-CM R22.0 Localized swelling, mass and lump, head Active Diagnosis [facility] Diagnosis: ICD-10-CM R52 Pain, unspecified Active Diagnosis [facility] Diagnosis: ICD-10-CM Z00.00 Encntr for general adult medical exam w/o abnormal findings Active Diagnosis [facility] Diagnosis: ICD-10-CM R51.9 Headache, unspecified Active Diagnosis [facility] Diagnosis: ICD-10-CM F41.9 Anxiety disorder, unspecified Active Diagnosis [facility] Diagnosis: ICD-10-CM M50.30 Other cervical disc degeneration, [...] ICD-10-CM R10.9 Unspecified abdominal pain Active Diagnosis [facility] Medications Combined list of outpatient [...] May 03, 2023 108 May 03, 2024 [id number] May 03, 2023 [facility] ORAL ACTIVE 05/03/2024 [id number] EDMOND WALKER 2023 108 [facility] CELECOXIB 200MG CAP CELECOXI B 200MG CAP TAKE ONE CAPSULE BY MOUTH EVERY DAY NEEDED FOR MIGRAINE HEADACHE Oct 12, 2022 90 Oct 13, 2023 [id number] A Oct 12, 2022 NSARY MONIQUE N [facility] ORAL 10/13/2023 [id number] Loco DORAN N 2022 90 [facility] CETIRIZINE HCL 10MG TAB CETIRIZI NE HCL 10MG TAB Active TAKE ONE TABLET BY MOUTH EVERY DAY FOR ALLERGIE S FOR ALLERGIE S Sep 23, 2023 30 Oct 23, 2023 [id number] Sep 23, 2023 NESS,RADHA VIA O [facility] ORAL ACTIVE 10/23/2023 [id number] NESS,SYLV IA O 2023 30 [place] [facility] FLUTICASONE PROPIONATE 50MCG/SPRAY SOLN,NASAL, 16GM FLUTICAS ONE PROPIONA TE 50MCG/SP RAY SOLN,QUINTIN AL,16GM Active SPRAY 2 SPRAYS IN EACH NOSTRIL EVERY DAY FOR CONGESTI ON FOR CONGESTI ON Sep 23, 2023 1 Oct 23, 2023 [id number] Sep 23, 2023 NESS,RADHA VIA O [facility] NASAL ACTIVE 10/23/2023 [id number] KGS,RADHAV IA O 2023 1 [place] [facility] HYDROXYZINE HCL 10MG TAB HYDROXYZ INE HCL 10MG TAB Active TAKE TWO TABLETS BY MOUTH TWO TIMES A DAY NEEDED FOR ANXIETY FOR ANXIETY Jan 14, 2023 30 Jan 15, 2024 [id number] Mar 12, 2023 [facility]erline [facility] ORAL ACTIVE 01/15/2024 [id number] EDMOND WALKER 2022 30 [facility] METOPROLOL SUCCINATE 50MG TAB,SA METOPROL OL SUCCINAT E 50MG TAB,SA Active TAKE ONE TABLET BY MOUTH EVERY MORNING May 03, 2023 90 May 03, 2024 [id number] Aug 06, 2023 [facility]erline [facility] ORAL ACTIVE 05/03/2024 [id number] EDMOND WALKER 2023 90 [facility] METOPROLOL SUCCINATE 50MG TAB,SA METOPROL OL SUCCINAT E 50MG TAB,SA Disconti nued TAKE ONE TABLET BY MOUTH EVERY MORNING Apr 22, 2022 90 Apr 23, 2023 [id number] Oct 12, 2022 DEENA LEON [facility] ORAL DISCONT INUED 04/23/2023 [id number] ERIK LEON 2022 90 [facility] NORTRIPTYLI NE HCL 10MG CAP NORTRIPT YLINE HCL 10MG CAP Active TAKE TWO CAPSULES BY MOUTH AT BEDTIME May 03, 2023 180 May 03, 2024 [id number] B Aug 06, 2023 [facility]er[facility] ORAL ACTIVE 05/03/2024 [id number] EDMOND WALKER 2023 180 [facility] NORTRIPTYLI NE HCL 10MG CAP NORTRIPT YLINE HCL 10MG CAP Disconti nued TAKE TWO CAPSULES BY MOUTH AT BEDTIME Apr 22, 2022 180 Apr 23, 2023 [id number] A Oct 12, 2022 DEENA LEON LUCY [facility] ORAL DISCONT INUED 04/23/2023 [id number] ERIK LEON LUCY 2022 180 [facility] SUMATRIPTAN SUCCINATE 100MG TAB SUMATRIP PRUITT SUCCINAT E 100MG TAB Active TAKE ONE TABLET BY MOUTH ONCE NEEDED FOR HEADACHE - MAY REPEAT IN 2 HOURS IF HEADACHE PERSISTS . MAX 200MG PER DAY FOR HEADACHE Mar 18, 2023 9 Mar 18, 2024 [id number] Aug 06, 2023 [facility] ORAL ACTIVE 03/18/2024 [id number] EDMOND WALKER 2023 9 [facility] SUMATRIPTAN SUCCINATE 100MG TAB SUMATRIP PRUITT SUCCINAT E 100MG TAB Disconti nued TAKE ONE TABLET BY MOUTH NEEDED FOR HEADACHE FOR HEADACHE Nov 25, 2022 9 Nov 26, 2023 [id number] Mar 12, 2023 [facility] ORAL DISCONT INUED (EDIT) 11/26/2023 [id number] EDMOND WALKER 2022 9 [facility] Immunizations Combined list of available immunizations from the Department of Defense and Veterans Affairs facilities. Immunization Series Date Given Administered By Site Reaction Lot Number CVX Code Drug Programming Instructor Status Comments Source ZOSTER RECOMBINANT 2 2023 LENNY WAN LEFT DELTO ID [id number] complet ed [id number] [facility] ZOSTER RECOMBINANT 1 2023 ALYSSA NOVAK RIGHT DELTO ID [id number] 187 complet ed ENTER DILUENT LOT# [id number] [facility] INFLUENZA, INJECTABLE, QUADRIVALENT, PRESERVATIVE FREE 2022 RAYMOND,VIRGI JEFF S RIGHT DELTO ID [id number] 150 complet ed [facility] COVID-19 (PFIZER), MRNA, LNP-S, PF, NANNETTE-SUCROSE, 30 MCG/0.3 ML (AGES 12+ YEARS) 2022 309 complet ed [facility] RSV, BIVALENT, PROTEIN SUBUNIT RSVPREF, DILUENT RECONSTITUTED , 0.5 ML, PF 2022 305 complet ed [facility] INFLUENZA, INJECTABLE, QUADRIVALENT, PRESERVATIVE FREE 2022 150 complet ed [facility] TDAP 2022 RAYMOND,VIRGI JEFF S LEFT DELTO ID [id number] 115 complet ed [facility] COVID-19 (YPlan), MRNA, LNP-S, BIVALENT, PF, 30 MCG/0.3 ML DOSE 2021 300 complet ed [facility] INFLUENZA, INJECTABLE, QUADRIVALENT, PRESERVATIVE FREE 2021 150 complet ed [facility] COVID-19 (PFIZER), MRNA, LNP-S, BIVALENT BOOSTER, PF, 30 MCG/0.3 ML DOSE 1 2021 300 complet ed [facility] COVID-19 (YPlan), MRNA, LNP-S, PF, 30 MCG/0.3 ML DOSE, NANNETTE-SUCROSE (AGES 12+ YEARS) [address] [facility] INFLUENZA, INJECTABLE, QUADRIVALENT [address] [facility] INFLUENZA, UNSPECIFIED FORMULATION [address] [facility] COVID-19 (PFIZER), MRNA, LNP-S, PF, 30 MCG/0.3 ML DOSE [address] [facility] COVID-19 (YPlan), MRNA, LNP-S, PF, 30 MCG/0.3 ML DOSE [address] [facility] INFLUENZA, INJECTABLE, QUADRIVALENT [address] [facility] INFLUENZA, INJECTABLE, QUADRIVALENT, PRESERVATIVE FREE [address] [facility] INFLUENZA, INJECTABLE, QUADRIVALENT [address] [facility] INFLUENZA, INJECTABLE, QUADRIVALENT 2017 158 complet ed [facility] INFLUENZA, INJECTABLE, QUADRIVALENT 2016 158 complet ed [facility] INFLUENZA, SEASONAL, INJECTABLE 2013 141 complet ed [facility] INFLUENZA, SEASONAL, INJECTABLE 2012 141 complet ed [facility] TDAP 2011 115 complet ed [facility] INFLUENZA, SEASONAL, INJECTABLE 2011 141 complet ed [facility] INFLUENZA, SEASONAL, INJECTABLE 2010 141 complet ed [facility] INFLUENZA, SEASONAL, INJECTABLE 2009 141 complet ed [facility] POLIO, UNSPECIFIED FORMULATION 1979 89 complet ed [facility] TD (ADULT), 2 LF TETANUS TOXOID, PRESERVATIVE FREE, ADSORBED 1979 09 complet ed [facility] POLIO, UNSPECIFIED FORMULATION 1976 89 complet ed [facility] MEASLES 1976 05 complet ed [facility] POLIO, UNSPECIFIED FORMULATION 1974 89 complet ed [facility] POLIO, UNSPECIFIED FORMULATION 1974 89 complet ed [facility] Results Combined list of recent chemistry, hematology [...] Aug 19, 2023 10:27 AM Reporting Lab: [facility] [phone] Performing Lab: [facility] [address] [facility] ALBUMIN/C REATININE RATIO URINE CREATININE [MASS/VOLU ME] IN URINE 109.8 mg/dL 58.0 - 161.0 08/24 Specimen Type: URINE No comment entered. Ordering Provider: MARGUERITE ROBERTS Report Released Date/Time: Aug 19, 2023 10:27 AM Reporting Lab: [facility] [address] Performing Lab: [facility] [address] [facility] ALBUMIN/C REATININE RATIO URINE MICROALBUM IN/CREATIN INE [MASS RATIO] IN URINE 7.0 mg/g{cre at} <29.9 - 29.9 08/24 Specimen Type: URINE No comment entered. Ordering Provider: MARGUERITE ROBERTS Report Released Date/Time: Aug 19, 2023 10:27 AM Reporting Lab: [facility] [address] Performing Lab: [facility] [phone] [facility] ALBUMIN/C REATININE RATIO URINE MICROALBUM IN [MASS/VOLU ME] IN URINE 7.7 mg/L <29.9 - 29.9 08/24 Specimen Type: URINE No comment entered. Ordering Provider: MARGUERITE ROBERTS Report Released Date/Time: Aug 19, 2023 10:27 AM Reporting Lab: [facility] [address] Performing Lab: [facility] [address] [facility] CBC & DIFF LEUKOCYTES [#/VOLUME] IN BLOOD BY AUTOMATED COUNT 5.61 10*3/uL 4.0 - 11.0 08/24 Specimen Type: BLOOD Comment: Automated Differentia l Performed Ordering Provider: MARGUERITE ROBERTS Report Released Date/Time: Aug 19, 2023 10:27 AM Reporting Lab: [facility] [address] Performing Lab: [facility] [address] [facility] CBC & DIFF ERYTHROCYT ES [#/VOLUME] IN BLOOD BY AUTOMATED COUNT 4.53 10*6/uL 4.6 - 6.2 08/24 L Specimen Type: BLOOD Comment: Automated Differentia l Performed Ordering Provider: MARGUERITE ROBERTS Report Released Date/Time: Aug 19, 2023 10:27 AM Reporting Lab: [facility] [address] Performing Lab: [facility] [phone] [facility] CBC & DIFF HEMOGLOBIN [MASS/VOLU ME] IN BLOOD 13.8 g/dL 13.5 - 17.9 08/24 Specimen Type: BLOOD Comment: Automated Differentia l Performed Ordering Provider: MARGUERITE ROBERTS Report Released Date/Time: Aug 19, 2023 10:27 AM Reporting Lab: [facility] [address] Performing Lab: [facility] [address] [facility] CBC & DIFF HEMATOCRIT [VOLUME FRACTION] OF BLOOD BY AUTOMATED COUNT 40.3 41 - 54 08/24 L Specimen Type: BLOOD Comment: Automated Differentia l Performed Ordering Provider: MARGUERITE ROBERTS Report Released Date/Time: Aug 19, 2023 10:27 AM Reporting Lab: [facility] [address] Performing Lab: [facility] [address] [facility] CBC & DIFF MCV [ENTITIC VOLUME] BY AUTOMATED COUNT 89.0 fL 80 - 100 08/24 Specimen Type: BLOOD Comment: Automated Differentia l Performed Ordering Provider: MARGUERITE ROBERTS Report Released Date/Time: Aug 19, 2023 10:27 AM Reporting Lab: [facility] [address] Performing Lab: [facility] [address] [facility] CBC & DIFF MCH [ENTITIC MASS] BY AUTOMATED COUNT 30.5 pg 27 - 33 08/24 Specimen Type: BLOOD Comment: Automated Differentia l Performed Ordering Provider: MARGUERITE ROBERTS Report Released Date/Time: Aug 19, 2023 10:27 AM Reporting Lab: [facility] [address] Performing Lab: [facility] [address] [facility] CBC & DIFF MCHC [MASS/VOLU ME] BY AUTOMATED COUNT 34.2 g/dL 32.0 - 37.5 08/24 Specimen Type: BLOOD Comment: Automated Differentia l Performed Ordering Provider: MARGUERITE ROBERTS Report Released Date/Time: Aug 19, 2023 10:27 AM Reporting Lab: [facility] [address] Performing Lab: [facility] [address] [facility] CBC & DIFF PLATELETS [#/VOLUME] IN BLOOD BY AUTOMATED COUNT 174 10*3/uL 150 - 400 08/24 Specimen Type: BLOOD Comment: Automated Differentia l Performed Ordering Provider: MARGUERITE ROBERTS Report Released Date/Time: Aug 19, 2023 10:27 AM Reporting Lab: [facility] [address] Performing Lab: [facility] [address] [facility] CBC & DIFF PLATELET MEAN VOLUME [ENTITIC VOLUME] IN BLOOD BY AUTOMATED COUNT 12.6 fL 7.4 - 10.4 08/24 H Specimen Type: BLOOD Comment: Automated Differentia l Performed Ordering Provider: MARGUERITE ROBERTS Report Released Date/Time: Aug 19, 2023 10:27 AM Reporting Lab: [facility] [address] Performing Lab: [facility] [address] [facility] CBC & DIFF NEUTROPHIL S/100 LEUKOCYTES IN BLOOD BY MANUAL COUNT 51.9 40.0 - 80.0 08/24 Specimen Type: BLOOD Comment: Automated Differentia l Performed Ordering Provider: MARGUERITE ROBERTS Report Released Date/Time: Aug 19, 2023 10:27 AM Reporting Lab: [facility] [address] Performing Lab: [facility] [address] [facility] CBC & DIFF LYMPHOCYTE S/100 LEUKOCYTES IN BLOOD BY MANUAL COUNT 33.2 15.0 - 45.0 08/24 Specimen Type: BLOOD Comment: Automated Differentia l Performed Ordering Provider: MARGUERITE ROBERTS Report Released Date/Time: Aug 19, 2023 10:27 AM Reporting Lab: [facility] [address] Performing Lab: [facility] [address] [facility] CBC & DIFF MONOCYTES/ 100 LEUKOCYTES IN BLOOD BY AUTOMATED COUNT 10.0 2.0 - 12.0 08/24 Specimen Type: BLOOD Comment: Automated Differentia l Performed Ordering Provider: MARGUERITE ROBERTS Report Released Date/Time: Aug 19, 2023 10:27 AM Reporting Lab: [facility] [address] Performing Lab: [facility] [address] [facility] CBC & DIFF EOSINOPHIL S/100 LEUKOCYTES IN BLOOD BY AUTOMATED COUNT 3.6 0.0 - 6.0 08/24 Specimen Type: BLOOD Comment: Automated Differentia l Performed Ordering Provider: MARGUERITE ROBERTS Report Released Date/Time: Aug 19, 2023 10:27 AM Reporting Lab: [facility] [address] Performing Lab: [facility] [address] [facility] CBC & DIFF BASOPHILS/ 100 LEUKOCYTES IN BLOOD BY MANUAL COUNT 1.1 0.0 - 2.0 08/24 Specimen Type: BLOOD Comment: Automated Differentia l Performed Ordering Provider: MARGUERITE ROBERTS Report Released Date/Time: Aug 19, 2023 10:27 AM Reporting Lab: [facility] [address] Performing Lab: [facility] [address] [facility] CBC & DIFF ERYTHROCYT E DISTRIBUTI ON WIDTH [RATIO] BY AUTOMATED COUNT 14.5 11.5 - 14.5 08/24 Specimen Type: BLOOD Comment: Automated Differentia l Performed Ordering Provider: MARGUERITE ROBERTS Report Released Date/Time: Aug 19, 2023 10:27 AM Reporting Lab: [facility] [address] Performing Lab: [facility] [address] [facility] CBC & DIFF LYMPHOCYTE S [#/VOLUME] IN BLOOD BY AUTOMATED COUNT 1.86 10*3/uL 1.0 - 4.0 08/24 Specimen Type: BLOOD Comment: Automated Differentia l Performed Ordering Provider: MARGUERITE ROBERTS Report Released Date/Time: Aug 19, 2023 10:27 AM Reporting Lab: [facility] [address] Performing Lab: [facility] [address] [facility] CBC & DIFF MONOCYTES [#/VOLUME] IN BLOOD BY AUTOMATED COUNT 0.56 10*3/uL 0.1 - 1.0 08/24 Specimen Type: BLOOD Comment: Automated Differentia l Performed Ordering Provider: MARGUERITE ROBERTS Report Released Date/Time: Aug 19, 2023 10:27 AM Reporting Lab: [facility] [address] Performing Lab: [facility] [address] [facility] CBC & DIFF NEUTROPHIL S [#/VOLUME] IN BLOOD BY AUTOMATED COUNT 2.92 10*3/uL 2.0 - 7.7 08/24 Specimen Type: BLOOD Comment: Automated Differentia l Performed Ordering Provider: MARGUERITE ROBERTS Report Released Date/Time: Aug 19, 2023 10:27 AM Reporting Lab: [facility] [address] Performing Lab: [facility] [address] [facility] CBC & DIFF EOSINOPHIL S [#/VOLUME] IN BLOOD BY AUTOMATED COUNT 0.20 10*3/uL 0 - 0.5 08/24 Specimen Type: BLOOD Comment: Automated Differentia l Performed Ordering Provider: MARGUERITE ROBERTS Report Released Date/Time: Aug 19, 2023 10:27 AM Reporting Lab: [facility] [address] Performing Lab: [facility] [address] [facility] CBC & DIFF BASOPHILS [#/VOLUME] IN BLOOD BY AUTOMATED COUNT 0.06 10*3/uL 0 - 0.2 08/24 Specimen Type: BLOOD Comment: Automated Differentia l Performed Ordering Provider: MARGUERITE ROBERTS Report Released Date/Time: Aug 19, 2023 10:27 AM Reporting Lab: [facility] [address] Performing Lab: [facility] [address] [facility] CBC & DIFF IG(META,MY SARAH,PRO) 0.2 08/24 Specimen Type: BLOOD Comment: Automated Differentia l Performed Ordering Provider: MARGUERITE ROBERTS Report Released Date/Time: Aug 19, 2023 10:27 AM Reporting Lab: [facility] [address] Performing Lab: [facility] [address] [facility] CBC & DIFF IMMATURE GRANULOCYT ES [PRESENCE] IN BLOOD BY AUTOMATED COUNT 0.01 10*3/uL 0 - 0.1 08/24 Specimen Type: BLOOD Comment: Automated Differentia l Performed Ordering Provider: MARGUERITE ROBERTS Report Released Date/Time: Aug 19, 2023 10:27 AM Reporting Lab: [facility] [address] Performing Lab: [facility] [address] [facility] COMPREHEN SIVE METABOLIC PANEL+MG CREATININE [MASS/VOLU ME] IN SERUM OR PLASMA 0.8 mg/dL 0.7 - 1.2 08/24 Specimen Type: PLASMA No comment entered. Ordering Provider: MARGUERITE ROBERTS Report Released Date/Time: Aug 19, 2023 10:27 AM Reporting Lab: [facility] [address] Performing Lab: [facility] [address] [facility] COMPREHEN SIVE METABOLIC PANEL+MG UREA NITROGEN [MASS/VOLU ME] IN SERUM OR PLASMA 20 mg/dL 8 - 08/24 Specimen Type: PLASMA No comment entered. Ordering Provider: MARGUERITE ROBERTS Report Released Date/Time: Aug 19, 2023 10:27 AM Reporting Lab: [facility] [phone] Performing Lab: [facility] [address] [facility] COMPREHEN SIVE METABOLIC PANEL+MG GLUCOSE [MASS/VOLU ME] IN SERUM OR PLASMA 81 mg/dL 70 - 100 08/24 Specimen Type: PLASMA No comment entered. Ordering Provider: MARGUERITE ROBERTS Report Released Date/Time: Aug 19, 2023 10:27 AM Reporting Lab: [facility] [address] Performing Lab: [facility] [address] [facility] COMPREHEN SIVE METABOLIC PANEL+MG SODIUM [MOLES/VOL UME] IN SERUM OR PLASMA 141 mmol/L 136 - 145 08/24 Specimen Type: PLASMA No comment entered. Ordering Provider: MARGUERITE ROBERTS Report Released Date/Time: Aug 19, 2023 10:27 AM Reporting Lab: [facility] [address] Performing Lab: [facility] [address] [facility] COMPREHEN SIVE METABOLIC PANEL+MG POTASSIUM [MOLES/VOL UME] IN SERUM OR PLASMA 4.1 mmol/L 3.5 - 5.1 08/24 Specimen Type: PLASMA No comment entered. Ordering Provider: MARGUERITE ROBERTS Report Released Date/Time: Aug 19, 2023 10:27 AM Reporting Lab: [facility] [address] Performing Lab: [facility] [address] [facility] COMPREHEN SIVE METABOLIC PANEL+MG CHLORIDE [MOLES/VOL UME] IN SERUM OR PLASMA 111 mmol/L 98 - 107 08/24 H Specimen Type: PLASMA No comment entered. Ordering Provider: MARGUERITE ROBERTS Report Released Date/Time: Aug 19, 2023 10:27 AM Reporting Lab: [facility] [address] Performing Lab: [facility] [address] [facility] COMPREHEN SIVE METABOLIC PANEL+MG CARBON DIOXIDE, TOTAL [MOLES/VOL UME] IN SERUM OR PLASMA 20 mmol/L 22 - 29 08/24 L Specimen Type: PLASMA No comment entered. Ordering Provider: MARGUERITE ROBERTS Report Released Date/Time: Aug 19, 2023 10:27 AM Reporting Lab: [facility] [address] Performing Lab: [facility] [address] [facility] COMPREHEN SIVE METABOLIC PANEL+MG CALCIUM [MASS/VOLU ME] IN SERUM OR PLASMA 9.2 mg/dL 8.4 - 10.2 08/24 Specimen Type: PLASMA No comment entered. Ordering Provider: MARGUERITE ROBERTS Report Released Date/Time: Aug 19, 2023 10:27 AM Reporting Lab: [facility] [address] Performing Lab: [facility] [address] [facility] COMPREHEN SIVE METABOLIC PANEL+MG PROTEIN [MASS/VOLU ME] IN SERUM OR PLASMA 6.8 g/dL 6.0 - 8.3 08/24 Specimen Type: PLASMA No comment entered. Ordering Provider: MARGUERITE ROBERTS Report Released Date/Time: Aug 19, 2023 10:27 AM Reporting Lab: [facility] [address] Performing Lab: [facility] [address] [facility] COMPREHEN SIVE METABOLIC PANEL+MG ALBUMIN [MASS/VOLU ME] IN SERUM OR PLASMA 3.9 g/dL 3.5 - 5.2 08/24 Specimen Type: PLASMA No comment entered. Ordering Provider: MARGUERITE ROBERTS Report Released Date/Time: Aug 19, 2023 10:27 AM Reporting Lab: [facility] [address] Performing Lab: [facility] [address] [facility] COMPREHEN SIVE METABOLIC PANEL+MG BILIRUBIN. TOTAL [MASS/VOLU ME] IN SERUM OR PLASMA 0.4 mg/dL 0.2 - 1.2 08/24 Specimen Type: PLASMA No comment entered. Ordering Provider: MARGUERITE ROBERTS Report Released Date/Time: Aug 19, 2023 10:27 AM Reporting Lab: [facility] [address] Performing Lab: [facility] [address] [facility] COMPREHEN SIVE METABOLIC PANEL+MG MAGNESIUM [MASS/VOLU ME] IN SERUM OR PLASMA 2.0 mg/dL 1.6 - 2.6 08/24 Specimen Type: PLASMA No comment entered. Ordering Provider: MARGUERITE ROBERTS Report Released Date/Time: Aug 19, 2023 10:27 AM Reporting Lab: [facility] [address] Performing Lab: [facility] [address] [facility] COMPREHEN SIVE METABOLIC PANEL+MG ANION GAP IN SERUM OR PLASMA 10 mmol/L 5 - 15 08/24 Specimen Type: PLASMA No comment entered. Ordering Provider: MARGUERITE ROBERTS Report Released Date/Time: Aug 19, 2023 10:27 AM Reporting Lab: [facility] [address] Performing Lab: [facility] [address] [facility] COMPREHEN SIVE METABOLIC PANEL+MG ALKALINE PHOSPHATAS E [ENZYMATIC ACTIVITY/V OLUME] IN SERUM OR PLASMA 91 U/L 40 - 150 08/24 Specimen Type: PLASMA No comment entered. Ordering Provider: MARGUERITE ROBERTS Report Released Date/Time: Aug 19, 2023 10:27 AM Reporting Lab: [facility] [address] Performing Lab: [facility] [address] [facility] COMPREHEN SIVE METABOLIC PANEL+MG ALANINE AMINOTRANS FERASE [ENZYMATIC ACTIVITY/V OLUME] IN SERUM OR PLASMA 18 U/L <55 - 55 08/24 Specimen Type: PLASMA No comment entered. Ordering Provider: MARGUERITE ROBERTS Report Released Date/Time: Aug 19, 2023 10:27 AM Reporting Lab: [facility] [address] Performing Lab: [facility] [address] [facility] COMPREHEN SIVE METABOLIC PANEL+MG ASPARTATE AMINOTRANS FERASE [ENZYMATIC ACTIVITY/V OLUME] IN SERUM OR PLASMA 22 U/L <34 - 34 08/24 Specimen Type: PLASMA No comment entered. Ordering Provider: MARGUERITE ROBERTS Report Released Date/Time: Aug 19, 2023 10:27 AM Reporting Lab: [facility] [id number] Performing Lab: [facility] [address] EARLENE BORJAS COMPREHEN SIVE METABOLIC PANEL+MG GLOMERULAR FILTRATION RATE/1.73 SQ M.PREDICTE D [VOLUME RATE/AREA] IN SERUM, PLASMA OR BLOOD BY CREATININE -BASED FORMULA (CKD-EPI 2020) >90 60 08/24 Specimen Type: PLASMA No comment entered. Ordering Provider: MARGUERITE ROBERTS Report Released Date/Time: Aug 19, 2023 10:27 AM Reporting Lab: [facility] [id number] Performing Lab: [facility] [address] EARLENE BORJAS HEMOGLOBI N A1C HEMOGLOBIN A1C/HEMOGL OBIN.TOTAL IN BLOOD 5.1 4.0 - 6.0 08/24 Specimen Type: BLOOD Comment: Values obtained from A1C measurement s can vary. For typical A1C assays, a reported value of 7.0 could actually be between 6.7 and 7.3 if measured by a reference method. A reported value of 9.0 could actually be between 8.7 and 9.3. Ref: [email or web address] [email or web address] Pdata.asp Ordering Provider: MARGUERITE ROBERTS Report Released Date/Time: Aug 19, 2023 10:27 AM Reporting Lab: [facility] [phone] Performing Lab: [facility] [id number] EARLENE C SRIVASTAVA [facility] LIPID PANEL,NON -FASTING CHOLESTERO L [MASS/VOLU ME] IN SERUM OR PLASMA 129 mg/dL <199 - 199 08/24 Specimen Type: PLASMA No comment entered. Ordering Provider: MARGUERITE ROBERTS Report Released Date/Time: Aug 19, 2023 10:27 AM Reporting Lab: [facility] [phone] Performing Lab: [facility] [address] [facility] LIPID PANEL,NON -FASTING CHOLESTERO L IN HDL [MASS/VOLU ME] IN SERUM OR PLASMA 47 mg/dL 40 08/24 Specimen Type: PLASMA No comment entered. Ordering Provider: MARGUERITE ROBERTS Report Released Date/Time: Aug 19, 2023 10:27 AM Reporting Lab: [facility] [phone] Performing Lab: [facility] [address] [facility] LIPID PANEL,NON -FASTING CHOLESTERO L IN LDL [MASS/VOLU ME] IN SERUM OR PLASMA BY CALCULATIO N 75 mg/dL <99 - 99 08/24 Specimen Type: PLASMA No comment entered. Ordering Provider: MARGUERITE ROBERTS Report Released Date/Time: Aug 19, 2023 10:27 AM Reporting Lab: [facility] [address] Performing Lab: [facility] [address] [facility] LIPID PANEL,NON -FASTING CHOLESTERO L IN VLDL [MASS/VOLU ME] IN SERUM OR PLASMA BY CALCULATIO N 7 mg/dL <29 - 29 08/24 Specimen Type: PLASMA No comment entered. Ordering Provider: MARGUERITE ROBERTS Report Released Date/Time: Aug 19, 2023 10:27 AM Reporting Lab: [facility] [address] Performing Lab: [facility] [address] [facility] LIPID PANEL,NON -FASTING CHOLESTERO L NON HDL [MASS/VOLU ME] IN SERUM OR PLASMA 82 mg/dL <129 - 129 08/24 Specimen Type: PLASMA No comment entered. Ordering Provider: MARGUERITE ROBERTS Report Released Date/Time: Aug 19, 2023 10:27 AM Reporting Lab: [facility] [address] Performing Lab: [facility] [address] [facility] LIPID PANEL,NON -FASTING TRIGLYCERI DE [MASS/VOLU ME] IN SERUM OR PLASMA 37 mg/dL <149 - 149 08/24 Specimen Type: PLASMA No comment entered. Ordering Provider: MARGUERITE ROBERTS Report Released Date/Time: Aug 19, 2023 10:27 AM Reporting Lab: [facility] [address] Performing Lab: [facility] [address] [facility] OCCULT BLOOD FIT X1 SCREEN HEMOGLOBIN .GASTROINT ESTINAL.LO WER [PRESENCE] IN STOOL BY IMMUNOASSA Y Negative 09/28 Specimen Type: FECES No comment entered. Ordering Provider: FILIBERTO DORAN Report Released Date/Time: Aug 21, 2022 07:10 AM Reporting Lab: [facility] [phone] Performing Lab: [facility] [address] [facility] HEMOGLOBI N A1C [...] Apr 22, 2022 09:52 AM Reporting Lab: [facility] [address] Performing Lab: [facility] [address] [facility] LIPID PANEL,NON -FASTING CHOLESTERO L [MASS/VOLU ME] IN SERUM OR PLASMA 135 mg/dL 08/21 Specimen Type: PLASMA No comment entered. Ordering Provider: EVE LEON Report Released Date/Time: Apr 22, 2022 09:52 AM Reporting Lab: [facility] [address] Performing Lab: [facility] [address] [facility] LIPID PANEL,NON -FASTING CHOLESTERO L IN HDL [MASS/VOLU ME] IN SERUM OR PLASMA 46 mg/dL 08/21 Specimen Type: PLASMA No comment entered. Ordering Provider: EVE LEON Report Released Date/Time: Apr 22, 2022 09:52 AM Reporting Lab: [facility] [address] Performing Lab: [facility] [address] [facility] LIPID PANEL,NON -FASTING CHOLESTERO L IN LDL [MASS/VOLU ME] IN SERUM OR PLASMA BY CALCULATIO N 79 mg/dL 08/21 Specimen Type: PLASMA No comment entered. Ordering Provider: EVE LEON Report Released Date/Time: Apr 22, 2022 09:52 AM Reporting Lab: [facility] [address] Performing Lab: [facility] [address] [facility] LIPID PANEL,NON -FASTING CHOLESTERO L IN VLDL [MASS/VOLU ME] IN SERUM OR PLASMA BY CALCULATIO N 10 mg/dL 08/21 Specimen Type: PLASMA No comment entered. Ordering Provider: EVE LEON Report Released Date/Time: Apr 22, 2022 09:52 AM Reporting Lab: [facility] [address] Performing Lab: [facility] [address] [facility] LIPID PANEL,NON -FASTING CHOLESTERO L NON HDL [MASS/VOLU ME] IN SERUM OR PLASMA 89 mg/dL 08/21 Specimen Type: PLASMA No comment entered. Ordering Provider: EVE LEON Report Released Date/Time: Apr 22, 2022 09:52 AM Reporting Lab: [facility] [address] Performing Lab: [facility] [address] [facility] LIPID PANEL,NON -FASTING TRIGLYCERI DE [MASS/VOLU ME] IN SERUM OR PLASMA 50 mg/dL 08/21 Specimen Type: PLASMA No comment entered. Ordering Provider: EVE LEON Report Released Date/Time: Apr 22, 2022 09:52 AM Reporting Lab: [facility] [address] Performing Lab: [facility] [address] [facility] BASIC METABOLIC PANEL+MG CREATININE [MASS/VOLU ME] IN SERUM OR PLASMA 0.8 mg/dL 0.7 - 1.2 08/21 Specimen Type: PLASMA No comment entered. Ordering Provider: FILIBERTO DORAN Report Released Date/Time: Aug 21, 2022 07:11 AM Reporting Lab: [facility] [address] Performing Lab: [facility] [address] [facility] BASIC METABOLIC PANEL+MG UREA NITROGEN [MASS/VOLU ME] IN SERUM OR PLASMA 15 mg/dL 8 - 26 08/21 Specimen Type: PLASMA No comment entered. Ordering Provider: FILIBERTO DORAN Report Released Date/Time: Aug 21, 2022 07:11 AM Reporting Lab: [facility] [address] Performing Lab: [facility] [address] [facility] BASIC METABOLIC PANEL+MG GLUCOSE [MASS/VOLU ME] IN SERUM OR PLASMA 72 mg/dL 70 - 100 08/21 Specimen Type: PLASMA No comment entered. Ordering Provider: FILIBERTO DORAN Report Released Date/Time: Aug 21, 2022 07:11 AM Reporting Lab: [facility] [address] Performing Lab: [facility] [address] [facility] BASIC METABOLIC PANEL+MG SODIUM [MOLES/VOL UME] IN SERUM OR PLASMA 137 mmol/L 136 - 145 08/21 Specimen Type: PLASMA No comment entered. Ordering Provider: FILIBERTO DORAN Report Released Date/Time: Aug 21, 2022 07:11 AM Reporting Lab: [facility] [address] Performing Lab: [facility] [address] [facility] BASIC METABOLIC PANEL+MG POTASSIUM [MOLES/VOL UME] IN SERUM OR PLASMA 3.9 mmol/L 3.5 - 5.1 08/21 Specimen Type: PLASMA No comment entered. Ordering Provider: FILIBERTO DORAN Report Released Date/Time: Aug 21, 2022 07:11 AM Reporting Lab: [facility] [address] Performing Lab: [facility] [address] [facility] BASIC METABOLIC PANEL+MG CHLORIDE [MOLES/VOL UME] IN SERUM OR PLASMA 106 mmol/L 98 - 107 08/21 Specimen Type: PLASMA No comment entered. Ordering Provider: FILIBERTO DORAN Report Released Date/Time: Aug 21, 2022 07:11 AM Reporting Lab: [facility] [address] Performing Lab: [facility] [address] [facility] BASIC METABOLIC PANEL+MG CARBON DIOXIDE, TOTAL [MOLES/VOL UME] IN SERUM OR PLASMA 24 mmol/L 22 - 29 08/21 Specimen Type: PLASMA No comment entered. Ordering Provider: FILIBERTO DORAN Report Released Date/Time: Aug 21, 2022 07:11 AM Reporting Lab: [facility] [address] Performing Lab: [facility] [address] [facility] BASIC METABOLIC PANEL+MG CALCIUM [MASS/VOLU ME] IN SERUM OR PLASMA 9.1 mg/dL 8.4 - 10.2 08/21 Specimen Type: PLASMA No comment entered. Ordering Provider: FILIBERTO DORAN Report Released Date/Time: Aug 21, 2022 07:11 AM Reporting Lab: [facility] [address] Performing Lab: [facility] [address] [facility] BASIC METABOLIC PANEL+MG MAGNESIUM [MASS/VOLU ME] IN SERUM OR PLASMA 2.0 mg/dL 1.6 - 2.6 08/21 Specimen Type: PLASMA No comment entered. Ordering Provider: FILIBERTO DORAN Report Released Date/Time: Aug 21, 2022 07:11 AM Reporting Lab: [facility] [address] Performing Lab: [facility] [address] [facility] BASIC METABOLIC PANEL+MG ANION GAP IN SERUM OR PLASMA 7 mmol/L 5 - 15 08/21 Specimen Type: PLASMA No comment entered. Ordering Provider: FILIBERTO DORAN Report Released Date/Time: Aug 21, 2022 07:11 AM Reporting Lab: [facility] [address] Performing Lab: [facility] [address] [facility] BASIC METABOLIC PANEL+MG GLOMERULAR FILTRATION RATE/1.73 SQ M.PREDICTE D [VOLUME RATE/AREA] IN SERUM, PLASMA OR BLOOD BY CREATININE -BASED FORMULA (CKD-EPI 2020) >90 08/21 Specimen Type: PLASMA No comment entered. Ordering Provider: FILIBERTO DORAN Report Released Date/Time: Aug 21, 2022 07:11 AM Reporting Lab: [facility] [address] Performing Lab: [facility] [address] [facility] Vital Signs Combined list of inpatient and [...] Date DC Date Status Disposition Source [facility] Outpatient Encounter [id number] 05/20 [place] [facility] [place]MIN [id number] Diagnos is: ICD-10- CM I10 Essenti al (primar y) hyperte nsion<b r/> ANA M LEON 05/28 [facility] [place] [facility] Outpatient Encounter [id number] ESTELAKEDAR M 07/24 [place] [facility] [place] [facility] Outpatient Encounter [id number] ESTELAKEDAR M 08/17 [place] [facility] [place] [facility] Outpatient Encounter [id number] ESTELAKEDAR M 08/17 [place] [facility] [place] [place] [facility] EMERGENCY DEPT VISIT [facility] [id number] Diagnos is: ICD-10- CM R10.9 Unspeci fied abdomin al pain
BYRNE,AB DISAMAD M 08/18 [place] [facility] [place] [place] [facility] Outpatient Encounter [id number] 08/19 [place] [facility] [place] [facility] Outpatient Encounter [id number] ELYSSA VILLA 08/19 [place] [facility] [place] [facility] Outpatient Encounter [id number] SA SARITA FRENCH 08/19 [place] [facility] [place] [facility] Outpatient Encounter [id number] 08/21 [place] [facility] Outpatient Encounter [id number] Diagnos is: ICD-10- CM I10 Essenti al (primar y) hyperte nsion<b r/> NSUBUGA,CH RISTINE N 08/21 [facility] [place] [facility] Outpatient Encounter [id number] RA MARITO PARSON 08/26 [place] [facility] HC PRO PHONE CALL 5-10 MIN [id number] Diagnos is: ICD-10- CM I10 Essenti al (primar y) hyperte nsion<b r/> LISSETH CARDOSO CCA R 08/31 [facility] [place] [facility] Outpatient Encounter [id number] 11/13 [place] [facility] [place] [facility] Outpatient Encounter [id number] 11/23 [place] [facility] [place] [facility] Outpatient Encounter [id number] 11/27 [place] [facility] [place] [facility] Outpatient Encounter [id number] JOANN BENNETT 12/09 [place] [facility] HC PRO PHONE CALL 5-10 MIN [id number] Diagnos is: ICD-10- CM M79.642 Pain in left hand
LISSETH CARDOSO CCA R 12/10 [facility] [place] [facility] Outpatient Encounter [id number] ANDREA SAMANO 12/18 [place] [facility] Outpatient Encounter [id number] 12/18 [facility] [place] [facility] Outpatient Encounter [id number] LEROY HEREDIA 12/28 [place] [facility] [place] [facility] Outpatient Encounter [id number] ASHLEIGH BUTTS 01/04 [place] [facility] [place] [facility] Outpatient Encounter [id number] ÁNGEL LUDWIG 01/07 [place] [facility] OFFICE O/P EST HI 40-54 MIN [id number] Diagnos is: ICD-10- CM G43.909 Migrain e, unsp, not intract able, without status migrain osus
ROWAN WALKER SON J 01/14 [facility] [place] [facility] Outpatient Encounter [id number] KEDAR PALMER Brittany Mendoza 01/19 [place] [facility] [place] [facility] Outpatient Encounter [id number] HERNESTOMELISSA Alonso R 01/23 [place] [facility] [place] [place] [facility] Outpatient Encounter [id number] KEDAR PALMER Brittany Mendoza 01/25 [place] [facility] OFFICE O/P EST HI 40-54 MIN [id number] Diagnos is: ICD-10- CM M50.30 Other cervica l disc degener ation, unsp cervica l region< br/> ROWAN WALKER SON J 02/10 [facility] [place] [facility] Outpatient Encounter [id number] Fani LARSEN R 02/12 [place] [facility] [place] [place] [facility] Outpatient Encounter [id number] Juan Luis CHISHOLM 02/23 [place] [facility] [place] [facility] Outpatient Encounter [id number] Brittany ZAMBRANO 04/15 [place] [facility] [place] [place] [facility] Outpatient Encounter [id number] LIANA JOHNSON 04/16 [place] [facility] [place] [place] [facility] Outpatient Encounter [id number] SABINA NUNO 04/20 [place] [facility] [place] [facility] Outpatient Encounter [id number] KATHRYN HELTON 04/26 [place] [facility] HC PRO PHONE CALL 5-10 MIN [id number] Diagnos is: ICD-10- CM F41.9 Anxiety disorde r, unspeci fied
LISSETH CARDOSO CCA R 04/29 [facility] OFFICE O/P EST HI 40 MIN [id number] Diagnos is: ICD-10- CM F41.9 Anxiety disorde r, unspeci fied
ROWAN WALKER J 05/02 [facility] [place] [facility] Outpatient Encounter [id number] 05/02 [place] [facility] OFFICE O/P NEW MOD 45 MIN [id number] Diagnos is: ICD-10- CM F41.9 Anxiety disorde r, unspeci fied
VAIBHAV AARON E 05/11 [facility] [place] [facility] OFFICE O/P NEW MOD 45 MIN [id number] Diagnos is: ICD-10- CM F41.9 Anxiety disorde r, unspeci fied
GALENVAIBHAV E 05/11 [place] [facility] [place] [facility] Outpatient Encounter [id number] JAXSON MATTHEWS 05/24 [place] [facility] [place] [facility] Outpatient Encounter [id number] Diagnos is: ICD-10- CM R51.9 Headach e, unspeci fied
MIGUELITO RG SA 05/24 [place] [facility] [place] [facility] Outpatient Encounter [id number] Juan Luis CHISHOLM 05/25 [place] [facility] [place] [facility] Outpatient Encounter [id number] 06/02 [place] [facility] [place] [facility] PRO PHONE CALL 5-10 MIN [id number] Diagnos is: ICD-10- CM R51.9 Headach e, unspeci fied
LISSETH CARDOSO CCA R 06/02 [facility] Outpatient Encounter [id number] 08/18 [facility] OFFICE O/P EST MOD 30 MIN [id number] Diagnos is: ICD-10- CM Z00.00 Encntr for general adult medical exam w/o abnorma l finding s
YAJORGE,AMOS DA 08/18 [facility] Outpatient Encounter [id number] Juan Luis CHISHOLM 08/19 [facility] Outpatient Encounter [id number] LISSETH CARDOSO CCA R 08/24 [facility] PRO PHONE CALL 5-10 MIN [id number] Diagnos is: ICD-10- CM R52 Pain, unspeci fied
LISSETH CARDOSO CCA R 08/25 [facility] Outpatient Encounter [id number] 09/13 [facility] Outpatient Encounter [id number] Juan Luis CHISHOLM M 09/16 [facility] PRO PHONE CALL 5-10 MIN [id number] Diagnos is: ICD-10- CM R22.0 Localiz ed swellin g, mass and lump, head
LISSETH CARDOSO CCA R 09/22 [facility] EMERGENCY DEPT VISIT LOW MDM [id number] Diagnos is: ICD-10- CM H68.102 Unspeci fied obstruc tion of Eustach jessica tube, left ear<br/ > NESS,SYLVI A O 09/22 [place] [facility] [place] [facility] Outpatient Encounter [id number] 09/22 [place] [facility] [place] [facility] Outpatient Encounter [id number] 09/26 [place] [facility] [place] [facility] Outpatient Encounter [id number] JOSE BUSBY 10/[address] [place] [facility] Social History Combined list of available smoking, tobacco, and other social history from Department of Defense and Veterans Affairs facilities. Social History Type Response Date Comment Sour e Tobacco smoking status AKIS IL-TOBACCO NEVER USED 05/03/2023 [facility] History of tobacco use IL-TOBACCO NEVER USED 05/28/2022 [facility] History of tobacco use IL-TOBACCO NEVER USED 08/15/2021 [facility] Advance Directives List of completed, amended, or rescinded Advance Directives on record at Department of Veterans Affairs facilities. An actual copy of the Directive is not included. Date Advance Directive Provider Source 08/15/2021 [facility]
[2023-10-22 16:49] LABS: RBC Urine 0-2 (0-2); WBC Urine 0-2 (0-5)
[2023-10-22 16:55] LABS: PCR FLU A Negative PCR FLU A (Negative); PCR FLU B Negative PCR FLU B (Negative); SARS PCR* Negative SARS-CoV-2 (Negative)
[2023-10-22 16:57] LABS: Troponin I* < 0.01 ng/mL (0.01-0.04)
[2023-10-22 17:36] VITALS: BP 141/67; PULSE 58; RESP 18; O2SAT 99
[2023-10-22 17:52] LABS: Thyroid Stimulating Hormone* 0.274 uIU/mL (0.270-4.20)
== END 2023-10-22 18:12 | disposition home or self-care (01) ==
PROVIDERS: Emergency Provider Family Medicine
DX: R23.2 Flushing (principal)
CPT/HCPCS: 36415; 80048; 80076; 81001; 83605; 83735; 84443; 84484; 85025; 86308; 87086; 87631; 93005; 99283; 99284